=== PATIENT | male | born 1935 | race Caucasian/White ===

== ENCOUNTER 2016-12-04 17:39 | Inpatient (IN) ==
--- NOTE | 2016-12-04 17:56 | EKG Report ---
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
--- NOTE | 2016-12-04 18:32 | XRay Report ---
Portable chest Date: 12/04/2016 Clinical history: Dizziness, left arm pain Comparison: None Technique: Portable AP sitting chest Findings: The heart is minimally enlarged. Calcified granulomata/nodes. Small left pleural effusion with adjacent minimal parenchymal findings. Degenerative changes are noted with unremarkable mediastinum. Impression: Cardiomegaly. Small left pleural effusion with adjacent atelectasis/infiltration. Follow-up chest x-ray is recommended to document clearing. PROCEDURE INTERPRETED AT [facility] DEPARTMENT OF RADIOLOGY Final Report Signed by: Dr. Georgiana Muse
[2016-12-04 18:48] LABS: Basophils # 0.1 10*3/uL (0.0-0.2); Basophils % 1.2 % (0.0-0.8); Eosinophils # 0.3 10*3/uL (0.0-0.87); Eosinophils % 4.4 % (0.00-10.9); Hematocrit 41.3 VOL% (42.0-52.0); Hemoglobin 13.8 GM/DL (14.0-18.0); Immature Granulocytes % 0.7 %; Immature Granulocytes Absolute 0.05 #; Lymphocytes # 1.4 10*3/uL (1.4-4.0); Lymphocytes % 20.4 % (21.2-54.2); Mean Corpuscular HGB Conc 33.4 GM/DL (32-36); Mean Corpuscular Hemoglobin 34 PG (27-34); Mean Corpuscular Volume 102.5 FL (87-102); Mean Platelet Volume 10.2 FL (9.6-12.0); Monocytes # 0.6 10*3/uL (0.11-0.8); Monocytes % 8.7 % (1.7-12.7); Neutrophils # 4.4 10*3/uL (1.4-7.4); Neutrophils % 64.6 % (38.7-73.9); Platelet Count 247 T/CUMM (130-400); Red Blood Count 4.03 MC/CUMM (3.8-5.5); Red Cell Distribution Width 14.8 % (9.3-17.3); White Blood Count 6.8 T/CUMM (4-12)
[2016-12-04 18:59] LABS: INR 1.1; PT Patient Result 12.2 SECS; Partial Thromboplastin Time 40.5 SECS (0-40)
--- NOTE | 2016-12-04 19:03 | Emergency Department Note ---
IStella Hilary, am scribing for, and in the presence of, Manjeet Cohen MD 19:00. INoel Robert M, MD, personally performed the services described in this documentation, ascribed by Malorie Douglas in my presence, and it is both accurate and complete 902 . Arrival - Arrival Chief Complaint: Dizziness Stated Complaint: DIZZY/VISION/SWEATING/ARM PAIN ED Nursing Triage Note: pt to triage via wc with c/o having dizziness with unsteady gait. onset today around 1720. 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 c/o having left arm pain. nausea. Mode of Arrival: Wheelchair Limitations: No Limitations Source: Patient, Family (), RN Notes Reviewed - History of Present Illness HPI Narrative: Pt is a 81 y/o male brought into the ED with c/o dizziness which onset 1700 today. Pt states that he can't stand, the room is spinning and it worsens when he moves his head but he denies chest pain. Pts is in the room and reports giving him a sugar pill when he complained of dizziness. No other complaints or problems stated in the ED. Onset (ago): hour(s) Consistency: constant Severity: mild Severity scale (1-10): 1 Allergies/Adverse Reactions: Allergies Allergy/AdvReac Type Severity Reaction Status Date / Time levofloxacin [From Levaquin] Allergy Severe SHORTNESS Verified 12/04/16 17:48 OF BREATH,Unresponsive,Rash cephalexin [From Keflex] Allergy Intermediate hallucinati Verified 12/04/16 17: 48 ons,rash Sulfa (Sulfonamide Allergy Mild RASH Verified 12/04/16 17:48 Antibiotics) Home Medications: Home Medications Medication Instructions Recorded Confirmed Type Amiodarone HCl 200 mg PO DAILY 01/20/15 06/15/16 History Dabigatran [Pradaxa] 150 mg PO BID 01/20/15 06/15/16 History Furosemide Tab [Lasix Tab] 40 mg PO DAILY 01/20/15 06/15/16 History Levothyroxine Tab [Synthroid Tab] 100 mcg PO DAILY@0700 01/20/15 06/15/16 History Lisinopril/Hydrochlorothiazide 1 each PO DAILY 01/20/15 06/15/16 History [Lisinopril-Hctz 20-12.5 mg Tab] [place]ld[place]-3 Acid Ethyl Esters 1 gm PO DAILY 01/20/15 06/15/16 History Potassium Chloride 20 meq PO DAILY 01/20/15 06/15/16 History Ropinirole HCl [Requip] 5 mg PO BEDTIME 01/20/15 06/15/16 History dilTIAZem HCl [Diltiazem ER] 240 mg PO DAILY 01/20/15 06/15/16 History Aspirin EC Tab 81 mg PO DAILY 02/06/16 06/15/16 History Pravastatin [Pravachol] 40 mg PO DAILY 06/05/16 06/15/16 History Sitagliptin Phosphate [Januvia] 50 mg PO DAILY 06/15/16 06/15/16 History Review of System - Review of System 12 point system: reviewed and no additional remarkable complaints except as stated - Review of System Constitutional: Present: weakness, other (Dizziness). Absent: fever Cardiovascular: Absent: chest pain Neurological: Present: weakness, abnormal gait Medical,Surgical,& Family Hx - Medical History Cardio: History of: Cardiac Dysrhythmia (A-Fib history Dr. Trell MONREAL), CHF, Hypertension, PVD (Extreme Swelling), Cardiovascular Problems (Blood Clot Left Hbr-Slpzyos-Jx. Raju in [facility]) Neurology: No history of: Seizures HEENT: History of: Ear Problem (hearing aides bilateral), Eye Problem (glasses/ cataracts), HEENT Problems Comment Only: Glaucoma (Elevated Pressure) Endocrine: History of: Dyslipidemia, Thyroid Disorder Rheumatology: History of;: Gout Respiratory: History of: Obstructive Sleep Apnea (C-PAP), Respiratory Problems ( Pneum Vac 2016;Flu Vac 2016) Renal: History of: Renal Problems Genitourinary: History of: Kidney Stones, Prostate Problems (Prostate Ca- Surgery & Radiation -11/2006 Dr. Lemus), Recurring Urinary Tract Infections ( Controlled On medication) Gastrointestinal: History of: Gastrointestinal Bleed, Hemorrhoids No history of: Polyps (1999) Musculoskeletal: History of: Musculoskeletal Problems (Arthritis mild) Hematology: No history of: Anemia Other: History of: Anesthesia Reactions (Difficult with Intubating-Short Neck), Cancer (Prostate and Skin Ca) Comment Only: Anaphylaxis (Came Close with Levaquin) - Surgical History HEENT Surgeries: Surgical HX of: Eye Surgery (For Left Cataract 01/24/15 Dr. Glover) Abdominal Surgeries: Surgical HX of: Colonoscopy Reproductive Surgeries: Surgical HX of;: Genitourinary Surgery, Prostate Surgery (Prostatectomy 07/02/2002) Orthopedic Surgeries: Surgical HX of;: Orthopedic Surgery (RKS --2008 Clean Out Infection RT Knee Prosthesis), Total Knee Replacement (05/23/98 Right; 04/09/2011 Left) - Family History Family History: Reports;: Family Heart Disease (?) Denies;: Family Diabetes - Social History Smoking Status: Never smoker Frequency of Alcohol Use: None Type of Drug Use: None Exam Vital Signs: Vital Signs Temperature 97.9 F 12/04/16 19:01 Pulse Rate 50 L 12/04/16 19:13 Respiratory Rate 24 12/04/16 19:13 Blood Pressure 199/80 12/04/16 19:13 O2 Sat by Pulse Oximetry 96 12/04/16 18:58 - General General appearance: alert, in no apparent distress - Head Head exam: Present: atraumatic, normocephalic - Eye Eye exam: Present: normal appearance, PERRL, EOMI - ENT ENT exam: Present: mucous membranes moist, TM's normal bilaterally. Absent: mucous membranes dry - Neck Neck exam: Present: full ROM, trachea midline. Absent: tenderness - Chest Chest inspection: Present: symmetric chest wall rise. Absent: tenderness - Respiratory Respiratory exam: Present: normal lung sounds bilaterally. Absent: respiratory distress - Cardiovascular Cardiovascular exam: Present: regular rate, normal rhythm, normal heart sounds. Absent: murmur, rubs, gallop - Abdominal Exam Abdominal exam: Present: soft, normal bowel sounds. Absent: distention, tenderness - Extremities Exam Extremities exam: Present: full ROM, other (scaly rash on left arms). Absent: tenderness - Back Exam Back exam: Present: full ROM. Absent: tenderness - Neurological Exam Neurological exam: Present: alert, oriented X3, CN II-XII intact. Absent: motor sensory deficit - Psychiatric Psychiatric exam: Present: normal affect, normal mood - Skin Skin exam: Present: warm, dry, intact, normal color. Absent: rash Course - Reevaluation(s) Reevaluation #1: The CT was ordered at triage and performed and demonstrates no acute process other than normal chronic aging changes. Minimal left maxillary sinus disease may be present. For unknown reason it was canceled and it does not appear to have a formal interpretation. Time: 19:56 - Consultations Consultation #1: Dr. Gaby Rhodes will evaluate and admit the patient for Dr. Mcdonald. Time: 20:12 Results - Labs CBC & BMP: 12/04/16 18:39 12/04/16 18:39 Lab Results: I have reviewed the patients labs Labs: Lab Results WBC 6.8 T/CUMM (4-12) 12/04/16 18:39 RBC 4.03 MC/CUMM (3.8-5.5) 12/04/16 18:39 Hgb 13.8 GM/DL (14.0-18.0) L 12/04/16 18:39 Hct 41.3 VOL% (42.0-52.0) L 12/04/16 18:39 MCV 102.5 FL (87-102) H 12/04/16 18:39 MCH 34 PG (27-34) 12/04/16 18:39 MCHC 33.4 GM/DL (32-36) 12/04/16 18:39 RDW 14.8 % (9.3-17.3) 12/04/16 18:39 Plt Count 247 T/CUMM (130-400) 12/04/16 18:39 MPV 10.2 FL (9.6-12.0) 12/04/16 18:39 Neut % (Auto) 64.6 % (38.7-73.9) 12/04/16 18:39 Lymph % (Auto) 20.4 % (21.2-54.2) L 12/04/16 18:39 [place] % (Auto) 8.7 % (1.7-12.7) 12/04/16 18:39 Eos % (Auto) 4.4 % (0.00-10.9) 12/04/16 18:39 Baso % (Auto) 1.2 % (0.0-0.8) H 12/04/16 18:39 Neut # (Auto) 4.4 10*3/uL (1.4-7.4) 12/04/16 18:39 Lymph # (Auto) 1.4 10*3/uL (1.4-4.0) 12/04/16 18:39 [place] # (Auto) 0.6 10*3/uL (0.11-0.8) 12/04/16 18:39 Eos # (Auto) 0.3 10*3/uL (0.0-0.87) 12/04/16 18:39 Baso # (Auto) 0.1 10*3/uL (0.0-0.2) 12/04/16 18:39 Immature Gran % 0.7 % 12/04/16 18:39 Nucleated RBC % 0.0 /100WBC 12/04/16 18:39 Immature Gran # 0.05 # 12/04/16 18:39 Nucleated RBCs # 0.00 10*3/uL 12/04/16 18:39 INR 1.1 12/04/16 18:39 PT Patient/Control Mix 12.2 SECS 12/04/16 18:39 Circ Anticoag PTT 40.5 SECS (0-40) H 12/04/16 18:39 Sodium 141 MMOL/L (136-145) 12/04/16 18:39 Potassium 4.5 MMOL/L (3.5-5.1) 12/04/16 18:39 Chloride 104 MMOL/L (98-107) 12/04/16 18:39 Carbon Dioxide 33 MMOL/L (21-32) H 12/04/16 18:39 Anion Gap 8.5 MMOL/L (5.0-15.0) 12/04/16 18:39 BUN 21 MG/DL (7-18) H 12/04/16 18:39 Creatinine 1.30 MG/DL (0.70-1.30) 12/04/16 18:39 GFR Calculation 74 ML/MIN 12/04/16 18:39 BUN/Creatinine Ratio 16.00 RATIO (6.00-20.00) 12/04/16 18:39 Glucose 177 MG/DL (74-106) H 12/04/16 18:39 Calculated Osmolality 287.3 MOS/KG (273-304) 12/04/16 18:39 Calcium 9.5 MG/DL (8.5-10.1) 12/04/16 18:39 Total Bilirubin 0.40 MG/DL (0.2-1.0) 12/04/16 18:39 AST 18 U/L (0-37) 12/04/16 18:39 ALT 20 U/L (16-61) 12/04/16 18:39 Alkaline Phosphatase 103 U/L (45-117) 12/04/16 18:39 Total Creatine Kinase 59 U/L (39-308) 12/04/16 18:39 CK-MB (CK-2) < 1.0 NG/ML (0.5-3.6) 12/04/16 18:39 Troponin I < 0.015 NG/ML (0.00-0.045) 12/04/16 18:39 B-Natriuretic Peptide 143 PG/ML (2-100) H 12/04/16 18:39 Total Protein 7.2 G/DL (6.4-8.3) 12/04/16 18:39 Albumin 3.4 G/DL (3.4-5.0) 12/04/16 18:39 Globulin 3.8 G/DL (2.3-3.5) H 12/04/16 18:39 Albumin/Globulin Ratio 0.8 RATIO (1.1-2.2) L 12/04/16 18:39 - EKG EKG results: interpreted by ERMD (No acute ischemic changes.) - Diagnostic Findings Procedure: CT: image reviewed by me (No acute process.) Disposition Clinical Impression: Transient cerebral ischemia, Weakness Case discussed with: patient, patient's family Disposition: Disch To Home/Self Care Condition: Stable Time of Disposition: 20:12
[2016-12-04 19:23] LABS: Alanine Aminotransferase 20 U/L (16-61); Albumin 3.4 G/DL (3.4-5.0); Alkaline Phosphatase 103 U/L (45-117); Aspartate Amino Transferase 18 U/L (0-37); Blood Urea Nitrogen 21 MG/DL (7-18); Calcium 9.5 MG/DL (8.5-10.1); Glucose 177 MG/DL (74-106); Osmolality,Calculated 287.3 MOS/KG (273-304); Potassium 4.5 MMOL/L (3.5-5.1); Sodium 141 MMOL/L (136-145); Total Protein 7.2 G/DL (6.4-8.3); Troponin I Only < 0.015 NG/ML (0.00-0.045)
[2016-12-04] MEDS ORDERED: MECLIZINE 25 MG TABLET PO STA (19:57)
--- NOTE | 2016-12-04 20:04 | CT Report ---
Referring physician: Manjeet Cohen Exam: CT brain without contrast Date: 12/04/2016 Comparison: None Reason: Dizziness Technique: Axial images of the head were obtained without the use of contrast. Total DLP was 1053.40 mGy*cm. Findings: No hydrocephalus or midline shift is present. There is no evidence of an acute infarction, recent intracranial hemorrhage or abnormal mass effect. Diffuse atrophy and cerebral hypodensities. Arterial calcifications are noted. The osseous structures appear intact. The mastoid air cells are clear. Minimal mucosal thickening in the visualized paranasal sinuses. Impression: No acute intracranial abnormality is identified. Diffuse cerebral atrophy and minimal microvascular disease. Minimal sinusitis. The CT exam was performed using one or more of the following dose reduction techniques: Automated exposure control and adjustment of the mA and/or kV according to patient size. PROCEDURE INTERPRETED AT [facility] DEPARTMENT OF RADIOLOGY Final Report Signed by: Dr. Georgiana Muse
[2016-12-04] MEDS ORDERED: ONDANSETRON 4 MG/2 ML VIAL IV PRN (20:14)
[2016-12-04] MEDS ORDERED: ACETAMINOPHEN 325 MG TABLET PO PRN (20:14)
[2016-12-04] MEDS ORDERED: MECLIZINE 25 MG TABLET ONE (20:17)
[2016-12-04] MEDS ORDERED: cloNIDine 0.1 MG TABLET PO STA (20:53)
[2016-12-04] MEDS ORDERED: cloNIDine 0.1 MG TABLET ONE (20:56)
[2016-12-04] MEDS: DOCUSATE SODIUM 100 MG CAPSULE PO SCH (22:27)
[2016-12-05] MEDS ORDERED: rOPINIRole 1 MG TABLET PO SCH ×3 (01:30→21:00)
[2016-12-05] MEDS ORDERED: MIDAZOLAM 2 MG/2 ML VIAL ONE (07:10)
[2016-12-05] MEDS ORDERED: KETOCONAZOLE 2% CREAM 30 GM TUBE TOP PRN (08:38)
--- NOTE | 2016-12-05 08:46 | Internal Med History&Physical ---
Assessment and Plan (1) Transient cerebral ischemia Status: Acute Assessment and plan: 81-year-old male admitted to acute care * TIA. Etiology is not clear. Patient has no focal signs at this time. He could have had labyrinthitis versus TIA. Patient has history of chronic A. fib. Will get neurology input. Will check echocardiogram carotid ultrasound and MRI of brain. He is already on anticoagulation. * Diabetes. Blood sugars are stable * Hypertension. Continue current treatment. His blood pressure was high when he came to the ER * Peripheral vascular disease. Stable * Obstructive sleep apnea. 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 Patient is on anticoagulation * Discussed with patient and his Current Visit: Yes (2) Diabetes Status: Acute Current Visit: Yes (3) Hypertension Status: Acute Current Visit: Yes (4) Atrial fibrillation Status: Acute Current Visit: Yes (5) Restless leg syndrome Status: Acute Current Visit: Yes (6) Chronic a-fib Status: Acute Current Visit: Yes (7) Chronic anticoagulation Status: Acute Current Visit: Yes (8) Peripheral vascular disease Status: Acute Current Visit: Yes History of Present Illness Chief complaint: Dizziness and weakness associated with changes in vision History of present illness: Mr. Chavez is a 81 year old male with history of multiple medical problems including newly diagnosed diabetes, hypertension, hypothyroidism, peripheral vascular disease, chronic atrial fibrillation,, restless leg syndrome, obstructive sleep apnea and history of pulmonary embolism who presented to the emergency room complains of dizziness with unsteady gait. This started around 520 in the evening. He got really pale and started sweating. He also had left arm pain and associated nausea. He was unable to stand up. When he got up the room was spinning around. He complained of dizziness. He denied any headaches. Patient was evaluated with a CT head and was admitted. He had some pain in left arm but denied any chest pain. Patient had some blurred vision but denies any focal weakness. He did not have slurred speech. He did not have any fever. He denied any nausea vomiting or diarrhea. He had gone to Dr. Schwartz for some skin problems yesterday. He lives at home with his . He is a former smoker. Home Medications Medication Instructions Recorded Confirmed Type Amiodarone HCl 200 mg PO DAILY 01/20/15 12/05/16 History Dabigatran [Pradaxa] 150 mg PO BID 01/20/15 12/05/16 History Furosemide Tab [Lasix Tab] 40 mg PO DAILY 01/20/15 12/05/16 History Levothyroxine Tab [Synthroid Tab] 100 mcg PO DAILY@0700 01/20/15 12/05/16 History Lisinopril/Hydrochlorothiazide 1 each PO DAILY 01/20/15 12/05/16 History [Lisinopril-Hctz 20-12.5 mg Tab] [place]-3 Acid Ethyl Esters 1 gm PO DAILY 01/20/15 12/05/16 History Potassium Chloride 20 meq PO DAILY 01/20/15 12/05/16 History Ropinirole HCl [Requip] 5 mg PO BEDTIME 01/20/15 12/05/16 History dilTIAZem HCl [Diltiazem ER] 240 mg PO DAILY 01/20/15 12/05/16 History Aspirin EC Tab 81 mg PO DAILY 02/06/16 12/05/16 History Pravastatin [Pravachol] 40 mg PO DAILY 06/05/16 12/05/16 History Allopurinol [Zyloprim] 300 mg PO DIRECTED 12/05/16 12/05/16 History Calcium Carbonate/Vitamin D3 600 mg PO 12/05/16 History [Calcium 600 + Vit D Tablet] Ketoconazole [Ketoconazole 2% 1 applic TOP DIRECTED PRN 12/05/16 12/05/16 History Cream] Saxagliptin HCl [Onglyza] 2.5 mg PO DAILY 12/05/16 12/05/16 History Allergies Allergy/AdvReac Type Severity Reaction Status Date / Time levofloxacin [From Levaquin] Allergy Severe SHORTNESS Verified 12/04/16 17:48 OF BREATH,Unresponsive,Rash cephalexin [From Keflex] Allergy Intermediate hallucinati Verified 12/04/16 17: 48 ons,rash Sulfa (Sulfonamide Allergy Mild RASH Verified 12/04/16 17:48 Antibiotics) Medical,Surgical,& Family Hx - Medical History Cardio: History of: Cardiac Dysrhythmia (A-Fib history Dr. Trell MONREAL), CHF, Hypertension, PVD (Extreme Swelling), Cardiovascular Problems (Blood Clot Left Vhb-Uttssqc-Ds. Raju in [facility]) Neurology: No history of: Seizures HEENT: History of: Ear Problem (hearing aides bilateral), Eye Problem (glasses/ cataracts), HEENT Problems Comment Only: Glaucoma (Elevated Pressure) Endocrine: History of: Dyslipidemia, Thyroid Disorder Rheumatology: History of;: Gout Respiratory: History of: Obstructive Sleep Apnea (C-PAP), Respiratory Problems ( Pneum Vac 2015;Flu Vac 2015) Renal: History of: Renal Problems Genitourinary: History of: Kidney Stones, Prostate Problems (Prostate Ca- Surgery & Radiation Dr. Lemus), Recurring Urinary Tract Infections ( Controlled On medication) Gastrointestinal: History of: Gastrointestinal Bleed, Hemorrhoids No history of: Polyps (1999) Musculoskeletal: History of: Musculoskeletal Problems (Arthritis mild) Hematology: No history of: Anemia Other: History of: Anesthesia Reactions (Difficult with Intubating-Short Neck), Cancer (Prostate and Skin Ca) Comment Only: Anaphylaxis (Came Close with Levaquin) - Surgical History HEENT Surgeries: Surgical HX of: Eye Surgery (For Left Cataract 01/24/15 Dr. Glover) Abdominal Surgeries: Surgical HX of: Colonoscopy Reproductive Surgeries: Surgical HX of;: Genitourinary Surgery, Prostate Surgery (Prostatectomy 07/02/2002) Orthopedic Surgeries: Surgical HX of;: Orthopedic Surgery (RKS --2008 Clean Out Infection RT Knee Prosthesis), Total Knee Replacement (05/23/98 Right; 04/09/2011 Left) - Family History Family History: Reports;: Family Diabetes (BRO), Family Heart Disease (MOM,DAD) , Family Hypertension (BRO,SIS) Denies;: Family Anesthesia Reaction, Family Cancer, Family Hematology, Family Psychiatric Problems, Family Stroke, Additional Family History - Social History Smoking Status: Former smoker Frequency of Alcohol Use: None Type of Drug Use: None Marital Status: Lives With:: Spouse Functional capacity: independent ambulation 12 point system: reviewed and no additional remarkable complaints except as stated (As mentioned in HPI) Exam - Constitutional Vitals: Period Temp Pulse Resp BP Sys/Mitchell Pulse Ox Last 24 Hr 97.2 F-97.9 F 50-57 17-24 110-199/57-96 91-98 Exam: Examination: GENERAL: NAD. HEENT: PERRLA. EOMI. Mucous membranes are moist. NECK: Neck is supple. No JVD. No carotid bruit. No thyromegaly. CVS: Regular rate and rhythm. S1 and S2 are normal. RESPIRATORY: Lungs are clear. No rales or rhonchi. ABDOMEN: Soft and nontender. Bowel sounds are present. No hepatosplenomegaly. EXT: 3+ chronic edema. Peripheral pulses are present. 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 Cranial nerves II through XII are grossly intact. Motor strength is 5 over 5 both upper and lower extremities. Sensory is intact. Deep tendon reflexes are present but diminished. SKIN: Warm and dry. MSK: No obvious deformity. Results - Labs CBC & BMP: 12/04/16 18:39 12/04/16 18:39 Lab Results: I have reviewed the past 24 hour labs
[2016-12-05] MEDS ORDERED: sitaGLIPtin 100 MG TABLET PO SCH (09:00)
[2016-12-05] MEDS ORDERED: ALLOPURINOL 300 MG TABLET PO SCH (09:30)
--- NOTE | 2016-12-05 10:18 | XRay Report ---
XR chest 1V portable Indication: Pleural effusion Comparison: 04 December 2016 Findings: The heart and mediastinum are normal in size and configuration. The pulmonary vascularity is normal in caliber. No lung infiltrates, effusions, pneumothorax or other abnormality is demonstrated. Impression: No acute cardiopulmonary disease. PROCEDURE INTERPRETED AT [facility] DEPARTMENT OF RADIOLOGY Final Report Signed by: Dr. Roberto German
[2016-12-05] MEDS: OMEGA 3 ACID ETHYL ESTERS 1 GM CAPSULE PO SCH (10:57)
[2016-12-05] MEDS: PANTOPRAZOLE 40 MG TABLET PO SCH (10:59)
[2016-12-05] MEDS: ASPIRIN EC 81 MG TABLET PO SCH (10:59)
[2016-12-05] MEDS: LISINOPRIL/HCTZ 20-12.5 MG TABLET PO SCH (11:06)
[2016-12-05] MEDS: FUROSEMIDE 40 MG TABLET PO SCH (11:06)
[2016-12-05] MEDS: AMIODARONE 200 MG TABLET PO SCH (11:06)
[2016-12-05] MEDS: DOCUSATE SODIUM 100 MG CAPSULE PO SCH ×2 (11:06→21:31)
[2016-12-05] MEDS: DILTIAZEM CD 240 MG CAPSULE PO SCH (11:07)
[2016-12-05] MEDS: POTASSIUM CHLORIDE 20 MEQ TABLET PO SCH (11:07)
[2016-12-05] MEDS: DABIGATRAN 150 MG CAPSULE PO SCH ×2 (11:13→21:31)
[2016-12-05] MEDS: PRAVASTATIN 40 MG TABLET PO SCH (11:14)
[2016-12-05] MEDS: sitaGLIPtin 100 MG TABLET PO SCH (11:19)
--- NOTE | 2016-12-05 12:30 | Ultrasound Report ---
Carotid artery ultrasound Indication: Transient ischemic attack Comparison: None available Color Doppler flow and spectral analysis was performed. Findings: Small amount of atherosclerotic plaque with calcification is present in both proximal internal carotid arteries. Right peak systolic velocity: Right proximal Internal Carotid Artery is 116.8 cm/s. Ratio of flow is 1.0 Right distal Internal Carotid is 110.3 cm/s . Left peak systolic velocity: Left proximal Internal carotid Artery is 132.7 cm/s . Ratio of flow is 1.3 Left distal Internal carotid Artery is 158.7cm/s Bilateral antegrade vertebral flow is seen. Impression: No evidence of hemodynamically significant stenosis is seen, 0-49% estimated stenosis. Consensus conference on the carotid ultrasound criteria used. Ultrasound images were captured and stored. PROCEDURE INTERPRETED AT [facility] DEPARTMENT OF RADIOLOGY Final Report Signed by: Dr. Roberto German
--- NOTE | 2016-12-05 14:51 | Magnetic Resonance Report ---
MR head/brain wo con Indication: TIA. Comparison: CT head 12/04/2016. Technique: Using 1.5 Negra magnet, multisequence multiplanar MR imaging of the brain was performed without the administration of intravenous contrast. Findings: There is no evidence of restricted diffusion. There is no evidence of acute intracranial hemorrhage, mass, or infarction. Ventricular system demonstrates no evidence of acute pathology. Partially empty sella is present on the sagittal sequence. Scattered T2/FLAIR signal hyperintensities are noted bilaterally within the periventricular white matter as well as the bilateral centrum semiovale. These are most compatible with microvascular ischemic changes. The basal cisterns appear patent. The arterial flow voids appear intact. The posterior fossa as well as cerebellum demonstrate no evidence of acute pathology. Previous surgical repair of left lenticular cataract is demonstrated. The orbits and globes demonstrate no evidence of acute pathology. The paranasal sinuses and mastoid air cells demonstrate no evidence of significant mucoperiosteal thickening. The calvarium as well as the soft tissues overlying the calvarium demonstrate no evidence of acute pathology. Within the left parotid gland, there is a lobulated focus of intermediate to low T1 signal with corresponding increase signal on fluid sensitive sequences. This measures 11 x 16 mm. Impression: 1. There is no evidence of acute intracranial pathology. 2. 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 12/05/2016 2:45 PM PROCEDURE INTERPRETED AT [facility] DEPARTMENT OF RADIOLOGY Final Report Signed by: Dr. Burak Cohen
--- NOTE | 2016-12-05 15:53 | Neurology Consult Note ---
History of Present Illness History of present illness: Mr. Chavez is a 81 year old male with history of multiple medical problems including newly diagnosed diabetes, hypertension, hypothyroidism, peripheral vascular disease, chronic atrial fibrillation,, restless leg syndrome, obstructive sleep apnea and history of pulmonary embolism who presented to the emergency room complains of sudden onset of vertigo d and unsteady gait. This started around 520 in the evening. He got really pale and started sweating. Patient also had a history of left ulnar nerve reposition surgery at the elbow long time ago and ever since he had residual left arm numbness. Patient reported that this numbness has not gone away and it is associated with some element of pain as well. He had some nausea with no vomiting. He was unable to stand up. When he got up the room was spinning around him. Patient underwent CT of the head which was unremarkable. An MRI of the brain reveals no acute abnormalities. No speech difficulties no swallowing problems, weakness , vision difficulties. His symptoms had resolved completely. Home Medications Medication Instructions Recorded Confirmed Type Amiodarone HCl 200 mg PO DAILY 01/20/15 12/05/16 History Dabigatran [Pradaxa] 150 mg PO BID 01/20/15 12/05/16 History Furosemide Tab [Lasix Tab] 40 mg PO DAILY 01/20/15 12/05/16 History Levothyroxine Tab [Synthroid Tab] 100 mcg PO DAILY@0700 01/20/15 12/05/16 History Lisinopril/Hydrochlorothiazide 1 each PO DAILY 01/20/15 12/05/16 History [Lisinopril-Hctz 20-12.5 mg Tab] Dexter-3 Acid Ethyl Esters 1 gm PO DAILY 01/20/15 12/05/16 History Potassium Chloride 20 meq PO DAILY 01/20/15 12/05/16 History Ropinirole HCl [Requip] 5 mg PO BEDTIME 01/20/15 12/05/16 History dilTIAZem HCl [Diltiazem ER] 240 mg PO DAILY 01/20/15 12/05/16 History Aspirin EC Tab 81 mg PO DAILY 02/06/16 12/05/16 History Pravastatin [Pravachol] 40 mg PO DAILY 06/05/16 12/05/16 History Allopurinol [Zyloprim] 300 mg PO MOWEFR 12/05/16 12/05/16 History Calcium Carbonate 600 mg PO DAILY 12/05/16 12/05/16 History Cholecalciferol [Vitamin D3] 1,000 unit PO DAILY 12/05/16 12/05/16 History Ketoconazole [Ketoconazole 2% 1 applic TOP DIRECTED PRN 12/05/16 12/05/16 History Cream] Saxagliptin HCl [Onglyza] 2.5 mg PO DAILY 12/05/16 12/05/16 History Allergies Allergy/AdvReac Type Severity Reaction Status Date / Time levofloxacin [From Levaquin] Allergy Severe SHORTNESS Verified 12/04/16 17:48 OF BREATH,Unresponsive,Rash cephalexin [From Keflex] Allergy Intermediate hallucinati Verified 12/04/16 17: 48 ons,rash Sulfa (Sulfonamide Allergy Mild RASH Verified 12/04/16 17:48 Antibiotics) 12 point system: reviewed and no additional remarkable complaints except as stated Medical,Surgical,& Family Hx - Medical History Cardio: History of: Cardiac Dysrhythmia (A-Fib history Dr. Trell MONREAL), CHF, Hypertension, PVD (Extreme Swelling), Cardiovascular Problems (Blood Clot Left Tgd-[id number]-Ng. Raju in [facility]) Neurology: No history of: Seizures HEENT: History of: Ear Problem (hearing aides bilateral), Eye Problem (glasses/ cataracts), HEENT Problems Comment Only: Glaucoma (Elevated Pressure) Endocrine: History of: Dyslipidemia, Thyroid Disorder Rheumatology: History of;: Gout Respiratory: History of: Obstructive Sleep Apnea (C-PAP), Respiratory Problems ( Pneum Vac 2016;Flu Vac 2015) Renal: History of: Renal Problems Genitourinary: History of: Kidney Stones, Prostate Problems (Prostate Ca- Surgery & Radiation Dr. Lemus), Recurring Urinary Tract Infections ( Controlled On medication) Gastrointestinal: History of: Gastrointestinal Bleed, Hemorrhoids No history of: Polyps (1999) Musculoskeletal: History of: Musculoskeletal Problems (Arthritis mild) Hematology: No history of: Anemia Other: History of: Anesthesia Reactions (Difficult with Intubating-Short Neck), Cancer (Prostate and Skin Ca) Comment Only: Anaphylaxis (Came Close with Levaquin) - Surgical History HEENT Surgeries: Surgical HX of: Eye Surgery (For Left Cataract 01/24/15 Dr. Glover) Abdominal Surgeries: Surgical HX of: Colonoscopy Reproductive Surgeries: Surgical HX of;: Genitourinary Surgery, Prostate Surgery (Prostatectomy 07/02/2002) Orthopedic Surgeries: Surgical HX of;: Orthopedic Surgery (RKS - Clean Out Infection RT Knee Prosthesis), Total Knee Replacement (05/23/98 Right; 04/09/2011 Left) - Family History Family History: Reports;: Family Diabetes (BRO), Family Heart Disease (MOM,DAD) , Family Hypertension (BRO,SIS) Denies;: Family Anesthesia Reaction, Family Cancer, Family Hematology, Family Psychiatric Problems, Family Stroke, Additional Family History - Social History Smoking Status: Former smoker Frequency of Alcohol Use: None Type of Drug Use: None Exam - Constitutional Vitals: Period Temp Pulse Resp BP Sys/Mitchell Pulse Ox Last 24 Hr 97.2 F-97.9 F 50-72 17-24 110-199/57-96 91-98 Exam: GENERAL: Patient is in no acute distress. NECK: Neck is supple. There is no JVD. No carotid bruits present. No thyroid masses. CVS: First and second heart sounds are normal. There is no S3 present. Regular rate and rhythm. RESPIRATORY: Lungs are clear to auscultation without any rales or rhonchi. ABDOMEN: Soft and non-tender. Bowel sounds are present. There is no hepatosplenomegaly. EXT: There is 4+ palpable edema. Peripheral pulses are present. Skin: No rashes Central Nervous system: General: Alert, awake and Oriented x 3 Speech: Fluent Comprehension: Intact and normal Facial expressions: Normal Cranial Nerves: CN1/Olfactory: Normal CN II/ Optic: Normal, Visual Jones unreliable CN III, and : SERENITY & EOMI CN V: Normal & intact CN VII: face is symmetric CNVIII: Normal CN XI/X/XI/XII: Intact and Normal Motor: Bilateral FDI and intrinsic hand muscles atrial Strength in the right 4/5 Strength in the left 4/5 Sensory: Decreased for all the modalities of PP, LT and temp sense Reflexes: 1+ and symmetrical Cerebellar function: Normal finger to nose and heel to begum testing. Toes: Equivocal Gait: Broad-based gait Results - Labs CBC & BMP: 12/04/16 18:39 12/04/16 18:39 Assessment and Plan (1) Vestibular neuronitis Status: Acute Assessment and plan: No evidence of a stroke, TIAs, epilepsy or seizures. This is most likely vestibular neuritis. Discussed at length with the patient and his regarding the disease process , treatment options and prognosis. Recommend Antivert 25 mg 3 times daily as needed. Would not recommend steroids because of brittle diabetes and diabetes complications Navid's maneuver/treatment as an outpatient might be helpful Current Visit: Yes (2) Neuropathic pain of finger of left hand Status: Acute Assessment and plan: Add Neurontin 300 mg p.o. at bedtime Thank you for the consult Should be able to go home in the morning Current Visit: Yes
[2016-12-05] MEDS ORDERED: MECLIZINE 25 MG TABLET PO PRN (15:58)
--- NOTE | 2016-12-05 17:02 | ECHO Report ---
Katrin Chavez 12/05/2016 Exam Date: 15:46 Referring Physician: gricelda Norman Technologist: STEFFANY LEE Age: 81 Ht (in): 70 Wt (lb): 303 MExam Location: [facility] Gender: Echo [id number]: Essential (primary) hypertension, AtIndications:rial fibrillation, Diabetes, PVD, Transient cerebral ischemia, Restless leg syndrome, Chronic anticoagulation BP: 150 / 72 HR: 60 SinusRhythm: Technical Quality: IMPRESSIONS Left ventricular ejection fraction is estimated at 60 %. Diastolic parameters are most consistent with grade 2 diastolic dysfunction. There is no regional wall motion abnormality. Tricuspid regurgitation velocities suggest a RVSP of 24 mmHg. Biatrial enlargement Mild aortic stenosis, senescent with mean gradient of 14 mmHg and a aortic valve area estimated 1.6 cm MEASUREMENTS (Male / Female) Normal Values 2D ECHO LV Diastolic Diameter PLAX 5.0 cm 4.2 - 5.9 / 3.9 - 5.3 cm LV Systolic Diameter PLAX 3.3 cm LV Fractional Shortening PLAX 33.9 % IVS Diastolic Thickness 1.1 cm 0.6 - 1.0 / 0.6 - 0.9 cm LVPW Diastolic Thickness 1.2 cm 0.6 - 1.0 / 0.6 - 0.9 cm RV Internal Dim ED PLAX 3.9 cm Aortic Root Diameter 4.2 cm LA Systolic Diameter LX 5.3 cm 3.0 - 4.0 / 2.7 - 3.8 cm DOPPLER TR Peak Velocity 243.0 cm/s TR Peak Gradient 23.6 mmHg FINDINGS Left Ventricle Normal left ventricular cavity size. Mild left ventricular hypertrophy. Left ventricular ejection fraction is estimated at 60 %. Diastolic parameters are most consistent with grade 2 diastolic dysfunction. There is no regional wall motion abnormality. Right Ventricle The right ventricle is normal in size and function. Right Atrium Mild atrial enlargement in apical view (elongated RA). Left Atrium Mild atrial enlargement in apical view (elongated LA). Mitral Valve Mildly thickened mitral valve. Mild mitral valve regurgitation. Aortic Valve Mild aortic valve calcification. Mean gradient 14 mmHg, PASTORA 1.6 cm. No aortic valve regurgitation. Maximum velocity across the valve is 2.63 m/s with a VTI of 61.6 and mean gradient of 14. The LVOT VTI is 31.7 with a maximum velocity 1.18 cm. This appears to be senescent mitral stenosis with calcified valve leaflets Tricuspid Valve Morphologically normal tricuspid valve. Mild tricuspid valve regurgitation. Tricuspid regurgitation velocities suggest a RVSP of 24 mmHg. Pulmonic Valve Morphologically normal pulmonic valve without significant stenosis. There is no pulmonic regurgitation. Pericardium Normal pericardium without effusion. Aorta Normal ascending aorta dimension. Maribel Weller (Electronically Signed) 05 December 2016 Final Date: 17:01
[2016-12-05] MEDS ORDERED: GABAPENTIN 300 MG CAPSULE PO SCH (21:00)
[2016-12-06 03:33] LABS: Apearance,Urine CLEAR (Clear); Bilirubin,Urine Negative (Negative); Blood, Urine Small mg/dL (Negative); Glucose,Urine (UA) Negative (Negative); Hyaline Casts,Urine 1 /LPF (0-3); Ketones,Urine Negative (Negative); Nitrite,Urine Negative (Negative); Protein,Urine 30 MG/DL; RBC,Urine 2 /HPF (0-4); Squamous Epithelial Cell,Urine Occasional /HPF (0-10); Urine Color Straw (Yellow); Urine Specific Gravity 1.009 (1.001-1.035); Urine Urobilinogen < 2.0 EU/DL (0.2-1.0); WBC,Urine <1 /HPF (0-6)
[2016-12-06 07:00] LABS: Basophils # 0.1 10*3/uL (0.0-0.2); Basophils % 0.9 % (0.0-0.8); Eosinophils # 0.4 10*3/uL (0.0-0.87); Eosinophils % 6.5 % (0.00-10.9); Hemoglobin 12.8 GM/DL (14.0-18.0); Immature Granulocytes % 0.9 %; Immature Granulocytes Absolute 0.06 #; Lymphocytes # 1.5 10*3/uL (1.4-4.0); Lymphocytes % 23.5 % (21.2-54.2); Mean Corpuscular HGB Conc 32.8 GM/DL (32-36); Mean Corpuscular Hemoglobin 34 PG (27-34); Mean Corpuscular Volume 103.4 FL (87-102); Mean Platelet Volume 10.7 FL (9.6-12.0); Monocytes # 0.7 10*3/uL (0.11-0.8); Neutrophils # 3.6 10*3/uL (1.4-7.4); Neutrophils % 57.2 % (38.7-73.9); Platelet Count 244 T/CUMM (130-400); Red Blood Count 3.77 MC/CUMM (3.8-5.5); Red Cell Distribution Width 14.9 % (9.3-17.3); White Blood Count 6.4 T/CUMM (4-12)
[2016-12-06] MEDS ORDERED: LEVOTHYROXINE 100 MCG TABLET PO SCH (07:00)
[2016-12-06 07:27] LABS: Calcium 8.6 MG/DL (8.5-10.1); Potassium 4.3 MMOL/L (3.5-5.1)
[2016-12-06 07:39] VITALS: BP 132/65
--- NOTE | 2016-12-06 07:45 | Discharge Summary ---
Hospital Course - Hospital Course Hospital Course: 81-year-old male with history of diabetes, hypertension, hypothyroidism, peripheral vascular disease, chronic A. fib, restless leg syndrome, obstructive sleep apnea and history of pulmonary embolism who was admitted through the emergency room with sudden onset of vertigo and unsteady gait. Patient was evaluated with echocardiogram, carotid ultrasound and MRI of brain. He was no evidence of any stroke or TIA. It was felt that patient might have had vestibular neuritis. He was started on Antivert 3 times a day as needed. He was also given instructions on vestibular exercises. He was having some neuropathic pain in the left hand and was started on Neurontin 300 mg daily. Patient is ready for discharge home. He feels much better. His medications on discharge are listed. He will see me in office on his next scheduled appointment in mid December. Diagnosis - Discharge Diagnosis (1) Transient cerebral ischemia Status: Acute (2) Diabetes Status: Acute (3) Hypertension Status: Acute (4) Atrial fibrillation Status: Acute (5) Restless leg syndrome Status: Acute (6) Chronic a-fib Status: Acute (7) Chronic anticoagulation Status: Acute (8) Peripheral vascular disease Status: Acute Discharge Plan - Discharge Data Disposition: Disch To Home/Self Care Condition at Discharge: Stable Discharge Diet: advance to your usual diet Activity: resume usual activities as tolerated - Discharge Medications New Gabapentin Cap/Tab [Neurontin Cap/Tab] 300 mg PO BEDTIME #30 capsule Meclizine [Antivert] 25 mg PO TID PRN #30 tablet PRN Reason: Dizziness Continue Ropinirole HCl [Requip] 5 mg PO DAILY@1700 Levothyroxine Tab [Synthroid Tab] 100 mcg PO DAILY@0700 Zirconia-3 Acid Ethyl Esters 1 gm PO DAILY Dabigatran [Pradaxa] 150 mg PO BID Potassium Chloride 20 meq PO DAILY Furosemide Tab [Lasix Tab] 40 mg PO DAILY dilTIAZem HCl [Diltiazem 24Hr ER] 240 mg PO DAILY Amiodarone HCl 200 mg PO DAILY Lisinopril/Hydrochlorothiazide [Lisinopril-Hctz 20-12.5 mg Tab] 1 each PO DAILY Aspirin EC Tab 81 mg PO DAILY Allopurinol [Zyloprim] 300 mg PO MOWEFR Ketoconazole [Ketoconazole 2% Cream] 1 applic TOP DIRECTED PRN PRN Reason: Rash Pravastatin [Pravachol] 40 mg PO DAILY Saxagliptin HCl [Onglyza] 2.5 mg PO DAILY Cholecalciferol [Vitamin D3] 1,000 unit PO DAILY Calcium Carbonate 600 mg PO DAILY - Follow Up or Referral - Forms/Instructions Additional Discharge Instructions: Keep the appointment as scheduled for december. Call in new medications on discharge Exam - Constitutional Vitals: Period Temp Pulse Resp BP Sys/Mitchell Pulse Ox Last 24 Hr 97.5 F-98.2 F 51-72 17-22 132-162/65-77 93-98 Exam: Examination: GENERAL: NAD. NECK: Neck is supple. CVS: Regular rate and rhythm. S1 and S2 are normal. RESPIRATORY: Lungs are clear. No rales or rhonchi. ABDOMEN: Soft and nontender. EXT: 3+ chronic edema. Peripheral pulses are present. [employer]PER[employer]OR [employer] SHOP: Nonfocal MSK: No obvious deformity. Discharge Results Labs on day of discharge: Labs from last 24 hours 12/06/16 12/06/16 12/06/16 06:41 05:44 05:44 WBC 6.4 RBC 3.77 L Hgb 12.8 L Hct 39.0 L MCV 103.4 H MCH 34 MCHC 32.8 RDW 14.9 Plt Count 244 MPV 10.7 Neut % (Auto) 57.2 Lymph % (Auto) 23.5 [place] % (Auto) 11.0 Eos % (Auto) 6.5 Baso % (Auto) 0.9 H Neut # (Auto) 3.6 Lymph # (Auto) 1.5 [place] # (Auto) 0.7 Eos # (Auto) 0.4 Baso # (Auto) 0.1 Immature Gran % 0.9 Nucleated RBC % 0.0 Immature Gran # 0.06 Nucleated RBCs # 0.00 Sodium 143 Potassium 4.3 Chloride 103 Carbon Dioxide 34 H Anion Gap 10.3 BUN 25 H Creatinine 1.60 H GFR Calculation 58 BUN/Creatinine Ratio 15.00 Glucose 145 H POC Glucose 137 H Calculated Osmolality 291.0 Calcium 8.6 Urine Color Urine Appearance Urine pH Ur Specific [place] Urine Protein Urine Glucose (UA) Urine Ketones Urine Blood Urine Nitrate Urine Bilirubin Urine Urobilinogen Urine Leukocytes Urine RBC Urine WBC Ur Squamous Epith Cells Hyaline Casts Ur Culture Indicated? 12/05/16 12/05/16 12/05/16 20:35 17:06 06:58 WBC RBC Hgb Hct MCV MCH MCHC RDW Plt Count MPV Neut % (Auto) Lymph % (Auto) [place] % (Auto) Eos % (Auto) Baso % (Auto) Neut # (Auto) Lymph # (Auto) [place] # (Auto) Eos # (Auto) Baso # (Auto) Immature Gran % Nucleated RBC % Immature Gran # Nucleated RBCs # Sodium Potassium Chloride Carbon Dioxide Anion Gap BUN Creatinine GFR Calculation BUN/Creatinine Ratio Glucose POC Glucose 178 H 167 H Calculated Osmolality Calcium Urine Color Straw Urine Appearance Clear Urine pH 5.0 Ur Specific [place] 1.009 Urine Protein 30 Urine Glucose (UA) Negative Urine Ketones Negative Urine Blood Small Urine Nitrate Negative Urine Bilirubin Negative Urine Urobilinogen < 2.0 H Urine Leukocytes Negative Urine RBC 2 Urine WBC <1 Ur Squamous Epith Cells Occasional Hyaline Casts 1 Ur Culture Indicated? Not indicated 12/04/16 18:04 WBC RBC Hgb Hct MCV MCH MCHC RDW Plt Count MPV Neut % (Auto) Lymph % (Auto) [place] % (Auto) Eos % (Auto) Baso % (Auto) Neut # (Auto) Lymph # (Auto) [place] # (Auto) Eos # (Auto) Baso # (Auto) Immature Gran % Nucleated RBC % Immature Gran # Nucleated RBCs # Sodium Potassium Chloride Carbon Dioxide Anion Gap BUN Creatinine GFR Calculation BUN/Creatinine Ratio Glucose POC Glucose 185 H Calculated Osmolality Calcium Urine Color Urine Appearance Urine pH Ur Specific [place] Urine Protein Urine Glucose (UA) Urine Ketones Urine Blood Urine Nitrate Urine Bilirubin Urine Urobilinogen Urine Leukocytes Urine RBC Urine WBC Ur Squamous Epith Cells Hyaline Casts Ur Culture Indicated? DS: Provider Date of admission: 12/04/16 20:17 Primary care physician: Avery Mcdonald MD Attending physician on admission: Avery Mcdonald MD Consults: 12/04/16 20:14 Consult to Case Mgmt/Social Srvs [CONS] Routine Reason for Case Mgmt/Social Srvs: Discharge Planning 12/04/16 20:16 Consult to Physician [CONS] Routine Comment: dizziness Consulting Provider: Kirit Lafleur Person Notified: pancho Date Notified: 12/05/16 Time Notified: 08:41 12/05/16 08:52 Consult to Physician [CONS] Routine Comment: tia Consulting Provider: Kirit Lafleur 12/05/16 08:55 Consult to Physical Therapy [CONS] Routine Reason for Physical Therapy: Evaluate and Treat 12/05/16 08:56 Consult to Occupational Therapy [CONS] Routine Reason for Occupational Therapy: Evaluate and Treat Discharging clinician: Avery Mcdonald MD
[2016-12-06] MEDS: LISINOPRIL/HCTZ 20-12.5 MG TABLET PO SCH (08:51)
[2016-12-06] MEDS: DOCUSATE SODIUM 100 MG CAPSULE PO SCH (08:51)
[2016-12-06] MEDS: DABIGATRAN 150 MG CAPSULE PO SCH (08:51)
[2016-12-06] MEDS: OMEGA 3 ACID ETHYL ESTERS 1 GM CAPSULE PO SCH (08:51)
[2016-12-06] MEDS: DILTIAZEM CD 240 MG CAPSULE PO SCH (08:52)
[2016-12-06] MEDS: FUROSEMIDE 40 MG TABLET PO SCH (08:52)
[2016-12-06] MEDS: PRAVASTATIN 40 MG TABLET PO SCH (08:52)
[2016-12-06] MEDS: sitaGLIPtin 100 MG TABLET PO SCH (08:52)
[2016-12-06] MEDS: PANTOPRAZOLE 40 MG TABLET PO SCH (08:59)
[2016-12-06] MEDS: POTASSIUM CHLORIDE 20 MEQ TABLET PO SCH (08:59)
[2016-12-06] MEDS: ASPIRIN EC 81 MG TABLET PO SCH (09:01)
[2016-12-06] MEDS: AMIODARONE 200 MG TABLET PO SCH (09:01)
--- NOTE | 2016-12-10 12:44 | Physician Query Form ---
CLICK EDIT DOCUMENT TO SELECT QUERY ANSWER --> OK --> SIGN Oneyda Cohen RN, CCDS Certified Clinical Street Engineer W) [phone] (f) [phone] [email or web address] PROVIDERS: Make your selection(s) from the choices in EACH section by typing an "x" and enter comments in the comment section. Please use your independent medical judgment in providing your response. This request does not imply that any particular answer is desired or expected. CLINICAL INDICATORS: (Providers should not edit this section) Height: Height 70 " Weight: Weight 303# Director Of Academic Support BMI: 43.4 # Fruit Dumper Notes: Director Of Academic Support Recommendations: The medical record indicates that the patient was admitted with "Vestibular Neuritis", GUILLERMINA (C-pap), BMI of 43.4, Height of 70" and Wt. of 303 pounds. If applicable, please provide an associated diagnosis related to the abnormal BMI: BMI of 40 or greater: ( ) Overweight ( ) Obesity (x ) Morbid//Severe Obesity ( ) Obesity with Alveolar Hypoventilation ( ) Weight Gain ( ) BMI is not significant ( ) Other, please specify: ( ) Clinically unable to determine COMMENTS: PLEASE ALSO DOCUMENT RESPONSE IN PROGRESS NOTES AND/OR DISCHARGE SUMMARY Use of terms such as suspected, likely, or probable (associated with a specific diagnosis that is being evaluated, monitored, or treated as if it exists) are acceptable and can be restated in the discharge summary if not ruled out. MTDD
== END 2016-12-06 11:00 | disposition home or self-care (01) | DRG 149 ==
LOC: N.ED 17:39 → N.EDINP 20:17 → N.2E 20:58
PROVIDERS: ADMIT Internal Medicine; ATTEND Internal Medicine

== ENCOUNTER 2017-02-12 09:28 | Inpatient (IN) ==
--- NOTE | 2017-02-12 09:50 | Order Completion Report ---
See report scanned to EMR
--- NOTE | 2017-02-12 09:57 | Emergency Department Note ---
Jennifer Howard Gwan, am scribing for, and in the presence of, Omari Ortiz MD 09:52 . Diana Howard James D, MD, personally performed the services described in this documentation, ascribed by Liam Rodriguez in my presence, and it is both accurate and complete 953 . Arrival - Arrival Chief Complaint: Shortness of Breath Stated Complaint: shortness of breath,temp,jerking,spasms ED Nursing Triage Note: GENERALIZED BODY ACHES AND CHILLS ONSET LAST NIGHT, FEVER 101.4, [place] [employer], NONPRODUCTIVE COUGH, HX OF CHF, STATES HE CHRONICALLY SOB PT HAS GOTTEN WORSE SINCE FEVER STARTED. DENIES CP Mode of Arrival: Wheelchair Limitations: No Limitations Source: Patient, Old Records Reviewed, RN Notes Reviewed Time Seen by Provider: 02/12/17 09:41 - History of Present Illness HPI Narrative: Patient is a 81 y/o male, with a hx of CHF, who presents to the ED with a c/o generalized body aches, SOB, chills, fever and nonproductive cough with an onset last night. At time of traige, pt's temperature was 99.9. Patient stated that his fever had an onset late yesterday evening and since onset of fever, his sxs have worsened prompting his visit to the ED for further evaluation. Patient is followed by Dr. Mcdonald and stated that he was present in office yesterday for blood work. Patient confirmed that he is on blood thinner and that his SOB is chronic. He denies being compliant with any prescribed medications this morning or having any chest pain. No other problems/complaints reported in ED. Onset (ago): day(s) Consistency: constant Severity: moderate Allergies/Adverse Reactions: Allergies Allergy/AdvReac Type Severity Reaction Status Date / Time levofloxacin [From Levaquin] Allergy Severe SHORTNESS Verified 02/12/17 09:36 OF BREATH,Unresponsive,Rash cephalexin [From Keflex] Allergy Intermediate hallucinati Verified 02/12/17 09: 36 ons,rash adhesive tape Allergy Mild RASH Verified 02/12/17 09:36 Sulfa (Sulfonamide Allergy Mild RASH Verified 02/12/17 09:36 Antibiotics) Home Medications: Home Medications Medication Instructions Recorded Confirmed Type Dabigatran [Pradaxa] 150 mg PO BID 01/20/15 02/12/17 History Levothyroxine Tab [Synthroid Tab] 100 mcg PO DAILY@0700 01/20/15 02/12/17 History [place]-3 Acid Ethyl Esters 1 gm PO QPM 01/20/15 02/12/17 History Potassium Chloride 20 meq PO QAM 01/20/15 02/12/17 History Ropinirole HCl [Requip] 5 mg PO DAILY@1700 01/20/15 02/12/17 History dilTIAZem HCl [Diltiazem 24Hr ER] 240 mg PO QAM 01/20/15 02/12/17 History Aspirin EC Tab 81 mg PO QAM 02/06/16 02/12/17 History Pravastatin [Pravachol] 40 mg PO QPM 06/05/16 02/12/17 History Allopurinol [Zyloprim] 300 mg PO MOWEFR 12/05/16 02/12/17 History Calcium Carbonate 600 mg PO QAM 12/05/16 02/12/17 History Cholecalciferol [Vitamin D3] 1,000 unit PO QPM 12/05/16 02/12/17 History Saxagliptin HCl [Onglyza] 2.5 mg PO QAM 12/05/16 02/12/17 History Cyanocobalamin Tab [Vitamin B12 1,000 mcg PO QAM 12/19/16 02/12/17 History Tab] Amiodarone HCl 100 mg PO QAM 02/12/17 02/12/17 History Carbidopa/Levodopa 1 each PO BEDTIME 02/12/17 02/12/17 History [Carbidopa-Levodopa 25-100 Tab] Eplerenone [Eplerenone] 25 mg PO QAM 02/12/17 02/12/17 History Lisinopril [Lisinopril] 10 mg PO QPM 02/12/17 02/12/17 History Lisinopril [Zestril] 25 mg PO QAM 02/12/17 02/12/17 History Torsemide Tab [Demadex Tab] 20 mg PO BID@0600,1200 02/12/17 02/12/17 History Review of System - Review of System 12 point system: reviewed and no additional remarkable complaints except as stated - Review of System Constitutional: Present: as per HPI, chills, fever Respiratory: Present: as per HPI, cough, other (congestion) Gastrointestinal: Absent: abdominal pain, nausea, vomiting, diarrhea Medical,Surgical,& Family Hx - Medical History Cardio: History of: Cardiac Dysrhythmia (A-Fib history Dr. Trell MONREAL), CHF, Hypertension, PVD (Extreme Swelling), Cardiovascular Problems (Blood Clot Left [id number]-Pr. Raju in [facility]) Neurology: No history of: Seizures HEENT: History of: Ear Problem (hearing aides bilateral), Eye Problem (glasses/ cataracts), HEENT Problems Comment Only: Glaucoma (Elevated Pressure) Endocrine: History of: Dyslipidemia, Thyroid Disorder Rheumatology: History of;: Gout Respiratory: History of: Obstructive Sleep Apnea (C-PAP), Respiratory Problems ( Pneum Vac 2015;Flu Vac 2015) Renal: History of: Renal Problems Genitourinary: History of: Kidney Stones, Prostate Problems (Prostate Ca- Surgery & Radiation Dr. Lemus), Recurring Urinary Tract Infections ( Controlled On medication) Gastrointestinal: History of: Gastrointestinal Bleed, Hemorrhoids No history of: Polyps (1999) Musculoskeletal: History of: Musculoskeletal Problems (Arthritis mild) Hematology: No history of: Anemia Other: History of: Anesthesia Reactions (Difficult with Intubating-Short Neck), Cancer (Prostate and Skin Ca) Comment Only: Anaphylaxis (Came Close with Levaquin) - Surgical History HEENT Surgeries: Surgical HX of: Eye Surgery (For Left Cataract 01/24/15 Dr. Glover) Abdominal Surgeries: Surgical HX of: Colonoscopy Reproductive Surgeries: Surgical HX of;: Genitourinary Surgery, Prostate Surgery (Prostatectomy 07/02/2002) Orthopedic Surgeries: Surgical HX of;: Orthopedic Surgery (RKS --2008 Clean Out Infection RT Knee Prosthesis), Total Knee Replacement (05/23/98 Right; 04/09/2011 Left) - Family History Family History: Reports;: Family Diabetes (BRO), Family Heart Disease (MOM,DAD) , Family Hypertension (BRO,SIS) Denies;: Family Anesthesia Reaction, Family Cancer, Family Psychiatric Problems, Family Stroke - Social History Smoking Status: Smoker, status unknown Exam Physical Examination: GENERAL: This is an obese white male in no apparent distress. VITAL SIGNS: HEENT: Head is normocephalic and atraumatic. Pupils are equally round and reactive to light. Extraocular movement are intact. Oropharynx is benign with moist mucous membranes. NECK: Neck is soft and supple without tenderness. There are no masses. There is no lymphadenopathy. LUNGS: Rhonchi are present in the left base. Chest rises symmetrically. There is no chest wall tenderness. CV: Heart is regular rate and rhythm with 2/6 systolic ejection murmur loudest at the left sternal border. ABDOMEN: Abdomen is soft, non-tender to palpation. There are no abnormal masses palpated. There is no organomegaly. Bowel sounds are present and active. SKIN: Skin is warm and dry. No rash. EXTREMITIES: Patient has full range of motion without tenderness. There is 3+ pitting pedal edema. NEUROLOGIC: Awake, alert, and oriented x4. Cranial nerves II through XII are grossly intact. There are no motorsensory deficits. PSYCHIATRIC: Normal affect. Normal mood. Vital Signs: Vital Signs Temperature 99.9 F H 02/12/17 10:01 Pulse Rate 69 02/12/17 10:30 Respiratory Rate 20 02/12/17 10:01 Blood Pressure 167/56 02/12/17 10:01 O2 Sat by Pulse Oximetry 99 02/12/17 10:30 Results - Labs CBC & BMP: 02/12/17 09:42 02/12/17 09:42 Lab Results: I have reviewed the patients labs Labs: Laboratory Tests 02/12/17 09:42 Troponin I 0.058 H - EKG EKG results: interpreted by ERMD - Impressions EKG: Normal sinus rhythm with first-degree AV block, right bundle branch block, left posterior fascicular block. Rate 69 - Diagnostic Findings Procedure: Chest x-ray: image reviewed by me (Cardiomegaly, increased pulmonary markings bilaterally.) Disposition Clinical Impression: Fever, Congestive heart failure, Diabetes mellitus, Renal failure Case discussed with: patient Disposition: Still a Patient Condition: Stable
[2017-02-12 10:04] LABS: Basophils # 0.1 10*3/uL (0.0-0.2); Basophils % 0.4 % (0.0-0.8); Eosinophils # 0.2 10*3/uL (0.0-0.87); Eosinophils % 1.3 % (0.00-10.9); Hematocrit 33.6 VOL% (42.0-52.0); Hemoglobin 10.6 GM/DL (14.0-18.0); Immature Granulocytes % 0.5 %; Immature Granulocytes Absolute 0.06 #; Lymphocytes # 0.8 10*3/uL (1.4-4.0); Lymphocytes % 6.6 % (21.2-54.2); Mean Corpuscular HGB Conc 31.5 GM/DL (32-36); Mean Corpuscular Hemoglobin 33 PG (27-34); Mean Platelet Volume 10.5 FL (9.6-12.0); Monocytes % 8.4 % (1.7-12.7); Neutrophils # 9.6 10*3/uL (1.4-7.4); Neutrophils % 82.8 % (38.7-73.9); Platelet Count 277 T/CUMM (130-400); Red Blood Count 3.23 MC/CUMM (3.8-5.5); Red Cell Distribution Width 14.7 % (9.3-17.3); White Blood Count 11.6 T/CUMM (4-12)
[2017-02-12 10:16] LABS: INR 1.3; PT Patient Result 13.6 SECS
[2017-02-12 10:22] LABS: Partial Thromboplastin Time 44.1 SECS (0-40)
--- NOTE | 2017-02-12 10:27 | XRay Report ---
XR chest 1V portable Indication: SOB Comparison: Chest x-ray dated December 05, 2016 Technique: Single frontal view of the chest. Findings: Continued cardiomegaly. No juan pulmonary edema. Chronic change of the lungs. There is chronic scarring of the left lung base and small left pleural fluid is not excluded. Visualized osseous and surrounding soft tissue structures appear grossly unchanged. IMPRESSION: Stable chest x-ray. PROCEDURE INTERPRETED AT [facility] DEPARTMENT OF RADIOLOGY Final Report Signed by: Dr David Langley
[2017-02-12 10:53] LABS: Albumin 3.4 G/DL (3.4-5.0); Bilirubin,Total 0.7 MG/DL (0.2-1.0); Calcium 8.6 MG/DL (8.5-10.1); Osmolality,Calculated 299.8 MOS/KG (273-304); Potassium 4.5 MMOL/L (3.5-5.1); Total Protein 6.9 G/DL (6.4-8.3)
[2017-02-12] MEDS ORDERED: ACETAMINOPHEN 500 MG TABLET PO STA ×2 (10:58→16:37)
[2017-02-12] MEDS ORDERED: ACETAMINOPHEN 500 MG TABLET ONE ×2 (11:00→16:38)
[2017-02-12] MEDS ORDERED: CARBIDOPA/LEVODOPA 25-100 MG TABLET PO STA (11:04)
[2017-02-12 11:11] LABS: Apearance,Urine CLEAR (Clear); Bacteria,Urine Occasional /HPF (Few); Bilirubin,Urine Negative (Negative); Blood, Urine Negative (Negative); Glucose,Urine (UA) Negative (Negative); Ketones,Urine Negative (Negative); Nitrite,Urine Negative (Negative); Protein,Urine 30 MG/DL; RBC,Urine 5 /HPF (0-4); Urine Color Yellow (Yellow); Urine Urobilinogen < 2.0 EU/DL (0.2-1.0); WBC,Urine 1 /HPF (0-6)
[2017-02-12 11:18] LABS: Troponin I Only 0.058 NG/ML (0.00-0.045)
[2017-02-12] MEDS ORDERED: AZITHROMYCIN INJ 500 MG in SODIUM CHLORIDE 0.9% 250 ML IV STA (12:41)
[2017-02-12] MEDS ORDERED: FUROSEMIDE 40 MG/4 ML VIAL IV STA (12:42)
[2017-02-12] MEDS ORDERED: AZITHROMYCIN 500 MG VIAL IV ONE (13:03)
[2017-02-12] MEDS ORDERED: FUROSEMIDE 40 MG/4 ML VIAL ONE (14:26)
[2017-02-12] MEDS ORDERED: PIPERACILLIN/TAZOBACTAM 3,375 MG VIAL IV ONE (15:01)
[2017-02-12] MEDS ORDERED: SODIUM CHLORIDE 0.9% 100 ML IV ONE (15:01)
[2017-02-12] MEDS: PIPERACILLIN/TAZOBACTAM 3,375 MG in SODIUM CHLORIDE 0.9% 100 ML IV SCH ×2 (15:32→23:58)
[2017-02-12] MEDS ORDERED: DEXTROSE 50% 25 GM/50 ML SYRINGE IV PRN (15:36)
[2017-02-12] MEDS ORDERED: GLUCAGON 1 MG VIAL IM PRN (15:36)
[2017-02-12] MEDS ORDERED: ONDANSETRON 4 MG/2 ML VIAL IV PRN (15:36)
[2017-02-12] MEDS ORDERED: ACETAMINOPHEN 325 MG TABLET PO PRN (15:36)
--- NOTE | 2017-02-12 17:01 | Internal Med History&Physical ---
Assessment and Plan (1) Shortness of breath Status: Acute Assessment and plan: 81-year-old male admitted to acute care * Shortness of breath. Patient has been running a temp for last 24 hours. His white count is marginally high. His chest x-ray is clear analysis is negative. Blood cultures have been done. He will be empirically started on antibiotics. He may have a touch of bronchitis. * CHF with preserved ejection fraction. His last echocardiogram was a few months ago with normal ejection fraction. His diuretics were recently decreased by his contractor general engineering. We will give him IV Lasix for now. * Chronic A. fib. Ventricular rate is controlled. He is on amiodarone and Pradaxa. * Mildly elevated troponin. It is trivial. Will do serial enzymes. Will consult Dr. Hernández to see the patient. * Hypertension. Continue current treatment * Diabetes. Continue current treatment * Restless leg syndrome. He will be continued on current management * Renal insufficiency. He has had chronic renal insufficiency but his creatinine has been going up. Will consult Dr. Wang. He had an appointment to see him in the office * Discussed with patient and his Current Visit: Yes (2) Hypothyroidism Status: Acute Current Visit: Yes (3) Congestive heart failure Status: Acute Current Visit: Yes (4) Fever Status: Acute Current Visit: Yes (5) Chronic a-fib Status: Acute Current Visit: No (6) Diabetes Status: Acute Current Visit: No (7) Hypertension Status: Acute Current Visit: No (8) Peripheral vascular disease Status: Acute Current Visit: No (9) Restless leg syndrome Status: Acute Current Visit: No History of Present Illness Chief complaint: Shortness of breath History of present illness: Mr. Chavez is a 81 year old male with history of multiple medical problems including chronic A. fib, hypertension, mild renal insufficiency, hyperlipidemia , morbid obesity, hypothyroidism, diabetes, history of DVT and restless leg syndrome who presented to emergency room with shortness of breath and fever. Patient started having fever with hard [place] last night. His temp went up to 101.3 according to his . He became increasingly short of breath. He has had a nonproductive cough. He took Tylenol before coming to the hospital. He denied any chest pain. His diuretics were recently changed by his contractor general engineering at [facility]. Patient does not feel well. He is having increasing problems with aching and restless legs. He denies any nausea or vomiting. He denies any falls. He lives at home with his . He denies any current smoking. He used to be a smoker in the past. Home Medications Medication Instructions Recorded Confirmed Type Dabigatran [Pradaxa] 150 mg PO BID 01/20/15 02/12/17 History Levothyroxine Tab [Synthroid Tab] 100 mcg PO DAILY@0700 01/20/15 02/12/17 History [place]-3 Acid Ethyl Esters 1 gm PO QPM 01/20/15 02/12/17 History Potassium Chloride 20 meq PO QAM 01/20/15 02/12/17 History Ropinirole HCl [Requip] 5 mg PO DAILY@1700 01/20/15 02/12/17 History dilTIAZem HCl [Diltiazem 24Hr ER] 240 mg PO QAM 01/20/15 02/12/17 History Aspirin EC Tab 81 mg PO QAM 02/06/16 02/12/17 History Pravastatin [Pravachol] 40 mg PO QPM 06/05/16 02/12/17 History Allopurinol [Zyloprim] 300 mg PO MOWEFR 12/05/16 02/12/17 History Calcium Carbonate 600 mg PO QAM 12/05/16 02/12/17 History Cholecalciferol [Vitamin D3] 1,000 unit PO QPM 12/05/16 02/12/17 History Saxagliptin HCl [Onglyza] 2.5 mg PO QAM 12/05/16 02/12/17 History Cyanocobalamin Tab [Vitamin B12 1,000 mcg PO QAM 12/19/16 02/12/17 History Tab] Amiodarone HCl 100 mg PO QAM 02/12/17 02/12/17 History Carbidopa/Levodopa 1 each PO BEDTIME 02/12/17 02/12/17 History [Carbidopa-Levodopa 25-100 Tab] Eplerenone [Eplerenone] 25 mg PO QAM 02/12/17 02/12/17 History Lisinopril [Lisinopril] 10 mg PO QPM 02/12/17 02/12/17 History Lisinopril [Zestril] 25 mg PO QAM 02/12/17 02/12/17 History Torsemide Tab [Demadex Tab] 20 mg PO BID@0600,1200 02/12/17 02/12/17 History Allergies Allergy/AdvReac Type Severity Reaction Status Date / Time levofloxacin [From Levaquin] Allergy Severe SHORTNESS Verified 02/12/17 09:36 OF BREATH,Unresponsive,Rash cephalexin [From Keflex] Allergy Intermediate hallucinati Verified 02/12/17 09: 36 ons,rash adhesive tape Allergy Mild RASH Verified 02/12/17 09:36 Sulfa (Sulfonamide Allergy Mild RASH Verified 02/12/17 09:36 Antibiotics) Medical,Surgical,& Family Hx - Medical History Cardio: History of: Cardiac Dysrhythmia (A-Fib history Dr. Trell MONREAL), CHF, Hypertension, PVD (Extreme Swelling), Cardiovascular Problems (Blood Clot Left [id number]-Qx. Raju in [facility]) Neurology: No history of: Seizures HEENT: History of: Ear Problem (hearing aides bilateral), Eye Problem (glasses/ cataracts), HEENT Problems Comment Only: Glaucoma (Elevated Pressure) Endocrine: History of: Dyslipidemia, Thyroid Disorder Rheumatology: History of;: Gout Respiratory: History of: Obstructive Sleep Apnea (C-PAP), Respiratory Problems ( Pneum Vac 2016;Flu Vac 2015) Renal: History of: Renal Problems Genitourinary: History of: Kidney Stones, Prostate Problems (Prostate Ca- Surgery & Radiation Dr. Lemus), Recurring Urinary Tract Infections ( Controlled On medication) Gastrointestinal: History of: Gastrointestinal Bleed, Hemorrhoids No history of: Polyps (1999) Musculoskeletal: History of: Musculoskeletal Problems (Arthritis mild) Hematology: No history of: Anemia Other: History of: Anesthesia Reactions (Difficult with Intubating-Short Neck), Cancer (Prostate and Skin Ca) Comment Only: Anaphylaxis (Came Close with Levaquin) - Surgical History HEENT Surgeries: Surgical HX of: Eye Surgery (For Left Cataract 01/24/15 Dr. Glover) Abdominal Surgeries: Surgical HX of: Colonoscopy Reproductive Surgeries: Surgical HX of;: Genitourinary Surgery, Prostate Surgery (Prostatectomy 07/02/2002) Orthopedic Surgeries: Surgical HX of;: Orthopedic Surgery (RKS --2008 Clean Out Infection RT Knee Prosthesis), Total Knee Replacement (05/23/98 Right; 04/09/2011 Left) - Family History Family History: Reports;: Family Diabetes (BRO), Family Heart Disease (MOM,DAD) , Family Hypertension (BRO,SIS) Denies;: Family Anesthesia Reaction, Family Cancer, Family Psychiatric Problems, Family Stroke - Social History Smoking Status: Former smoker Marital Status: Lives With:: Spouse Functional capacity: independent ambulation 12 point system: reviewed and no additional remarkable complaints except as stated (As mentioned in HPI) Exam - Constitutional Vitals: Period Temp Pulse Resp BP Sys/Mitchell Pulse Ox Last 24 Hr 99.6 F-99.9 F 62-72 16-22 111-167/50-77 95-99 Exam: Examination: GENERAL: 81-year-old male who appears ill. HEENT: PERRLA. EOMI. Mucous membranes are moist. NECK: Neck is supple. No JVD. No carotid bruit. No thyromegaly. CVS: Regular rate and rhythm. S1 and S2 are normal. RESPIRATORY: Lungs are clear. Breath sounds are decreased diminished at bases with few rales ABDOMEN: Soft and nontender. Bowel sounds are present. No hepatosplenomegaly. EXT: 4+ pitting edema bilaterally. Peripheral pulses are present SENIOR SALES ENGINEER: Patient is awake, alert and oriented to time place and person. Cranial nerves II through XII are grossly intact. Motor strength is 4/5. SKIN: Warm and dry. MSK: No obvious deformity. Results - Labs CBC & BMP: 02/12/17 09:42 02/12/17 09:42 Lab Results: I have reviewed the past 24 hour labs
[2017-02-12] MEDS: SODIUM CHLORIDE 0.9% 1,000 ML IV SCH (18:03)
[2017-02-12] MEDS: rOPINIRole 1 MG TABLET PO SCH (18:03)
[2017-02-12] MEDS: INSULIN LISPRO 100 UNIT/ML SUBCUT SCH ×2 (18:03→22:17)
[2017-02-12] MEDS ORDERED: PRAVASTATIN 40 MG TABLET PO SCH (19:00)
[2017-02-12] MEDS ORDERED: OMEGA 3 ACID ETHYL ESTERS 1 GM CAPSULE PO SCH (19:00)
[2017-02-12] MEDS ORDERED: LISINOPRIL 10 MG TABLET PO SCH (19:00)
[2017-02-12] MEDS ORDERED: CHOLECALCIFEROL 1,000 UNIT TABLET PO SCH (19:00)
[2017-02-12] MEDS ORDERED: CARBIDOPA/LEVODOPA 25-100 MG TABLET PO SCH (21:00)
[2017-02-12 21:30] LABS: Troponin I Only 0.925 NG/ML (0.00-0.045)
[2017-02-12] MEDS: DABIGATRAN 150 MG CAPSULE PO SCH (22:12)
[2017-02-12] MEDS: DOCUSATE SODIUM 100 MG CAPSULE PO SCH (22:12)
[2017-02-13] MEDS: PIPERACILLIN/TAZOBACTAM 3,375 MG in SODIUM CHLORIDE 0.9% 100 ML IV SCH ×3 (06:32→18:09)
[2017-02-13] MEDS: LEVOTHYROXINE 100 MCG TABLET PO SCH (06:38)
[2017-02-13 07:41] LABS: Basophils % 0.6 % (0.0-0.8); Eosinophils % 0.6 % (0.00-10.9); Hematocrit 31.9 VOL% (42.0-52.0); Hemoglobin 9.9 GM/DL (14.0-18.0); Immature Granulocytes % 0.9 %; Immature Granulocytes Absolute 0.06 #; Lymphocytes # 0.7 10*3/uL (1.4-4.0); Lymphocytes % 9.8 % (21.2-54.2); Mean Corpuscular Hemoglobin 32 PG (27-34); Mean Corpuscular Volume 102.9 FL (87-102); Mean Platelet Volume 10.7 FL (9.6-12.0); Monocytes # 0.6 10*3/uL (0.11-0.8); Monocytes % 9.1 % (1.7-12.7); Neutrophils # 5.4 10*3/uL (1.4-7.4); Platelet Count 261 T/CUMM (130-400); Red Cell Distribution Width 14.7 % (9.3-17.3); White Blood Count 6.8 T/CUMM (4-12)
[2017-02-13 08:21] LABS: Calcium 8.4 MG/DL (8.5-10.1)
[2017-02-13 08:26] LABS: Troponin I Only 0.817 NG/ML (0.00-0.045)
--- NOTE | 2017-02-13 08:50 | Cardiology Consult Note ---
<MontrellMaryanne williamsone E - Last Filed: 02/13/17 12:01> Assessment and Plan - Time spent with patient Time spent with patient: Greater than 30 minutes (1) Dyslipidemia Status: Chronic Assessment and plan: SEE PLAN OF CARE LISTED BELOW Current Visit: Yes (2) Obstructive sleep apnea Status: Chronic Assessment and plan: SEE PLAN OF CARE LISTED BELOW Current Visit: Yes (3) Obesity Status: Chronic Assessment and plan: SEE PLAN OF CARE LISTED BELOW Current Visit: Yes Qualifiers: Obesity type: unspecified obesity type Obesity classification: adult class 3 (BMI >= 40) Serious obesity comorbidity presence: with serious comorbidity Body mass index: BMI 40.0-44.9 Qualified Code(s): E66.9 - Obesity, unspecified; Z68.41 - Body mass index (BMI) 40.0-44.9, adult; Z68.41 - Body mass index (BMI) 40.0-44.9, adult; Z68.41 - Body mass index (BMI) 40.0-44.9, adult; Z68.41 - Body mass index (BMI) 40.0-44.9, adult (4) Anemia Status: Acute Assessment and plan: SEE PLAN OF CARE LISTED BELOW Current Visit: Yes (5) Edema Status: Chronic Assessment and plan: SEE PLAN OF CARE LISTED BELOW Current Visit: Yes Qualifiers: Edema type: unspecified Qualified Code(s): R60.9 - Edema, unspecified (6) High risk medication use Status: Chronic Assessment and plan: SEE PLAN OF CARE LISTED BELOW Current Visit: Yes (7) Congestive heart failure Status: Acute Assessment and plan: SEE PLAN OF CARE LISTED BELOW Current Visit: Yes Qualifiers: Congestive heart failure type: unspecified congestive heart failure type Congestive heart failure chronicity: acute Qualified Code(s): I50.9 - Heart failure, unspecified (8) Diabetes mellitus Status: Chronic Assessment and plan: SEE PLAN OF CARE LISTED BELOW Current Visit: Yes (9) Shortness of breath Status: Acute Assessment and plan: SEE PLAN OF CARE LISTED BELOW Current Visit: Yes (10) Atrial fibrillation Status: Acute Assessment and plan: SEE PLAN OF CARE LISTED BELOW Current Visit: No Qualifiers: Atrial fibrillation type: paroxysmal Qualified Code(s): I48.0 - Paroxysmal atrial fibrillation (11) Chronic anticoagulation Status: Chronic Assessment and plan: SEE PLAN OF CARE LISTED BELOW Current Visit: No (12) Diabetes Status: Chronic Assessment and plan: SEE PLAN OF CARE LISTED BELOW Current Visit: No (13) Hypertension Status: Chronic Assessment and plan: SEE PLAN OF CARE LISTED BELOW Current Visit: No (14) Peripheral vascular disease Status: Chronic Assessment and plan: SEE PLAN OF CARE LISTED BELOW Current Visit: No History of Present Illness - Data of Consult Patient: new to practice Consult date: 02/13/17 Requesting Physician: Avery Mcdonald - Consult Narrative Reason for consult: Elevated troponin History of present illness: 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 Mr. Chavez, 81WM, with risk factors significant for: hypertension, dyslipidemia , diabetes, PVD, sedentary lifestyle and obesity. History of atrial fibrillation for which he takes Pradaxa for stroke prevention, Amiodarone ( since 2014) for rhythm control (failed DCCV). History of CHF with preserved ejection fraction previously followed by Dr. Medhat Cai at [place]. He is transitioning care to Dr. Hernández. History of DVT with venous stenting by Dr. Riley approximately 2 years ago. Admitted February 12, 2017 with complaints worsening shortness of breath and elevated troponin (peaked at 0.9) in the setting of creatinine of 2.5. Chronic right bundle branch block noted. Patient denies chest pain, heaviness, tightness. He has been battling a worsened progressive shortness of breath for the past 3 weeks. This seems to have worsened around the same time his Lasix was discontinued and torsemide initiated. At that same time Eplerenone was initiated. He has chronic bilateral lower extremity edema which is stable, not really any worse at this point. His breathing however has worsened even when he is at rest. Denies cough but believes he has had rigors. He actually presents of video of muscular jerking during last evening that really does not appear to be rigors, more myoclonic type muscular movements. Not seizure activity. He also reports he has had worsening restless leg syndrome for the past several weeks despite escalating his doses of Requip. Temperature 99.9 but no higher during hospital stay but reported to be 101.3 prior to arrival to hospital. No leukocytosis. At this point, echocardiogram has been reordered given the fact that he has a mildly elevated troponin and worsening shortness of breath. Will continue cycle his cardiac biomarkers, EKG. At this point, holding amiodarone as he may be experiencing some pulmonary toxicity and neurological toxicity causing muscular jerking movements. I have requested records from Dr. Cai's office. Patient reports he has never had a cardiac catheterization. Patient's creatinine is 2.5 on arrival. He reports he has never been told he had renal insufficiency. I am not sure if this is a new diagnosis or simply when he was unaware of. This morning, creatinine has increased improved to 2.0. At some point, patient may benefit from cardiac catheterization but will continue to follow his kidney function as patient is having no complaints of angina at this point. We will add nitrates, continue aspirin, add a beta-shayy and stop amiodarone. Hold lisinopril given his newly diagnosed renal insufficiency. Fasting lipid profile in the morning as we continue his Pravastatin. I will further discuss with Dr. Hernández and await additional recommendations. IMPRESSION/PLAN: 1. SHORTNESS OF BREATH - multifactorial and cannot exclude Amiodarone toxicity. Holding Amiodarone at this time. Also, stopping Eplerenone his believes his shortness of breath may have worsened since starting. May be related to pulmonary infectious process, acute CHF, GUILLERMINA, obesity, PAF, deconditioned state. Echocardiogram. Venous ultrasound bilateral lower extremities may be considered however patient has been taking his Pradaxa without fail. 2. HYPERTENSION - discontinue Lisinopril for fear of worsening his renal insufficiency. Stopping Amiodarone. Will start low-dose beta-shayy. 3. DYSLIPIDEMIA - FLP in a.m. Continue statin 4. DIABETES - sliding scale. Adjust accordingly during hospital stay 5. RENAL INSUFFICIENCY - uncertain if this is an acute or chronic condition. Currently stage III. Avoid nephrotoxic agents as able. Renal ultrasound has been ordered 6. HIGH RISK MEDICATIONS - Amiodarone, Pradaxa. Holding both. 7. PAF - holding Amiodarone. Will stop his Pradaxa (in case patient may/may not require cardiac catheterization during hospital stay) and start Lovenox tomorrow. He did take a dose of Pradaxa this morning. Given his renal insufficiency I think it will be safe to wait to initiate low-dose Lovenox tomorrow. 8. RBBB - patient was hospitalized in November 2016. At that time, patient also had a right bundle branch block. Suspect this is a chronic condition and not new 9. GUILLERMINA - compliant with device. CC: Avery Mcdonald MD - Home Medications and Allergies Home Medications: Home Medications Medication Instructions Recorded Confirmed Type Dabigatran [Pradaxa] 150 mg PO BID 01/20/15 02/12/17 History Levothyroxine Tab [Synthroid Tab] 100 mcg PO DAILY@0700 01/20/15 02/12/17 History [place]-3 Acid Ethyl Esters 1 gm PO QPM 01/20/15 02/12/17 History Potassium Chloride 20 meq PO QAM 01/20/15 02/12/17 History Ropinirole HCl [Requip] 5 mg PO DAILY@1700 01/20/15 02/12/17 History dilTIAZem HCl [Diltiazem 24Hr ER] 240 mg PO QAM 01/20/15 02/12/17 History Aspirin EC Tab 81 mg PO QAM 02/06/16 02/12/17 History Pravastatin [Pravachol] 40 mg PO QPM 06/05/16 02/12/17 History Allopurinol [Zyloprim] 300 mg PO MOWEFR 12/05/16 02/12/17 History Calcium Carbonate 600 mg PO QAM 12/05/16 02/12/17 History Cholecalciferol [Vitamin D3] 1,000 unit PO QPM 12/05/16 02/12/17 History Saxagliptin HCl [Onglyza] 2.5 mg PO QAM 12/05/16 02/12/17 History Cyanocobalamin Tab [Vitamin B12 1,000 mcg PO QAM 12/19/16 02/12/17 History Tab] Amiodarone HCl 100 mg PO QAM 02/12/17 02/12/17 History Carbidopa/Levodopa 1 each PO BEDTIME 02/12/17 02/12/17 History [Carbidopa-Levodopa 25-100 Tab] Eplerenone [Eplerenone] 25 mg PO QAM 02/12/17 02/12/17 History Lisinopril [Lisinopril] 10 mg PO QPM 02/12/17 02/12/17 History Lisinopril [Zestril] 25 mg PO QAM 02/12/17 02/12/17 History Torsemide Tab [Demadex Tab] 20 mg PO BID@0600,1200 02/12/17 02/12/17 History Allergies/Adverse Reactions: Allergies Allergy/AdvReac Type Severity Reaction Status Date / Time levofloxacin [From Levaquin] Allergy Severe SHORTNESS Verified 02/12/17 09:36 OF BREATH,Unresponsive,Rash cephalexin [From Keflex] Allergy Intermediate hallucinati Verified 02/12/17 09: 36 ons,rash adhesive tape Allergy Mild RASH Verified 02/12/17 09:36 Sulfa (Sulfonamide Allergy Mild RASH Verified 02/12/17 09:36 Antibiotics) Review of systems: REVIEW OF SYSTEMS: - Constitutional Constitutional: Present: Fatigue. Night sweats. Absent: syncope, anorexia - EENT Eyes: Absent: blurry vision, loss of vision, diplopia Ears: Present: Slightly decreased hearing. Denies ear pain, ear discharge - Cardiovascular Cardiovascular: Denies: chest pain with exertion. Chronic bilateral lower extremity edema. Occasional palpitations. Shortness of breath with exertion and at rest. Absent: chest pain with deep breath, claudication - Respiratory Respiratory: Present: MULLINS, denies cough. Orthopnea. Absent: wheezing, hemoptysis, change in phlegm color - Gastrointestinal Gastrointestinal: Denies: constipation. Absent: abdominal pain, hematemesis, hematochezia, melena, change in bowel habits, nausea - Genitourinary Genitourinary: Absent: difficulty urinating, dysuria, urinary hesitancy, flank pain - Musculoskeletal Musculoskeletal: Present: back pain Absent: joint swelling, muscle cramps, muscle weakness - Neurological Neurological: Present: Poor gait without frequent falls. Absent: dizziness, hemiparesis - Psychiatric Psychiatric: Absent: anxiety, depression, difficulty concentrating - Endocrine Endocrine: Present: fatigue. Absent: cold intolerance, heat intolerance, polyuria, polyphagia, polydipsia - Hematologic/Lymphatic Hematologic/Lymphatic: Present: easy bruising. Absent: easy bleeding -Integumentary Integumentary: Absent: lesions, rashes, skin breakdown Medical,Surgical,& Family Hx - Medical History Cardio: History of: Cardiac Dysrhythmia (A-Fib history Dr. Trell MONREAL), CHF, Hypertension, PVD (Extreme Swelling), Cardiovascular Problems (Blood Clot Left Fnp-Cwppams[facility]. Raju in [facility]) No history of: CAD, [place] Neurology: No history of: Seizures HEENT: History of: Ear Problem (hearing aides bilateral), Eye Problem (glasses/ cataracts), HEENT Problems Comment Only: Glaucoma (Elevated Pressure) Endocrine: History of: Dyslipidemia, Thyroid Disorder Rheumatology: History of;: Gout Respiratory: History of: Obstructive Sleep Apnea (C-PAP), Respiratory Problems Renal: History of: Renal Problems Genitourinary: History of: Kidney Stones, Prostate Problems (Prostate Ca- Surgery & Radiation Dr. Lemus), Recurring Urinary Tract Infections ( Controlled On medication) Gastrointestinal: History of: Gastrointestinal Bleed, Hemorrhoids No history of: Polyps (1999) Musculoskeletal: History of: Musculoskeletal Problems (Arthritis mild) Hematology: No history of: Anemia Other: History of: Anesthesia Reactions (Difficult with Intubating-Short Neck), Cancer (Prostate and Skin Ca) Comment Only: Anaphylaxis (Came Close with Levaquin) - Surgical History HEENT Surgeries: Surgical HX of: Eye Surgery (For Left Cataract 01/24/15 Dr. Glover) Abdominal Surgeries: Surgical HX of: Colonoscopy Reproductive Surgeries: Surgical HX of;: Genitourinary Surgery, Prostate Surgery (Prostatectomy 07/02/2002) Orthopedic Surgeries: Surgical HX of;: Orthopedic Surgery (RKS --2008 Clean Out Infection RT Knee Prosthesis), Total Knee Replacement (05/23/98 Right; 04/09/2011 Left) - Family History Family History: Reports;: Family Diabetes (BRO), Family Heart Disease (MOM,DAD) , Family Hypertension (BRO,SIS) Denies;: Family Anesthesia Reaction, Family Cancer, Family Psychiatric Problems, Family Stroke - Social History Smoking Status: Smoker, status unknown Have you smoked in the last 12 months: No Frequency of Alcohol Use: None Type of Drug Use: None Marital Status: Lives With:: Spouse Functional capacity: independent ambulation Physical Examination Vital Signs Temp Pulse Resp BP Pulse Ox 99.9 F H 68 22 138/65 95 02/12/17 09:29 02/12/17 09:29 02/12/17 09:29 02/12/17 09:29 02/12/17 09:29 Exam: General: [Appears well with no apparent distress.] [Pleasant and cooperative. ] [Appears comfortable.] HEENT: [PERRL, normocephalic, atraumatic. Mucous membranes moist. No jaundice noted. Conjunctiva moist and clear, sclerae anicteric] Neck: Unable to assess for JVD due to habitus. No thyromegaly. No carotid bruit appreciated Cardiac: [Regular rate and rhythm.] [No obvious murmur, rub or gallop.] Lungs: [Clear to auscultation without accessory muscle use to assist the respiratory pattern.] Oxygen in use via nasal cannula Abdomen: Soft, bowel sounds normoactive. Nontender and nondistended. No abdominal bruit or thrill noted. No masses noted. Musculoskeletal: No fluid collection. Decreased range of motion is noted. Extremities: No clubbing, cyanosis noted. [3+ bilateral lower extremity edema, chronic skin changes. Upper extremity pulses 2+. Lower extremity pulses trace and difficult to palpate through the edema capillary refill less than 3 seconds. Skin: No unusual lesions or rashes other than chronic skin changes bilateral lower extremities. No skin breakdown appreciated. Neuro: Awake, alert and oriented 3. Moves all extremities well without hemiparesis or paralysis. No essential tremor is appreciated. However, did watch a video recording of muscle jerking which occurred last evening Result/EKG - Labs CBC & BMP: 02/13/17 06:07 02/13/17 06:07 Lab Results: I have reviewed the past 24 hour labs Labs: Laboratory Results - last 24 hr 02/12/17 02/12/17 02/12/17 09:42 09:42 09:42 WBC 11.6 RBC 3.23 L Hgb 10.6 L Hct 33.6 L MCV 104.0 H MCH 33 MCHC 31.5 L RDW 14.7 Plt Count 277 MPV 10.5 Neut % (Auto) 82.8 H Lymph % (Auto) 6.6 L [place] % (Auto) 8.4 Eos % (Auto) 1.3 Baso % (Auto) 0.4 Neut # (Auto) 9.6 H Lymph # (Auto) 0.8 L [place] # (Auto) 1.0 H Eos # (Auto) 0.2 Baso # (Auto) 0.1 Immature Gran % 0.5 Nucleated RBC % 0.0 Immature Gran # 0.06 Nucleated RBCs # 0.00 Immature Plt Fraction 0.0 INR 1.3 PT Patient/Control Mix 13.6 Circ Anticoag PTT 44.1 H Sodium 144 Potassium 4.5 Chloride 106 Carbon Dioxide 34 H Anion Gap 8.5 BUN 42 H Creatinine 2.50 H GFR Calculation 35 BUN/Creatinine Ratio 16.00 Glucose 154 H POC Glucose Calculated Osmolality 299.8 Lactic Acid Calcium 8.6 Total Bilirubin 0.70 AST 14 ALT 12 L Alkaline Phosphatase 100 Total Creatine Kinase CK-MB (CK-2) Troponin I 0.058 H B-Natriuretic Peptide Total Protein 6.9 Albumin 3.4 Globulin 3.5 Albumin/Globulin Ratio 0.9 L Urine Color Urine Appearance Urine pH Ur Specific [place] Urine Protein Urine Glucose (UA) Urine Ketones Urine Blood Urine Nitrate Urine Bilirubin Urine Urobilinogen Urine Leukocytes Urine RBC Urine WBC Urine Bacteria Ur Culture Indicated? 02/12/17 02/12/17 02/12/17 09:42 09:42 09:42 WBC RBC Hgb Hct MCV MCH MCHC RDW Plt Count MPV Neut % (Auto) Lymph % (Auto) [place] % (Auto) Eos % (Auto) Baso % (Auto) Neut # (Auto) Lymph # (Auto) [place] # (Auto) Eos # (Auto) Baso # (Auto) Immature Gran % Nucleated RBC % Immature Gran # Nucleated RBCs # Immature Plt Fraction INR PT Patient/Control Mix Circ Anticoag PTT Sodium Potassium Chloride Carbon Dioxide Anion Gap BUN Creatinine GFR Calculation BUN/Creatinine Ratio Glucose POC Glucose Calculated Osmolality Lactic Acid 1.4 Calcium Total Bilirubin AST ALT Alkaline Phosphatase Total Creatine Kinase CK-MB (CK-2) Troponin I B-Natriuretic Peptide 365 H Total Protein Albumin Globulin Albumin/Globulin Ratio Urine Color Yellow Urine Appearance Clear Urine pH 7.0 Ur Specific [place] 1.010 Urine Protein 30 Urine Glucose (UA) Negative Urine Ketones Negative Urine Blood Negative Urine Nitrate Negative Urine Bilirubin Negative Urine Urobilinogen < 2.0 H Urine Leukocytes Negative Urine RBC 5 Urine WBC 1 Urine Bacteria Occasional Ur Culture Indicated? Ordered separately 02/12/17 02/12/17 02/12/17 18:02 20:24 20:54 WBC RBC Hgb Hct MCV MCH MCHC RDW Plt Count MPV Neut % (Auto) Lymph % (Auto) [place] % (Auto) Eos % (Auto) Baso % (Auto) Neut # (Auto) Lymph # (Auto) [place] # (Auto) Eos # (Auto) Baso # (Auto) Immature Gran % Nucleated RBC % Immature Gran # Nucleated RBCs # Immature Plt Fraction INR PT Patient/Control Mix Circ Anticoag PTT Sodium Potassium Chloride Carbon Dioxide Anion Gap BUN Creatinine GFR Calculation BUN/Creatinine Ratio Glucose POC Glucose 168 H 180 H Calculated Osmolality Lactic Acid Calcium Total Bilirubin AST ALT Alkaline Phosphatase Total Creatine Kinase 83 CK-MB (CK-2) 3.4 Troponin I 0.925 H D B-Natriuretic Peptide Total Protein Albumin Globulin Albumin/Globulin Ratio Urine Color Urine Appearance Urine pH Ur Specific [place] Urine Protein Urine Glucose (UA) Urine Ketones Urine Blood Urine Nitrate Urine Bilirubin Urine Urobilinogen Urine Leukocytes Urine RBC Urine WBC Urine Bacteria Ur Culture Indicated? 02/13/17 02/13/17 02/13/17 06:07 06:07 06:07 WBC 6.8 D RBC 3.10 L Hgb 9.9 L Hct 31.9 L MCV 102.9 H MCH 32 MCHC 31.0 L RDW 14.7 Plt Count 261 MPV 10.7 Neut % (Auto) 79.0 H Lymph % (Auto) 9.8 L [place] % (Auto) 9.1 Eos % (Auto) 0.6 Baso % (Auto) 0.6 Neut # (Auto) 5.4 Lymph # (Auto) 0.7 L [place] # (Auto) 0.6 Eos # (Auto) 0.0 Baso # (Auto) 0.0 Immature Gran % 0.9 Nucleated RBC % 0.0 Immature Gran # 0.06 Nucleated RBCs # 0.00 Immature Plt Fraction 0.0 INR PT Patient/Control Mix Circ Anticoag PTT Sodium 143 Potassium 4.0 Chloride 104 Carbon Dioxide 32 Anion Gap 11.0 BUN 35 H Creatinine 2.00 H GFR Calculation 45 BUN/Creatinine Ratio 17.00 Glucose 129 H POC Glucose Calculated Osmolality 294.0 Lactic Acid Calcium 8.4 L Total Bilirubin AST ALT Alkaline Phosphatase Total Creatine Kinase 94 CK-MB (CK-2) 1.5 Troponin I 0.817 H B-Natriuretic Peptide Total Protein Albumin Globulin Albumin/Globulin Ratio Urine Color Urine Appearance Urine pH Ur Specific [place] Urine Protein Urine Glucose (UA) Urine Ketones Urine Blood Urine Nitrate Urine Bilirubin Urine Urobilinogen Urine Leukocytes Urine RBC Urine WBC Urine Bacteria Ur Culture Indicated? 02/13/17 07:15 WBC RBC Hgb Hct MCV MCH MCHC RDW Plt Count MPV Neut % (Auto) Lymph % (Auto) [place] % (Auto) Eos % (Auto) Baso % (Auto) Neut # (Auto) Lymph # (Auto) [place] # (Auto) Eos # (Auto) Baso # (Auto) Immature Gran % Nucleated RBC % Immature Gran # Nucleated RBCs # Immature Plt Fraction INR PT Patient/Control Mix Circ Anticoag PTT Sodium Potassium Chloride Carbon Dioxide Anion Gap BUN Creatinine GFR Calculation BUN/Creatinine Ratio Glucose POC Glucose 160 H Calculated Osmolality Lactic Acid Calcium Total Bilirubin AST ALT Alkaline Phosphatase Total Creatine Kinase CK-MB (CK-2) Troponin I B-Natriuretic Peptide Total Protein Albumin Globulin Albumin/Globulin Ratio Urine Color Urine Appearance Urine pH Ur Specific [place] Urine Protein Urine Glucose (UA) Urine Ketones Urine Blood Urine Nitrate Urine Bilirubin Urine Urobilinogen Urine Leukocytes Urine RBC Urine WBC Urine Bacteria Ur Culture Indicated? - Diagnostic Findings Procedure: Chest x-ray: report reviewed by me - EKG EKG results: interpreted by me EKG shows: sinus rhythm (Right bundle branch block) <Amarilis Hernández - Last Filed: 02/13/17 17:34> History of Present Illness - Consult Narrative History of present illness: I have personally interviewed and evaluated the patient, reviewed the chart and discussed medical decision-making with Practitioner Montrell. I have read this note and agree with her documentation here in. CC: Avery Mcdonald MD Physical Examination Vital Signs Temp Pulse Resp BP Pulse Ox 99.9 F H 68 22 138/65 95 02/12/17 09:29 02/12/17 09:29 02/12/17 09:29 02/12/17 09:29 02/12/17 09:29 Result/EKG - Labs CBC & BMP: 02/13/17 12:52 02/13/17 06:07 Labs: Laboratory Results - last 24 hr 02/12/17 02/12/17 02/12/17 18:02 20:24 20:54 WBC RBC Hgb Hct MCV MCH MCHC RDW Plt Count MPV Neut % (Auto) Lymph % (Auto) [place] % (Auto) Eos % (Auto) Baso % (Auto) Neut # (Auto) Lymph # (Auto) [place] # (Auto) Eos # (Auto) Baso # (Auto) Immature Gran % Nucleated RBC % Immature Gran # Nucleated RBCs # Immature Plt Fraction ESR Westergren Absolute Retic Percent Retic Retic Hgb Equivalent Sodium Potassium Chloride Carbon Dioxide Anion Gap BUN Creatinine GFR Calculation BUN/Creatinine Ratio Glucose POC Glucose 168 H 180 H Calculated Osmolality Calcium Ferritin Total Creatine Kinase 83 CK-MB (CK-2) 3.4 Troponin I 0.925 H D Vitamin B12 Folate PAUL (IgG-AHG) PAUL, Polyspecific 02/13/17 02/13/17 02/13/17 06:07 06:07 06:07 WBC 6.8 D RBC 3.10 L Hgb 9.9 L Hct 31.9 L MCV 102.9 H MCH 32 MCHC 31.0 L RDW 14.7 Plt Count 261 MPV 10.7 Neut % (Auto) 79.0 H Lymph % (Auto) 9.8 L [place] % (Auto) 9.1 Eos % (Auto) 0.6 Baso % (Auto) 0.6 Neut # (Auto) 5.4 Lymph # (Auto) 0.7 L [place] # (Auto) 0.6 Eos # (Auto) 0.0 Baso # (Auto) 0.0 Immature Gran % 0.9 Nucleated RBC % 0.0 Immature Gran # 0.06 Nucleated RBCs # 0.00 Immature Plt Fraction 0.0 ESR W[place]gren Absolute Retic Percent Retic Retic Hgb Equivalent Sodium 143 Potassium 4.0 Chloride 104 Carbon Dioxide 32 Anion Gap 11.0 BUN 35 H Creatinine 2.00 H GFR Calculation 45 BUN/Creatinine Ratio 17.00 Glucose 129 H POC Glucose Calculated Osmolality 294.0 Calcium 8.4 L Ferritin Total Creatine Kinase 94 CK-MB (CK-2) 1.5 Troponin I 0.817 H Vitamin B12 Folate PAUL (IgG-AHG) PAUL, Polyspecific 02/13/17 02/13/17 02/13/17 07:15 11:24 12:51 WBC RBC Hgb Hct MCV MCH MCHC RDW Plt Count MPV Neut % (Auto) Lymph % (Auto) [place] % (Auto) Eos % (Auto) Baso % (Auto) Neut # (Auto) Lymph # (Auto) [place] # (Auto) Eos # (Auto) Baso # (Auto) Immature Gran % Nucleated RBC % Immature Gran # Nucleated RBCs # Immature Plt Fraction ESR Westergren Absolute Retic Percent Retic Retic Hgb Equivalent Sodium Potassium Chloride Carbon Dioxide Anion Gap BUN Creatinine GFR Calculation BUN/Creatinine Ratio Glucose POC Glucose 160 H 126 H Calculated Osmolality Calcium Ferritin 102.2 Total Creatine Kinase CK-MB (CK-2) Troponin I Vitamin B12 Folate PAUL (IgG-AHG) PAUL, Polyspecific 02/13/17 02/13/17 02/13/17 12:51 12:52 12:52 WBC 7.6 RBC 3.32 L Hgb 11.0 L Hct 35.3 L MCV 106.3 H MCH 33 MCHC 31.2 L RDW 14.6 Plt Count 264 MPV 10.0 Neut % (Auto) 69.0 Lymph % (Auto) 15.2 L [place] % (Auto) 13.1 H Eos % (Auto) 1.3 Baso % (Auto) 0.7 Neut # (Auto) 5.2 Lymph # (Auto) 1.2 L [place] # (Auto) 1.0 H Eos # (Auto) 0.1 Baso # (Auto) 0.1 Immature Gran % 0.7 Nucleated RBC % 0.0 Immature Gran # 0.05 Nucleated RBCs # 0.00 Immature Plt Fraction 0.0 ESR Westergren 81 H Absolute Retic 0.1 Percent Retic 3.2 H Retic Hgb Equivalent 25.2 L Sodium Potassium Chloride Carbon Dioxide Anion Gap BUN Creatinine GFR Calculation BUN/Creatinine Ratio Glucose POC Glucose Calculated Osmolality Calcium Ferritin Total Creatine Kinase CK-MB (CK-2) Troponin I Vitamin B12 774 Folate > 24.0 H PAUL (IgG-AHG) Negative PUAL, Polyspecific Negative 02/13/17 15:31 WBC RBC Hgb Hct MCV MCH MCHC RDW Plt Count MPV Neut % (Auto) Lymph % (Auto) [place] % (Auto) Eos % (Auto) Baso % (Auto) Neut # (Auto) Lymph # (Auto) [place] # (Auto) Eos # (Auto) Baso # (Auto) Immature Gran % Nucleated RBC % Immature Gran # Nucleated RBCs # Immature Plt Fraction ESR Westergren Absolute Retic Percent Retic Retic Hgb Equivalent Sodium Potassium Chloride Carbon Dioxide Anion Gap BUN Creatinine GFR Calculation BUN/Creatinine Ratio Glucose POC Glucose 153 H Calculated Osmolality Calcium Ferritin Total Creatine Kinase CK-MB (CK-2) Troponin I Vitamin B12 Folate PAUL (IgG-AHG) PAUL, Polyspecific
[2017-02-13] MEDS: INSULIN LISPRO 100 UNIT/ML SUBCUT SCH ×4 (08:52→20:24)
[2017-02-13] MEDS: sitaGLIPtin 25 MG TABLET PO SCH (08:55)
[2017-02-13] MEDS: CYANOCOBALAMIN 500 MCG TABLET PO SCH (08:55)
[2017-02-13] MEDS: DABIGATRAN 150 MG CAPSULE PO SCH ×2 (08:55→20:33)
[2017-02-13] MEDS: DOCUSATE SODIUM 100 MG CAPSULE PO SCH ×2 (08:56→20:34)
[2017-02-13] MEDS: POTASSIUM CHLORIDE 20 MEQ TABLET PO SCH (08:56)
[2017-02-13] MEDS: PANTOPRAZOLE 40 MG TABLET PO SCH (08:56)
[2017-02-13] MEDS: CALCIUM (CARBONATE) 600 MG TABLET PO SCH (08:56)
[2017-02-13] MEDS: ASPIRIN EC 81 MG TABLET PO SCH (08:56)
[2017-02-13] MEDS: DILTIAZEM CD 240 MG CAPSULE PO SCH (08:56)
[2017-02-13] MEDS ORDERED: ALLOPURINOL 300 MG TABLET PO SCH (09:00)
[2017-02-13] MEDS ORDERED: AMIODARONE 200 MG TABLET PO SCH (09:00)
[2017-02-13] MEDS ORDERED: AZITHROMYCIN INJ 250 MG in SODIUM CHLORIDE 0.9% 250 ML IV SCH (09:00)
[2017-02-13] MEDS ORDERED: EPLERENONE 25 MG TABLET PO SCH (09:00)
[2017-02-13] MEDS ORDERED: LISINOPRIL 10 MG TABLET PO SCH (09:00)
--- NOTE | 2017-02-13 09:07 | Internal Med Progress Note ---
Assessment and Plan (1) Shortness of breath Status: Acute Assessment and plan: 81-year-old male admitted to acute care * Shortness of breath. Continue IV antibiotics. Cultures are pending * CHF with preserved ejection fraction. Continue Lasix * Chronic A. fib. Ventricular rate is controlled. He is on amiodarone and Pradaxa. * Mildly elevated troponin. Cardiology to see the patient * Hypertension. Continue current treatment * Diabetes. Continue current treatment * Restless leg syndrome. Will consult neurology * Renal insufficiency. Consult Dr. Wang Current Visit: Yes (2) Hypothyroidism Status: Acute Current Visit: Yes (3) Congestive heart failure Status: Acute Current Visit: Yes (4) Fever Status: Acute Current Visit: Yes (5) Chronic a-fib Status: Acute Current Visit: No (6) Diabetes Status: Acute Current Visit: No (7) Hypertension Status: Acute Current Visit: No (8) Peripheral vascular disease Status: Acute Current Visit: No (9) Restless leg syndrome Status: Acute Current Visit: No Internal Medicine - PN: Subj Interval history: Patient did not have a good night. He was having problems with his restless legs. This has been causing him a lot of discomfort during the night. He denies any chest pain or shortness of breath. He denies any nausea or vomiting. Exam (Progress Note) - Constitutional Vitals: Period Temp Pulse Resp BP Sys/Mitchell Pulse Ox Last 24 Hr 98.2 F-99.9 F 62-82 16-22 111-167/50-96 91-99 Exam: Examination: GENERAL: No acute distress HEENT: PERRLA. EOMI. NECK: Neck is supple. CVS: Regular rate and rhythm. S1 and S2 are normal. RESPIRATORY: Lungs are clear. ABDOMEN: Soft and nontender. EXT: 4+ pitting edema bilaterally. 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 Motor strength is 4/5. SKIN: Warm and dry. MSK: No obvious deformity. Results - Labs CBC & BMP: 02/13/17 06:07 02/13/17 06:07 Lab Results: I have reviewed the past 24 hour labs
[2017-02-13] MEDS ORDERED: FUROSEMIDE 40 MG/4 ML VIAL IV ONE (09:11)
[2017-02-13] MEDS ORDERED: DEXTROSE 50% 25 GM/50 ML VIAL IV PRN (11:00)
--- NOTE | 2017-02-13 12:30 | Ultrasound Report ---
Renal ultrasound Indication: Acute renal failure Comparison: None available Findings: Multiple large simple appearing cyst are present on the right kidney, the largest is on the inferior pole and measures 8.1 x 8.6 x 7.0 cm. Multiple cyst are present on the left kidney, the largest measures 1.7 x 1.0 x 1.7 cm in size. Otherwise the kidneys are normal in size and echogenicity. No hydronephrosis or nephrolithiasis is seen. The right renal length is 13.9 cm. The left renal length is 14.3 cm. No free fluid or other abnormality is seen. Impression: Multiple simple appearing renal cysts. No other evidence of abnormality demonstrated. Ultrasound images stored and captured. PROCEDURE INTERPRETED AT [facility] DEPARTMENT OF RADIOLOGY Final Report Signed by: Dr. Roberto eGrman
[2017-02-13 13:01] LABS: Basophils # 0.1 10*3/uL (0.0-0.2); Basophils % 0.7 % (0.0-0.8); Eosinophils # 0.1 10*3/uL (0.0-0.87); Eosinophils % 1.3 % (0.00-10.9); Hematocrit 35.3 VOL% (42.0-52.0); Immature Granulocytes % 0.7 %; Immature Granulocytes Absolute 0.05 #; Lymphocytes # 1.2 10*3/uL (1.4-4.0); Lymphocytes % 15.2 % (21.2-54.2); Mean Corpuscular HGB Conc 31.2 GM/DL (32-36); Mean Corpuscular Hemoglobin 33 PG (27-34); Mean Corpuscular Volume 106.3 FL (87-102); Monocytes % 13.1 % (1.7-12.7); Neutrophils # 5.2 10*3/uL (1.4-7.4); Platelet Count 264 T/CUMM (130-400); Red Blood Count 3.32 MC/CUMM (3.8-5.5); Red Cell Distribution Width 14.6 % (9.3-17.3); White Blood Count 7.6 T/CUMM (4-12)
[2017-02-13 14:01] LABS: Sedimentation Rate-Westergren 81 MM/HR (0-20)
--- NOTE | 2017-02-13 14:12 | Neurology Consult Note ---
History of Present Illness History of present illness: Mr. Chavez is a 81 year old right-handed white gentleman with history of multiple medical problems including chronic A. fib, hypertension, mild renal insufficiency, hyperlipidemia, morbid obesity, hypothyroidism, diabetes, history of DVT and restless leg syndrome who presented to emergency room with shortness of breath and fever. Patient started having fever with hard rigors the night before the admission. His temp went up to 101.3 according to his . Last night he started having some jerking movement of arms and legs periodically. He did not lose consciousness. Jerking motions are almost 1 every 5 seconds also. It was involving both lower extremities and upper extremities. He does have a history of restless leg and significant lower extremity swelling. He seems to be doing better now. He takes multiple medications Home Medications Medication Instructions Recorded Confirmed Type Dabigatran [Pradaxa] 150 mg PO BID 01/20/15 02/12/17 History Levothyroxine Tab [Synthroid Tab] 100 mcg PO DAILY@0700 01/20/15 02/12/17 History [place]-3 Acid Ethyl Esters 1 gm PO QPM 01/20/15 02/12/17 History Potassium Chloride 20 meq PO QAM 01/20/15 02/12/17 History Ropinirole HCl [Requip] 5 mg PO DAILY@1700 01/20/15 02/12/17 History dilTIAZem HCl [Diltiazem 24Hr ER] 240 mg PO QAM 01/20/15 02/12/17 History Aspirin EC Tab 81 mg PO QAM 02/06/16 02/12/17 History Pravastatin [Pravachol] 40 mg PO QPM 06/05/16 02/12/17 History Allopurinol [Zyloprim] 300 mg PO MOWEFR 12/05/16 02/12/17 History Calcium Carbonate 600 mg PO QAM 12/05/16 02/12/17 History Cholecalciferol [Vitamin D3] 1,000 unit PO QPM 12/05/16 02/12/17 History Saxagliptin HCl [Onglyza] 2.5 mg PO QAM 12/05/16 02/12/17 History Cyanocobalamin Tab [Vitamin B12 1,000 mcg PO QAM 12/19/16 02/12/17 History Tab] Amiodarone HCl 100 mg PO QAM 02/12/17 02/12/17 History Carbidopa/Levodopa 1 each PO BEDTIME 02/12/17 02/12/17 History [Carbidopa-Levodopa 25-100 Tab] Eplerenone [Eplerenone] 25 mg PO QAM 02/12/17 02/12/17 History Lisinopril [Lisinopril] 10 mg PO QPM 02/12/17 02/12/17 History Lisinopril [Zestril] 25 mg PO QAM 02/12/17 02/12/17 History Torsemide Tab [Demadex Tab] 20 mg PO BID@0600,1200 02/12/17 02/12/17 History Allergies Allergy/AdvReac Type Severity Reaction Status Date / Time levofloxacin [From Levaquin] Allergy Severe SHORTNESS Verified 02/12/17 09:36 OF BREATH,Unresponsive,Rash cephalexin [From Keflex] Allergy Intermediate hallucinati Verified 02/12/17 09: 36 ons,rash adhesive tape Allergy Mild RASH Verified 02/12/17 09:36 Sulfa (Sulfonamide Allergy Mild RASH Verified 02/12/17 09:36 Antibiotics) 12 point system: reviewed and no additional remarkable complaints except as stated Medical,Surgical,& Family Hx - Medical History Cardio: History of: Cardiac Dysrhythmia (A-Fib history Dr. Trell MONREAL), CHF, Hypertension, PVD (Extreme Swelling), Cardiovascular Problems (Blood Clot Left Gyj-Zdwznea-Eb. Raju in [facility]) No history of: CAD, [place] Neurology: No history of: Seizures HEENT: History of: Ear Problem (hearing aides bilateral), Eye Problem (glasses/ cataracts), HEENT Problems Comment Only: Glaucoma (Elevated Pressure) Endocrine: History of: Dyslipidemia, Thyroid Disorder Rheumatology: History of;: Gout Respiratory: History of: Obstructive Sleep Apnea (C-PAP), Respiratory Problems Renal: History of: Renal Problems Genitourinary: History of: Kidney Stones, Prostate Problems (Prostate Ca- Surgery & Radiation Dr. Lemus), Recurring Urinary Tract Infections ( Controlled On medication) Gastrointestinal: History of: Gastrointestinal Bleed, Hemorrhoids No history of: Polyps (1999) Musculoskeletal: History of: Musculoskeletal Problems (Arthritis mild) Hematology: No history of: Anemia Other: History of: Anesthesia Reactions (Difficult with Intubating-Short Neck), Cancer (Prostate and Skin Ca) Comment Only: Anaphylaxis (Came Close with Levaquin) - Surgical History HEENT Surgeries: Surgical HX of: Eye Surgery (For Left Cataract 01/24/15 Dr. Glover) Abdominal Surgeries: Surgical HX of: Colonoscopy Reproductive Surgeries: Surgical HX of;: Genitourinary Surgery, Prostate Surgery (Prostatectomy 07/02/2002) Orthopedic Surgeries: Surgical HX of;: Orthopedic Surgery (RKS - Clean Out Infection RT Knee Prosthesis), Total Knee Replacement (05/23/98 Right; 04/09/2011 Left) - Family History Family History: Reports;: Family Diabetes (BRO), Family Heart Disease (MOM,DAD) , Family Hypertension (BRO,SIS) Denies;: Family Anesthesia Reaction, Family Cancer, Family Psychiatric Problems, Family Stroke - Social History Smoking Status: Former smoker Frequency of Alcohol Use: None Type of Drug Use: None Exam - Constitutional Vitals: Period Temp Pulse Resp BP Sys/Mitchell Pulse Ox Last 24 Hr 97.3 F-99.6 F 63-82 16-22 121-164/54-96 91-98 Exam: GENERAL: Patient is in no acute distress. NECK: Neck is supple. There is no JVD. No carotid bruits present. No thyroid masses. CVS: First and second heart sounds are normal. There is no S3 present. Regular rate and rhythm. RESPIRATORY: Lungs are clear to auscultation without any rales or rhonchi. ABDOMEN: Soft and non-tender. Bowel sounds are present. There is no hepatosplenomegaly. EXT: There is 3+ palpable edema. Peripheral pulses difficult to assess. Skin: No rashes Central Nervous system: General: Alert, awake and Oriented x 3 Speech: Fluent Comprehension: Intact and normal Facial expressions: Normal Cranial Nerves: CN1/Olfactory: Normal CN II/ Optic: Normal, Visual Jones unreliable CN III, and : SERENITY & EOMI CN V: Normal & intact CN VII: face is symmetric CNVIII: Normal CN XI/X/XI/XII: Intact and Normal Motor: Bulk and Tone is normal. Strength in the right 5/5 Strength in the left 5/5 Sensory: Decreased for all the modalities of PP, LT and temp sense the global stocking distribution Reflexes: 1+ and symmetrical Cerebellar function: Normal finger to nose and heel to begum testing. Toes: Equivocal Gait: Cannot be tested Results - Labs CBC & BMP: 02/13/17 12:52 02/13/17 06:07 Assessment and Plan (1) Myoclonic jerking Status: Acute Assessment and plan: I do not see any more injecting today. Amiodarone has been discontinued and that might would help. The most likely etiology is multiple medications and metabolic disorder Current Visit: Yes (2) Restless leg syndrome Status: Acute Assessment and plan: Stop Sinemet. Start Sinemet CR 25/100 mg 1 tablet at bedtime Continue Requip at the same dose Current Visit: No (3) Peripheral polyneuropathy Status: Acute Assessment and plan: Add Lyrica 100 mg p.o. twice daily Thank you for the counts Current Visit: Yes
[2017-02-13] MEDS: SODIUM CHLORIDE 0.9% 1,000 ML IV SCH (14:21)
[2017-02-13] MEDS: ISOSORBIDE MONONITRATE 30 MG TABLET PO SCH (14:22)
[2017-02-13 15:06] LABS: Folate > 24.0 NG/ML (5.4-24.0); Vitamin B12 774 PG/ML (211-911)
[2017-02-13] MEDS: FUROSEMIDE 40 MG/4 ML VIAL IV SCH (15:12)
[2017-02-13] MEDS: BENZONATATE 100 MG CAPSULE PO SCH ×2 (15:12→20:34)
[2017-02-13] MEDS: rOPINIRole 1 MG TABLET PO SCH (16:07)
--- NOTE | 2017-02-13 17:40 | Nephrology Consult Note ---
History of Present Illness Chief complaint: Renal insufficiency History of present illness: Mr. Chavez is a 81 year old male admitted with fever and shortness of breath. He has multiple chronic medical problems including diastolic CHF, atrial fibrillation, chronic venous insufficiency, hypertension and mild chronic renal failure. Baseline creatinine was 1.6 in September 2016. It was noted to be higher recently. Home Medications Medication Instructions Recorded Confirmed Type Dabigatran [Pradaxa] 150 mg PO BID 01/20/15 02/12/17 History Levothyroxine Tab [Synthroid Tab] 100 mcg PO DAILY@0700 01/20/15 02/12/17 History [place]-3 Acid Ethyl Esters 1 gm PO QPM 01/20/15 02/12/17 History Potassium Chloride 20 meq PO QAM 01/20/15 02/12/17 History Ropinirole HCl [Requip] 5 mg PO DAILY@1700 01/20/15 02/12/17 History dilTIAZem HCl [Diltiazem 24Hr ER] 240 mg PO QAM 01/20/15 02/12/17 History Aspirin EC Tab 81 mg PO QAM 02/06/16 02/12/17 History Pravastatin [Pravachol] 40 mg PO QPM 06/05/16 02/12/17 History Allopurinol [Zyloprim] 300 mg PO MOWEFR 12/05/16 02/12/17 History Calcium Carbonate 600 mg PO QAM 12/05/16 02/12/17 History Cholecalciferol [Vitamin D3] 1,000 unit PO QPM 12/05/16 02/12/17 History Saxagliptin HCl [Onglyza] 2.5 mg PO QAM 12/05/16 02/12/17 History Cyanocobalamin Tab [Vitamin B12 1,000 mcg PO QAM 12/19/16 02/12/17 History Tab] Amiodarone HCl 100 mg PO QAM 02/12/17 02/12/17 History Carbidopa/Levodopa 1 each PO BEDTIME 02/12/17 02/12/17 History [Carbidopa-Levodopa 25-100 Tab] Eplerenone [Eplerenone] 25 mg PO QAM 02/12/17 02/12/17 History Lisinopril [Lisinopril] 10 mg PO QPM 02/12/17 02/12/17 History Lisinopril [Zestril] 25 mg PO QAM 02/12/17 02/12/17 History Torsemide Tab [Demadex Tab] 20 mg PO BID@0600,1200 02/12/17 02/12/17 History Allergies Allergy/AdvReac Type Severity Reaction Status Date / Time levofloxacin [From Levaquin] Allergy Severe SHORTNESS Verified 02/12/17 09:36 OF BREATH,Unresponsive,Rash cephalexin [From Keflex] Allergy Intermediate hallucinati Verified 02/12/17 09: 36 ons,rash adhesive tape Allergy Mild RASH Verified 02/12/17 09:36 Sulfa (Sulfonamide Allergy Mild RASH Verified 02/12/17 09:36 Antibiotics) Medical,Surgical,& Family Hx - Medical History Cardio: History of: Cardiac Dysrhythmia (A-Fib history Dr. Trell MONREAL), CHF, Hypertension, PVD (Extreme Swelling), Cardiovascular Problems (Blood Clot Left Grf-Rvvfwxd-Ox. Raju in [facility]) No history of: CAD, [place] Neurology: No history of: Seizures HEENT: History of: Ear Problem (hearing aides bilateral), Eye Problem (glasses/ cataracts), HEENT Problems Comment Only: Glaucoma (Elevated Pressure) Endocrine: History of: Dyslipidemia, Thyroid Disorder Rheumatology: History of;: Gout Respiratory: History of: Obstructive Sleep Apnea (C-PAP), Respiratory Problems Renal: History of: Renal Problems Genitourinary: History of: Kidney Stones, Prostate Problems (Prostate Ca- Surgery & Radiation Dr. Lmeus), Recurring Urinary Tract Infections ( Controlled On medication) Gastrointestinal: History of: Gastrointestinal Bleed, Hemorrhoids No history of: Polyps (1999) Musculoskeletal: History of: Musculoskeletal Problems (Arthritis mild) Hematology: No history of: Anemia Other: History of: Anesthesia Reactions (Difficult with Intubating-Short Neck), Cancer (Prostate and Skin Ca) Comment Only: Anaphylaxis (Came Close with Levaquin) - Surgical History HEENT Surgeries: Surgical HX of: Eye Surgery (For Left Cataract 01/24/15 Dr. Glover) Abdominal Surgeries: Surgical HX of: Colonoscopy Reproductive Surgeries: Surgical HX of;: Genitourinary Surgery, Prostate Surgery (Prostatectomy 07/02/2002) Orthopedic Surgeries: Surgical HX of;: Orthopedic Surgery (RKS - Clean Out Infection RT Knee Prosthesis), Total Knee Replacement (05/23/98 Right; 04/09/2011 Left) - Family History Family History: Reports;: Family Diabetes (BRO), Family Heart Disease (MOM,DAD) , Family Hypertension (BRO,SIS) Denies;: Family Anesthesia Reaction, Family Cancer, Family Psychiatric Problems, Family Stroke - Social History Smoking Status: Former smoker Frequency of Alcohol Use: None Type of Drug Use: None Review of Systems 12 point system: reviewed and no additional remarkable complaints except as stated Exam - Vital Signs Vital signs: Period Temp Pulse Resp BP Sys/Mitchell Pulse Ox Last 24 Hr 97.3 F-99.2 F 53-82 18-22 121-164/54-71 91-98 Exam: Gen.: Alert and oriented x3. ENT: Pupils equal round reactive to light. EOMs intact. Mucous membranes moist. Neck: Supple. No JVD or bruit. Cardiovascular: Regular rate and rhythm. No murmur rub or gallop Lungs: Clear Abdomen: Soft. Nontender. Positive bowel sounds. No organomegaly Extremities: 3-4+ brawny edema Results - Labs CBC & BMP: 02/13/17 12:52 02/13/17 06:07 Assessment and Plan (1) Chronic kidney disease, stage III (moderate) Status: Acute Assessment and plan: 81-year-old man with: * CRF stage III. Baseline creatinine 1.6 * Acute worsening of chronic renal failure. Given his history of normal LV EF, I agree with discontinuation of lisinopril. He has also had hyperkalemia with potassium 6 on 02/05/2017. * Diastolic CHF * Fever and shortness of breath. Blood cultures negative. Chest x-ray did not show pneumonia. * Diabetes mellitus * Sleep apnea * Chronic venous insufficiency. Prior stents placed by Dr. Spence in [place]. He states his lower extremity edema is approximately the same. His weight has decreased 12-15 pounds over the past month. * Chronic A. fib * Hypothyroidism Current Visit: Yes (2) Fever Status: Acute Current Visit: Yes (3) Hypothyroidism Status: Acute Current Visit: Yes (4) Peripheral polyneuropathy Status: Acute Current Visit: Yes (5) Diabetes mellitus Status: Chronic Current Visit: Yes (6) Obstructive sleep apnea Status: Chronic Current Visit: Yes (7) Chronic a-fib Status: Acute Current Visit: No (8) Diabetes Status: Chronic Current Visit: No (9) Peripheral vascular disease Status: Chronic Current Visit: No
--- NOTE | 2017-02-13 18:10 | Order Completion Report ---
See report scanned to EMR
[2017-02-13] MEDS: PREGABALIN 100 MG CAPSULE PO SCH (20:33)
[2017-02-13] MEDS: OMEGA 3 ACID ETHYL ESTERS 1 GM CAPSULE PO SCH (20:33)
[2017-02-13] MEDS: CHOLECALCIFEROL 1,000 UNIT TABLET PO SCH (20:33)
[2017-02-13] MEDS: ASCORBIC ACID 500 MG TABLET PO SCH (20:34)
[2017-02-13] MEDS: CARBIDOPA/LEVODOPA CR 25-100 MG TABLET PO SCH (20:34)
[2017-02-13] MEDS: CARVEDILOL 6.25 MG TABLET PO SCH (20:35)
[2017-02-13] MEDS: PRAVASTATIN 40 MG TABLET PO SCH (20:35)
[2017-02-14] MEDS: PIPERACILLIN/TAZOBACTAM 3,375 MG in SODIUM CHLORIDE 0.9% 100 ML IV SCH ×3 (01:00→18:17)
[2017-02-14 06:21] LABS: Basophils # 0.1 10*3/uL (0.0-0.2); Basophils % 0.8 % (0.0-0.8); Eosinophils # 0.3 10*3/uL (0.0-0.87); Eosinophils % 4.6 % (0.00-10.9); Hematocrit 30.5 VOL% (42.0-52.0); Hemoglobin 9.3 GM/DL (14.0-18.0); Immature Granulocytes % 0.7 %; Immature Granulocytes Absolute 0.04 #; Lymphocytes # 1.1 10*3/uL (1.4-4.0); Lymphocytes % 18.5 % (21.2-54.2); Mean Corpuscular HGB Conc 30.5 GM/DL (32-36); Mean Corpuscular Hemoglobin 32 PG (27-34); Mean Corpuscular Volume 105.9 FL (87-102); Mean Platelet Volume 10.6 FL (9.6-12.0); Monocytes % 16.8 % (1.7-12.7); Neutrophils # 3.5 10*3/uL (1.4-7.4); Neutrophils % 58.6 % (38.7-73.9); Platelet Count 230 T/CUMM (130-400); Red Blood Count 2.88 MC/CUMM (3.8-5.5); Red Cell Distribution Width 14.7 % (9.3-17.3); White Blood Count 5.9 T/CUMM (4-12)
[2017-02-14] MEDS: LEVOTHYROXINE 100 MCG TABLET PO SCH (06:25)
[2017-02-14 06:49] LABS: Band Neutrophils 1 % (0-10); Eosinophils 5 % (0-10); Hypochromasia 1+; Lymphocytes 14 % (20-55); Nucleated Red Blood Cells 1 (0-5); Segmented Neutrophils 67 % (50-85); Total Cells Counted 100
[2017-02-14 06:50] LABS: Platelet Estimate Normal; Troponin I Only 0.577 NG/ML (0.00-0.045)
[2017-02-14 07:07] LABS: Calcium 8.5 MG/DL (8.5-10.1); Magnesium 2.3 MG/DL (1.8-2.4); Osmolality,Calculated 296.8 MOS/KG (273-304); Potassium 4.2 MMOL/L (3.5-5.1); Risk Ratio 3.58; VLDL CHOLESTEROL 17.4 MG/DL
--- NOTE | 2017-02-14 07:37 | Order Completion Report ---
See report scanned to EMR
[2017-02-14] MEDS: INSULIN LISPRO 100 UNIT/ML SUBCUT SCH ×4 (08:01→21:11)
[2017-02-14] MEDS: SODIUM CHLORIDE 0.9% 1,000 ML IV SCH (08:01)
--- NOTE | 2017-02-14 08:28 | Internal Med Progress Note ---
Assessment and Plan (1) Shortness of breath Status: Acute Assessment and plan: 81-year-old male admitted to acute care * Shortness of breath. Multifactorial. He has been afebrile for past few days. Blood cultures have been negative. Will change Zithromax to p.o. * CHF with preserved ejection fraction. Increased creatinine but weight gain. * Chronic A. fib. Amiodarone has been stopped. * Mildly elevated troponin. Cardiology to see the patient * Hypertension. Continue current treatment * Diabetes. Continue current treatment * Restless leg syndrome. He has been started on Lyrica * Renal insufficiency. His creatinine has increased today * He is gaining weight. Current Visit: Yes (2) Hypothyroidism Status: Acute Current Visit: Yes (3) Congestive heart failure Status: Acute Current Visit: Yes Qualifiers: Congestive heart failure type: unspecified congestive heart failure type Congestive heart failure chronicity: acute Qualified Code(s): I50.9 - Heart failure, unspecified (4) Fever Status: Acute Current Visit: Yes (5) Chronic a-fib Status: Acute Current Visit: No (6) Diabetes Status: Chronic Current Visit: No (7) Hypertension Status: Chronic Current Visit: No (8) Peripheral vascular disease Status: Chronic Current Visit: No (9) Restless leg syndrome Status: Acute Current Visit: No Internal Medicine - PN: Subj Interval history: Patient had a much better night. He is actually quite drowsy this morning. He is still having jerking movement as before. He denies any chest pain or shortness of breath Exam (Progress Note) - Constitutional Vitals: Period Temp Pulse Resp BP Sys/Mitchell Pulse Ox Last 24 Hr 97.3 F-98.8 F 52-80 14-20 106-141/43-72 93-98 Exam: Examination: GENERAL: No acute distress NECK: Neck is supple. CVS: Regular rate and rhythm. S1 and S2 are normal. RESPIRATORY: Lungs are clear. ABDOMEN: Soft and nontender. EXT: 4+ pitting edema bilaterally. 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 Motor strength is 4/5. SKIN: Warm and dry. MSK: No obvious deformity. Results - Labs CBC & BMP: 02/14/17 05:35 02/14/17 05:35 Lab Results: I have reviewed the past 24 hour labs
[2017-02-14] MEDS: DOCUSATE SODIUM 100 MG CAPSULE PO SCH ×2 (08:51→21:10)
[2017-02-14] MEDS: CARVEDILOL 6.25 MG TABLET PO SCH ×3 (08:52→21:16)
[2017-02-14] MEDS: ASCORBIC ACID 500 MG TABLET PO SCH ×2 (08:52→21:10)
[2017-02-14] MEDS: PANTOPRAZOLE 40 MG TABLET PO SCH (08:52)
[2017-02-14] MEDS: CYANOCOBALAMIN 500 MCG TABLET PO SCH (08:52)
[2017-02-14] MEDS: sitaGLIPtin 25 MG TABLET PO SCH (08:52)
[2017-02-14] MEDS: BENZONATATE 100 MG CAPSULE PO SCH ×3 (08:52→21:10)
[2017-02-14] MEDS: DABIGATRAN 150 MG CAPSULE PO SCH (08:52)
[2017-02-14] MEDS: DILTIAZEM CD 240 MG CAPSULE PO SCH (08:52)
[2017-02-14] MEDS: POTASSIUM CHLORIDE 20 MEQ TABLET PO SCH (08:53)
[2017-02-14] MEDS: PREGABALIN 100 MG CAPSULE PO SCH (08:53)
[2017-02-14] MEDS: ASPIRIN EC 81 MG TABLET PO SCH (08:53)
[2017-02-14] MEDS: CALCIUM (CARBONATE) 600 MG TABLET PO SCH (08:53)
[2017-02-14] MEDS: FUROSEMIDE 40 MG/4 ML VIAL IV SCH ×2 (08:53→16:47)
[2017-02-14] MEDS: ISOSORBIDE MONONITRATE 30 MG TABLET PO SCH (08:53)
[2017-02-14] MEDS ORDERED: AZITHROMYCIN 250 MG TABLET PO SCH (09:00)
[2017-02-14 09:26] LABS: Hemoglobin A1 (Alkaline) 97.7 % (96.5-98.5); Hemoglobin A2 (Alkaline) 2.3 % (1.5-3.5)
--- NOTE | 2017-02-14 11:13 | Nephrology Progress Note ---
Nephrology - PN: Subj Interval history: Shortness of breath has improved. He is having myoclonic jerks of his legs. He has been afebrile Exam (PN)-Nephrology - Vital Signs Vital signs: Period Temp Pulse Resp BP Sys/Mitchell Pulse Ox Last 24 Hr 97.3 F-98.8 F 52-80 14-20 106-141/43-72 93-98 Exam: Gen.: Alert and oriented x3. ENT: Pupils equal round reactive to light. EOMs intact. Mucous membranes moist. Neck: Supple. No JVD or bruit. Cardiovascular: Regular rate and rhythm. No murmur rub or gallop Lungs: Clear Abdomen: Soft. Nontender. Positive bowel sounds. No organomegaly Extremities: 3+ brawny edema - Lab 02/14/17 05:35 02/14/17 05:35 Most recent lab results Calcium 8.5 MG/DL (8.5-10.1) 02/14/17 05:35 Magnesium 2.3 MG/DL (1.8-2.4) 02/14/17 05:35 Assessment and Plan (1) Chronic kidney disease, stage III (moderate) Status: Acute Assessment and plan: 81-year-old man with: * CRF stage III. Baseline creatinine 1.6 * Acute worsening of chronic renal failure. Creatinine is higher today. His output is recorded as being higher than intake; however his weight is recorded higher. His states his fluid intake has been high. Fluid will be restricted. Diuretic dose will not be changed today * Diastolic CHF * Fever and shortness of breath. Blood cultures negative. Chest x-ray did not show pneumonia. * Diabetes mellitus * Sleep apnea * Chronic venous insufficiency. Prior stents placed by Dr. Spence in [place]. He states his lower extremity edema is approximately the same. His weight has decreased 12-15 pounds over the past month. * Chronic A. fib * Hypothyroidism Current Visit: Yes (2) Fever Status: Acute Current Visit: Yes (3) Hypothyroidism Status: Acute Current Visit: Yes (4) Peripheral polyneuropathy Status: Acute Current Visit: Yes (5) Diabetes mellitus Status: Chronic Current Visit: Yes (6) Obstructive sleep apnea Status: Chronic Current Visit: Yes (7) Chronic a-fib Status: Acute Current Visit: No (8) Diabetes Status: Chronic Current Visit: No (9) Peripheral vascular disease Status: Chronic Current Visit: No
--- NOTE | 2017-02-14 13:04 | Cardiology Progress Note ---
<MontrellLuiza E - Last Filed: 02/14/17 13:05> Assessment and Plan - Time spent with patient Time spent with patient: Greater than 30 minutes (1) Dyslipidemia Status: Chronic Assessment and plan: SEE PLAN OF CARE LISTED BELOW Current Visit: Yes (2) Obstructive sleep apnea Status: Chronic Assessment and plan: SEE PLAN OF CARE LISTED BELOW Current Visit: Yes (3) Obesity Status: Chronic Assessment and plan: SEE PLAN OF CARE LISTED BELOW Current Visit: Yes Qualifiers: Obesity type: unspecified obesity type Obesity classification: adult class 3 (BMI >= 40) Serious obesity comorbidity presence: with serious comorbidity Body mass index: BMI 40.0-44.9 Qualified Code(s): E66.9 - Obesity, unspecified; Z68.41 - Body mass index (BMI) 40.0-44.9, adult; Z68.41 - Body mass index (BMI) 40.0-44.9, adult; Z68.41 - Body mass index (BMI) 40.0-44.9, adult; Z68.41 - Body mass index (BMI) 40.0-44.9, adult (4) Anemia Status: Acute Assessment and plan: SEE PLAN OF CARE LISTED BELOW Current Visit: Yes (5) Edema Status: Chronic Assessment and plan: SEE PLAN OF CARE LISTED BELOW Current Visit: Yes Qualifiers: Edema type: unspecified Qualified Code(s): R60.9 - Edema, unspecified (6) High risk medication use Status: Chronic Assessment and plan: SEE PLAN OF CARE LISTED BELOW Current Visit: Yes (7) Congestive heart failure Status: Acute Assessment and plan: SEE PLAN OF CARE LISTED BELOW Current Visit: Yes Qualifiers: Congestive heart failure type: unspecified congestive heart failure type Congestive heart failure chronicity: acute Qualified Code(s): I50.9 - Heart failure, unspecified (8) Diabetes mellitus Status: Chronic Assessment and plan: SEE PLAN OF CARE LISTED BELOW Current Visit: Yes (9) Shortness of breath Status: Acute Assessment and plan: SEE PLAN OF CARE LISTED BELOW Current Visit: Yes (10) Atrial fibrillation Status: Acute Assessment and plan: SEE PLAN OF CARE LISTED BELOW Current Visit: No Qualifiers: Atrial fibrillation type: paroxysmal Qualified Code(s): I48.0 - Paroxysmal atrial fibrillation (11) Chronic anticoagulation Status: Chronic Assessment and plan: SEE PLAN OF CARE LISTED BELOW Current Visit: No (12) Diabetes Status: Chronic Assessment and plan: SEE PLAN OF CARE LISTED BELOW Current Visit: No (13) Hypertension Status: Chronic Assessment and plan: SEE PLAN OF CARE LISTED BELOW Current Visit: No Qualifiers: Hypertension type: essential hypertension Qualified Code(s): I10 - Essential (primary) hypertension (14) Peripheral vascular disease Status: Chronic Assessment and plan: SEE PLAN OF CARE LISTED BELOW Current Visit: No Cardiology - PN: Subj Interval history: MATERIALS HANDLING COORDINATOR: DR. HERNÁNDEZ ([place]) SUMMARY: Mr. Chavez, 81WM, with risk factors significant for: hypertension, dyslipidemia, diabetes, PVD, sedentary lifestyle and obesity. History of chronic venous stasis, RBBB, atrial fibrillation (takes Pradaxa for stroke prevention), Amiodarone (since 2014) for rhythm control (failed DCCV). History of CHF with preserved ejection fraction previously followed by Dr. Medhat Cai at [facility]. He is transitioning care to Dr. Hernández. History of DVT with venous stenting by Dr. Spence approximately 2 years ago. Admitted February. Cardiology was consulted for worsening shortness of breath and elevated troponin (peaked at 0.9) in the setting of creatinine of 2.5. Troponin is flat with a normal CPK and CK-MB. This is not acute IN. There has been some concern regarding possible Amiodarone toxicity worsening his pulmonary condition and also neurotoxicity causing spastic muscle jerking. Amiodarone has been held this admission. Echocardiogram: EF 55-60%, mild concentric LVH. FEBRUARY 14, 2017: Patient is followed for stable, chronic conditions to include atrial fibrillation, hypertension, dyslipidemia and PVD. He is also followed for more acute conditions such as shortness of breath concerning for Amiodarone toxicity, mildly elevated troponin. Denies chest pain, heaviness, tightness. Reports breathing has improved and he is no longer orthopneic. He slept numerous hours last night, first time in several nights he has had consistent rest. Did have some abnormal motor movements again this morning briefly. Echocardiogram results noted (see above for results). Troponins remained flat, CPK and CK-MB negative. This is not acute IN. Patient has never had a cardiac catheterization at some point may benefit from procedure when his other comorbidities improve. He has had no complaints concerning for angina at this point. No fever recorded, no leukocytosis. Vital signs are stable. Continue with recently added nitrate. Continue ASA, betablocker, Pravastatin. Holding Lisinopril for worsened creatinine. I will further discuss with Dr. Hernández and await additional recommendations. IMPRESSION/PLAN: 1. SHORTNESS OF BREATH - multifactorial and cannot exclude Amiodarone toxicity. Amiodarone has been stopped. Eplerenone has also been discontinued. Antibiotics adjusted. Improved. 2. HYPERTENSION - discontinued Lisinopril for fear of worsening his renal insufficiency. Tolerating low-dose Coreg. 3. DYSLIPIDEMIA - LDL 103. Continue lipid-lowering agent. 4. DIABETES - sliding scale. Adjust accordingly during hospital stay 5. RENAL INSUFFICIENCY - uncertain if this is an acute or chronic condition. Currently stage III. Avoid nephrotoxic agents as able. Renal ultrasound revealed no significant abnormality. 6. HIGH RISK MEDICATIONS - Amiodarone, Pradaxa. Amiodarone has been discontinued. If/when creatinine clearance less than 30 will decrease Pradaxa 75 mg orally twice daily 7. PAF - holding Amiodarone. Initially, consider discontinuing Pradaxa and covering with Lovenox in case patient required cardiac catheterization during this admission. Echocardiogram revealed no significant abnormality. For this reason, patient may consider having cardiac catheterization at a future date and for this reason Pradaxa has not been held Pradaxa has not been held. 8. RBBB - chronic right bundle branch block. 9. GUILLERMINA - compliant with device. Exam (Progress Note) - Constitutional Vitals: Period Temp Pulse Resp BP Sys/Mitchell Pulse Ox Last 24 Hr 97.4 F-98.8 F 50-64 14-20 90-141/43-72 93-96 Exam: General: [Appears well with no apparent distress.] [Pleasant and cooperative. ] [Appears comfortable.] HEENT: [PERRL, normocephalic, atraumatic. Mucous membranes moist. No jaundice noted. Conjunctiva moist and clear, sclerae anicteric] Neck: Unable to assess for JVD due to habitus. No thyromegaly. No carotid bruit appreciated Cardiac: [Regular rate and rhythm.] [No obvious murmur, rub or gallop.] Lungs: [Clear to auscultation without accessory muscle use to assist the respiratory pattern.] Oxygen in use via nasal cannula Abdomen: Soft, bowel sounds normoactive. Nontender and nondistended. No abdominal bruit or thrill noted. No masses noted. Musculoskeletal: No fluid collection. Decreased range of motion is noted. Extremities: No clubbing, cyanosis noted. [3+ bilateral lower extremity edema, chronic skin changes. Upper extremity pulses 2+. Lower extremity pulses trace and difficult to palpate through the edema capillary refill less than 3 seconds. Skin: No unusual lesions or rashes other than chronic skin changes bilateral lower extremities. No skin breakdown appreciated. Neuro: Awake, alert and oriented 3. Moves all extremities well without hemiparesis or paralysis. No essential tremor is appreciated. H Result/EKG - Labs CBC & BMP: 02/14/17 05:35 02/14/17 05:35 Lab Results: I have reviewed the past 24 hour labs Labs: Laboratory Results - last 24 hr 02/13/17 02/13/17 02/13/17 12:51 12:51 12:52 WBC 7.6 RBC 3.32 L Hgb 11.0 L Hct 35.3 L MCV 106.3 H MCH 33 MCHC 31.2 L RDW 14.6 Plt Count 264 MPV 10.0 Neut % (Auto) 69.0 Lymph % (Auto) 15.2 L [place] % (Auto) 13.1 H Eos % (Auto) 1.3 Baso % (Auto) 0.7 Neut # (Auto) 5.2 Lymph # (Auto) 1.2 L [place] # (Auto) 1.0 H Eos # (Auto) 0.1 Baso # (Auto) 0.1 Total Counted Immature Gran % 0.7 Nucleated RBC % 0.0 Immature Gran # 0.05 Segmented Neutrophils Band Neutrophils Lymphocytes Monocytes Eosinophils Nucleated RBCs Nucleated RBCs # 0.00 Anemia Panel Interp See comment Platelet Estimate Immature Plt Fraction 0.0 Hypochromasia ESR Westergren 81 H Absolute Retic 0.1 Percent Retic 3.2 H Retic Hgb Equivalent 25.2 L Hemoglobin A1 Hemoglobin A2 Hgb ELP Interp Sodium Potassium Chloride Carbon Dioxide Anion Gap BUN Creatinine GFR Calculation BUN/Creatinine Ratio Glucose POC Glucose Calculated Osmolality Calcium Magnesium Ferritin 102.2 Total Creatine Kinase CK-MB (CK-2) Troponin I Triglycerides Cholesterol LDL Cholesterol VLDL Cholesterol HDL Cholesterol Heart Disease Risk Ratio Vitamin B12 Folate PAUL (IgG-AHG) Negative PAUL, Polyspecific Negative 02/13/17 02/13/17 02/13/17 12:52 15:31 19:57 WBC RBC Hgb Hct MCV MCH MCHC RDW Plt Count MPV Neut % (Auto) Lymph % (Auto) [place] % (Auto) Eos % (Auto) Baso % (Auto) Neut # (Auto) Lymph # (Auto) [place] # (Auto) Eos # (Auto) Baso # (Auto) Total Counted Immature Gran % Nucleated RBC % Immature Gran # Segmented Neutrophils Band Neutrophils Lymphocytes Monocytes Eosinophils Nucleated RBCs Nucleated RBCs # Anemia Panel Interp Platelet Estimate Immature Plt Fraction Hypochromasia ESR Westergren Absolute Retic Percent Retic Retic Hgb Equivalent Hemoglobin A1 97.7 Hemoglobin A2 2.3 Hgb ELP Interp See comment Sodium Potassium Chloride Carbon Dioxide Anion Gap BUN Creatinine GFR Calculation BUN/Creatinine Ratio Glucose POC Glucose 153 H 195 H Calculated Osmolality Calcium Magnesium Ferritin Total Creatine Kinase CK-MB (CK-2) Troponin I Triglycerides Cholesterol LDL Cholesterol VLDL Cholesterol HDL Cholesterol Heart Disease Risk Ratio Vitamin B12 774 Folate > 24.0 H PAUL (IgG-AHG) PAUL, Polyspecific 02/14/17 02/14/17 02/14/17 05:35 05:35 05:35 WBC 5.9 RBC 2.88 L Hgb 9.3 L Hct 30.5 L MCV 105.9 H MCH 32 MCHC 30.5 L RDW 14.7 Plt Count 230 MPV 10.6 Neut % (Auto) 58.6 Lymph % (Auto) 18.5 L [place] % (Auto) 16.8 H Eos % (Auto) 4.6 Baso % (Auto) 0.8 Neut # (Auto) 3.5 Lymph # (Auto) 1.1 L [place] # (Auto) 1.0 H Eos # (Auto) 0.3 Baso # (Auto) 0.1 Total Counted 100 Immature Gran % 0.7 Nucleated RBC % 0.0 Immature Gran # 0.04 Segmented Neutrophils 67 Band Neutrophils 1 Lymphocytes 14 L Monocytes 13 Eosinophils 5 Nucleated RBCs 1 Nucleated RBCs # 0.00 Anemia Panel Interp Platelet Estimate Normal Immature Plt Fraction 0.0 Hypochromasia 1+ ESR Westergren Absolute Retic Percent Retic Retic Hgb Equivalent Hemoglobin A1 Hemoglobin A2 Hgb ELP Interp Sodium 144 Potassium 4.2 Chloride 104 Carbon Dioxide 33 H Anion Gap 11.2 BUN 38 H Creatinine 2.50 H GFR Calculation 34 BUN/Creatinine Ratio 15.00 Glucose 126 H POC Glucose Calculated Osmolality 296.8 Calcium 8.5 Magnesium 2.3 Ferritin Total Creatine Kinase 79 CK-MB (CK-2) 1.5 Troponin I 0.577 H D Triglycerides 87 Cholesterol 172 LDL Cholesterol 103.0 VLDL Cholesterol 17.4 HDL Cholesterol 48 Heart Disease Risk Ratio 3.58 Vitamin B12 Folate PAUL (IgG-AHG) PAUL, Polyspecific 02/14/17 02/14/17 06:29 11:25 WBC RBC Hgb Hct MCV MCH MCHC RDW Plt Count MPV Neut % (Auto) Lymph % (Auto) [place] % (Auto) Eos % (Auto) Baso % (Auto) Neut # (Auto) Lymph # (Auto) [place] # (Auto) Eos # (Auto) Baso # (Auto) Total Counted Immature Gran % Nucleated RBC % Immature Gran # Segmented Neutrophils Band Neutrophils Lymphocytes Monocytes Eosinophils Nucleated RBCs Nucleated RBCs # Anemia Panel Interp Platelet Estimate Immature Plt Fraction Hypochromasia ESR Westergren Absolute Retic Percent Retic Retic Hgb Equivalent Hemoglobin A1 Hemoglobin A2 Hgb ELP Interp Sodium Potassium Chloride Carbon Dioxide Anion Gap BUN Creatinine GFR Calculation BUN/Creatinine Ratio Glucose POC Glucose 155 H 171 H Calculated Osmolality Calcium Magnesium Ferritin Total Creatine Kinase CK-MB (CK-2) Troponin I Triglycerides Cholesterol LDL Cholesterol VLDL Cholesterol HDL Cholesterol Heart Disease Risk Ratio Vitamin B12 Folate PAUL (IgG-AHG) PAUL, Polyspecific - EKG EKG results: interpreted by me EKG shows: sinus rhythm <Amarilis Hernández - Last Filed: 02/14/17 18:05> Cardiology - PN: Subj Interval history: I have personally interviewed and evaluated the patient, reviewed the chart and discussed medical decision-making with Practitioner Montrell. I have read this note and agree with her documentation here in. The patient is still with his myoclonic jerking. We are withholding the amiodarone in case this is related to the symptoms. I have decreased the Pradaxa dose to 75 twice daily. With an ideal body weight of 160 pounds his creatinine clearance is less than 30. Exam (Progress Note) - Constitutional Vitals: Period Temp Pulse Resp BP Sys/Mitchell Pulse Ox Last 24 Hr 97.4 F-98.8 F 50-94 14-20 90-141/43-72 93-95 Result/EKG - Labs CBC & BMP: 02/14/17 05:35 02/14/17 05:35 Labs: Laboratory Results - last 24 hr 02/13/17 02/13/17 02/13/17 12:52 12:52 19:57 WBC RBC Hgb Hct MCV MCH MCHC RDW Plt Count MPV Neut % (Auto) Lymph % (Auto) [place] % (Auto) Eos % (Auto) Baso % (Auto) Neut # (Auto) Lymph # (Auto) [place] # (Auto) Eos # (Auto) Baso # (Auto) Total Counted Immature Gran % Nucleated RBC % Immature Gran # Segmented Neutrophils Band Neutrophils Lymphocytes Monocytes Eosinophils Nucleated RBCs Nucleated RBCs # Anemia Panel Interp See comment Platelet Estimate Immature Plt Fraction Hypochromasia Hemoglobin A1 97.7 Hemoglobin A2 2.3 Hgb ELP Interp See comment Sodium Potassium Chloride Carbon Dioxide Anion Gap BUN Creatinine GFR Calculation BUN/Creatinine Ratio Glucose POC Glucose 195 H Calculated Osmolality Calcium Magnesium Total Creatine Kinase CK-MB (CK-2) Troponin I Triglycerides Cholesterol LDL Cholesterol VLDL Cholesterol HDL Cholesterol Heart Disease Risk Ratio 02/14/17 02/14/17 02/14/17 05:35 05:35 05:35 WBC 5.9 RBC 2.88 L Hgb 9.3 L Hct 30.5 L MCV 105.9 H MCH 32 MCHC 30.5 L RDW 14.7 Plt Count 230 MPV 10.6 Neut % (Auto) 58.6 Lymph % (Auto) 18.5 L [place] % (Auto) 16.8 H Eos % (Auto) 4.6 Baso % (Auto) 0.8 Neut # (Auto) 3.5 Lymph # (Auto) 1.1 L [place] # (Auto) 1.0 H Eos # (Auto) 0.3 Baso # (Auto) 0.1 Total Counted 100 Immature Gran % 0.7 Nucleated RBC % 0.0 Immature Gran # 0.04 Segmented Neutrophils 67 Band Neutrophils 1 Lymphocytes 14 L Monocytes 13 Eosinophils 5 Nucleated RBCs 1 Nucleated RBCs # 0.00 Anemia Panel Interp Platelet Estimate Normal Immature Plt Fraction 0.0 Hypochromasia 1+ Hemoglobin A1 Hemoglobin A2 Hgb ELP Interp Sodium 144 Potassium 4.2 Chloride 104 Carbon Dioxide 33 H Anion Gap 11.2 BUN 38 H Creatinine 2.50 H GFR Calculation 34 BUN/Creatinine Ratio 15.00 Glucose 126 H POC Glucose Calculated Osmolality 296.8 Calcium 8.5 Magnesium 2.3 Total Creatine Kinase 79 CK-MB (CK-2) 1.5 Troponin I 0.577 H D Triglycerides 87 Cholesterol 172 LDL Cholesterol 103.0 VLDL Cholesterol 17.4 HDL Cholesterol 48 Heart Disease Risk Ratio 3.58 02/14/17 02/14/17 02/14/17 06:29 11:25 15:59 WBC RBC Hgb Hct MCV MCH MCHC RDW Plt Count MPV Neut % (Auto) Lymph % (Auto) [place] % (Auto) Eos % (Auto) Baso % (Auto) Neut # (Auto) Lymph # (Auto) [place] # (Auto) Eos # (Auto) Baso # (Auto) Total Counted Immature Gran % Nucleated RBC % Immature Gran # Segmented Neutrophils Band Neutrophils Lymphocytes Monocytes Eosinophils Nucleated RBCs Nucleated RBCs # Anemia Panel Interp Platelet Estimate Immature Plt Fraction Hypochromasia Hemoglobin A1 Hemoglobin A2 Hgb ELP Interp Sodium Potassium Chloride Carbon Dioxide Anion Gap BUN Creatinine GFR Calculation BUN/Creatinine Ratio Glucose POC Glucose 155 H 171 H 155 H Calculated Osmolality Calcium Magnesium Total Creatine Kinase CK-MB (CK-2) Troponin I Triglycerides Cholesterol LDL Cholesterol VLDL Cholesterol HDL Cholesterol Heart Disease Risk Ratio
[2017-02-14] MEDS: rOPINIRole 1 MG TABLET PO SCH (16:46)
[2017-02-14] MEDS: OMEGA 3 ACID ETHYL ESTERS 1 GM CAPSULE PO SCH (21:09)
[2017-02-14] MEDS: PRAVASTATIN 40 MG TABLET PO SCH (21:10)
[2017-02-14] MEDS: DABIGATRAN 75 MG CAPSULE PO SCH (21:10)
[2017-02-14] MEDS: CHOLECALCIFEROL 1,000 UNIT TABLET PO SCH (21:10)
[2017-02-14] MEDS: PREGABALIN 50 MG CAPSULE PO SCH (21:11)
[2017-02-14] MEDS: CARBIDOPA/LEVODOPA CR 25-100 MG TABLET PO SCH ×2 (21:12→23:57)
[2017-02-15] MEDS: PIPERACILLIN/TAZOBACTAM 3,375 MG in SODIUM CHLORIDE 0.9% 100 ML IV SCH ×3 (02:39→17:40)
[2017-02-15 03:35] LABS: Basophils % 0.5 % (0.0-0.8); Eosinophils # 0.4 10*3/uL (0.0-0.87); Eosinophils % 5.4 % (0.00-10.9); Hemoglobin 9.9 GM/DL (14.0-18.0); Immature Granulocytes % 0.8 %; Immature Granulocytes Absolute 0.05 #; Lymphocytes # 1.1 10*3/uL (1.4-4.0); Lymphocytes % 17.2 % (21.2-54.2); Mean Corpuscular HGB Conc 30.9 GM/DL (32-36); Mean Corpuscular Hemoglobin 33 PG (27-34); Mean Platelet Volume 10.8 FL (9.6-12.0); Monocytes # 0.8 10*3/uL (0.11-0.8); Monocytes % 11.5 % (1.7-12.7); Neutrophils # 4.2 10*3/uL (1.4-7.4); Neutrophils % 64.6 % (38.7-73.9); Platelet Count 267 T/CUMM (130-400); Red Blood Count 3.02 MC/CUMM (3.8-5.5); Red Cell Distribution Width 14.8 % (9.3-17.3); White Blood Count 6.5 T/CUMM (4-12)
[2017-02-15 04:13] LABS: Calcium 8.5 MG/DL (8.5-10.1); Magnesium 2.5 MG/DL (1.8-2.4); Osmolality,Calculated 291.7 MOS/KG (273-304); Potassium 4.7 MMOL/L (3.5-5.1)
[2017-02-15] MEDS: BENZONATATE 100 MG CAPSULE PO SCH ×4 (06:06→20:02)
[2017-02-15] MEDS: LEVOTHYROXINE 100 MCG TABLET PO SCH (06:06)
--- NOTE | 2017-02-15 08:46 | Internal Med Progress Note ---
Assessment and Plan (1) Shortness of breath Status: Acute Assessment and plan: 81-year-old male admitted to acute care * Shortness of breath. Slightly better. His weight has gone up. * CHF with preserved ejection fraction. Increased creatinine but weight gain. * Chronic A. fib. Amiodarone has been stopped. * Mildly elevated troponin. Cardiology to see the patient * Hypertension. Continue current treatment * Diabetes. Continue current treatment * UTI. His count is 10-20,000 but it is ESBL Proteus mirabilis. He had fever when he came in * Restless leg syndrome. He has been started on Lyrica * Renal insufficiency. His creatinine is steadily going up. His blood pressure is on the lower side. He may be volume depleted. May have to decrease his Lasix Current Visit: Yes (2) Hypothyroidism Status: Acute Current Visit: Yes (3) Congestive heart failure Status: Acute Current Visit: Yes Qualifiers: Congestive heart failure type: unspecified congestive heart failure type Congestive heart failure chronicity: acute Qualified Code(s): I50.9 - Heart failure, unspecified (4) Fever Status: Acute Current Visit: Yes (5) Chronic a-fib Status: Acute Current Visit: No (6) Diabetes Status: Chronic Current Visit: No (7) Hypertension Status: Chronic Current Visit: No Qualifiers: Hypertension type: essential hypertension Qualified Code(s): I10 - Essential (primary) hypertension (8) Peripheral vascular disease Status: Chronic Current Visit: No (9) Restless leg syndrome Status: Acute Current Visit: No Internal Medicine - PN: Subj Interval history: Patient is feeling okay. He is still having jerks. He denies any chest pain or shortness of breath. He denies any nausea or vomiting. His weight has gone up steadily. Exam (Progress Note) - Constitutional Vitals: Period Temp Pulse Resp BP Sys/Mitchell Pulse Ox Last 24 Hr 97.3 F-98.8 F 48-94 18-20 90-128/45-52 92-96 Exam: Examination: GENERAL: No acute distress NECK: Neck is supple. CVS: Regular rate and rhythm. S1 and S2 are normal. RESPIRATORY: Lungs are clear. ABDOMEN: Soft and nontender. EXT: 4+ pitting edema bilaterally. Peripheral pulses are present PACKAGING DESIGN ENGINEER: Patient is awake, alert and oriented to time place and person. Motor strength is 4/5. SKIN: Warm and dry. MSK: No obvious deformity. Results - Labs CBC & BMP: 02/15/17 02:38 02/15/17 02:38 Lab Results: I have reviewed the past 24 hour labs
[2017-02-15] MEDS: INSULIN LISPRO 100 UNIT/ML SUBCUT SCH ×4 (09:30→20:09)
--- NOTE | 2017-02-15 10:07 | XRay Report ---
History: Shortness of breath Date: 02/15/2017 Study: Chest x-ray PA and lateral Comparison exam: February 12, 2017 There is cardiomegaly. The pulmonary vasculature is borderline to minimally prominent. There is mild bilateral pleural effusion. There is no juan pneumonia. There is improved aeration in the left lower lobe compared to the previous study. Osseous structures are unchanged. Impression: Cardiomegaly and borderline pulmonary venous hypertension appearance without overt pulmonary edema. Mild bilateral pleural effusion PROCEDURE INTERPRETED AT [facility] [place] DEPARTMENT OF RADIOLOGY Final Report Signed by: Dr. Shasta Dickerson
[2017-02-15] MEDS: ASPIRIN EC 81 MG TABLET PO SCH (10:11)
[2017-02-15] MEDS: DOCUSATE SODIUM 100 MG CAPSULE PO SCH ×2 (10:12→20:02)
[2017-02-15] MEDS: CALCIUM (CARBONATE) 600 MG TABLET PO SCH (10:12)
[2017-02-15] MEDS: DILTIAZEM CD 240 MG CAPSULE PO SCH (10:12)
[2017-02-15] MEDS: sitaGLIPtin 25 MG TABLET PO SCH (10:13)
[2017-02-15] MEDS: ISOSORBIDE MONONITRATE 30 MG TABLET PO SCH (10:13)
[2017-02-15] MEDS: CARVEDILOL 6.25 MG TABLET PO SCH ×2 (10:13→20:08)
[2017-02-15] MEDS: POTASSIUM CHLORIDE 20 MEQ TABLET PO SCH (10:14)
[2017-02-15] MEDS: DABIGATRAN 75 MG CAPSULE PO SCH ×2 (10:14→20:02)
[2017-02-15] MEDS: ASCORBIC ACID 500 MG TABLET PO SCH ×2 (10:15→20:02)
[2017-02-15] MEDS: PANTOPRAZOLE 40 MG TABLET PO SCH (10:15)
[2017-02-15] MEDS: CYANOCOBALAMIN 500 MCG TABLET PO SCH (10:15)
[2017-02-15 11:00] LABS: Apearance,Urine CLEAR (Clear); Bilirubin,Urine Negative (Negative); Blood, Urine Negative (Negative); Glucose,Urine (UA) Negative (Negative); Ketones,Urine Negative (Negative); Mucus,Urine Occasional /LPF (Occasional); Nitrite,Urine Negative (Negative); Protein,Urine Negative; RBC,Urine 5 /HPF (0-4); Urine Color Yellow (Yellow); Urine Specific Gravity 1.014 (1.001-1.035); Urine Urobilinogen < 2.0 EU/DL (0.2-1.0); WBC,Urine 4 /HPF (0-6)
--- NOTE | 2017-02-15 13:25 | Nephrology Progress Note ---
Nephrology - PN: Subj Interval history: He states his breathing is better. No cough. Myoclonic jerks slightly better Exam (PN)-Nephrology - Vital Signs Vital signs: Period Temp Pulse Resp BP Sys/Mitchell Pulse Ox Last 24 Hr 97.3 F-98.8 F 48-102 18-20 100-132/45-61 86-96 Exam: Gen.: Alert and oriented x3. ENT: Pupils equal round reactive to light. EOMs intact. Mucous membranes moist. Neck: Supple. No JVD or bruit. Cardiovascular: Regular rate and rhythm. No murmur rub or gallop Lungs: Clear Abdomen: Soft. Nontender. Positive bowel sounds. No organomegaly Extremities: 3+ brawny edema - Lab 02/15/17 02:38 02/15/17 02:38 Most recent lab results Calcium 8.5 MG/DL (8.5-10.1) 02/15/17 02:38 Magnesium 2.5 MG/DL (1.8-2.4) H 02/15/17 02:38 Assessment and Plan (1) Chronic kidney disease, stage III (moderate) Status: Acute Assessment and plan: 81-year-old man with: * CRF stage III. Baseline creatinine 1.6 * Acute worsening of chronic renal failure. Creatinine has risen further. I agree that he has prerenal azotemia. Lasix will be held. * Diastolic CHF * Fever and shortness of breath. Blood cultures negative. Chest x-ray did not show pneumonia. * Diabetes mellitus * Sleep apnea * Chronic venous insufficiency. Prior stents placed by Dr. Spence in [place]. He states his lower extremity edema is approximately the same. His weight has decreased 12-15 pounds over the past month. * Chronic A. fib * Hypothyroidism Current Visit: Yes (2) Fever Status: Acute Current Visit: Yes (3) Hypothyroidism Status: Acute Current Visit: Yes (4) Peripheral polyneuropathy Status: Acute Current Visit: Yes (5) Diabetes mellitus Status: Chronic Current Visit: Yes (6) Obstructive sleep apnea Status: Chronic Current Visit: Yes (7) Chronic a-fib Status: Acute Current Visit: No (8) Diabetes Status: Chronic Current Visit: No (9) Peripheral vascular disease Status: Chronic Current Visit: No
--- NOTE | 2017-02-15 13:38 | Cardiology Progress Note ---
<Luiza Stock E - Last Filed: 02/15/17 13:35> Assessment and Plan - Time spent with patient Time spent with patient: Greater than 30 minutes (1) Dyslipidemia Status: Chronic Assessment and plan: SEE PLAN OF CARE LISTED BELOW Current Visit: Yes (2) Obstructive sleep apnea Status: Chronic Assessment and plan: SEE PLAN OF CARE LISTED BELOW Current Visit: Yes (3) Obesity Status: Chronic Assessment and plan: SEE PLAN OF CARE LISTED BELOW Current Visit: Yes Qualifiers: Obesity type: unspecified obesity type Obesity classification: adult class 3 (BMI >= 40) Serious obesity comorbidity presence: with serious comorbidity Body mass index: BMI 40.0-44.9 Qualified Code(s): E66.9 - Obesity, unspecified; Z68.41 - Body mass index (BMI) 40.0-44.9, adult; Z68.41 - Body mass index (BMI) 40.0-44.9, adult; Z68.41 - Body mass index (BMI) 40.0-44.9, adult; Z68.41 - Body mass index (BMI) 40.0-44.9, adult (4) Anemia Status: Acute Assessment and plan: SEE PLAN OF CARE LISTED BELOW Current Visit: Yes (5) Edema Status: Chronic Assessment and plan: SEE PLAN OF CARE LISTED BELOW Current Visit: Yes Qualifiers: Edema type: unspecified Qualified Code(s): R60.9 - Edema, unspecified (6) High risk medication use Status: Chronic Assessment and plan: SEE PLAN OF CARE LISTED BELOW Current Visit: Yes (7) Congestive heart failure Status: Acute Assessment and plan: SEE PLAN OF CARE LISTED BELOW Current Visit: Yes Qualifiers: Congestive heart failure type: unspecified congestive heart failure type Congestive heart failure chronicity: acute Qualified Code(s): I50.9 - Heart failure, unspecified (8) Diabetes mellitus Status: Chronic Assessment and plan: SEE PLAN OF CARE LISTED BELOW Current Visit: Yes (9) Shortness of breath Status: Acute Assessment and plan: SEE PLAN OF CARE LISTED BELOW Current Visit: Yes (10) Atrial fibrillation Status: Acute Assessment and plan: SEE PLAN OF CARE LISTED BELOW Current Visit: No Qualifiers: Atrial fibrillation type: paroxysmal Qualified Code(s): I48.0 - Paroxysmal atrial fibrillation (11) Chronic anticoagulation Status: Chronic Assessment and plan: SEE PLAN OF CARE LISTED BELOW Current Visit: No (12) Diabetes Status: Chronic Assessment and plan: SEE PLAN OF CARE LISTED BELOW Current Visit: No (13) Hypertension Status: Chronic Assessment and plan: SEE PLAN OF CARE LISTED BELOW Current Visit: No Qualifiers: Hypertension type: essential hypertension Qualified Code(s): I10 - Essential (primary) hypertension (14) Peripheral vascular disease Status: Chronic Assessment and plan: SEE PLAN OF CARE LISTED BELOW Current Visit: No Cardiology - PN: Subj Interval history: ONLINE MARKETING DIRECTOR: DR. HERNNÁDEZ (NEW) SUMMARY: Mr. Chavez, 81WM, with risk factors significant for: hypertension, dyslipidemia, diabetes, PVD, sedentary lifestyle and obesity. History of chronic venous stasis, RBBB, atrial fibrillation (takes Pradaxa for stroke prevention), Amiodarone (since 2014) for rhythm control (failed DCCV). History of CHF with preserved ejection fraction previously followed by Dr. Medhat Cai at [place]. He is transitioning care to Dr. Hernández. History of DVT with venous stenting by Dr. Spence approximately 2 years ago. Admitted February. Cardiology was consulted for worsening shortness of breath and elevated troponin (peaked at 0.9) in the setting of creatinine of 2.5. Troponin is flat with a normal CPK and CK-MB. This is not acute FL. There has been some concern regarding possible Amiodarone toxicity worsening his pulmonary condition and also neurotoxicity causing spastic muscle jerking. Amiodarone has been held this admission. Echocardiogram: EF 55-60%, mild concentric LVH. FEBRUARY 15, 2017: Patient is followed for stable, chronic conditions to include atrial fibrillation, hypertension, dyslipidemia and PVD. He is also followed for more acute conditions such as shortness of breath concerning for Amiodarone toxicity, mildly elevated troponin. Denies chest pain, heaviness, tightness. Reports breathing has improved and he is no longer orthopneic. He looks much better today. He sitting up in the bedside chair and is pleasant cooperative. His color looks good. States he slept relatively well last night. Did have some abnormal motor movements again this morning briefly. Echocardiogram results noted (see above for results). Troponins remained flat, CPK and CK-MB negative. This is not acute FL. Patient has never had a cardiac catheterization at some point may benefit from procedure when his other comorbidities improve. He has had no complaints concerning for angina at this point. No fever recorded, no leukocytosis. Vital signs are stable. Continue with recently added nitrate. Continue ASA, betablocker, Pravastatin. Holding Lisinopril for worsened creatinine. I will further discuss with Dr. Hernández and await additional recommendations. IMPRESSION/PLAN: 1. SHORTNESS OF BREATH - multifactorial and cannot exclude Amiodarone toxicity. Amiodarone has been stopped. Eplerenone has also been discontinued. Antibiotics adjusted. Improved. Shortness of breath has improved. 2. HYPERTENSION - discontinued Lisinopril for fear of worsening his renal insufficiency. Tolerating low-dose Coreg. 3. DYSLIPIDEMIA - LDL 103. Continue lipid-lowering agent. 4. DIABETES - sliding scale. Adjust accordingly during hospital stay 5. RENAL INSUFFICIENCY - uncertain if this is an acute or chronic condition. Currently stage III. Avoid nephrotoxic agents as able. Renal ultrasound revealed no significant abnormality. 6. HIGH RISK MEDICATIONS - Amiodarone, Pradaxa. Amiodarone has been discontinued. If/when creatinine clearance less than 30 will decrease Pradaxa 75 mg orally twice daily 7. PAF - holding Amiodarone. Initially, consider discontinuing Pradaxa and covering with Lovenox in case patient required cardiac catheterization during this admission. Echocardiogram revealed no significant abnormality. For this reason, patient may consider having cardiac catheterization at a future date and for this reason Pradaxa has not been held. 8. RBBB - chronic right bundle branch block. 9. GUILLERMINA - compliant with device. Exam (Progress Note) - Constitutional Vitals: Period Temp Pulse Resp BP Sys/Mitchell Pulse Ox Last 24 Hr 97.3 F-98.8 F 48-102 18-20 100-132/45-61 86-96 Exam: General: [Appears well with no apparent distress.] [Pleasant and cooperative. ] [Appears comfortable.] HEENT: [PERRL, normocephalic, atraumatic. Mucous membranes moist. No jaundice noted. Conjunctiva moist and clear, sclerae anicteric] Neck: Unable to assess for JVD due to habitus. No thyromegaly. No carotid bruit appreciated Cardiac: [Regular rate and rhythm.] [No obvious murmur, rub or gallop.] Lungs: [Clear to auscultation without accessory muscle use to assist the respiratory pattern.] Oxygen in use via nasal cannula Abdomen: Soft, bowel sounds normoactive. Nontender and nondistended. No abdominal bruit or thrill noted. No masses noted. Musculoskeletal: No fluid collection. Decreased range of motion is noted. Extremities: No clubbing, cyanosis noted. [3+ bilateral lower extremity edema, chronic skin changes. Upper extremity pulses 2+. Lower extremity pulses trace and difficult to palpate through the edema capillary refill less than 3 seconds. Skin: No unusual lesions or rashes other than chronic skin changes bilateral lower extremities. No skin breakdown appreciated. Neuro: Awake, alert and oriented 3. Moves all extremities well without hemiparesis or paralysis. No essential tremor is appreciated. H Result/EKG - Labs CBC & BMP: 02/15/17 02:38 02/15/17 02:38 Lab Results: I have reviewed the past 24 hour labs Labs: Laboratory Results - last 24 hr 02/14/17 02/14/17 02/15/17 15:59 20:48 02:38 WBC 6.5 RBC 3.02 L Hgb 9.9 L Hct 32.0 L MCV 106.0 H MCH 33 MCHC 30.9 L RDW 14.8 Plt Count 267 MPV 10.8 Neut % (Auto) 64.6 Lymph % (Auto) 17.2 L [place] % (Auto) 11.5 Eos % (Auto) 5.4 Baso % (Auto) 0.5 Neut # (Auto) 4.2 Lymph # (Auto) 1.1 L [place] # (Auto) 0.8 Eos # (Auto) 0.4 Baso # (Auto) 0.0 Immature Gran % 0.8 Nucleated RBC % 0.0 Immature Gran # 0.05 Nucleated RBCs # 0.00 Immature Plt Fraction 0.0 Sodium Potassium Chloride Carbon Dioxide Anion Gap BUN Creatinine GFR Calculation BUN/Creatinine Ratio Glucose POC Glucose 155 H 193 H Calculated Osmolality Calcium Magnesium Urine Color Urine Appearance Urine pH Ur Specific [place] Urine Protein Urine Glucose (UA) Urine Ketones Urine Blood Urine Nitrate Urine Bilirubin Urine Urobilinogen Urine Leukocytes Urine RBC Urine WBC Urine Mucus Ur Culture Indicated? 02/15/17 02/15/17 02/15/17 02:38 07:13 09:40 WBC RBC Hgb Hct MCV MCH MCHC RDW Plt Count MPV Neut % (Auto) Lymph % (Auto) [place] % (Auto) Eos % (Auto) Baso % (Auto) Neut # (Auto) Lymph # (Auto) [place] # (Auto) Eos # (Auto) Baso # (Auto) Immature Gran % Nucleated RBC % Immature Gran # Nucleated RBCs # Immature Plt Fraction Sodium 138 Potassium 4.7 Chloride 102 Carbon Dioxide 32 Anion Gap 8.7 BUN 49 H D Creatinine 3.40 H GFR Calculation 23 BUN/Creatinine Ratio 14.00 Glucose 170 H POC Glucose 165 H Calculated Osmolality 291.7 Calcium 8.5 Magnesium 2.5 H Urine Color Yellow Urine Appearance Clear Urine pH 5.0 Ur Specific [place] 1.014 Urine Protein Negative Urine Glucose (UA) Negative Urine Ketones Negative Urine Blood Negative Urine Nitrate Negative Urine Bilirubin Negative Urine Urobilinogen < 2.0 H Urine Leukocytes Negative Urine RBC 5 Urine WBC 4 Urine Mucus Occasional Ur Culture Indicated? Not indicated 02/15/17 11:45 WBC RBC Hgb Hct MCV MCH MCHC RDW Plt Count MPV Neut % (Auto) Lymph % (Auto) [place] % (Auto) Eos % (Auto) Baso % (Auto) Neut # (Auto) Lymph # (Auto) [place] # (Auto) Eos # (Auto) Baso # (Auto) Immature Gran % Nucleated RBC % Immature Gran # Nucleated RBCs # Immature Plt Fraction Sodium Potassium Chloride Carbon Dioxide Anion Gap BUN Creatinine GFR Calculation BUN/Creatinine Ratio Glucose POC Glucose 113 H Calculated Osmolality Calcium Magnesium Urine Color Urine Appearance Urine pH Ur Specific [place] Urine Protein Urine Glucose (UA) Urine Ketones Urine Blood Urine Nitrate Urine Bilirubin Urine Urobilinogen Urine Leukocytes Urine RBC Urine WBC Urine Mucus Ur Culture Indicated? - EKG EKG results: interpreted by me EKG shows: sinus rhythm, atrial fibrillation <Amarilis Hernández - Last Filed: 02/15/17 19:37> Cardiology - PN: Subj Interval history: I have personally interviewed and evaluated the patient, reviewed the chart and discussed medical decision-making with Practitioner Montrell. I have read this note and agree with her documentation here in with the following clarification: We have already decreased his Pradaxa. It is really unclear whether or not his myoclonic jerking is related to amiodarone, it certainly would be more of an atypical symptom. He says the Requip is helping. We will continue to follow for now. Exam (Progress Note) - Constitutional Vitals: Period Temp Pulse Resp BP Sys/Mitchell Pulse Ox Last 24 Hr 97.3 F-97.9 F 48-102 18-20 100-132/45-61 86-96 Result/EKG - Labs CBC & BMP: 02/15/17 02:38 02/15/17 02:38 Labs: Laboratory Results - last 24 hr 02/14/17 02/15/17 02/15/17 20:48 02:38 02:38 WBC 6.5 RBC 3.02 L Hgb 9.9 L Hct 32.0 L MCV 106.0 H MCH 33 MCHC 30.9 L RDW 14.8 Plt Count 267 MPV 10.8 Neut % (Auto) 64.6 Lymph % (Auto) 17.2 L [place] % (Auto) 11.5 Eos % (Auto) 5.4 Baso % (Auto) 0.5 Neut # (Auto) 4.2 Lymph # (Auto) 1.1 L [place] # (Auto) 0.8 Eos # (Auto) 0.4 Baso # (Auto) 0.0 Immature Gran % 0.8 Nucleated RBC % 0.0 Immature Gran # 0.05 Nucleated RBCs # 0.00 Immature Plt Fraction 0.0 Sodium 138 Potassium 4.7 Chloride 102 Carbon Dioxide 32 Anion Gap 8.7 BUN 49 H D Creatinine 3.40 H GFR Calculation 23 BUN/Creatinine Ratio 14.00 Glucose 170 H POC Glucose 193 H Calculated Osmolality 291.7 Calcium 8.5 Magnesium 2.5 H Urine Color Urine Appearance Urine pH Ur Specific [place] Urine Protein Urine Glucose (UA) Urine Ketones Urine Blood Urine Nitrate Urine Bilirubin Urine Urobilinogen Urine Leukocytes Urine RBC Urine WBC Urine Mucus Ur Culture Indicated? 02/15/17 02/15/17 02/15/17 07:13 09:40 11:45 WBC RBC Hgb Hct MCV MCH MCHC RDW Plt Count MPV Neut % (Auto) Lymph % (Auto) [place] % (Auto) Eos % (Auto) Baso % (Auto) Neut # (Auto) Lymph # (Auto) [place] # (Auto) Eos # (Auto) Baso # (Auto) Immature Gran % Nucleated RBC % Immature Gran # Nucleated RBCs # Immature Plt Fraction Sodium Potassium Chloride Carbon Dioxide Anion Gap BUN Creatinine GFR Calculation BUN/Creatinine Ratio Glucose POC Glucose 165 H 113 H Calculated Osmolality Calcium Magnesium Urine Color Yellow Urine Appearance Clear Urine pH 5.0 Ur Specific [place] 1.014 Urine Protein Negative Urine Glucose (UA) Negative Urine Ketones Negative Urine Blood Negative Urine Nitrate Negative Urine Bilirubin Negative Urine Urobilinogen < 2.0 H Urine Leukocytes Negative Urine RBC 5 Urine WBC 4 Urine Mucus Occasional Ur Culture Indicated? Not indicated 02/15/17 15:47 WBC RBC Hgb Hct MCV MCH MCHC RDW Plt Count MPV Neut % (Auto) Lymph % (Auto) [place] % (Auto) Eos % (Auto) Baso % (Auto) Neut # (Auto) Lymph # (Auto) [place] # (Auto) Eos # (Auto) Baso # (Auto) Immature Gran % Nucleated RBC % Immature Gran # Nucleated RBCs # Immature Plt Fraction Sodium Potassium Chloride Carbon Dioxide Anion Gap BUN Creatinine GFR Calculation BUN/Creatinine Ratio Glucose POC Glucose 142 H Calculated Osmolality Calcium Magnesium Urine Color Urine Appearance Urine pH Ur Specific [place] Urine Protein Urine Glucose (UA) Urine Ketones Urine Blood Urine Nitrate Urine Bilirubin Urine Urobilinogen Urine Leukocytes Urine RBC Urine WBC Urine Mucus Ur Culture Indicated?
[2017-02-15] MEDS: FUROSEMIDE 40 MG/4 ML VIAL IV SCH (15:12)
[2017-02-15] MEDS: PREGABALIN 50 MG CAPSULE PO SCH ×2 (15:12→20:02)
[2017-02-15] MEDS: rOPINIRole 1 MG TABLET PO SCH (16:43)
[2017-02-15] MEDS: OMEGA 3 ACID ETHYL ESTERS 1 GM CAPSULE PO SCH (20:01)
[2017-02-15] MEDS: PRAVASTATIN 40 MG TABLET PO SCH (20:02)
[2017-02-15] MEDS: CHOLECALCIFEROL 1,000 UNIT TABLET PO SCH (20:02)
[2017-02-15] MEDS: CARBIDOPA/LEVODOPA CR 25-100 MG TABLET PO SCH (20:06)
[2017-02-16] MEDS: PIPERACILLIN/TAZOBACTAM 3,375 MG in SODIUM CHLORIDE 0.9% 100 ML IV SCH ×3 (01:39→17:09)
[2017-02-16 04:29] LABS: Basophils % 0.6 % (0.0-0.8); Eosinophils # 0.5 10*3/uL (0.0-0.87); Eosinophils % 6.4 % (0.00-10.9); Hematocrit 30.2 VOL% (42.0-52.0); Hemoglobin 9.2 GM/DL (14.0-18.0); Immature Granulocytes % 0.7 %; Immature Granulocytes Absolute 0.05 #; Lymphocytes # 1.6 10*3/uL (1.4-4.0); Lymphocytes % 21.7 % (21.2-54.2); Mean Corpuscular HGB Conc 30.5 GM/DL (32-36); Mean Corpuscular Hemoglobin 32 PG (27-34); Mean Corpuscular Volume 105.2 FL (87-102); Mean Platelet Volume 10.8 FL (9.6-12.0); Monocytes # 0.7 10*3/uL (0.11-0.8); Monocytes % 10.2 % (1.7-12.7); Neutrophils # 4.3 10*3/uL (1.4-7.4); Neutrophils % 60.4 % (38.7-73.9); Platelet Count 275 T/CUMM (130-400); Red Blood Count 2.87 MC/CUMM (3.8-5.5); Red Cell Distribution Width 14.6 % (9.3-17.3); White Blood Count 7.2 T/CUMM (4-12)
[2017-02-16 05:08] LABS: Calcium 8.4 MG/DL (8.5-10.1); Magnesium 2.5 MG/DL (1.8-2.4); Osmolality,Calculated 293.5 MOS/KG (273-304); Potassium 5.1 MMOL/L (3.5-5.1)
[2017-02-16] MEDS: LEVOTHYROXINE 100 MCG TABLET PO SCH (06:20)
[2017-02-16] MEDS: INSULIN LISPRO 100 UNIT/ML SUBCUT SCH ×4 (08:20→21:31)
[2017-02-16] MEDS: CARVEDILOL 6.25 MG TABLET PO SCH ×2 (08:34→21:31)
[2017-02-16] MEDS: DOCUSATE SODIUM 100 MG CAPSULE PO SCH ×2 (08:40→21:31)
[2017-02-16] MEDS: POTASSIUM CHLORIDE 20 MEQ TABLET PO SCH (08:40)
[2017-02-16] MEDS: BENZONATATE 100 MG CAPSULE PO SCH ×3 (08:40→21:31)
[2017-02-16] MEDS: CYANOCOBALAMIN 500 MCG TABLET PO SCH (08:40)
[2017-02-16] MEDS: PANTOPRAZOLE 40 MG TABLET PO SCH (08:40)
[2017-02-16] MEDS: ASCORBIC ACID 500 MG TABLET PO SCH ×2 (08:41→21:30)
[2017-02-16] MEDS: DILTIAZEM CD 240 MG CAPSULE PO SCH (08:41)
[2017-02-16] MEDS: ISOSORBIDE MONONITRATE 30 MG TABLET PO SCH (08:41)
[2017-02-16] MEDS: ASPIRIN EC 81 MG TABLET PO SCH (08:41)
[2017-02-16] MEDS: sitaGLIPtin 25 MG TABLET PO SCH (08:41)
[2017-02-16] MEDS: PREGABALIN 50 MG CAPSULE PO SCH ×2 (08:41→21:30)
[2017-02-16] MEDS: DABIGATRAN 75 MG CAPSULE PO SCH ×2 (08:41→21:33)
[2017-02-16] MEDS: CALCIUM (CARBONATE) 600 MG TABLET PO SCH (08:41)
--- NOTE | 2017-02-16 10:32 | Cardiology Progress Note ---
Assessment and Plan (1) Myoclonic jerking Status: Acute Current Visit: Yes (2) Hypertension Status: Chronic Current Visit: No Qualifiers: Hypertension type: essential hypertension Qualified Code(s): I10 - Essential (primary) hypertension (3) Atrial fibrillation Status: Acute Current Visit: No Qualifiers: Atrial fibrillation type: paroxysmal Qualified Code(s): I48.0 - Paroxysmal atrial fibrillation (4) Restless leg syndrome Status: Acute Current Visit: No (5) Chronic anticoagulation Status: Chronic Current Visit: No (6) Peripheral vascular disease Status: Chronic Current Visit: No (7) Renal failure Status: Acute Current Visit: Yes (8) Dyslipidemia Status: Chronic Current Visit: Yes (9) Obstructive sleep apnea Status: Chronic Current Visit: Yes (10) Obesity Status: Chronic Current Visit: Yes Qualifiers: Obesity type: unspecified obesity type Obesity classification: adult class 3 (BMI >= 40) Serious obesity comorbidity presence: with serious comorbidity Body mass index: BMI 40.0-44.9 Qualified Code(s): E66.9 - Obesity, unspecified; Z68.41 - Body mass index (BMI) 40.0-44.9, adult; Z68.41 - Body mass index (BMI) 40.0-44.9, adult; Z68.41 - Body mass index (BMI) 40.0-44.9, adult; Z68.41 - Body mass index (BMI) 40.0-44.9, adult (11) Edema Status: Chronic Current Visit: Yes Qualifiers: Edema type: unspecified Qualified Code(s): R60.9 - Edema, unspecified (12) High risk medication use Status: Chronic Current Visit: Yes (13) Diabetes Status: Chronic Current Visit: No Cardiology - PN: Subj Interval history: ADOBE MAKER: DR. HERNÁNDEZ (NEW) SUMMARY: Mr. Chavez, 81WM, with risk factors significant for: hypertension, dyslipidemia, diabetes, PVD, sedentary lifestyle and obesity. History of chronic venous stasis, RBBB, atrial fibrillation (takes Pradaxa for stroke prevention), Amiodarone (since 2014) for rhythm control (failed DCCV). History of CHF with preserved ejection fraction previously followed by Dr. Medhat Cai at [place]. He is transitioning care to Dr. Hernández. History of DVT with venous stenting by Dr. Spence approximately 2 years ago. Admitted February. Cardiology was consulted for worsening shortness of breath and elevated troponin (peaked at 0.9) in the setting of creatinine of 2.5. Troponin is flat with a normal CPK and CK-MB. This is not acute ID. There has been some concern regarding possible Amiodarone toxicity worsening his pulmonary condition and also neurotoxicity causing spastic muscle jerking. Amiodarone has been held this admission. Echocardiogram: EF 55-60%, mild concentric LVH. FEBRUARY 16, 2017: Patient is followed for stable, chronic conditions to include atrial fibrillation, hypertension, dyslipidemia and PVD. He is also followed for more acute conditions such as shortness of breath concerning for Amiodarone toxicity, mildly elevated troponin. Denies chest pain, heaviness, tightness. He is pleased that his myoclonic jerking is finally improving, although it does persist. His renal function had worsened, Lasix is now going to be held. He is not having constipation or diarrhea. Denies nausea or vomiting. IMPRESSION/PLAN: 1. SHORTNESS OF BREATH - multifactorial and cannot exclude Amiodarone toxicity. Amiodarone has been stopped. Shortness of breath has improved. 2. HYPERTENSION - discontinued Lisinopril due to renal insufficiency. Tolerating low-dose Coreg. 3. DYSLIPIDEMIA - LDL 103. Continue lipid-lowering agent. 4. DIABETES - sliding scale. Adjust accordingly during hospital stay 5. RENAL INSUFFICIENCY - uncertain if this is an acute or chronic condition. Currently stage III. Avoid nephrotoxic agents as able. Renal ultrasound revealed no significant abnormality. I will discontinue his potassium. 6. HIGH RISK MEDICATIONS - Amiodarone, Pradaxa. Amiodarone has been discontinued. 7. PAF - holding Amiodarone. Echocardiogram revealed no significant abnormality. 8. RBBB - chronic right bundle branch block. 9. GUILLERMINA - compliant with device. Exam (Progress Note) - Constitutional Vitals: Period Temp Pulse Resp BP Sys/Mitchell Pulse Ox Last 24 Hr 97.4 F-98.5 F 50-60 18-20 109-132/47-65 86-96 Exam: General appearance: Obese, no acute distress - Head Head exam: Present: normal inspection, normocephalic, atraumatic. Absent: hematoma, laceration - Eye Eye exam: Present: EOMI. Absent: conjunctival injection, nystagmus, periorbital swelling, scleral icterus, laceration to eyelids Pupils: Present: SERENITY. Absent: constricted, dilated, fixed, irregular, unequal - ENT ENT exam: Present: normal exam, normal external ear exam - Neck Neck exam: Present: Exam limited by habitus, overall normal inspection. Absent : lymphadenopathy, meningismus, tenderness, thyromegaly - Respiratory Respiratory exam: Present: Exam limited by habitus, overall clear to auscultation bilaterally. Absent: accessory muscle use, chest wall tenderness - Cardiovascular Cardiovascular exam: Present: Exam limited by habitus, tones in general distant but overall regular rate and rhythm. Absent: carotid bruit, gallop, JVD, rubs - GI/Abdominal GI/Abdominal exam: Present: Exam limited by habitus, overall normal bowel sounds. Absent: distended, firm, guarding, hernia, mass, tenderness, rebound, soft - Extremities Exam Extremities exam: Present: 3+ bilateral lower extremity edema with brawny skin changes. - Back Exam Back exam: Present: normal inspection. Absent: muscle spasm, vertebral tenderness - Neurological Exam Neurological exam: Present: alert, oriented X3, grossly intact mild intermittent resting tremor - Psychiatric Psychiatric exam: Present: normal affect, normal mood - Skin Skin exam: Present: Brawny bilateral lower extremity skin changes consistent with chronic edema, warm, dry, intact. Result/EKG - Labs CBC & BMP: 02/16/17 03:15 02/16/17 03:15 Lab Results: I have reviewed the past 24 hour labs Labs: Laboratory Results - last 24 hr 02/15/17 02/15/17 02/15/17 09:40 11:45 15:47 WBC RBC Hgb Hct MCV MCH MCHC RDW Plt Count MPV Neut % (Auto) Lymph % (Auto) [place] % (Auto) Eos % (Auto) Baso % (Auto) Neut # (Auto) Lymph # (Auto) [place] # (Auto) Eos # (Auto) Baso # (Auto) Immature Gran % Nucleated RBC % Immature Gran # Nucleated RBCs # Immature Plt Fraction Sodium Potassium Chloride Carbon Dioxide Anion Gap BUN Creatinine GFR Calculation BUN/Creatinine Ratio Glucose POC Glucose 113 H 142 H Calculated Osmolality Calcium Magnesium Urine Color Yellow Urine Appearance Clear Urine pH 5.0 Ur Specific [place] 1.014 Urine Protein Negative Urine Glucose (UA) Negative Urine Ketones Negative Urine Blood Negative Urine Nitrate Negative Urine Bilirubin Negative Urine Urobilinogen < 2.0 H Urine Leukocytes Negative Urine RBC 5 Urine WBC 4 Urine Mucus Occasional Ur Culture Indicated? Not indicated 02/15/17 02/16/17 02/16/17 20:10 03:15 03:15 WBC 7.2 RBC 2.87 L Hgb 9.2 L Hct 30.2 L MCV 105.2 H MCH 32 MCHC 30.5 L RDW 14.6 Plt Count 275 MPV 10.8 Neut % (Auto) 60.4 Lymph % (Auto) 21.7 [place] % (Auto) 10.2 Eos % (Auto) 6.4 Baso % (Auto) 0.6 Neut # (Auto) 4.3 Lymph # (Auto) 1.6 [place] # (Auto) 0.7 Eos # (Auto) 0.5 Baso # (Auto) 0.0 Immature Gran % 0.7 Nucleated RBC % 0.0 Immature Gran # 0.05 Nucleated RBCs # 0.00 Immature Plt Fraction 0.0 Sodium 139 Potassium 5.1 Chloride 103 Carbon Dioxide 30 Anion Gap 11.1 BUN 52 H Creatinine 3.10 H GFR Calculation 26 BUN/Creatinine Ratio 16.00 Glucose 157 H POC Glucose 194 H Calculated Osmolality 293.5 Calcium 8.4 L Magnesium 2.5 H Urine Color Urine Appearance Urine pH Ur Specific [place] Urine Protein Urine Glucose (UA) Urine Ketones Urine Blood Urine Nitrate Urine Bilirubin Urine Urobilinogen Urine Leukocytes Urine RBC Urine WBC Urine Mucus Ur Culture Indicated? 02/16/17 07:09 WBC RBC Hgb Hct MCV MCH MCHC RDW Plt Count MPV Neut % (Auto) Lymph % (Auto) [place] % (Auto) Eos % (Auto) Baso % (Auto) Neut # (Auto) Lymph # (Auto) [place] # (Auto) Eos # (Auto) Baso # (Auto) Immature Gran % Nucleated RBC % Immature Gran # Nucleated RBCs # Immature Plt Fraction Sodium Potassium Chloride Carbon Dioxide Anion Gap BUN Creatinine GFR Calculation BUN/Creatinine Ratio Glucose POC Glucose 170 H Calculated Osmolality Calcium Magnesium Urine Color Urine Appearance Urine pH Ur Specific [place] Urine Protein Urine Glucose (UA) Urine Ketones Urine Blood Urine Nitrate Urine Bilirubin Urine Urobilinogen Urine Leukocytes Urine RBC Urine WBC Urine Mucus Ur Culture Indicated?
--- NOTE | 2017-02-16 11:31 | Nephrology Progress Note ---
Nephrology - PN: Subj Interval history: Myoclonic jerks improved. No shortness of breath. Exam (PN)-Nephrology - Vital Signs Vital signs: Period Temp Pulse Resp BP Sys/Mitchell Pulse Ox Last 24 Hr 97.4 F-98.5 F 50-60 18-20 109-132/47-65 86-96 Exam: Gen.: Alert and oriented x3. ENT: Pupils equal round reactive to light. EOMs intact. Mucous membranes moist. Neck: Supple. No JVD or bruit. Cardiovascular: Regular rate and rhythm. No murmur rub or gallop Lungs: Clear Abdomen: Soft. Nontender. Positive bowel sounds. No organomegaly Extremities: 3+ brawny edema - Lab 02/16/17 03:15 02/16/17 03:15 Most recent lab results Calcium 8.4 MG/DL (8.5-10.1) L 02/16/17 03:15 Magnesium 2.5 MG/DL (1.8-2.4) H 02/16/17 03:15 Assessment and Plan (1) Chronic kidney disease, stage III (moderate) Status: Acute Assessment and plan: 81-year-old man with: * CRF stage III. Baseline creatinine 1.6 * Acute worsening of chronic renal failure. Renal function has begun to improve after diuretic held. * Diastolic CHF * Fever and shortness of breath. Resolved * Diabetes mellitus * Sleep apnea * Chronic venous insufficiency. Prior stents placed by Dr. Spence in [place]. He states his lower extremity edema is approximately the same. His weight has decreased 12-15 pounds over the past month. * Chronic A. fib * Hypothyroidism Current Visit: Yes (2) Fever Status: Acute Current Visit: Yes (3) Hypothyroidism Status: Acute Current Visit: Yes (4) Peripheral polyneuropathy Status: Acute Current Visit: Yes (5) Diabetes mellitus Status: Chronic Current Visit: Yes (6) Obstructive sleep apnea Status: Chronic Current Visit: Yes (7) Chronic a-fib Status: Acute Current Visit: No (8) Diabetes Status: Chronic Current Visit: No (9) Peripheral vascular disease Status: Chronic Current Visit: No
--- NOTE | 2017-02-16 15:25 | Family Practice Progress Note ---
Family Practice - PN: Subj Interval history: Patient is relaxed and denies any acute complaints. His vitals are stable this a.m. A.m. labs are stable. Creatinine slightly improved at 3.1. I reviewed lab x-rays and cultures. He is on appropriate medications for Proteus mirabilis noted on UTI. No new problems noted today physical exam is stable. We will continue present treatment plan Exam (Progress Note) - Constitutional Vitals: Period Temp Pulse Resp BP Sys/Mitchell Pulse Ox Last 24 Hr 97.4 F-98.5 F 49-60 18-20 109-123/47-65 91-96 Results - Labs CBC & BMP: 02/16/17 03:15 02/16/17 03:15
[2017-02-16] MEDS ORDERED: hydrOXYzine HCL 25 MG TABLET PO PRN (16:13)
[2017-02-16] MEDS: rOPINIRole 1 MG TABLET PO SCH (16:16)
[2017-02-16] MEDS: methylPREDNISolone SOD SUC 40 MG/1 ML VIAL IV SCH ×2 (16:29→23:16)
[2017-02-16] MEDS: CHOLECALCIFEROL 1,000 UNIT TABLET PO SCH (21:30)
[2017-02-16] MEDS: PRAVASTATIN 40 MG TABLET PO SCH (21:30)
[2017-02-16] MEDS: OMEGA 3 ACID ETHYL ESTERS 1 GM CAPSULE PO SCH (21:31)
[2017-02-16] MEDS: CARBIDOPA/LEVODOPA CR 25-100 MG TABLET PO SCH (21:33)
[2017-02-17] MEDS: PIPERACILLIN/TAZOBACTAM 3,375 MG in SODIUM CHLORIDE 0.9% 100 ML IV SCH ×3 (03:22→19:05)
[2017-02-17] MEDS: LEVOTHYROXINE 100 MCG TABLET PO SCH (06:13)
[2017-02-17 06:30] LABS: Basophils % 0.3 % (0.0-0.8); Eosinophils % 0.3 % (0.00-10.9); Hematocrit 30.1 VOL% (42.0-52.0); Hemoglobin 9.5 GM/DL (14.0-18.0); Immature Granulocytes Absolute 0.11 #; Lymphocytes # 0.4 10*3/uL (1.4-4.0); Lymphocytes % 10.8 % (21.2-54.2); Mean Corpuscular HGB Conc 31.6 GM/DL (32-36); Mean Corpuscular Hemoglobin 32 PG (27-34); Mean Corpuscular Volume 102.4 FL (87-102); Mean Platelet Volume 10.8 FL (9.6-12.0); Monocytes % 1.1 % (1.7-12.7); NRBC # 0.02 10*3/uL; Neutrophils # 3.1 10*3/uL (1.4-7.4); Neutrophils % 84.5 % (38.7-73.9); Platelet Count 252 T/CUMM (130-400); Red Blood Count 2.94 MC/CUMM (3.8-5.5); Red Cell Distribution Width 14.4 % (9.3-17.3); White Blood Count 3.7 T/CUMM (4-12)
[2017-02-17 06:57] LABS: Calcium 8.3 MG/DL (8.5-10.1); Osmolality,Calculated 298.3 MOS/KG (273-304); Potassium 5.2 MMOL/L (3.5-5.1)
[2017-02-17] MEDS: INSULIN LISPRO 100 UNIT/ML SUBCUT SCH ×4 (08:22→21:59)
[2017-02-17] MEDS: sitaGLIPtin 25 MG TABLET PO SCH (08:23)
[2017-02-17] MEDS: CYANOCOBALAMIN 500 MCG TABLET PO SCH (08:23)
[2017-02-17] MEDS: CALCIUM (CARBONATE) 600 MG TABLET PO SCH (08:23)
[2017-02-17] MEDS: DOCUSATE SODIUM 100 MG CAPSULE PO SCH ×2 (08:23→22:00)
[2017-02-17] MEDS: ASPIRIN EC 81 MG TABLET PO SCH (08:23)
[2017-02-17] MEDS: methylPREDNISolone SOD SUC 40 MG/1 ML VIAL IV SCH (08:23)
[2017-02-17] MEDS: DILTIAZEM CD 240 MG CAPSULE PO SCH (08:24)
[2017-02-17] MEDS: BENZONATATE 100 MG CAPSULE PO SCH ×3 (08:26→22:00)
[2017-02-17] MEDS: ISOSORBIDE MONONITRATE 30 MG TABLET PO SCH (08:26)
[2017-02-17] MEDS: DABIGATRAN 75 MG CAPSULE PO SCH ×2 (08:26→22:00)
[2017-02-17] MEDS: PREGABALIN 50 MG CAPSULE PO SCH ×2 (08:26→22:00)
[2017-02-17] MEDS: PANTOPRAZOLE 40 MG TABLET PO SCH (08:26)
[2017-02-17] MEDS: ASCORBIC ACID 500 MG TABLET PO SCH ×2 (08:26→22:00)
[2017-02-17] MEDS: CARVEDILOL 6.25 MG TABLET PO SCH ×2 (08:26→22:00)
--- NOTE | 2017-02-17 11:33 | Nephrology Progress Note ---
Nephrology - PN: Subj Interval history: He feels better overall today. No shortness of breath. Myoclonic jerks improved Exam (PN)-Nephrology - Vital Signs Vital signs: Period Temp Pulse Resp BP Sys/Mitchell Pulse Ox Last 24 Hr 97.2 F-99.3 F 49-68 18-22 113-159/44-71 88-99 Exam: Gen.: Alert and oriented x3. ENT: Pupils equal round reactive to light. EOMs intact. Mucous membranes moist. Neck: Supple. No JVD or bruit. Cardiovascular: Regular rate and rhythm. No murmur rub or gallop Lungs: Clear Abdomen: Soft. Nontender. Positive bowel sounds. No organomegaly Extremities: 3+ brawny edema - Lab 02/17/17 05:30 02/17/17 05:30 Most recent lab results Calcium 8.3 MG/DL (8.5-10.1) L 02/17/17 05:30 Magnesium 2.5 MG/DL (1.8-2.4) H 02/16/17 03:15 Assessment and Plan (1) Chronic kidney disease, stage III (moderate) Status: Acute Assessment and plan: 81-year-old man with: * CRF stage III. Baseline creatinine 1.6 * Acute worsening of chronic renal failure. Renal function improving * Diastolic CHF. Weight and output measurements not allowed on weekends * Fever and shortness of breath. Resolved * Diabetes mellitus * Sleep apnea * Chronic venous insufficiency. Prior stents placed by Dr. Spence in [place]. He states his lower extremity edema is approximately the same. His weight has decreased 12-15 pounds over the past month. * Chronic A. fib * Hypothyroidism Current Visit: Yes (2) Fever Status: Acute Current Visit: Yes (3) Hypothyroidism Status: Acute Current Visit: Yes (4) Peripheral polyneuropathy Status: Acute Current Visit: Yes (5) Diabetes mellitus Status: Chronic Current Visit: Yes (6) Obstructive sleep apnea Status: Chronic Current Visit: Yes (7) Chronic a-fib Status: Acute Current Visit: No (8) Diabetes Status: Chronic Current Visit: No (9) Peripheral vascular disease Status: Chronic Current Visit: No
--- NOTE | 2017-02-17 15:58 | Family Practice Progress Note ---
Family Practice - PN: Subj Interval history: Patient is relaxed and denies any acute complaints. His vitals are stable this a.m. A.m. labs are stable. Creatinine slightly improved at 3.1. I reviewed lab x-rays and cultures. He is on appropriate medications for Proteus mirabilis noted on UTI. No new problems noted today physical exam is stable. We will continue present treatment plan 02/17/17 -patient states that he generally feels better today. He developed a slight rash on abdomen and chest last p.m. and I started him on low-dose Solu- Medrol and Atarax. I did not want to stop his Fortaz due to sensitivity report. The rash is much better today and has almost completely resolved. His creatinine is slightly improved at 2.6. No new problems identified. We will continue present treatment plan. Will repeat chest x-ray in a.m. Exam (Progress Note) - Constitutional Vitals: Period Temp Pulse Resp BP Sys/Mitchell Pulse Ox Last 24 Hr 97.3 F-99.3 F 54-68 18-22 117-159/55-71 87-99 Results - Labs CBC & BMP: 02/17/17 05:30 02/17/17 05:30
--- NOTE | 2017-02-17 16:38 | Cardiology Progress Note ---
Assessment and Plan (1) Myoclonic jerking Status: Acute Current Visit: Yes (2) Hypertension Status: Chronic Current Visit: No Qualifiers: Hypertension type: essential hypertension Qualified Code(s): I10 - Essential (primary) hypertension (3) Atrial fibrillation Status: Acute Current Visit: No Qualifiers: Atrial fibrillation type: paroxysmal Qualified Code(s): I48.0 - Paroxysmal atrial fibrillation (4) Restless leg syndrome Status: Acute Current Visit: No (5) Chronic anticoagulation Status: Chronic Current Visit: No (6) Peripheral vascular disease Status: Chronic Current Visit: No (7) Renal failure Status: Acute Current Visit: Yes (8) Dyslipidemia Status: Chronic Current Visit: Yes (9) Obstructive sleep apnea Status: Chronic Current Visit: Yes (10) Obesity Status: Chronic Current Visit: Yes Qualifiers: Obesity type: unspecified obesity type Obesity classification: adult class 3 (BMI >= 40) Serious obesity comorbidity presence: with serious comorbidity Body mass index: BMI 40.0-44.9 Qualified Code(s): E66.9 - Obesity, unspecified; Z68.41 - Body mass index (BMI) 40.0-44.9, adult; Z68.41 - Body mass index (BMI) 40.0-44.9, adult; Z68.41 - Body mass index (BMI) 40.0-44.9, adult; Z68.41 - Body mass index (BMI) 40.0-44.9, adult (11) Edema Status: Chronic Current Visit: Yes Qualifiers: Edema type: unspecified Qualified Code(s): R60.9 - Edema, unspecified (12) High risk medication use Status: Chronic Current Visit: Yes (13) Diabetes Status: Chronic Current Visit: No Cardiology - PN: Subj Interval history: TUBE OPERATOR: DR. HERNÁNDEZ ([place]) SUMMARY: Mr. Chavez, 81WM, with risk factors significant for: hypertension, dyslipidemia, diabetes, PVD, sedentary lifestyle and obesity. History of chronic venous stasis, RBBB, atrial fibrillation (takes Pradaxa for stroke prevention), Amiodarone (since 2014) for rhythm control (failed DCCV). History of CHF with preserved ejection fraction previously followed by Dr. Medhat Cai at [facility]. He is transitioning care to Dr. Hernández. History of DVT with venous stenting by Dr. Spence approximately 2 years ago. Admitted February. Cardiology was consulted for worsening shortness of breath and elevated troponin (peaked at 0.9) in the setting of creatinine of 2.5. Troponin is flat with a normal CPK and CK-MB. This is not acute NC. There has been some concern regarding possible Amiodarone toxicity worsening his pulmonary condition and also neurotoxicity causing spastic muscle jerking. Amiodarone has been held this admission. Echocardiogram: EF 55-60%, mild concentric LVH. FEBRUARY 17, 2017: Patient is followed for stable, chronic conditions to include atrial fibrillation, hypertension, dyslipidemia and PVD. He is also followed for more acute conditions such as shortness of breath concerning for Amiodarone toxicity, mildly elevated troponin. He developed a rash last night, likely due to his antibiotics. Steroids have been started. He denies chest pain, heaviness, tightness. His myoclonic jerking has improved. IMPRESSION/PLAN: 1. SHORTNESS OF BREATH - multifactorial and cannot exclude Amiodarone toxicity. Amiodarone has been stopped. Shortness of breath has improved. 2. HYPERTENSION - discontinued Lisinopril due to renal insufficiency. Tolerating low-dose Coreg. 3. DYSLIPIDEMIA - LDL 103. Continue lipid-lowering agent. 4. DIABETES - sliding scale. Adjust accordingly during hospital stay 5. RENAL INSUFFICIENCY - uncertain if this is an acute or chronic condition. Currently stage III. Avoid nephrotoxic agents as able. Renal ultrasound revealed no significant abnormality. 6. HIGH RISK MEDICATIONS - Amiodarone, Pradaxa. Amiodarone has been discontinued. 7. PAF - holding Amiodarone. Echocardiogram revealed no significant abnormality. 8. RBBB - chronic right bundle branch block. 9. GUILLERMINA - compliant with device. Exam (Progress Note) - Constitutional Vitals: Period Temp Pulse Resp BP Sys/Mitchell Pulse Ox Last 24 Hr 97.3 F-99.3 F 54-68 18-22 117-159/55-71 87-99 Exam: General appearance: Obese, no acute distress - Head Head exam: Present: normal inspection, normocephalic, atraumatic. Absent: hematoma, laceration - Eye Eye exam: Present: EOMI. Absent: conjunctival injection, nystagmus, periorbital swelling, scleral icterus, laceration to eyelids Pupils: Present: SERENITY. Absent: constricted, dilated, fixed, irregular, unequal - ENT ENT exam: Present: normal exam, normal external ear exam - Neck Neck exam: Present: Exam limited by habitus, overall normal inspection. Absent : lymphadenopathy, meningismus, tenderness, thyromegaly - Respiratory Respiratory exam: Present: Exam limited by habitus, overall clear to auscultation bilaterally. Absent: accessory muscle use, chest wall tenderness - Cardiovascular Cardiovascular exam: Present: Exam limited by habitus, tones in general distant but overall regular rate and rhythm. Absent: carotid bruit, gallop, JVD, rubs - GI/Abdominal GI/Abdominal exam: Present: Exam limited by habitus, overall normal bowel sounds. Absent: distended, firm, guarding, hernia, mass, tenderness, rebound, soft - Extremities Exam Extremities exam: Present: 3+ bilateral lower extremity edema with brawny skin changes. - Back Exam Back exam: Present: normal inspection. Absent: muscle spasm, vertebral tenderness - Neurological Exam Neurological exam: Present: alert, oriented X3, grossly intact mild intermittent resting tremor - Psychiatric Psychiatric exam: Present: normal affect, normal mood - Skin Skin exam: Present: Brawny bilateral lower extremity skin changes consistent with chronic edema, warm, dry, intact. Result/EKG - Labs CBC & BMP: 02/17/17 05:30 02/17/17 05:30 Lab Results: I have reviewed the past 24 hour labs Labs: Laboratory Results - last 24 hr 02/16/17 02/16/17 02/17/17 15:01 20:45 05:30 WBC 3.7 L D RBC 2.94 L Hgb 9.5 L Hct 30.1 L MCV 102.4 H MCH 32 MCHC 31.6 L RDW 14.4 Plt Count 252 MPV 10.8 Neut % (Auto) 84.5 H Lymph % (Auto) 10.8 L Hartley % (Auto) 1.1 L Eos % (Auto) 0.3 Baso % (Auto) 0.3 Neut # (Auto) 3.1 Lymph # (Auto) 0.4 L Hartley # (Auto) 0.0 L Eos # (Auto) 0.0 Baso # (Auto) 0.0 Immature Gran % 3.0 Nucleated RBC % 0.5 Immature Gran # 0.11 Nucleated RBCs # 0.02 Immature Plt Fraction 0.0 Sodium Potassium Chloride Carbon Dioxide Anion Gap BUN Creatinine GFR Calculation BUN/Creatinine Ratio Glucose POC Glucose 254 H 265 H Calculated Osmolality Calcium 02/17/17 02/17/17 02/17/17 05:30 07:29 11:43 WBC RBC Hgb Hct MCV MCH MCHC RDW Plt Count MPV Neut % (Auto) Lymph % (Auto) Hartley % (Auto) Eos % (Auto) Baso % (Auto) Neut # (Auto) Lymph # (Auto) Hartley # (Auto) Eos # (Auto) Baso # (Auto) Immature Gran % Nucleated RBC % Immature Gran # Nucleated RBCs # Immature Plt Fraction Sodium 141 Potassium 5.2 H Chloride 104 Carbon Dioxide 30 Anion Gap 12.2 BUN 50 H Creatinine 2.60 H GFR Calculation 33 BUN/Creatinine Ratio 19.00 Glucose 195 H POC Glucose 248 H 266 H Calculated Osmolality 298.3 Calcium 8.3 L 02/17/17 15:49 WBC RBC Hgb Hct MCV MCH MCHC RDW Plt Count MPV Neut % (Auto) Lymph % (Auto) Hartley % (Auto) Eos % (Auto) Baso % (Auto) Neut # (Auto) Lymph # (Auto) Hartley # (Auto) Eos # (Auto) Baso # (Auto) Immature Gran % Nucleated RBC % Immature Gran # Nucleated RBCs # Immature Plt Fraction Sodium Potassium Chloride Carbon Dioxide Anion Gap BUN Creatinine GFR Calculation BUN/Creatinine Ratio Glucose POC Glucose 308 H Calculated Osmolality Calcium
[2017-02-17] MEDS: MAGNESIUM HYDROXIDE SUSP 30 ML UDCUP PO ONE ×2 (17:16→17:52)
[2017-02-17] MEDS: rOPINIRole 1 MG TABLET PO SCH (17:16)
[2017-02-17] MEDS: OMEGA 3 ACID ETHYL ESTERS 1 GM CAPSULE PO SCH (22:00)
[2017-02-17] MEDS: CHOLECALCIFEROL 1,000 UNIT TABLET PO SCH (22:00)
[2017-02-17] MEDS: PRAVASTATIN 40 MG TABLET PO SCH (22:00)
[2017-02-17] MEDS: CARBIDOPA/LEVODOPA CR 25-100 MG TABLET PO SCH (22:14)
[2017-02-18] MEDS: PIPERACILLIN/TAZOBACTAM 3,375 MG in SODIUM CHLORIDE 0.9% 100 ML IV SCH (02:10)
[2017-02-18 05:52] LABS: Basophils % 0.1 % (0.0-0.8); Hemoglobin 9.4 GM/DL (14.0-18.0); Immature Granulocytes % 1.9 %; Immature Granulocytes Absolute 0.13 #; Lymphocytes # 0.9 10*3/uL (1.4-4.0); Lymphocytes % 12.8 % (21.2-54.2); Mean Corpuscular HGB Conc 31.3 GM/DL (32-36); Mean Corpuscular Hemoglobin 32 PG (27-34); Mean Corpuscular Volume 102.7 FL (87-102); Mean Platelet Volume 10.4 FL (9.6-12.0); Monocytes # 0.5 10*3/uL (0.11-0.8); Monocytes % 7.5 % (1.7-12.7); NRBC # 0.03 10*3/uL; Neutrophils # 5.5 10*3/uL (1.4-7.4); Neutrophils % 77.7 % (38.7-73.9); Platelet Count 286 T/CUMM (130-400); Red Blood Count 2.92 MC/CUMM (3.8-5.5); Red Cell Distribution Width 14.6 % (9.3-17.3)
[2017-02-18] MEDS: LEVOTHYROXINE 100 MCG TABLET PO SCH ×2 (05:54→06:09)
[2017-02-18 06:29] LABS: Calcium 9.1 MG/DL (8.5-10.1)
--- NOTE | 2017-02-18 08:52 | XRay Report ---
XR chest 2V Date: 02/18/2017 4:00 AM History: Pneumonia Comparison: 02/25/2017 Technique: PA and lateral chest Findings: Persistent cardiomegaly with uncoiling the aorta. Reduced parenchymal findings in the lungs with persistent small pleural effusions. Persistent asymmetric pleural thickening laterally in the right lower lung zone. Stable mediastinum with degenerative changes. Impression: Improved CHF/pneumonia with residual small pleural effusions. Persistent asymmetric pleural thickening laterally in the right lower lung zone and follow-up chest x-ray is recommended to document clearing. PROCEDURE INTERPRETED AT [facility] DEPARTMENT OF RADIOLOGY Final Report Signed by: Dr. Georgiana Muse
--- NOTE | 2017-02-18 09:26 | Internal Med Progress Note ---
Assessment and Plan (1) Shortness of breath Status: Acute Assessment and plan: 81-year-old male admitted to acute care * Shortness of breath. Clinically much better. * CHF with preserved ejection fraction. Chest x-ray looks okay. * Chronic A. fib. Amiodarone has been stopped. * Hypertension. Continue current treatment * Diabetes. Continue current treatment * UTI. Will change to p.o. antibiotics * Restless leg syndrome. He has been started on Lyrica * Renal insufficiency. Slightly better. Will hold Lasix * Discussed with patient and his Current Visit: Yes (2) Hypothyroidism Status: Acute Current Visit: Yes (3) Congestive heart failure Status: Acute Current Visit: Yes Qualifiers: Congestive heart failure type: unspecified congestive heart failure type Congestive heart failure chronicity: acute Qualified Code(s): I50.9 - Heart failure, unspecified (4) Fever Status: Acute Current Visit: Yes (5) Chronic a-fib Status: Acute Current Visit: No (6) Diabetes Status: Chronic Current Visit: No (7) Hypertension Status: Chronic Current Visit: No Qualifiers: Hypertension type: essential hypertension Qualified Code(s): I10 - Essential (primary) hypertension (8) Peripheral vascular disease Status: Chronic Current Visit: No (9) Restless leg syndrome Status: Acute Current Visit: No Internal Medicine - PN: Subj Interval history: Patient is feeling okay. She slept this morning while getting off the wheelchair. He is generally feeling better. His jerks have improved and almost completely resolved Exam (Progress Note) - Constitutional Vitals: Period Temp Pulse Resp BP Sys/Mitchell Pulse Ox Last 24 Hr 97.3 F-99.1 F 54-68 18-22 117-135/55-82 87-96 Exam: Examination: GENERAL: No acute distress NECK: Neck is supple. CVS: Regular rate and rhythm. S1 and S2 are normal. RESPIRATORY: Lungs are clear. ABDOMEN: Soft and nontender. EXT: Chronic edema in the lower extremities LOAN CLOSER: Patient is awake, alert and oriented to time place and person. Motor strength is 4/5. SKIN: Warm and dry. MSK: No obvious deformity. Results - Labs CBC & BMP: 02/18/17 05:23 02/18/17 05:23 Lab Results: I have reviewed the past 24 hour labs
--- NOTE | 2017-02-18 09:29 | Neurology Progress Note ---
Neurology - PN : Subjective Interval history: Patient seems to be doing better. Jerking/shaking has pretty much all resolved. Restless legs symptoms are better since we added Lyrica Exam (Progress Note) - Constitutional Vitals: Period Temp Pulse Resp BP Sys/Mitchell Pulse Ox Last 24 Hr 97.3 F-99.1 F 54-68 18-22 117-135/55-82 87-96 Exam: GENERAL: Patient is in no acute distress. NECK: Neck is supple. There is no JVD. No carotid bruits present. No thyroid masses. CVS: First and second heart sounds are normal. There is no S3 present. Regular rate and rhythm. RESPIRATORY: Lungs are clear to auscultation without any rales or rhonchi. ABDOMEN: Soft and non-tender. Bowel sounds are present. There is no hepatosplenomegaly. EXT: There is 3+ palpable edema. Peripheral pulses difficult to assess. Skin: No rashes Central Nervous system: General: Alert, awake and Oriented x 3 Speech: Fluent Comprehension: Intact and normal Facial expressions: Normal Cranial Nerves: CN1/Olfactory: Normal CN II/ Optic: Normal, Visual Jones unreliable CN III, and : SERENITY & EOMI CN V: Normal & intact CN VII: face is symmetric CNVIII: Normal CN XI/X/XI/XII: Intact and Normal Motor: Bulk and Tone is normal. Strength in the right 5/5 Strength in the left 5/5 Sensory: Decreased for all the modalities of PP, LT and temp sense the global stocking distribution Reflexes: 1+ and symmetrical Cerebellar function: Normal finger to nose and heel to begum testing. Toes: Equivocal Gait: Cannot be tested Results - Labs CBC & BMP: 02/18/17 05:23 02/18/17 05:23 Assessment and Plan (1) Myoclonic jerking Status: Acute Assessment and plan: This has resolved completely Current Visit: Yes (2) Restless leg syndrome Status: Acute Assessment and plan: Continue Sinemet CR 25/100 mg 1 at bedtime Current Visit: No (3) Peripheral polyneuropathy Status: Acute Assessment and plan: Continue Lyrica 50 mg twice a day Current Visit: Yes
[2017-02-18] MEDS: CYANOCOBALAMIN 500 MCG TABLET PO SCH (10:13)
[2017-02-18] MEDS: sitaGLIPtin 25 MG TABLET PO SCH (10:13)
[2017-02-18] MEDS: DILTIAZEM CD 240 MG CAPSULE PO SCH (10:14)
[2017-02-18] MEDS: DABIGATRAN 75 MG CAPSULE PO SCH ×2 (10:14→20:19)
[2017-02-18] MEDS: ASCORBIC ACID 500 MG TABLET PO SCH ×2 (10:14→20:20)
[2017-02-18] MEDS: PREGABALIN 50 MG CAPSULE PO SCH ×2 (10:15→20:19)
[2017-02-18] MEDS: CALCIUM (CARBONATE) 600 MG TABLET PO SCH (10:15)
[2017-02-18] MEDS: BENZONATATE 100 MG CAPSULE PO SCH ×3 (10:15→20:20)
[2017-02-18] MEDS: DOCUSATE SODIUM 100 MG CAPSULE PO SCH ×2 (10:16→20:19)
[2017-02-18] MEDS: ASPIRIN EC 81 MG TABLET PO SCH (10:16)
[2017-02-18] MEDS: ISOSORBIDE MONONITRATE 30 MG TABLET PO SCH (10:16)
[2017-02-18] MEDS: PANTOPRAZOLE 40 MG TABLET PO SCH (10:16)
[2017-02-18] MEDS: CARVEDILOL 6.25 MG TABLET PO SCH ×2 (10:16→20:19)
[2017-02-18] MEDS: INSULIN LISPRO 100 UNIT/ML SUBCUT SCH ×4 (10:19→20:58)
--- NOTE | 2017-02-18 11:30 | Nephrology Progress Note ---
Nephrology - PN: Subj Interval history: He feels better overall. No shortness of breath. Exam (PN)-Nephrology - Vital Signs Vital signs: Period Temp Pulse Resp BP Sys/Mitchell Pulse Ox Last 24 Hr 97.3 F-99.1 F 54-68 18-22 117-135/55-82 87-96 Exam: ENT: Normal Cardiovascular: Regular rate and rhythm. No murmur rub or gallop Lungs: Clear Extremities: 2-3+ brawny edema - Lab 02/18/17 05:23 02/18/17 05:23 Most recent lab results Calcium 9.1 MG/DL (8.5-10.1) 02/18/17 05:23 Magnesium 2.5 MG/DL (1.8-2.4) H 02/16/17 03:15 Assessment and Plan (1) Chronic kidney disease, stage III (moderate) Status: Acute Assessment and plan: 81-year-old man with: * CRF stage III. Baseline creatinine 1.6 * Acute worsening of chronic renal failure. Renal function improving * Diastolic CHF. Compensated * Fever and shortness of breath. Resolved * Diabetes mellitus * Sleep apnea * Chronic venous insufficiency. Prior stents placed by Dr. Spence in [place]. He states his lower extremity edema is approximately the same. His weight has decreased 12-15 pounds over the past month. * Chronic A. fib * Hypothyroidism Current Visit: Yes (2) Fever Status: Acute Current Visit: Yes (3) Hypothyroidism Status: Acute Current Visit: Yes (4) Peripheral polyneuropathy Status: Acute Current Visit: Yes (5) Diabetes mellitus Status: Chronic Current Visit: Yes (6) Obstructive sleep apnea Status: Chronic Current Visit: Yes (7) Chronic a-fib Status: Acute Current Visit: No (8) Diabetes Status: Chronic Current Visit: No (9) Peripheral vascular disease Status: Chronic Current Visit: Yes
[2017-02-18] MEDS: rOPINIRole 1 MG TABLET PO SCH (18:00)
[2017-02-18] MEDS: CARBIDOPA/LEVODOPA CR 25-100 MG TABLET PO SCH (20:19)
[2017-02-18] MEDS: PRAVASTATIN 40 MG TABLET PO SCH (20:19)
[2017-02-18] MEDS: OMEGA 3 ACID ETHYL ESTERS 1 GM CAPSULE PO SCH (20:19)
[2017-02-18] MEDS: AMOXICILLIN/CLAV 875 MG TABLET PO SCH (20:19)
[2017-02-18] MEDS: CHOLECALCIFEROL 1,000 UNIT TABLET PO SCH (20:20)
--- NOTE | 2017-02-18 22:42 | Cardiology Progress Note ---
Angela Howard April RN, am scribing for, and in the presence of, Rene Newby MD 22:41. Assessment and Plan (1) Atrial fibrillation Status: Acute Assessment and plan: Initial assessment and plan February 18, 2017: Mostly twitching is better off amiodarone Watch out for arrhythmias off amiodarone I encouraged him to use his CPAP anytime he sleeps Current Visit: No Qualifiers: Atrial fibrillation type: paroxysmal Qualified Code(s): I48.0 - Paroxysmal atrial fibrillation (2) Myoclonic jerking Status: Acute Current Visit: Yes (3) Renal failure Status: Acute Current Visit: Yes (4) Dyslipidemia Status: Chronic Current Visit: Yes (5) Obesity Status: Chronic Current Visit: Yes Qualifiers: Obesity type: unspecified obesity type Obesity classification: adult class 3 (BMI >= 40) Serious obesity comorbidity presence: with serious comorbidity Body mass index: BMI 40.0-44.9 Qualified Code(s): E66.9 - Obesity, unspecified; Z68.41 - Body mass index (BMI) 40.0-44.9, adult; Z68.41 - Body mass index (BMI) 40.0-44.9, adult; Z68.41 - Body mass index (BMI) 40.0-44.9, adult; Z68.41 - Body mass index (BMI) 40.0-44.9, adult (6) Obstructive sleep apnea Status: Chronic Current Visit: Yes (7) Restless leg syndrome Status: Acute Current Visit: Yes (8) Chronic anticoagulation Status: Chronic Current Visit: Yes (9) Hypertension Status: Chronic Current Visit: Yes Qualifiers: Hypertension type: essential hypertension Qualified Code(s): I10 - Essential (primary) hypertension (10) Peripheral vascular disease Status: Chronic Current Visit: Yes Cardiology - PN: Subj Interval history: 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 Chavez, 81WM, with risk factors significant for: hypertension, dyslipidemia, diabetes, PVD, sedentary lifestyle and obesity. History of chronic venous stasis, RBBB, atrial fibrillation (takes Pradaxa for stroke prevention), Amiodarone (since 2014) for rhythm control (failed DCCV). History of CHF with preserved ejection fraction previously followed by Dr. Medhat aCi at [place]. He is transitioning care to Dr. Hernández. History of DVT with venous stenting by Dr. Spence approximately 2 years ago. Admitted February. Cardiology was consulted for worsening shortness of breath and elevated troponin (peaked at 0.9) in the setting of creatinine of 2.5. Troponin is flat with a normal CPK and CK-MB. This is not acute [place]. There has been some concern regarding possible Amiodarone toxicity worsening his pulmonary condition and also neurotoxicity causing spastic muscle jerking. Amiodarone has been held this admission. Echocardiogram: EF 55-60%, mild concentric LVH. February 18, 2017: Mr. Chavez is seen sitting up in chair with at bedside. He denies any chest pain. Oxygen is in use at this time via nasal cannula, he denies any shortness of breath at this time. He states he has talked to physical therapy out walking the bruno. He is anxious to do this to see if he is short of breath with ambulation. No jerking is noted at this time, he states he does have it at times but that it has improved. Review of systems: Cardiovascular: Denies chest pain. Respiratory: Denies shortness of breath at this time, oxygen use via nasal cannula. Neurological: Awake, alert, and oriented. Exam (Progress Note) - Constitutional Vitals: Period Temp Pulse Resp BP Sys/Mitchell Pulse Ox Last 24 Hr 97.3 F-99.1 F 54-68 18-22 117-135/55-82 87-96 Exam: General appearance: Obese, no acute distress - Head Head exam: Present: normal inspection, normocephalic, atraumatic. Absent: hematoma, laceration - Eye Eye exam: Present: EOMI. Absent: conjunctival injection, nystagmus, periorbital swelling, scleral icterus, laceration to eyelids Pupils: Present: SERENITY. Absent: constricted, dilated, fixed, irregular, unequal - ENT ENT exam: Present: normal exam, normal external ear exam - Neck Neck exam: Present: Exam limited by habitus, overall normal inspection. Absent : lymphadenopathy, meningismus, tenderness, thyromegaly - Respiratory Respiratory exam: Present: Exam limited by habitus, overall clear to auscultation bilaterally. Absent: accessory muscle use, chest wall tenderness - Cardiovascular Cardiovascular exam: Present: Exam limited by habitus, tones in general distant but overall regular rate and rhythm. Absent: carotid bruit, gallop, JVD, rubs - GI/Abdominal GI/Abdominal exam: Present: Exam limited by habitus, overall normal bowel sounds. Absent: distended, firm, guarding, hernia, mass, tenderness, rebound, soft - Extremities Exam Extremities exam: Present: 3+ bilateral lower extremity edema with brawny skin changes. - Back Exam Back exam: Present: normal inspection. Absent: muscle spasm, vertebral tenderness - Neurological Exam Neurological exam: Present: alert, oriented X3, grossly intact mild intermittent resting tremor - Psychiatric Psychiatric exam: Present: normal affect, normal mood - Skin Skin exam: Present: Brawny bilateral lower extremity skin changes consistent with chronic edema, warm, dry, intact. Result/EKG - Labs CBC & BMP: 02/18/17 05:23 02/18/17 05:23 Lab Results: I have reviewed the past 24 hour labs Labs: Laboratory Results - last 24 hr 02/17/17 02/17/17 02/17/17 11:43 15:49 19:33 WBC RBC Hgb Hct MCV MCH MCHC RDW Plt Count MPV Neut % (Auto) Lymph % (Auto) Ellis % (Auto) Eos % (Auto) Baso % (Auto) Neut # (Auto) Lymph # (Auto) Ellis # (Auto) Eos # (Auto) Baso # (Auto) Immature Gran % Nucleated RBC % Immature Gran # Nucleated RBCs # Immature Plt Fraction Sodium Potassium Chloride Carbon Dioxide Anion Gap BUN Creatinine GFR Calculation BUN/Creatinine Ratio Glucose POC Glucose 266 H 308 H 272 H Calculated Osmolality Calcium 02/18/17 02/18/17 02/18/17 05:23 05:23 07:04 WBC 7.0 D RBC 2.92 L Hgb 9.4 L Hct 30.0 L MCV 102.7 H MCH 32 MCHC 31.3 L RDW 14.6 Plt Count 286 MPV 10.4 Neut % (Auto) 77.7 H Lymph % (Auto) 12.8 L Ellis % (Auto) 7.5 Eos % (Auto) 0.0 Baso % (Auto) 0.1 Neut # (Auto) 5.5 Lymph # (Auto) 0.9 L Ellis # (Auto) 0.5 Eos # (Auto) 0.0 Baso # (Auto) 0.0 Immature Gran % 1.9 Nucleated RBC % 0.4 Immature Gran # 0.13 Nucleated RBCs # 0.03 Immature Plt Fraction 0.0 Sodium 143 Potassium 5.0 Chloride 106 Carbon Dioxide 33 H Anion Gap 9.0 BUN 57 H Creatinine 2.50 H GFR Calculation 34 BUN/Creatinine Ratio 22.00 H Glucose 138 H POC Glucose 165 H Calculated Osmolality 302.0 Calcium 9.1 - Diagnostic Findings Procedure: Chest x-ray: report reviewed by me - EKG EKG results: interpreted by me EKG shows: sinus rhythm IKeyonna Dale, MD, personally performed the services described in this documentation, ascribed by Belinda Miller RN in my presence, and it is both accurate and complete 241 .
[2017-02-19] MEDS: LEVOTHYROXINE 100 MCG TABLET PO SCH (05:59)
[2017-02-19 06:53] LABS: Calcium 8.6 MG/DL (8.5-10.1); Osmolality,Calculated 307.8 MOS/KG (273-304)
[2017-02-19] MEDS: CYANOCOBALAMIN 500 MCG TABLET PO SCH (08:28)
[2017-02-19] MEDS: ASPIRIN EC 81 MG TABLET PO SCH (08:28)
[2017-02-19] MEDS: DILTIAZEM CD 240 MG CAPSULE PO SCH (08:28)
[2017-02-19] MEDS: PREGABALIN 50 MG CAPSULE PO SCH ×2 (08:29→21:03)
[2017-02-19] MEDS: sitaGLIPtin 25 MG TABLET PO SCH (08:29)
[2017-02-19] MEDS: ASCORBIC ACID 500 MG TABLET PO SCH ×2 (08:29→21:03)
[2017-02-19] MEDS: CALCIUM (CARBONATE) 600 MG TABLET PO SCH (08:29)
[2017-02-19] MEDS: AMOXICILLIN/CLAV 875 MG TABLET PO SCH ×2 (08:29→21:03)
[2017-02-19] MEDS: PANTOPRAZOLE 40 MG TABLET PO SCH (08:29)
[2017-02-19] MEDS: BENZONATATE 100 MG CAPSULE PO SCH ×3 (08:29→21:03)
[2017-02-19] MEDS: CARVEDILOL 6.25 MG TABLET PO SCH ×2 (08:29→21:03)
[2017-02-19] MEDS: ISOSORBIDE MONONITRATE 30 MG TABLET PO SCH (08:29)
[2017-02-19] MEDS: DOCUSATE SODIUM 100 MG CAPSULE PO SCH ×3 (08:29→21:21)
[2017-02-19] MEDS: DABIGATRAN 75 MG CAPSULE PO SCH ×2 (08:29→21:03)
[2017-02-19] MEDS: INSULIN LISPRO 100 UNIT/ML SUBCUT SCH ×4 (08:30→21:04)
--- NOTE | 2017-02-19 09:11 | Internal Med Progress Note ---
Assessment and Plan (1) Shortness of breath Status: Acute Assessment and plan: 81-year-old male admitted to acute care * Shortness of breath. Improving * CHF with preserved ejection fraction. Chest x-ray looks okay. * Chronic A. fib. In sinus rhythm. Continue present treatment * Hypertension. Continue current treatment * Diabetes. Continue current treatment * UTI. Will change to p.o. antibiotics * Restless leg syndrome. Doing better on current management * Renal insufficiency. About baseline * Discussed with patient and his . Plan for home in the next few days Current Visit: Yes (2) Hypothyroidism Status: Acute Current Visit: Yes (3) Congestive heart failure Status: Acute Current Visit: Yes Qualifiers: Congestive heart failure type: unspecified congestive heart failure type Congestive heart failure chronicity: acute Qualified Code(s): I50.9 - Heart failure, unspecified (4) Fever Status: Acute Current Visit: Yes (5) Chronic a-fib Status: Acute Current Visit: No (6) Diabetes Status: Chronic Current Visit: No (7) Hypertension Status: Chronic Current Visit: Yes Qualifiers: Hypertension type: essential hypertension Qualified Code(s): I10 - Essential (primary) hypertension (8) Peripheral vascular disease Status: Chronic Current Visit: Yes (9) Restless leg syndrome Status: Acute Current Visit: Yes Internal Medicine - PN: Subj Interval history: Patient is feeling okay. He denies any chest pain or shortness of breath. Exam (Progress Note) - Constitutional Vitals: Period Temp Pulse Resp BP Sys/Mitchell Pulse Ox Last 24 Hr 97.1 F-98.0 F 49-68 18-21 113-143/50-71 88-96 Exam: Examination: GENERAL: No acute distress NECK: Neck is supple. CVS: Regular rate and rhythm. S1 and S2 are normal. RESPIRATORY: Lungs are clear. ABDOMEN: Soft and nontender. 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 Motor strength is 4/5. SKIN: Warm and dry. MSK: No obvious deformity. Results - Labs CBC & BMP: 02/18/17 05:23 02/19/17 05:59 Lab Results: I have reviewed the past 24 hour labs
--- NOTE | 2017-02-19 11:49 | Nephrology Progress Note ---
Nephrology - PN: Subj Interval history: He feels better overall. He has been walking with PT Exam (PN)-Nephrology - Vital Signs Vital signs: Period Temp Pulse Resp BP Sys/Mitchell Pulse Ox Last 24 Hr 97.1 F-98.0 F 49-58 18-21 113-143/50-71 88-96 Exam: ENT: Normal Cardiovascular: Regular rate and rhythm. No murmur rub or gallop Lungs: Clear Extremities: 2-3+ brawny edema - Lab 02/18/17 05:23 02/19/17 05:59 Most recent lab results Calcium 8.6 MG/DL (8.5-10.1) 02/19/17 05:59 Magnesium 2.5 MG/DL (1.8-2.4) H 02/16/17 03:15 Assessment and Plan (1) Chronic kidney disease, stage III (moderate) Status: Acute Assessment and plan: 81-year-old man with: * CRF stage III. Baseline creatinine 1.6 * Acute worsening of chronic renal failure. Renal function stable * Diastolic CHF. Compensated * Fever and shortness of breath. Resolved * Diabetes mellitus * Sleep apnea * Chronic venous insufficiency. Prior stents placed by Dr. Spence in [place]. He states his lower extremity edema is approximately the same. His weight has decreased 12-15 pounds over the past month. * Chronic A. fib * Hypothyroidism Current Visit: Yes (2) Fever Status: Acute Current Visit: Yes (3) Hypothyroidism Status: Acute Current Visit: Yes (4) Peripheral polyneuropathy Status: Acute Current Visit: Yes (5) Diabetes mellitus Status: Chronic Current Visit: Yes (6) Obstructive sleep apnea Status: Chronic Current Visit: Yes (7) Chronic a-fib Status: Acute Current Visit: No (8) Diabetes Status: Chronic Current Visit: No (9) Peripheral vascular disease Status: Chronic Current Visit: Yes
[2017-02-19] MEDS: rOPINIRole 1 MG TABLET PO SCH (16:03)
[2017-02-19] MEDS: CHOLECALCIFEROL 1,000 UNIT TABLET PO SCH (21:03)
[2017-02-19] MEDS: PRAVASTATIN 40 MG TABLET PO SCH (21:03)
[2017-02-19] MEDS: CARBIDOPA/LEVODOPA CR 25-100 MG TABLET PO SCH (21:03)
[2017-02-19] MEDS: OMEGA 3 ACID ETHYL ESTERS 1 GM CAPSULE PO SCH (21:04)
--- NOTE | 2017-02-19 21:10 | Cardiology Progress Note ---
Angela Howard April RN, am scribing for, and in the presence of, Rene Newby MD 21:07. Assessment and Plan (1) Atrial fibrillation Status: Acute Assessment and plan: Initial assessment and plan February 18, 2017: Mostly twitching is better off amiodarone Watch out for arrhythmias off amiodarone I encouraged him to use his CPAP anytime he sleeps Assessment and plan February 19, 2017: Twitching no longer is occurring No arrhythmia off amiodarone I discussed with the patient and his that we could use other antiarrhythmic drugs if needed Also, control VR response, if he had minimal symptoms, would be a reasonable option I encouraged him to get up and ambulate with his walker. Current Visit: No Qualifiers: Atrial fibrillation type: paroxysmal Qualified Code(s): I48.0 - Paroxysmal atrial fibrillation (2) Myoclonic jerking Status: Acute Current Visit: Yes (3) Renal failure Status: Acute Current Visit: Yes (4) Dyslipidemia Status: Chronic Current Visit: Yes (5) Obesity Status: Chronic Current Visit: Yes Qualifiers: Obesity type: unspecified obesity type Obesity classification: adult class 3 (BMI >= 40) Serious obesity comorbidity presence: with serious comorbidity Body mass index: BMI 40.0-44.9 Qualified Code(s): E66.9 - Obesity, unspecified; Z68.41 - Body mass index (BMI) 40.0-44.9, adult; Z68.41 - Body mass index (BMI) 40.0-44.9, adult; Z68.41 - Body mass index (BMI) 40.0-44.9, adult; Z68.41 - Body mass index (BMI) 40.0-44.9, adult (6) Obstructive sleep apnea Status: Chronic Current Visit: Yes (7) Restless leg syndrome Status: Acute Current Visit: Yes (8) Chronic anticoagulation Status: Chronic Current Visit: Yes (9) Hypertension Status: Chronic Current Visit: Yes Qualifiers: Hypertension type: essential hypertension Qualified Code(s): I10 - Essential (primary) hypertension (10) Peripheral vascular disease Status: Chronic Current Visit: Yes Cardiology - PN: Subj 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 Chavez, 81WM, with risk factors significant for: hypertension, dyslipidemia, diabetes, PVD, sedentary lifestyle and obesity. History of chronic venous stasis, RBBB, atrial fibrillation (takes Pradaxa for stroke prevention), Amiodarone (since 2015) for rhythm control (failed DCCV). History of CHF with preserved ejection fraction previously followed by Dr. Medhat Cai at [place]. He is transitioning care to Dr. Hernández. History of DVT with venous stenting by Dr. Spence approximately 2 years ago. Admitted February. Cardiology was consulted for worsening shortness of breath and elevated troponin (peaked at 0.9) in the setting of creatinine of 2.5. Troponin is flat with a normal CPK and CK-MB. This is not acute [place]. There has been some concern regarding possible Amiodarone toxicity worsening his pulmonary condition and also neurotoxicity causing spastic muscle jerking. Amiodarone has been held this admission. Echocardiogram: EF 55-60%, mild concentric LVH. February 18, 2017: Mr. Chavez is seen sitting up in chair with at bedside. He denies any chest pain. Oxygen is in use at this time via nasal cannula, he denies any shortness of breath at this time. He states he has talked to physical therapy out walking the bruno. He is anxious to do this to see if he is short of breath with ambulation. No jerking is noted at this time, he states he does have it at times but that it has improved. February 19, 2017: Mr. Chavez denies any chest pain. Oxygen is not in use and he denies any shortness of breath at this time. He did not walk and home physical therapy yesterday, he states he gets this today. He notes his muscle twitching has improved. Review of systems: Cardiovascular: Denies chest pain. Respiratory: Denies shortness of breath at this time, oxygen use via nasal cannula. Neurological: Awake, alert, and oriented. Exam (Progress Note) - Constitutional Vitals: Period Temp Pulse Resp BP Sys/Mitchell Pulse Ox Last 24 Hr 97.1 F-98.0 F 49-68 18-21 113-143/50-71 88-96 Exam: General appearance: Obese, no acute distress - Head Head exam: Present: normal inspection, normocephalic, atraumatic. Absent: hematoma, laceration - Eye Eye exam: Present: EOMI. Absent: conjunctival injection, nystagmus, periorbital swelling, scleral icterus, laceration to eyelids Pupils: Present: SERENITY. Absent: constricted, dilated, fixed, irregular, unequal - ENT ENT exam: Present: normal exam, normal external ear exam - Neck Neck exam: Present: Exam limited by habitus, overall normal inspection. Absent : lymphadenopathy, meningismus, tenderness, thyromegaly - Respiratory Respiratory exam: Present: Exam limited by habitus, overall clear to auscultation bilaterally. Absent: accessory muscle use, chest wall tenderness - Cardiovascular Cardiovascular exam: Present: Exam limited by habitus, tones in general distant but overall regular rate and rhythm. Absent: carotid bruit, gallop, JVD, rubs - GI/Abdominal GI/Abdominal exam: Present: Exam limited by habitus, overall normal bowel sounds. Absent: distended, firm, guarding, hernia, mass, tenderness, rebound, soft - Extremities Exam Extremities exam: Present: 3+ bilateral lower extremity edema with brawny skin changes. - Back Exam Back exam: Present: normal inspection. Absent: muscle spasm, vertebral tenderness - Neurological Exam Neurological exam: Present: alert, oriented X3, grossly intact mild intermittent resting tremor - Psychiatric Psychiatric exam: Present: normal affect, normal mood - Skin Skin exam: Present: Brawny bilateral lower extremity skin changes consistent with chronic edema, warm, dry, intact. Result/EKG - Labs CBC & BMP: 02/18/17 05:23 02/19/17 05:59 Lab Results: I have reviewed the past 24 hour labs Labs: Laboratory Results - last 24 hr 02/18/17 02/18/17 02/18/17 11:13 15:19 15:55 Sodium Potassium Chloride Carbon Dioxide Anion Gap BUN Creatinine GFR Calculation BUN/Creatinine Ratio Glucose POC Glucose 220 H 221 H 228 H Calculated Osmolality Calcium 02/18/17 02/19/17 20:29 05:59 Sodium 144 Potassium 5.0 Chloride 107 Carbon Dioxide 32 Anion Gap 10.0 BUN 68 H Creatinine 2.60 H GFR Calculation 33 BUN/Creatinine Ratio 26.00 H Glucose 142 H POC Glucose 173 H Calculated Osmolality 307.8 H Calcium 8.6 - Diagnostic Findings Procedure: Chest x-ray: report reviewed by me - EKG EKG results: interpreted by me EKG shows: sinus rhythm Specialty Discharge - Follow Up or Referrals Follow up with: Amarilis Hernández MD [Physician] - (In 3-4 weeks after discharge) I, Rene Newby MD, personally performed the services described in this documentation, ascribed by Belinda Miller RN in my presence, and it is both accurate and complete .
[2017-02-20] MEDS: LEVOTHYROXINE 100 MCG TABLET PO SCH (06:06)
[2017-02-20 07:13] LABS: Calcium 8.8 MG/DL (8.5-10.1); Potassium 5.1 MMOL/L (3.5-5.1)
[2017-02-20 08:12] VITALS: BP 128/75
--- NOTE | 2017-02-20 09:15 | Internal Med Progress Note ---
Assessment and Plan (1) Shortness of breath Status: Acute Assessment and plan: 81-year-old male admitted to acute care * Shortness of breath. Much better * Chronic A. fib. In sinus rhythm. Continue present treatment * Hypertension. Continue current treatment * Diabetes. Continue current treatment * UTI. Will change to p.o. antibiotics * Restless leg syndrome. Doing better on current management * Heartburn. Will DC Augmentin. Mylanta as needed * Renal insufficiency. About baseline * Discussed with patient and his . Patient is agreeable to go to the swing bed unit. Will consult Current Visit: Yes (2) Hypothyroidism Status: Acute Current Visit: Yes (3) Congestive heart failure Status: Acute Current Visit: Yes Qualifiers: Congestive heart failure type: unspecified congestive heart failure type Congestive heart failure chronicity: acute Qualified Code(s): I50.9 - Heart failure, unspecified (4) Fever Status: Acute Current Visit: Yes (5) Chronic a-fib Status: Acute Current Visit: No (6) Diabetes Status: Chronic Current Visit: No (7) Hypertension Status: Chronic Current Visit: Yes Qualifiers: Hypertension type: essential hypertension Qualified Code(s): I10 - Essential (primary) hypertension (8) Peripheral vascular disease Status: Chronic Current Visit: Yes (9) Restless leg syndrome Status: Acute Current Visit: Yes Internal Medicine - PN: Subj Interval history: Patient is feeling okay. He had some heartburn last night. He thinks it was after taking 1 of his medications. He denies any chest pain. He still feels he is quite weak Exam (Progress Note) - Constitutional Vitals: Period Temp Pulse Resp BP Sys/Mitchell Pulse Ox Last 24 Hr 97.2 F-98.1 F 20-63 16-20 121-147/54-75 91-98 Exam: Examination: GENERAL: No acute distress NECK: Neck is supple. CVS: Regular rate and rhythm. S1 and S2 are normal. RESPIRATORY: Lungs are clear. ABDOMEN: Soft and nontender. 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 MSK: No obvious deformity. Results - Labs CBC & BMP: 02/18/17 05:23 02/20/17 05:42 Lab Results: I have reviewed the past 24 hour labs Specialty Discharge - Follow Up or Referrals Follow up with: Amarilis Hernández MD [Physician] - (In 3-4 weeks after discharge)
[2017-02-20] MEDS: DOCUSATE SODIUM 100 MG CAPSULE PO SCH (09:17)
[2017-02-20] MEDS: CYANOCOBALAMIN 500 MCG TABLET PO SCH (09:17)
[2017-02-20] MEDS: ASCORBIC ACID 500 MG TABLET PO SCH (09:17)
[2017-02-20] MEDS: INSULIN LISPRO 100 UNIT/ML SUBCUT SCH ×2 (09:17→12:23)
[2017-02-20] MEDS: AMOXICILLIN/CLAV 875 MG TABLET PO SCH (09:17)
[2017-02-20] MEDS: DABIGATRAN 75 MG CAPSULE PO SCH (09:18)
[2017-02-20] MEDS: ISOSORBIDE MONONITRATE 30 MG TABLET PO SCH (09:18)
[2017-02-20] MEDS: PANTOPRAZOLE 40 MG TABLET PO SCH (09:18)
[2017-02-20] MEDS: sitaGLIPtin 25 MG TABLET PO SCH (09:18)
[2017-02-20] MEDS: DILTIAZEM CD 240 MG CAPSULE PO SCH (09:18)
[2017-02-20] MEDS: CARVEDILOL 6.25 MG TABLET PO SCH (09:18)
[2017-02-20] MEDS: CALCIUM (CARBONATE) 600 MG TABLET PO SCH (09:18)
[2017-02-20] MEDS: ASPIRIN EC 81 MG TABLET PO SCH (09:18)
[2017-02-20] MEDS: BENZONATATE 100 MG CAPSULE PO SCH ×2 (09:18→14:38)
[2017-02-20] MEDS: PREGABALIN 50 MG CAPSULE PO SCH (09:18)
[2017-02-20] MEDS ORDERED: ALUMINUM/MAGNES/SIMETH MAX STR 30 ML UDCUP PO PRN (09:57)
--- NOTE | 2017-02-20 11:24 | Discharge Summary ---
Hospital Course - Hospital Course Hospital Course: Patient is a 81-year-old male with history of multiple medical problemsIncluding diabetes, CHF, chronic A. fib, hypertension, peripheral vascular disease, renal insufficiency who was admitted not feeling well . He was found to have a temperature and UTI. He was started onIV antibiotics.His medications have been adjusted.He was having myoclonic jerks and was seen in consultation by neurology, nephrology and cardiology.His amiodarone was stopped. His Pradaxa dose was decreased.His diuretics have been stopped for several days. His creatinine has stayed around 2.5.His antibiotics were changed to p.o. and have been stopped because of some heartburn associated with Augmentin.He has history of chronic CHF with preserved ejection fraction. His weight has increased over last several days.He has been quite weak and was seen by PT and OT. It was felt that he would benefit from swing bed to get his strength back.This was discussed with patient and his and patient is being transferred to swing bed unit today Diagnosis - Discharge Diagnosis (1) Shortness of breath Status: Acute (2) Hypothyroidism Status: Acute (3) Congestive heart failure Status: Acute (4) Fever Status: Acute (5) Chronic a-fib Status: Acute (6) Diabetes Status: Chronic (7) Hypertension Status: Chronic (8) Peripheral vascular disease Status: Chronic (9) Restless leg syndrome Status: Acute Specialty Discharge - Follow Up or Referrals Follow up with: Amarilis Hernández MD [Physician] - 03/20/17 8:00 am (In 3-4 weeks after discharge) Discharge Plan - Discharge Data Disposition: Disch/Xfer to Snf Condition at Discharge: Stable Discharge Diet: advance to your usual diet, diabetic diet Activity: as per physical therapy - Discharge Medications New Carbidopa/Levodopa Cr 25-100 [Sinemet Cr 25-100] 1 tablet PO BEDTIME tablet Carvedilol [Coreg] 6.25 mg PO BID tablet Dabigatran [Pradaxa] 75 mg PO BID capsule Isosorbide Mononitrate [Imdur] 30 mg PO DAILY tablet Pregabalin [Lyrica] 50 mg PO BID capsule Ascorbic Acid Tab [Vitamin C Tab] 1,000 mg PO BID tablet Continue Ropinirole HCl [Requip] 5 mg PO DAILY@1700 Levothyroxine Tab [Synthroid Tab] 100 mcg PO DAILY@0700 [place]-3 Acid Ethyl Esters 1 gm PO QPM dilTIAZem HCl [Diltiazem 24Hr ER] 240 mg PO QAM Aspirin EC Tab 81 mg PO QAM Pravastatin [Pravachol] 40 mg PO QPM Saxagliptin HCl [Onglyza] 2.5 mg PO QAM Cholecalciferol [Vitamin D3] 1,000 unit PO QPM Calcium Carbonate 600 mg PO QAM Cyanocobalamin Tab [Vitamin B12 Tab] 1,000 mcg PO QAM Discontinued Dabigatran [Pradaxa] 150 mg PO BID Potassium Chloride 20 meq PO QAM Allopurinol [Zyloprim] 300 mg PO MOWEFR Amiodarone HCl 100 mg PO QAM Carbidopa/Levodopa [Carbidopa-Levodopa 25-100 Tab] 1 each PO BEDTIME Lisinopril [Lisinopril] 10 mg PO QPM Torsemide Tab [Demadex Tab] 20 mg PO BID@0600,1200 Eplerenone [Eplerenone] 25 mg PO QAM Lisinopril [Zestril] 25 mg PO QAM - Follow Up or Referral Follow Up: Amarilis Hernández MD [Physician] - 03/20/17 8:00 am (In 3-4 weeks after discharge) - Forms/Instructions Exam - Constitutional Vitals: Period Temp Pulse Resp BP Sys/Mitchell Pulse Ox Last 24 Hr 97.2 F-98.1 F 20-63 16-20 121-147/54-75 91-98 Exam: Examination: GENERAL: No acute distress NECK: Neck is supple. CVS: Regular rate and rhythm. S1 and S2 are normal. RESPIRATORY: Lungs are clear. ABDOMEN: Soft and nontender. 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 MSK: No obvious deformity. Discharge Results Labs on day of discharge: Labs from last 24 hours 02/20/17 02/20/17 02/19/17 07:25 05:42 19:38 Sodium 143 Potassium 5.1 Chloride 107 Carbon Dioxide 31 Anion Gap 10.1 BUN 67 H Creatinine 2.40 H GFR Calculation 37 BUN/Creatinine Ratio 27.00 H Glucose 146 H POC Glucose 181 H 216 H Calculated Osmolality 306.0 H Calcium 8.8 02/19/17 02/19/17 15:37 11:25 Sodium Potassium Chloride Carbon Dioxide Anion Gap BUN Creatinine GFR Calculation BUN/Creatinine Ratio Glucose POC Glucose 193 H 229 H Calculated Osmolality Calcium DS: Provider Date of admission: 02/12/17 12:43 Primary care physician: Avery Mcdonald MD Attending physician on admission: Avery Mcdonald MD Consults: 02/12/17 15:36 Consult to Case Mgmt/Social Srvs [CONS] Routine Reason for Case Mgmt/Social Srvs: Discharge Planning 02/12/17 16:53 Consult to Physician [CONS] Routine Comment: Chronic A. 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 Visit Pastoral Screen Source of Request: Patient 02/13/17 08:49 Consult to Physician [CONS] Routine Comment: tremors Consulting Provider: Kirit Lafleur Person Notified: Sindhu Date Notified: 02/13/17 Time Notified: 11:16 Consult Notification Comment: left message at [id number] 02/18/17 10:00 Consult to Occupational Therapy [CONS] Routine Reason for Occupational Therapy: Evaluate and Treat Consult to Physical Therapy [CONS] Routine Reason for Physical Therapy: Evaluate and Treat 02/20/17 09:07 Consult to Case Mgmt/Social Srvs [CONS] Routine Reason for Case Mgmt/Social Srvs: Rehab Discharging clinician: Avery Mcdonald MD
--- NOTE | 2017-02-20 19:16 | Nephrology Progress Note ---
Nephrology - PN: Subj Interval history: Up in chair. He denies shortness of breath at rest. Exam (PN)-Nephrology - Vital Signs Vital signs: Period Temp Pulse Resp BP Sys/Mitchell Pulse Ox Last 24 Hr 97.4 F-97.6 F 51-63 18-20 128-147/54-75 91-93 Exam: ENT: Normal Cardiovascular: Regular rate and rhythm. No murmur rub or gallop Lungs: Clear Extremities: 2-3+ brawny edema - Lab 02/18/17 05:23 02/20/17 05:42 Most recent lab results Calcium 8.8 MG/DL (8.5-10.1) 02/20/17 05:42 Magnesium 2.5 MG/DL (1.8-2.4) H 02/16/17 03:15 Assessment and Plan (1) Chronic kidney disease, stage III (moderate) Status: Acute Assessment and plan: 81-year-old man with: * CRF stage III. Baseline creatinine 1.6 * Acute worsening of chronic renal failure. Renal function improved * Diastolic CHF. Compensated * Fever and shortness of breath. Resolved * Diabetes mellitus * Sleep apnea * Chronic venous insufficiency. Prior stents placed by Dr. Spence in [place]. He states his lower extremity edema is approximately the same. His weight has decreased 12-15 pounds over the past month. * Chronic A. fib * Hypothyroidism (2) Fever Status: Acute (3) Hypothyroidism Status: Acute (4) Peripheral polyneuropathy Status: Acute (5) Diabetes mellitus Status: Chronic (6) Obstructive sleep apnea Status: Chronic (7) Chronic a-fib Status: Acute (8) Diabetes Status: Chronic (9) Peripheral vascular disease Status: Chronic Specialty Discharge - Follow Up or Referrals Follow up with: Amarilis Hernández MD [Physician] - 03/20/17 8:00 am (In 3-4 weeks after discharge) Junior Wang MD [Physician] - 06/03/17 1:00 pm (follow up in 3 months please bring medicines when come to appointment)
--- NOTE | 2017-02-21 14:15 | Cardiology Progress Note ---
IAngela April RN, am scribing for, and in the presence of, Rene Newby MD 14:15. Assessment and Plan (1) Atrial fibrillation Status: Acute Assessment and plan: Initial assessment and plan February 18, 2017: Mostly twitching is better off amiodarone Watch out for arrhythmias off amiodarone I encouraged him to use his CPAP anytime he sleeps Assessment and plan February 19, 2017: Twitching no longer is occurring No arrhythmia off amiodarone I discussed with the patient and his that we could use other antiarrhythmic drugs if needed Also, control VR response, if he had minimal symptoms, would be a reasonable option I encouraged him to get up and ambulate with his walker. Assessment and plan February 20, 2017: No further twitching Is walking to the door with minimal shortness breath, using his walker He is to be discharged to the swing bed He will see Dr. Murphy in the next 2-6 weeks I did discuss with the patient's it is possible that he would have recurrence of atrial arrhythmias. If so and bother him we would choose a different medication. Thank you for allowing me to participate in this patient's care Qualifiers: Atrial fibrillation type: paroxysmal Qualified Code(s): I48.0 - Paroxysmal atrial fibrillation (2) Myoclonic jerking Status: Acute (3) Renal failure Status: Acute (4) Dyslipidemia Status: Chronic (5) Obesity Status: Chronic Qualifiers: Obesity type: unspecified obesity type Obesity classification: adult class 3 (BMI >= 40) Serious obesity comorbidity presence: with serious comorbidity Body mass index: BMI 40.0-44.9 Qualified Code(s): E66.9 - Obesity, unspecified; Z68.41 - Body mass index (BMI) 40.0-44.9, adult; Z68.41 - Body mass index (BMI) 40.0-44.9, adult; Z68.41 - Body mass index (BMI) 40.0-44.9, adult; Z68.41 - Body mass index (BMI) 40.0-44.9, adult (6) Obstructive sleep apnea Status: Chronic (7) Restless leg syndrome Status: Acute (8) Chronic anticoagulation Status: Chronic (9) Hypertension Status: Chronic (10) Peripheral vascular disease Status: Chronic Cardiology - PN: Subj 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 Chavez, 81WM, with risk factors significant for: hypertension, dyslipidemia, diabetes, PVD, sedentary lifestyle and obesity. History of chronic venous stasis, RBBB, atrial fibrillation (takes Pradaxa for stroke prevention), Amiodarone (since 2014) for rhythm control (failed DCCV). History of CHF with preserved ejection fraction previously followed by Dr. Medhat Cai at [facility]. He is transitioning care to Dr. Hernández. History of DVT with venous stenting by Dr. Spence approximately 2 years ago. Admitted February. Cardiology was consulted for worsening shortness of breath and elevated troponin (peaked at 0.9) in the setting of creatinine of 2.5. Troponin is flat with a normal CPK and CK-MB. This is not acute SD. There has been some concern regarding possible Amiodarone toxicity worsening his pulmonary condition and also neurotoxicity causing spastic muscle jerking. Amiodarone has been held this admission. Echocardiogram: EF 55-60%, mild concentric LVH. February 18, 2017: Mr. Chavez is seen sitting up in chair with at bedside. He denies any chest pain. Oxygen is in use at this time via nasal cannula, he denies any shortness of breath at this time. He states he has talked to physical therapy out walking the bruno. He is anxious to do this to see if he is short of breath with ambulation. No jerking is noted at this time, he states he does have it at times but that it has improved. February 19, 2017: Mr. Chavez denies any chest pain. Oxygen is not in use and he denies any shortness of breath at this time. He did not walk in [place] with physical therapy yesterday, he states he hopes he gets this today. He notes his muscle twitching has improved. February 20, 2017: Mr. Chavez is seen sitting up in chair in no acute distress. He denies any chest pain or shortness of breath. He states he did walk in the house and yesterday and did experience some slight dyspnea on exertion. He denies any further muscle twitching. Discharge planning has been started for him to go to swing bed upon discharge. Review of systems: Cardiovascular: Denies chest pain. Respiratory: Denies shortness of breath at this time, intermittent oxygen use. Neurological: Awake, alert, and oriented. Exam (Progress Note) - Constitutional Vitals: Period Temp Pulse Resp BP Sys/Mitchell Pulse Ox Last 24 Hr 97.2 F-98.1 F 20-63 16-20 121-147/54-75 91-98 Exam: General appearance: Obese, no acute distress - Head Head exam: Present: normal inspection, normocephalic, atraumatic. Absent: hematoma, laceration - Eye Eye exam: Present: EOMI. Absent: conjunctival injection, nystagmus, periorbital swelling, scleral icterus, laceration to eyelids Pupils: Present: SERENITY. Absent: constricted, dilated, fixed, irregular, unequal - ENT ENT exam: Present: normal exam, normal external ear exam - Neck Neck exam: Present: Exam limited by habitus, overall normal inspection. Absent : lymphadenopathy, meningismus, tenderness, thyromegaly - Respiratory Respiratory exam: Present: Exam limited by habitus, overall clear to auscultation bilaterally. Absent: accessory muscle use, chest wall tenderness - Cardiovascular Cardiovascular exam: Present: Exam limited by habitus, tones in general distant but overall regular rate and rhythm. Absent: carotid bruit, gallop, JVD, rubs - GI/Abdominal GI/Abdominal exam: Present: Exam limited by habitus, overall normal bowel sounds. Absent: distended, firm, guarding, hernia, mass, tenderness, rebound, soft - Extremities Exam Extremities exam: Present: 3+ bilateral lower extremity edema with brawny skin changes. - Back Exam Back exam: Present: normal inspection. Absent: muscle spasm, vertebral tenderness - Neurological Exam Neurological exam: Present: alert, oriented X3, grossly intact mild intermittent resting tremor - Psychiatric Psychiatric exam: Present: normal affect, normal mood - Skin Skin exam: Present: Brawny bilateral lower extremity skin changes consistent with chronic edema, warm, dry, intact. Result/EKG - Labs CBC & BMP: 02/18/17 05:23 02/20/17 05:42 Lab Results: I have reviewed the past 24 hour labs Labs: Laboratory Results - last 24 hr 02/19/17 02/19/17 02/19/17 11:25 15:37 19:38 Sodium Potassium Chloride Carbon Dioxide Anion Gap BUN Creatinine GFR Calculation BUN/Creatinine Ratio Glucose POC Glucose 229 H 193 H 216 H Calculated Osmolality Calcium 02/20/17 02/20/17 05:42 07:25 Sodium 143 Potassium 5.1 Chloride 107 Carbon Dioxide 31 Anion Gap 10.1 BUN 67 H Creatinine 2.40 H GFR Calculation 37 BUN/Creatinine Ratio 27.00 H Glucose 146 H POC Glucose 181 H Calculated Osmolality 306.0 H Calcium 8.8 Specialty Discharge - Follow Up or Referrals Follow up with: Amarilis Hernández MD [Physician] - 03/20/17 8:00 am (In 3-4 weeks after discharge) Junior Wang MD [Physician] - 06/03/17 1:00 pm (follow up in 3 months please bring medicines when come to appointment) I, Rene Newby MD, personally performed the services described in this documentation, ascribed by Belinda Miller RN in my presence, and it is both accurate and complete 415 .
== END 2017-02-20 14:57 | disposition swing bed (61) | DRG 291 ==
LOC: N.ED 09:28 → N.EDINP 12:43 → N.5E 17:35
PROVIDERS: ADMIT Internal Medicine; ATTEND Internal Medicine

== ENCOUNTER 2017-02-22 11:59 | Inpatient (IN) ==
[2017-02-22] MEDS ORDERED: FUROSEMIDE 100 MG/10 ML VIAL IV STA (12:15)
[2017-02-22] MEDS ORDERED: methylPREDNISolone SOD SUC 125 MG/2 ML VIAL IV STA (12:15)
[2017-02-22] MEDS ORDERED: ALBUTEROL/IPRATROPIUM 3 ML NEB RESP TX STA (12:15)
--- NOTE | 2017-02-22 12:21 | Emergency Department Note ---
Arrival - Arrival Chief Complaint: Shortness of Breath ED Nursing Triage Note: Brought in by EMS c/o SOB-onset two days ago. Patient was discharged from here on Saturday. EMS reports inital sats were 87% on 2L oxygen. Was recently taken off his daily Lasix. Mode of Arrival: Stretcher Limitations: No Limitations Source: Patient Time Seen by Provider: 02/22/17 12:15 - History of Present Illness HPI Narrative: This 82-year-old white male presents 2 days after discharge from this institution where he was treated for a number of problems including primarily congestive failure and cystitis. He states that 24 hours ago he began becoming short of breath again with some chest heaviness. He was able to go to sleep tonight only to wake up more short of breath and extremely weak. He denies any chest pain, diaphoresis, nausea, or vomiting this morning. He does report also a diffuse rash of the trunk and extremities that is pruritic and began after discharge from the hospital on new drugs. He has extensive antibiotic allergies but feels it is related to the Lyrica he was begun on. Currently he is in no acute medical distress, just uncomfortable. Onset (ago): hour(s) (Patient presents 24 hours post onset of symptoms) Allergies/Adverse Reactions: Allergies Allergy/AdvReac Type Severity Reaction Status Date / Time levofloxacin [From Levaquin] Allergy Severe SHORTNESS Verified 02/12/17 09:36 OF BREATH,Unresponsive,Rash cephalexin [From Keflex] Allergy Intermediate hallucinati Verified 02/12/17 09: 36 ons,rash adhesive tape Allergy Mild RASH Verified 02/12/17 09:36 Sulfa (Sulfonamide Allergy Mild RASH Verified 02/12/17 09:36 Antibiotics) Home Medications: Home Medications Medication Instructions Recorded Confirmed Type Levothyroxine Tab [Synthroid Tab] 100 mcg PO DAILY@0700 01/20/15 02/22/17 History [place]-3 Acid Ethyl Esters 1 gm PO BEDTIME 01/20/15 02/22/17 History Ropinirole HCl [Requip] 5 mg PO DAILY@1700 01/20/15 02/22/17 History dilTIAZem HCl [Diltiazem 24Hr ER] 240 mg PO QAM 01/20/15 02/22/17 History Aspirin EC Tab 81 mg PO QAM 02/06/16 02/22/17 History Pravastatin [Pravachol] 40 mg PO MOWEFR 06/05/16 02/22/17 History Calcium Carbonate 600 mg PO QAM 12/05/16 02/22/17 History Cholecalciferol [Vitamin D3] 1,000 unit PO BEDTIME 12/05/16 02/22/17 History Saxagliptin HCl [Onglyza] 2.5 mg PO QAM 12/05/16 02/22/17 History Cyanocobalamin Tab [Vitamin B12 1,000 mcg PO QAM 12/19/16 02/22/17 History Tab] Ascorbic Acid Tab [Vitamin C Tab] 1,000 mg PO BID tablet 02/20/17 02/22/17 Rx Carbidopa/Levodopa Cr 25-100 1 tablet PO BEDTIME tablet 02/20/17 02/22/17 Rx [Sinemet Cr 25-100] Carvedilol [Coreg] 6.25 mg PO BID tablet 02/20/17 02/22/17 Rx Dabigatran [Pradaxa] 75 mg PO BID capsule 02/20/17 02/22/17 Rx Pregabalin [Lyrica] 50 mg PO BID capsule 02/20/17 02/22/17 Rx Allopurinol [Allopurinol] 300 mg PO MOWEFR 02/22/17 02/22/17 History Potassium Chloride 20 meq PO QAM 02/22/17 02/22/17 History Review of System - Review of System 12 point system: reviewed and no additional remarkable complaints except as stated - Review of System Constitutional: Present: as per HPI Respiratory: Present: as per HPI Cardiovascular: Present: as per HPI Gastrointestinal: Present: as per HPI Musculoskeletal: Present: as per HPI Skin: Present: as per HPI Medical,Surgical,& Family Hx - Medical History Cardio: History of: Cardiac Dysrhythmia (A-Fib history Dr. Trell MONREAL), CHF, Hypertension, PVD (Extreme Swelling), Cardiovascular Problems (Blood Clot Left [id number]. [facility] in [facility]) No history of: CAD, [place] Neurology: No history of: Seizures HEENT: History of: Ear Problem (hearing aides bilateral), Eye Problem (glasses/ cataracts), HEENT Problems Comment Only: Glaucoma (Elevated Pressure) Endocrine: History of: Diabetes Mellitus (NIDDM), Dyslipidemia, Thyroid Disorder Rheumatology: History of;: Gout Respiratory: History of: Obstructive Sleep Apnea (C-PAP), Respiratory Problems Renal: History of: Renal Problems Genitourinary: History of: Bladder Problem (INCONTIENCE), Kidney Stones, Prostate Problems (Prostate Ca-Surgery & Radiation -11/2006 Dr. Lemus), Recurring Urinary Tract Infections (Controlled On medication) Gastrointestinal: History of: Gastrointestinal Bleed, Hemorrhoids No history of: Polyps (1999) Musculoskeletal: History of: Musculoskeletal Problems (Arthritis mild) Hematology: History of: Clotting Problems (DVT LEFT LEG. 2015.) No history of: Anemia Other: History of: Anesthesia Reactions (Difficult with Intubating-Short Neck), Cancer (Prostate and Skin Ca) Comment Only: Anaphylaxis (Came Close with Levaquin) - Surgical History HEENT Surgeries: Surgical HX of: Eye Surgery (For Left Cataract 01/24/15 Dr. Glover) Abdominal Surgeries: Surgical HX of: Colonoscopy Reproductive Surgeries: Surgical HX of;: Genitourinary Surgery, Prostate Surgery (Prostatectomy 07/02/2002) Orthopedic Surgeries: Surgical HX of;: Orthopedic Surgery (RKS --2008 Clean Out Infection RT Knee Prosthesis), Total Knee Replacement (05/23/98 Right; 04/09/2011 Left) - Family History Family History: Reports;: Family Diabetes (BRO), Family Heart Disease (MOM,DAD) , Family Hypertension (BRO,SIS) Denies;: Family Anesthesia Reaction, Family Cancer, Family Psychiatric Problems, Family Stroke - Social History Smoking Status: Never smoker Frequency of Alcohol Use: None Type of Drug Use: None Exam Physical Examination: GENERAL: Morbidly obese white male in no acute distress. HEENT: Normocephalic. No trauma. Moist mucous membranes. EOMI. PERRLA. ENT NML NECK: Supple. No adenopathy. CARDIAC: Regular. No murmurs. Heart rate 55 CHEST: Bibasilar inspiratory wheezes. No respiratory distress. O2 sat 97% ABDOMEN: Soft. Nontender. Active bowel sounds. EXTREMITIES: No trauma. Normal ROM. Bilateral advanced lymphedema. SKIN: No diaphoresis. Maculopapular red rash of the trunk and upper extremities and proximal lower extremities. NEURO: Alert. No focal deficits. Vital Signs: Vital Signs Temperature 97.9 F 02/22/17 11:59 Pulse Rate 55 L 02/22/17 11:59 Respiratory Rate 22 02/22/17 11:59 Blood Pressure 118/74 02/22/17 11:59 O2 Sat by Pulse Oximetry 97 02/22/17 11:59 Course - Reevaluation(s) Reevaluation #1: I have advised patient of the need for readmission. - Consultations Consultation #1: Discussed with Dr. Gaby Rhodes who will admit for Dr. Mcdonald. Results - Labs CBC & BMP: 02/22/17 12:16 02/22/17 12:16 Labs: I have noted the laboratory results including the depressed hematocrit, elevated potassium, and azotemic renal numbers. I also noted the normal cardiac 's. - Impressions EKG: Sinus bradycardia at 54. First-degree heart block with right bundle branch block noted diffuse ST flattening with no acute injury pattern noted. - Diagnostic Findings Procedure: Chest x-ray: image reviewed by me, report reviewed by me ( Cardiomegaly with congestive heart failure) Disposition Clinical Impression: Congestive heart failure, Renal azotemia, Drug reaction Case discussed with: patient, patient's family Disposition: Still a Patient Condition: Guarded Time of Disposition: 13:13
[2017-02-22] MEDS ORDERED: methylPREDNISolone SOD SUC 125 MG/2 ML VIAL ONE (12:31)
[2017-02-22] MEDS ORDERED: FUROSEMIDE 40 MG/4 ML VIAL ONE (12:31)
--- NOTE | 2017-02-22 12:33 | XRay Report ---
Portable chest Date: 02/22/2017 Clinical history: Shortness of breath Comparison: 01/20/2017 Technique: Portable AP sitting chest Findings: Persistent cardiomegaly with more prominent pulmonary vasculature. Progressive diffuse parenchymal findings especially at the lung bases with small pleural effusions. Stable mediastinum with degenerative changes. Impression: The heart is larger in size with a mild to moderate CHF with small pleural effusions. PROCEDURE INTERPRETED AT [facility] DEPARTMENT OF RADIOLOGY Final Report Signed by: Dr. Georgiana Mues
[2017-02-22 12:35] LABS: Basophils % 0.2 % (0.0-0.8); Eosinophils # 0.1 10*3/uL (0.0-0.87); Eosinophils % 1.3 % (0.00-10.9); Hematocrit 33.1 VOL% (42.0-52.0); Hemoglobin 10.2 GM/DL (14.0-18.0); Immature Granulocytes % 1.2 %; Immature Granulocytes Absolute 0.12 #; Lymphocytes # 0.8 10*3/uL (1.4-4.0); Lymphocytes % 7.9 % (21.2-54.2); Mean Corpuscular HGB Conc 30.8 GM/DL (32-36); Mean Corpuscular Hemoglobin 32 PG (27-34); Mean Corpuscular Volume 105.1 FL (87-102); Mean Platelet Volume 10.4 FL (9.6-12.0); Monocytes # 1.1 10*3/uL (0.11-0.8); NRBC # 0.05 10*3/uL; Neutrophils # 8.1 10*3/uL (1.4-7.4); Neutrophils % 78.4 % (38.7-73.9); Platelet Count 293 T/CUMM (130-400); Red Blood Count 3.15 MC/CUMM (3.8-5.5); Red Cell Distribution Width 14.9 % (9.3-17.3); White Blood Count 10.3 T/CUMM (4-12)
[2017-02-22 12:48] LABS: INR 1.1; PT Patient Result 11.7 SECS; Partial Thromboplastin Time 34.1 SECS (0-40)
[2017-02-22 12:59] LABS: Alanine Aminotransferase 17 U/L (16-61); Alkaline Phosphatase 92 U/L (45-117); Aspartate Amino Transferase 9 U/L (0-37); Bilirubin,Total < 0.39 MG/DL (0.2-1.0); Blood Urea Nitrogen 49 MG/DL (7-18); Glucose 158 MG/DL (74-106); Potassium 5.3 MMOL/L (3.5-5.1); Sodium 143 MMOL/L (136-145); Total Protein 6.8 G/DL (6.4-8.3); Troponin I Only 0.035 NG/ML (0.00-0.045)
[2017-02-22 13:12] LABS: Apearance,Urine CLEAR (Clear); Bacteria,Urine Occasional /HPF (Few); Bilirubin,Urine Negative (Negative); Blood, Urine Negative (Negative); Glucose,Urine (UA) Negative (Negative); Hyaline Casts,Urine 1 /LPF (0-3); Ketones,Urine Negative (Negative); Nitrite,Urine Negative (Negative); Protein,Urine Negative; Squamous Epithelial Cell,Urine Occasional /HPF (0-10); Urine Color Yellow (Yellow); Urine Specific Gravity 1.013 (1.001-1.035); Urine Urobilinogen < 2.0 EU/DL (0.2-1.0); WBC,Urine 2 /HPF (0-6)
[2017-02-22] MEDS ORDERED: DEXTROSE 50% 25 GM/50 ML VIAL IV PRN (13:14)
[2017-02-22] MEDS ORDERED: GLUCAGON 1 MG VIAL IM PRN (13:14)
[2017-02-22] MEDS ORDERED: ONDANSETRON 4 MG/2 ML VIAL IV PRN (13:14)
[2017-02-22] MEDS ORDERED: FUROSEMIDE 40 MG/4 ML VIAL IV SCH (16:00)
[2017-02-22] MEDS: INSULIN REGULAR 100 UNIT/ML SUBCUT SCH ×2 (16:32→21:47)
[2017-02-22] MEDS: methylPREDNISolone SOD SUC 40 MG/1 ML VIAL IV SCH (18:29)
--- NOTE | 2017-02-22 18:30 | Internal Med History&Physical ---
Assessment and Plan (1) Congestive heart failure Status: Acute Current Visit: Yes Qualifiers: Congestive heart failure type: unspecified congestive heart failure type Congestive heart failure chronicity: acute Qualified Code(s): I50.9 - Heart failure, unspecified (2) Debility Status: Chronic Current Visit: Yes (3) Restless leg syndrome Status: Chronic Current Visit: No (4) Shortness of breath Status: Acute Current Visit: Yes (5) Weakness Status: Acute Current Visit: Yes (6) Diabetes mellitus Status: Chronic Current Visit: Yes Qualifiers: Diabetes mellitus type: type 2 Diabetes mellitus complication status: without complication Diabetes mellitus terminologist insulin use: without custodial use Qualified Code(s): E11.9 - Type 2 diabetes mellitus without complications (7) Hypertension Status: Chronic Current Visit: Yes Qualifiers: Hypertension type: essential hypertension Qualified Code(s): I10 - Essential (primary) hypertension (8) Obstructive sleep apnea Status: Chronic Current Visit: Yes History of Present Illness Chief complaint: worsening shortness of breath History of present illness: Mr. Chavez is a 82 year old male patient of Dr. Mcdonald with history of hypothyroid, HTN, GUILLERMINA on CPAP, CHF with recurrent exacerbation, COPD, DM, dyslipidemia, restless legs, who presented to ER with worsening shortness of breath. He had been hospitalized for a week and discharged to swing bed only two days ago. He wanted to go home and left swing bed. Home Medications Medication Instructions Recorded Confirmed Type Levothyroxine Tab [Synthroid Tab] 100 mcg PO DAILY@0700 01/20/15 02/22/17 History [place]-3 Acid Ethyl Esters 1 gm PO BEDTIME 01/20/15 02/22/17 History Ropinirole HCl [Requip] 5 mg PO BEDTIME 01/20/15 02/22/17 History dilTIAZem HCl [Diltiazem 24Hr ER] 240 mg PO QAM 01/20/15 02/22/17 History Aspirin EC Tab 81 mg PO QAM 02/06/16 02/22/17 History Pravastatin [Pravachol] 40 mg PO MOWEFR 06/05/16 02/22/17 History Calcium Carbonate 600 mg PO QAM 12/05/16 02/22/17 History Cholecalciferol [Vitamin D3] 1,000 unit PO BEDTIME 12/05/16 02/22/17 History Saxagliptin HCl [Onglyza] 2.5 mg PO QAM 12/05/16 02/22/17 History Cyanocobalamin Tab [Vitamin B12 1,000 mcg PO QAM 12/19/16 02/22/17 History Tab] Ascorbic Acid Tab [Vitamin C Tab] 1,000 mg PO BID tablet 02/20/17 02/22/17 Rx Carbidopa/Levodopa Cr 25-100 1 tablet PO BEDTIME tablet 02/20/17 02/22/17 Rx [Sinemet Cr 25-100] Carvedilol [Coreg] 6.25 mg PO BID tablet 02/20/17 02/22/17 Rx Dabigatran [Pradaxa] 75 mg PO BID capsule 02/20/17 02/22/17 Rx Pregabalin [Lyrica] 50 mg PO BID capsule 02/20/17 02/22/17 Rx Allopurinol [Allopurinol] 300 mg PO MOWEFR 02/22/17 02/22/17 History Potassium Chloride 20 meq PO QAM 02/22/17 02/22/17 History Allergies Allergy/AdvReac Type Severity Reaction Status Date / Time levofloxacin [From Levaquin] Allergy Severe SHORTNESS Verified 02/12/17 09:36 OF BREATH,Unresponsive,Rash cephalexin [From Keflex] Allergy Intermediate hallucinati Verified 02/12/17 09: 36 ons,rash adhesive tape Allergy Mild RASH Verified 02/12/17 09:36 Sulfa (Sulfonamide Allergy Mild RASH Verified 02/12/17 09:36 Antibiotics) Medical,Surgical,& Family Hx - Medical History Cardio: History of: Cardiac Dysrhythmia (A-Fib history Dr. Trell MONREAL), CHF, Hypertension, PVD (Extreme Swelling), Cardiovascular Problems (Blood Clot Left Tha-Dxxwmut-Yq. Raju in [facility]) No history of: CAD, [place] Neurology: No history of: Seizures HEENT: History of: Ear Problem (hearing aides bilateral), Eye Problem (glasses/ cataracts), HEENT Problems Comment Only: Glaucoma (Elevated Pressure) Endocrine: History of: Diabetes Mellitus (NIDDM), Dyslipidemia, Thyroid Disorder Rheumatology: History of;: Gout Respiratory: History of: Obstructive Sleep Apnea (C-PAP), Respiratory Problems Renal: History of: Renal Problems Genitourinary: History of: Bladder Problem (INCONTIENCE), Kidney Stones, Prostate Problems (Prostate Ca-Surgery & Radiation Dr. Lemus), Recurring Urinary Tract Infections (Controlled On medication) Gastrointestinal: History of: Gastrointestinal Bleed, Hemorrhoids No history of: Polyps (1999) Musculoskeletal: History of: Musculoskeletal Problems (Arthritis mild) Hematology: History of: Clotting Problems (DVT LEFT LEG. 2015.) No history of: Anemia Other: History of: Anesthesia Reactions (Difficult with Intubating-Short Neck), Cancer (Prostate and Skin Ca) Comment Only: Anaphylaxis (Came Close with Levaquin) - Surgical History HEENT Surgeries: Surgical HX of: Eye Surgery (For Left Cataract 01/24/15 Dr. Glover) Abdominal Surgeries: Surgical HX of: Colonoscopy Reproductive Surgeries: Surgical HX of;: Genitourinary Surgery, Prostate Surgery (Prostatectomy 07/02/2002) Orthopedic Surgeries: Surgical HX of;: Orthopedic Surgery (RKS --2008 Clean Out Infection RT Knee Prosthesis), Total Knee Replacement (05/23/98 Right; 04/09/2011 Left) - Family History Family History: Reports;: Family Diabetes (BRO), Family Heart Disease (MOM,DAD) , Family Hypertension (BRO,SIS) Denies;: Family Anesthesia Reaction, Family Cancer, Family Psychiatric Problems, Family Stroke - Social History Smoking Status: Never smoker Frequency of Alcohol Use: None Type of Drug Use: None Marital Status: Lives With:: Spouse Functional capacity: independent ambulation - Constitutional Constitutional: Present: fatigue, weakness - Cardiovascular Cardiovascular: Present: dyspnea on exertion. Absent: chest pain at rest, chest pain with activity - Respiratory Respiratory: Present: dyspnea, dyspnea on exertion - Gastrointestinal Gastrointestinal: Absent: diarrhea, nausea, vomiting Exam - Constitutional Vitals: Period Temp Pulse Resp BP Sys/Mitchell Pulse Ox Last 24 Hr 97.9 F-98.0 F 50-59 20-28 91-143/42-74 88-97 General appearance: no acute distress - Head Head exam: Present: normocephalic - Eye Eye exam: Present: EOMI - Respiratory Respiratory exam: Present: rhonchi - Cardiovascular Cardiovascular exam: Present: regular rate and rhythm - GI/Abdominal GI/Abdominal exam: Present: soft. Absent: tenderness - Extremities Exam Extremities exam: Absent: edema - Neurological Exam Neurological exam: Present: alert - Psychiatric Psychiatric exam: Present: normal mood - Skin Skin exam: Present: warm, dry Results - Labs CBC & BMP: 02/22/17 12:16 02/22/17 12:16 - EKG EKG shows: sinus rhythm - Diagnostic Findings Procedure: Chest x-ray: report reviewed by me
[2017-02-22] MEDS ORDERED: PRAVASTATIN 40 MG TABLET PO SCH ×2 (19:00→21:00)
[2017-02-22] MEDS ORDERED: SODIUM CHLORIDE 0.45% 1,000 ML IV SCH (19:00)
[2017-02-22] MEDS: BUDESONIDE 0.25 MG/2 ML NEB RESP TX SCH (19:18)
[2017-02-22] MEDS: ALBUTEROL/IPRATROPIUM 3 ML NEB RESP TX SCH (19:18)
[2017-02-22] MEDS ORDERED: rOPINIRole 0.25 MG TABLET PO SCH (21:00)
[2017-02-22] MEDS ORDERED: FUROSEMIDE 20 MG/2 ML VIAL IV ONE (21:27)
[2017-02-22] MEDS: INSULIN GLARGINE 100 UNIT/ML SUBCUT SCH (21:46)
[2017-02-22] MEDS: DABIGATRAN 75 MG CAPSULE PO SCH (21:47)
[2017-02-22] MEDS: CARBIDOPA/LEVODOPA CR 25-100 MG TABLET PO SCH (21:47)
[2017-02-22] MEDS: PRAVASTATIN 40 MG TABLET PO SCH (21:48)
--- NOTE | 2017-02-22 23:31 | Cardiology Consult Note ---
IAngela April RN, am scribing for, and in the presence of, Rene Newby MD 23:30. Assessment and Plan - Time spent with patient Time spent with patient: Greater than 30 minutes (Due to assessment, planning, documentation, medication review) (1) Congestive heart failure Status: Acute Assessment and plan: he likely had congestive heart failure last night due to being off diuretics and also his untreated sleep apnea We'll consult Dr. Dickerson to help with adjustment of his CPAP Diurese with Lasix for now Serial EKGs Monitor Agree with getting pulmonary medicine involved [facility] Current Visit: Yes Qualifiers: Congestive heart failure type: unspecified congestive heart failure type Congestive heart failure chronicity: acute Qualified Code(s): I50.9 - Heart failure, unspecified (2) Obstructive sleep apnea Status: Chronic Current Visit: No (3) Anemia Status: Acute Current Visit: No (4) Chronic kidney disease, stage III (moderate) Status: Acute Current Visit: No (5) Debility Status: Acute Current Visit: No (6) Myoclonic jerking Status: Acute Current Visit: No (7) Peripheral polyneuropathy Status: Acute Current Visit: No (8) Restless leg syndrome Status: Acute Current Visit: No (9) Shortness of breath Status: Acute Current Visit: No (10) Chronic anticoagulation Status: Chronic Current Visit: No (11) Diabetes Status: Chronic Current Visit: No (12) High risk medication use Status: Chronic Current Visit: No (13) Hypertension Status: Chronic Current Visit: No (14) Obesity Status: Chronic Current Visit: No Qualifiers: Obesity type: unspecified obesity type Obesity classification: adult class 3 (BMI >= 40) Serious obesity comorbidity presence: with serious comorbidity Body mass index: BMI 40.0-44.9 Qualified Code(s): E66.9 - Obesity, unspecified; Z68.41 - Body mass index (BMI) 40.0-44.9, adult; Z68.41 - Body mass index (BMI) 40.0-44.9, adult; Z68.41 - Body mass index (BMI) 40.0-44.9, adult; Z68.41 - Body mass index (BMI) 40.0-44.9, adult History of Present Illness - Data of Consult Patient: known to practice within the last 3 years Consult date: 02/22/17 Requesting Physician: Gaby Rhodes - Consult Narrative Reason for consult: CHF 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 Hernández Mr. Chavez is a 82 year old male with risk factors significant for: hypertension, dyslipidemia, diabetes, PVD, sedentary lifestyle and obesity. History of atrial fibrillation for which he takes Pradaxa for stroke prevention , Amiodarone (since 2014) for rhythm control (failed DCCV). History of CHF with preserved ejection fraction previously followed by Dr. Medhat Cai at [place]. He recently transitioned care to Dr. Hernández. History of DVT with venous stenting by Dr. Riley approximately 2 years ago. He was recently admitted February 12, 2017 with complaints of worsening shortness of breath and elevated troponin in the setting of a elevated creatinine. He has a chronic right bundle branch block noted. He was having muscular twitching , it was felt to be related to amiodarone. Amiodarone was discontinued. He is now on Cardizem 240 mg daily. He was discharged to swing bed on February 20. His reports he stayed 1 night and requested to be discharged because he would be more comfortable at home. Last night he had to sleep in the recliner because of his breathing. He slept under CPAP and reports he did cough a lot. O2 sat on 4 L is 90%. D-dimer was negative. Potassium is elevated at 5.3 , creatinine is elevated at 1.8, BNP is elevated at 1006. He was given Lasix 80 mg IV 1 dose in the emergency department, has been started on 40 mg IV twice daily. Chest x-ray indicated large heart with mild to moderate CHF and small pleural effusions. CC: Avery Mcdonald MD - Home Medications and Allergies Home Medications: Home Medications Medication Instructions Recorded Confirmed Type Levothyroxine Tab [Synthroid Tab] 100 mcg PO DAILY@0700 01/20/15 02/22/17 History [place]-3 Acid Ethyl Esters 1 gm PO BEDTIME 01/20/15 02/22/17 History Ropinirole HCl [Requip] 5 mg PO BEDTIME 01/20/15 02/22/17 History dilTIAZem HCl [Diltiazem 24Hr ER] 240 mg PO QAM 01/20/15 02/22/17 History Aspirin EC Tab 81 mg PO QAM 02/06/16 02/22/17 History Pravastatin [Pravachol] 40 mg PO MOWEFR 06/05/16 02/22/17 History Calcium Carbonate 600 mg PO QAM 12/05/16 02/22/17 History Cholecalciferol [Vitamin D3] 1,000 unit PO BEDTIME 12/05/16 02/22/17 History Saxagliptin HCl [Onglyza] 2.5 mg PO QAM 12/05/16 02/22/17 History Cyanocobalamin Tab [Vitamin B12 1,000 mcg PO QAM 12/19/16 02/22/17 History Tab] Ascorbic Acid Tab [Vitamin C Tab] 1,000 mg PO BID tablet 02/20/17 02/22/17 Rx Carbidopa/Levodopa Cr 25-100 1 tablet PO BEDTIME tablet 02/20/17 02/22/17 Rx [Sinemet Cr 25-100] Carvedilol [Coreg] 6.25 mg PO BID tablet 02/20/17 02/22/17 Rx Dabigatran [Pradaxa] 75 mg PO BID capsule 02/20/17 02/22/17 Rx Pregabalin [Lyrica] 50 mg PO BID capsule 02/20/17 02/22/17 Rx Allopurinol [Allopurinol] 300 mg PO MOWEFR 02/22/17 02/22/17 History Potassium Chloride 20 meq PO QAM 02/22/17 02/22/17 History Allergies/Adverse Reactions: Allergies Allergy/AdvReac Type Severity Reaction Status Date / Time levofloxacin [From Levaquin] Allergy Severe SHORTNESS Verified 02/12/17 09:36 OF BREATH,Unresponsive,Rash cephalexin [From Keflex] Allergy Intermediate hallucinati Verified 02/12/17 09: 36 ons,rash adhesive tape Allergy Mild RASH Verified 02/12/17 09:36 Sulfa (Sulfonamide Allergy Mild RASH Verified 02/12/17 09:36 Antibiotics) - Constitutional Constitutional: Present: as per HPI - EENT Eyes: Absent: blurry vision, loss of vision Ears: Present: decreased hearing. Absent: ear pain - Cardiovascular Cardiovascular: Present: palpitations. Absent: chest pain at rest, chest pain with activity - Respiratory Respiratory: Present: cough, dyspnea, dyspnea on exertion. Absent: hemoptysis - Gastrointestinal Gastrointestinal: Absent: abdominal pain, constipation, diarrhea, hematemesis, hematochezia, melena, nausea, vomiting - Genitourinary Genitourinary: Absent: dysuria, hematuria Medical,Surgical,& Family Hx - Medical History Cardio: History of: Cardiac Dysrhythmia (A-Fib history Dr. Trell MONREAL), CHF, Hypertension, PVD (Extreme Swelling), Cardiovascular Problems (Blood Clot Left Qva-Wbecsxr-Bg. Raju in [facility]) HEENT: History of: Ear Problem (hearing aides bilateral), Eye Problem (glasses/ cataracts), HEENT Problems Comment Only: Glaucoma (Elevated Pressure) Endocrine: History of: Diabetes Mellitus (NIDDM), Dyslipidemia, Thyroid Disorder Rheumatology: History of;: Gout Respiratory: History of: Obstructive Sleep Apnea (C-PAP), Respiratory Problems Renal: History of: Renal Problems Genitourinary: History of: Bladder Problem (INCONTIENCE), Kidney Stones, Prostate Problems (Prostate Ca-Surgery & Radiation Dr. Lemus), Recurring Urinary Tract Infections (Controlled On medication) Gastrointestinal: History of: Gastrointestinal Bleed, Hemorrhoids Musculoskeletal: History of: Musculoskeletal Problems (Arthritis mild) Hematology: History of: Clotting Problems (DVT LEFT LEG. 2015.) Other: History of: Anesthesia Reactions (Difficult with Intubating-Short Neck), Cancer (Prostate and Skin Ca) Comment Only: Anaphylaxis (Came Close with Levaquin) - Surgical History HEENT Surgeries: Surgical HX of: Eye Surgery (For Left Cataract 01/24/15 Dr. Glover) Abdominal Surgeries: Surgical HX of: Colonoscopy Reproductive Surgeries: Surgical HX of;: Genitourinary Surgery, Prostate Surgery (Prostatectomy 07/02/2002) Orthopedic Surgeries: Surgical HX of;: Orthopedic Surgery (RKS --2008 Clean Out Infection RT Knee Prosthesis), Total Knee Replacement (05/23/98 Right; 04/09/2011 Left) - Family History Family History: Reports;: Family Diabetes (BRO), Family Heart Disease (MOM,DAD) , Family Hypertension (BRO,SIS) - Social History Smoking Status: Never smoker Frequency of Alcohol Use: None Type of Drug Use: None Marital Status: Lives With:: Spouse Physical Examination Vital Signs Temp Pulse Resp BP Pulse Ox 97.9 F 55 L 22 118/74 97 02/22/17 11:59 02/22/17 11:59 02/22/17 11:59 02/22/17 11:59 02/22/17 11:59 General: Present: Appears Well, No Apparent Distress HEENT: Present: PERRL, Mucus Membranes Moist Neck: Present: Supple Neck, Midline Trachea, No Bruit. Absent: JVD/HJR (Unable to assess because of habitus) Cardiac: Present: Regular Rhythm, Other (Distant heart toneS) Lungs: Present: Rales - Left, Rales - Right, Oxygen, No Wheezes, No Rhonchi Neuro: Absent: Resting Tremor, Essential Tremor Abdomen: Present: Soft, Active Bowel Sounds, Non-Tender. Absent: Distended Skin: Absent: Rash, Suspicious Lesions Musculoskeletal: Present: Decreased Range of Motion, No Pain Extremities: Present: Normal Upper Extr. Pulses, Normal Lower Extr. Pulses, Edema (Chronic bilateral lower extremity lymphedema) Result/EKG - Labs CBC & BMP: 02/22/17 12:16 02/22/17 12:16 Lab Results: I have reviewed the past 24 hour labs Labs: Laboratory Results - last 24 hr 02/22/17 02/22/17 02/22/17 12:16 12:16 12:16 WBC 10.3 RBC 3.15 L Hgb 10.2 L Hct 33.1 L MCV 105.1 H MCH 32 MCHC 30.8 L RDW 14.9 Plt Count 293 MPV 10.4 Neut % (Auto) 78.4 H Lymph % (Auto) 7.9 L [place] % (Auto) 11.0 Eos % (Auto) 1.3 Baso % (Auto) 0.2 Neut # (Auto) 8.1 H Lymph # (Auto) 0.8 L [place] # (Auto) 1.1 H Eos # (Auto) 0.1 Baso # (Auto) 0.0 Immature Gran % 1.2 Nucleated RBC % 0.5 Immature Gran # 0.12 Nucleated RBCs # 0.05 Immature Plt Fraction 0.0 INR 1.1 PT Patient/Control Mix 11.7 D-Dimer, Quantitative 1.0 Circ Anticoag PTT 34.1 D Sodium 143 Potassium 5.3 H Chloride 108 H Carbon Dioxide 31 Anion Gap 9.3 BUN 49 H Creatinine 1.80 H GFR Calculation 51 BUN/Creatinine Ratio 27.00 H Glucose 158 H POC Glucose Calculated Osmolality 300.0 Calcium 9.0 Total Bilirubin < 0.39 AST 9 ALT 17 Alkaline Phosphatase 92 Total Creatine Kinase 29 L CK-MB (CK-2) 1.0 Troponin I 0.035 B-Natriuretic Peptide Total Protein 6.8 Albumin 3.0 L Globulin 3.8 H Albumin/Globulin Ratio 0.7 L Urine Color Urine Appearance Urine pH Ur Specific [place] Urine Protein Urine Glucose (UA) Urine Ketones Urine Blood Urine Nitrate Urine Bilirubin Urine Urobilinogen Urine Leukocytes Urine WBC Ur Squamous Epith Cells Urine Bacteria Hyaline Casts Ur Culture Indicated? 02/22/17 02/22/17 02/22/17 12:16 13:00 15:27 WBC RBC Hgb Hct MCV MCH MCHC RDW Plt Count MPV Neut % (Auto) Lymph % (Auto) [place] % (Auto) Eos % (Auto) Baso % (Auto) Neut # (Auto) Lymph # (Auto) [place] # (Auto) Eos # (Auto) Baso # (Auto) Immature Gran % Nucleated RBC % Immature Gran # Nucleated RBCs # Immature Plt Fraction INR PT Patient/Control Mix D-Dimer, Quantitative Circ Anticoag PTT Sodium Potassium Chloride Carbon Dioxide Anion Gap BUN Creatinine GFR Calculation BUN/Creatinine Ratio Glucose POC Glucose 220 H Calculated Osmolality Calcium Total Bilirubin AST ALT Alkaline Phosphatase Total Creatine Kinase CK-MB (CK-2) Troponin I B-Natriuretic Peptide 1006 H Total Protein Albumin Globulin Albumin/Globulin Ratio Urine Color Yellow Urine Appearance Clear Urine pH 5.0 Ur Specific [place] 1.013 Urine Protein Negative Urine Glucose (UA) Negative Urine Ketones Negative Urine Blood Negative Urine Nitrate Negative Urine Bilirubin Negative Urine Urobilinogen < 2.0 H Urine Leukocytes Trace Urine WBC 2 Ur Squamous Epith Cells Occasional Urine Bacteria Occasional Hyaline Casts 1 Ur Culture Indicated? Not indicated - Diagnostic Findings Procedure: Chest x-ray: report reviewed by me - EKG EKG results: interpreted by me EKG shows: sinus rhythm Keyonna Howadr Dale, MD, personally performed the services described in this documentation, ascribed by Belinda Miller RN in my presence, and it is both accurate and complete 330 .
[2017-02-23] MEDS: ALBUTEROL/IPRATROPIUM 3 ML NEB RESP TX SCH ×4 (00:07→19:45)
[2017-02-23] MEDS ORDERED: BENZONATATE 100 MG CAPSULE PO PRN (02:13)
[2017-02-23] MEDS ORDERED: BENZONATATE 100 MG CAPSULE PO ONE (02:13)
[2017-02-23] MEDS: methylPREDNISolone SOD SUC 40 MG/1 ML VIAL IV SCH ×3 (02:19→17:14)
[2017-02-23 03:28] LABS: ABG Base Excess 3.2 MMOL/L (-2.5-2.5); ABG HCO3 27.2 MMOL/L (20-26); ABG Oxygen Saturation 91.1 % (95-100); ABG PH 7.258 (7.35-7.45); ABG PO2 74.3 MM HG (80-95)
[2017-02-23 03:29] LABS: ABG PCO2 72.3 MM HG (35-48)
[2017-02-23 05:12] LABS: Basophils % 0.1 % (0.0-0.8); Hemoglobin 10.1 GM/DL (14.0-18.0); Immature Granulocytes % 0.9 %; Immature Granulocytes Absolute 0.08 #; Lymphocytes # 0.4 10*3/uL (1.4-4.0); Lymphocytes % 4.8 % (21.2-54.2); Mean Corpuscular HGB Conc 29.7 GM/DL (32-36); Mean Corpuscular Hemoglobin 32 PG (27-34); Mean Corpuscular Volume 106.6 FL (87-102); Mean Platelet Volume 10.6 FL (9.6-12.0); Monocytes # 0.1 10*3/uL (0.11-0.8); Monocytes % 1.5 % (1.7-12.7); NRBC # 0.03 10*3/uL; Neutrophils # 7.9 10*3/uL (1.4-7.4); Neutrophils % 92.7 % (38.7-73.9); Platelet Count 276 T/CUMM (130-400); Red Blood Count 3.19 MC/CUMM (3.8-5.5); Red Cell Distribution Width 14.8 % (9.3-17.3); White Blood Count 8.6 T/CUMM (4-12)
[2017-02-23 05:48] LABS: Alanine Aminotransferase < 9 U/L (16-61); Alkaline Phosphatase 80 U/L (45-117); Aspartate Amino Transferase 12 U/L (0-37); Blood Urea Nitrogen 47 MG/DL (7-18); Calcium 8.7 MG/DL (8.5-10.1); Glucose 166 MG/DL (74-106); Potassium 5.2 MMOL/L (3.5-5.1); Sodium 143 MMOL/L (136-145); Total Protein 6.3 G/DL (6.4-8.3)
[2017-02-23 05:59] LABS: Calcium 8.8 MG/DL (8.5-10.1); Magnesium 2.5 MG/DL (1.8-2.4); Osmolality,Calculated 300.1 MOS/KG (273-304); Potassium 5.1 MMOL/L (3.5-5.1)
[2017-02-23 06:12] LABS: Giant Platelets Few; Hypochromasia 1+; Lymphocytes 3 % (20-55); Ovalocytes Slight; Platelet Estimate Adequate; Segmented Neutrophils 97 % (50-85); Total Cells Counted 100
[2017-02-23 06:26] LABS: ABG Base Excess 2.9 MMOL/L (-2.5-2.5); ABG HCO3 26.9 MMOL/L (20-26); ABG Oxygen Saturation 88.9 % (95-100); ABG PCO2 68.3 MM HG (35-48); ABG PH 7.272 (7.35-7.45); ABG TCO2 29.3 MMOL/L (23-27); Allen Test Positive
[2017-02-23] MEDS ORDERED: LEVOTHYROXINE 100 MCG TABLET PO SCH (06:30)
--- NOTE | 2017-02-23 06:54 | Order Completion Report ---
See report scanned to EMR
[2017-02-23] MEDS ORDERED: LEVOTHYROXINE 50 MCG TABLET PO SCH (07:00)
[2017-02-23] MEDS: BUDESONIDE 0.25 MG/2 ML NEB RESP TX SCH ×3 (07:01→19:45)
[2017-02-23] MEDS ORDERED: POTASSIUM CHLORIDE 20 MEQ TABLET PO PRN (07:31)
--- NOTE | 2017-02-23 07:45 | Pulmonology Consult Note ---
History of Present Illness Chief complaint: CHF. Hypercarbia. Hypoxemia. History of present illness: Mr. Chavez is a 82 year old white male. I am seeing him for Dr. Bob Rhodes in pulmonary consultation. Patient told me I have seen his brother Keith Chavez in the recent past. This patient was recently hospitalized here. During that admission had a creatinine of 2.4 which is lower now. Chest x-ray shows congestive heart failure. I asked the patient how long he had breathing problems and he said all started yesterday. Interestingly his ABGs showed hypoxemia and hypercarbia. He says he never smoked. He denies reflux and microaspiration. There is a history of chronic lower extremity venous disease and needs had surgery by Dr. Persaud Gibraltarian also surgery by another doctor in [place]. We will have to consider the possibility is that this patient has had pulmonary emboli in the past. He is presently on Pradaxa. The remainder the review of systems is negative. Allergies. Levaquin. Keflex. Adhesive tape. Sulfa. Home medicines. See below Hospital medicines see below Past history. Hypothyroidism. Obstructive sleep apnea. High blood pressure. History of congestive heart failure. Diabetes mellitus. Hyperlipidemia. Restless leg syndrome. And his old records indicate a diagnosis of COPD although the patient says he has no lung disease. He uses CPAP at night. Atrial fib. Chronic venous stasis of the lower extremities. Bilateral hearing aids. Previous bilateral cataract surgery. Glaucoma. Kidney stones. Prostate cancer requiring surgery and radiation therapy in September 2006. Was followed by Dr. montgomery. Previous orthopedic surgery for an infected right knee. Total knee replacement May 1998 on the right and March 2011 for the left knee. Family history. Mother and father had heart disease. Brother has diabetes high blood pressure sister has high blood pressure. Social history. Never smoked. . Previously worked for the [employer]. Likes to work in his shop Chest x-ray. 02/23/2017. This was compared to a study done 02/22/2017 and another done 02/18/2017. Congestive heart failure on 02/22/2017 improved but not resolved today. Still has fluid in the major fissures in both costophrenic angles. There is central venous fullness in both hilar areas. 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 There is bilateral pleural capping. ABGs. 4 L/min nasal oxygen. PH 7.258, PCO2 72.3, PO2 74.3 and bicarb 27.2 ABGs. 2 L/min nasal oxygen. PH 7.272. PCO2 68.3. PO2 61. Bicarb 20 six- point Echocardiogram. 02/13/2017. Ejection fraction 55-60%. Normal diastolic function. Mild concentric left ventricular hypertrophy. Mildly dilated left atrium. Trace of mitral regurgitation. Mild aortic stenosis. Mild tricuspid regurgitation. Trace of pulmonary regurgitation. Normal right atrial size. Normal right ventricular size and function. There is no mention of pulmonary artery pressures Lab. On 02/22/2017 nitrated peptide was 1006. On 02/23/2017 BNP was 1368. Electrolytes are normal. Creatinine is 1.8. On 02/19/2017 creatinine was 2.6 and on 02/20/2017 creatinine was 2.4. H&H is 10.1/34.0. MCV is elevated. MCHC is low. Red blood cell distribution width is top normal. Platelets are 276,000. White count is 8600 with 93 segs 5 lymphs. Protein and albumin are low at 6.3 and 3.0 respectively. Urinalysis is normal. Microbiology. On 02/12/2017 the patient had a urine culture positive for Proteus Physical exam. General. Somewhat short of breath lying in bed of the 45 angle. Psychiatric. Oriented 3. Intelligent. Cranial nerves. Intact. Fairly good hearing. Bilateral hearing aids. Moves all 4 extremities. Gait was not tested. Sensory exam was not done. Face. Symmetrical. No edema of the lips or tongue. Neck. No meningismus. No masses. Mild kyphosis. Lymphatics. No submandibular cervical supraclavicular or epitrochlear adenopathy Chest. Symmetrical slightly kyphotic with decreased inspiratory excursion and coarse large airway congestion. Patient has a mild tracheal wheeze. Heart. I cannot hear a murmur or rub. Abdomen. Mildly obese. Nontender. No organs palpated. Positive bowel sounds . Deferred Lower extremities show +2-1/2 over 4 bilateral pedal and pretibial edema and extends at least to the tibial plateau. This appears to be chronic as there are chronic discoloration changes of both lower extremities usually seen with chronic venous stasis. Skin. Chronic venous stasis lower extremities. No cancerous infectious lesions seen on the face or hands. Purpura on the dorsum of both upper extremities. The remainder the physical exam is negative. Impression. 1. Chest x-ray and chemistry evidence of congestive heart failure in the face of a normal cardiac output. 2. Mild aortic stenosis. Trace of mitral regurgitation. 3. Chronic renal failure. Creatinine is 1.8. Note that on 02/19/2017 creatinine was 2.6. 4. Acute respiratory failure for carbon dioxide and oxygen. I think there is definitely an acute component since the bicarb is in the normal range. Think this is probably secondary to patient's congestive heart failure but we should consider other factors. Note that he has chronic lower extremity venous stasis. 5. Chronic bilateral lower extremity venous stasis with a history of venous surgery. Note the patient is on chronic anticoagulation 6. Hyperlipidemia. 7. Diabetes mellitus 8. Chronic atrial fib. 9. See past history. 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 Obstructive sleep apnea. Uses CPAP. Plan. 1. I have increased Lasix from 40 mg IV push twice a day 40 mg IV push every 8 hours. 2. Potassium replacement protocol 3. Doppler venograms of the lower extremities 4. Sputum for Gram stain culture and sensitivity 5. Daily chest x-ray, BMP, BNP, 6. Inhalation therapy. 7. Agree with low-dose steroids. 8. Have not started antibiotics yet patient was recently on Levaquin. 9. See Home Medications Medication Instructions Recorded Confirmed Type Levothyroxine Tab [Synthroid Tab] 100 mcg PO DAILY@0700 01/20/15 02/22/17 History [place]-3 Acid Ethyl Esters 1 gm PO BEDTIME 01/20/15 02/22/17 History Ropinirole HCl [Requip] 5 mg PO BEDTIME 01/20/15 02/22/17 History dilTIAZem HCl [Diltiazem 24Hr ER] 240 mg PO QAM 01/20/15 02/22/17 History Aspirin EC Tab 81 mg PO QAM 02/06/16 02/22/17 History Pravastatin [Pravachol] 40 mg PO MOWEFR 06/05/16 02/22/17 History Calcium Carbonate 600 mg PO QAM 12/05/16 02/22/17 History Cholecalciferol [Vitamin D3] 1,000 unit PO BEDTIME 12/05/16 02/22/17 History Saxagliptin HCl [Onglyza] 2.5 mg PO QAM 12/05/16 02/22/17 History Cyanocobalamin Tab [Vitamin B12 1,000 mcg PO QAM 12/19/16 02/22/17 History Tab] Ascorbic Acid Tab [Vitamin C Tab] 1,000 mg PO BID tablet 02/20/17 02/22/17 Rx Carbidopa/Levodopa Cr 25-100 1 tablet PO BEDTIME tablet 02/20/17 02/22/17 Rx [Sinemet Cr 25-100] Carvedilol [Coreg] 6.25 mg PO BID tablet 02/20/17 02/22/17 Rx Dabigatran [Pradaxa] 75 mg PO BID capsule 02/20/17 02/22/17 Rx Pregabalin [Lyrica] 50 mg PO BID capsule 02/20/17 02/22/17 Rx Allopurinol [Allopurinol] 300 mg PO MOWEFR 02/22/17 02/22/17 History Potassium Chloride 20 meq PO QAM 02/22/17 02/22/17 History Allergies Allergy/AdvReac Type Severity Reaction Status Date / Time levofloxacin [From Levaquin] Allergy Severe SHORTNESS Verified 02/12/17 09:36 OF BREATH,Unresponsive,Rash cephalexin [From Keflex] Allergy Intermediate hallucinati Verified 02/12/17 09: 36 ons,rash adhesive tape Allergy Mild RASH Verified 02/12/17 09:36 Sulfa (Sulfonamide Allergy Mild RASH Verified 02/12/17 09:36 Antibiotics) Exam (Pulmonay) H&P - Constitutional Vitals: Period Temp Pulse Resp BP Sys/Mitchell Pulse Ox Last 24 Hr 97.3 F-98.0 F 50-66 15-28 91-159/42-97 80-97 Medical,Surgical,& Family Hx - Medical History Cardio: History of: Cardiac Dysrhythmia (A-Fib history Dr. Trell MONREAL), CHF, Hypertension, PVD (Extreme Swelling), Cardiovascular Problems (Blood Clot Left Dml-Ssmgjlg-[facility]. Raj[facility] in [facility]) No history of: CAD, [place] Neurology: No history of: Seizures HEENT: History of: Ear Problem (hearing aides bilateral), Eye Problem (glasses/ cataracts), HEENT Problems Comment Only: Glaucoma (Elevated Pressure) Endocrine: History of: Diabetes Mellitus (NIDDM), Dyslipidemia, Thyroid Disorder Rheumatology: History of;: Gout Respiratory: History of: Obstructive Sleep Apnea (C-PAP), Respiratory Problems Renal: History of: Renal Problems Genitourinary: History of: Bladder Problem (INCONTIENCE), Kidney Stones, Prostate Problems (Prostate Ca-Surgery & Radiation Dr. Lemus), Recurring Urinary Tract Infections (Controlled On medication) Gastrointestinal: History of: Gastrointestinal Bleed, Hemorrhoids No history of: Polyps (1999) Musculoskeletal: History of: Musculoskeletal Problems (Arthritis mild) Hematology: History of: Clotting Problems (DVT LEFT LEG. 2015.) No history of: Anemia Other: History of: Anesthesia Reactions (Difficult with Intubating-Short Neck), Cancer (Prostate and Skin Ca) Comment Only: Anaphylaxis (Came Close with Levaquin) - Surgical History HEENT Surgeries: Surgical HX of: Eye Surgery (For Left Cataract 01/24/15 Dr. Glover) Abdominal Surgeries: Surgical HX of: Colonoscopy Reproductive Surgeries: Surgical HX of;: Genitourinary Surgery, Prostate Surgery (Prostatectomy 07/02/2002) Orthopedic Surgeries: Surgical HX of;: Orthopedic Surgery (RKS --2008 Clean Out Infection RT Knee Prosthesis), Total Knee Replacement (05/23/98 Right; 04/09/2011 Left) - Family History Family History: Reports;: Family Diabetes (BRO), Family Heart Disease (MOM,DAD) , Family Hypertension (BRO,SIS) Denies;: Family Anesthesia Reaction, Family Cancer, Family Psychiatric Problems, Family Stroke - Social History Smoking Status: Never smoker Frequency of Alcohol Use: None Type of Drug Use: None Results - Labs CBC & BMP: 02/23/17 05:01 02/23/17 05:01
[2017-02-23 07:56] LABS: Free T4 (Free Thyroxine) 1.48 NG/DL (0.76-1.46); Thyroid Stimulating Hormone 0.759 uIU/ml (0.358-3.74)
[2017-02-23] MEDS: BENZONATATE 100 MG CAPSULE PO SCH ×3 (08:44→20:39)
[2017-02-23] MEDS: DILTIAZEM CD 180 MG CAPSULE PO SCH (08:45)
[2017-02-23] MEDS: DABIGATRAN 75 MG CAPSULE PO SCH ×2 (08:45→20:39)
[2017-02-23] MEDS: GLIMEPIRIDE 2 MG TABLET PO SCH (08:46)
[2017-02-23] MEDS: MONTELUKAST 10 MG TABLET PO SCH (08:46)
[2017-02-23] MEDS: PANTOPRAZOLE 40 MG TABLET PO SCH (08:47)
[2017-02-23] MEDS: FUROSEMIDE 40 MG/4 ML VIAL IV SCH ×3 (08:48→21:19)
[2017-02-23] MEDS: INSULIN REGULAR 100 UNIT/ML SUBCUT SCH ×4 (08:51→20:39)
--- NOTE | 2017-02-23 08:56 | XRay Report ---
History: Shortness of breath. Hypoxia Date: 02/23/2017 Study: Chest x-ray AP portable Comparison exam: 02/22/2017 There is continued cardiomegaly. The mediastinal contours are unchanged. The pulmonary vasculature is slightly prominent, though stable if not improved. There is some hazy and patchy edema in the lower lungs, the same or slightly improved. There is mild bilateral pleural effusion. Osseous structures are unchanged. Impression: Continued bibasilar pulmonary edema, the same or slightly improved. Otherwise unchanged PROCEDURE INTERPRETED AT [facility] DEPARTMENT OF RADIOLOGY Final Report Signed by: Dr. Shasta Dickerson
[2017-02-23] MEDS ORDERED: DILTIAZEM CD 240 MG CAPSULE PO SCH (09:00)
[2017-02-23] MEDS ORDERED: ASPIRIN EC 81 MG TABLET PO SCH (09:00)
[2017-02-23 09:02] LABS: Apearance,Urine CLOUDY (Clear); Bilirubin,Urine Negative (Negative); Blood, Urine Large mg/dL (Negative); Glucose,Urine (UA) Negative (Negative); Ketones,Urine Negative (Negative); Mucus,Urine Occasional /LPF (Occasional); Nitrite,Urine Negative (Negative); Protein,Urine 100 MG/DL; RBC,Urine 1747 /HPF (0-4); Urine Color Amber (Yellow); Urine Specific Gravity 1.012 (1.001-1.035); Urine Urobilinogen < 2.0 EU/DL (0.2-1.0); WBC,Urine 48 /HPF (0-6)
[2017-02-23] MEDS ORDERED: rOPINIRole 4 MG TABLET PO SCH (10:04)
--- NOTE | 2017-02-23 11:11 | Internal Med Progress Note ---
Assessment and Plan (1) Congestive heart failure Status: Chronic Current Visit: Yes Qualifiers: Congestive heart failure type: unspecified congestive heart failure type Congestive heart failure chronicity: acute Qualified Code(s): I50.9 - Heart failure, unspecified (2) Debility Status: Chronic Current Visit: Yes (3) Restless leg syndrome Status: Chronic Current Visit: Yes (4) Shortness of breath Status: Resolved Current Visit: Yes (5) Weakness Status: Acute Current Visit: Yes (6) Diabetes mellitus Status: Chronic Current Visit: Yes Qualifiers: Diabetes mellitus type: type 2 Diabetes mellitus complication status: without complication Diabetes mellitus detention insulin use: without detention use Qualified Code(s): E11.9 - Type 2 diabetes mellitus without complications (7) Hypertension Status: Chronic Current Visit: Yes Qualifiers: Hypertension type: essential hypertension Qualified Code(s): I10 - Essential (primary) hypertension (8) Obstructive sleep apnea Status: Chronic Current Visit: Yes Internal Medicine - PN: Subj Interval history: Mr. Chavez is a 82 year old male patient of Dr. Mcdonald with history of hypothyroid, HTN, GUILLERMINA on CPAP, CHF with recurrent exacerbation, COPD, DM, dyslipidemia, restless legs, who presented to ER with worsening shortness of breath. He had been hospitalized for a week and discharged to swing bed only two days ago. He wanted to go home and left swing bed. February 23: He is feeling better overall with diuresis. Consulting Dr. Olmedo for compression wraps to both lower legs. Doppler shows partiall occluded left superficial femoral vein (patient on Pradaxa). Consulting Dr. Dickerson to address obstructive sleep apnea. Exam (Progress Note) - Constitutional Vitals: Period Temp Pulse Resp BP Sys/Mitchell Pulse Ox Last 24 Hr 97.3 F-98.0 F 50-66 15-28 91-159/42-97 80-97 General appearance: no acute distress - Respiratory Respiratory exam: Present: clear to auscultation bilaterally - Cardiovascular Cardiovascular exam: Present: regular rate and rhythm - GI/Abdominal GI/Abdominal exam: Present: soft. Absent: tenderness - Extremities Exam Extremities exam: Present: edema (chronic lymphedema improved on lasix) - Neurological Exam Neurological exam: Present: alert, oriented X3 - Psychiatric Psychiatric exam: Present: normal mood - Skin Skin exam: Present: warm, dry Results - Labs CBC & BMP: 02/23/17 05:01 02/23/17 05:01 - Diagnostic Findings Procedure: Ultrasound: report reviewed by me
--- NOTE | 2017-02-23 11:13 | General Surgery Consult Note ---
Assessment and Plan - Time spent with patient Time spent with patient: Greater than 30 minutes (1) Chronic venous insufficiency Status: Acute Assessment and plan: Impression: Chronic venous insufficiency versus some chronic lymphedematous changes of the lower extremities of left greater than right Plan: We will start some compressive therapy at this time and keep the legs cleaned and moist. 2. We will try to transition him back to his Ciraids Current Visit: Yes (2) Prostate cancer Status: Acute Assessment and plan: Impression: Prostate cancer status post radiation therapy and surgery Current Visit: Yes (3) Atrial fibrillation Status: Acute Assessment and plan: Impression: Atrial fibrillation Plan: Medical management Current Visit: No Qualifiers: Atrial fibrillation type: paroxysmal Qualified Code(s): I48.0 - Paroxysmal atrial fibrillation (4) Diabetes Status: Chronic Assessment and plan: Impression: Diabetes adult onset Plan: Medical management Current Visit: No (5) Chronic kidney disease, stage III (moderate) Status: Chronic Assessment and plan: Impression: Chronic renal insufficiency Medical management Current Visit: No History of Present Illness Chief complaint: Chronic venous stasis disease History of present illness: Mr. Chavez is a 82 year old male white male who is in for some fluid overload plus atrial fibrillation at this time. He is in the unit doing fairly well he has a history of some chronic venous stasis disease. Patient's had prostate cancer and received radiation to the pelvic areas. According to the family he is undergone some venous ablation back in 2014 had to eventually go to Dr. Spence where from what I can tell from the family had some stents placed possibly in the veins but he still developed a blood clot in the left leg. He has a chronic blood clot still seen on DVT today. At this point his legs seem to be under reasonable control at this time there are some small blisters on the right leg. Patient's family apparently has CircAid's and be marquez to go ahead and try to get some compression while he is here and see if we can control this will bit better and then moved to the possibility of getting back and CircAid's. Home Medications Medication Instructions Recorded Confirmed Type Levothyroxine Tab [Synthroid Tab] 100 mcg PO DAILY@0700 01/20/15 02/22/17 History [place]-3 Acid Ethyl Esters 1 gm PO BEDTIME 01/20/15 02/22/17 History Ropinirole HCl [Requip] 5 mg PO BEDTIME 01/20/15 02/22/17 History dilTIAZem HCl [Diltiazem 24Hr ER] 240 mg PO QAM 01/20/15 02/22/17 History Aspirin EC Tab 81 mg PO QAM 02/06/16 02/22/17 History Pravastatin [Pravachol] 40 mg PO MOWEFR 06/05/16 02/22/17 History Calcium Carbonate 600 mg PO QAM 12/05/16 02/22/17 History Cholecalciferol [Vitamin D3] 1,000 unit PO BEDTIME 12/05/16 02/22/17 History Saxagliptin HCl [Onglyza] 2.5 mg PO QAM 12/05/16 02/22/17 History Cyanocobalamin Tab [Vitamin B12 1,000 mcg PO QAM 12/19/16 02/22/17 History Tab] Ascorbic Acid Tab [Vitamin C Tab] 1,000 mg PO BID tablet 02/20/17 02/22/17 Rx Carbidopa/Levodopa Cr 25-100 1 tablet PO BEDTIME tablet 02/20/17 02/22/17 Rx [Sinemet Cr 25-100] Carvedilol [Coreg] 6.25 mg PO BID tablet 02/20/17 02/22/17 Rx Dabigatran [Pradaxa] 75 mg PO BID capsule 02/20/17 02/22/17 Rx Pregabalin [Lyrica] 50 mg PO BID capsule 02/20/17 02/22/17 Rx Allopurinol [Allopurinol] 300 mg PO MOWEFR 02/22/17 02/22/17 History Potassium Chloride 20 meq PO QAM 02/22/17 02/22/17 History Allergies Allergy/AdvReac Type Severity Reaction Status Date / Time levofloxacin [From Levaquin] Allergy Severe SHORTNESS Verified 02/12/17 09:36 OF BREATH,Unresponsive,Rash cephalexin [From Keflex] Allergy Intermediate hallucinati Verified 02/12/17 09: 36 ons,rash adhesive tape Allergy Mild RASH Verified 02/12/17 09:36 Sulfa (Sulfonamide Allergy Mild RASH Verified 02/12/17 09:36 Antibiotics) Medical,Surgical,& Family Hx - Medical History Cardio: History of: Cardiac Dysrhythmia (A-Fib history Dr. Trell MONREAL), CHF, Hypertension, PVD (Extreme Swelling), Cardiovascular Problems (Blood Clot Left Fou-Qrkgsvv-Mk. Raju in [facility]) No history of: CAD, [place] Neurology: No history of: Seizures HEENT: History of: Ear Problem (hearing aides bilateral), Eye Problem (glasses/ cataracts), HEENT Problems Comment Only: Glaucoma (Elevated Pressure) Endocrine: History of: Diabetes Mellitus (NIDDM), Dyslipidemia, Thyroid Disorder Rheumatology: History of;: Gout Respiratory: History of: Obstructive Sleep Apnea (C-PAP), Respiratory Problems Renal: History of: Renal Problems Genitourinary: History of: Bladder Problem (INCONTIENCE), Kidney Stones, Prostate Problems (Prostate Ca-Surgery & Radiation -11/2006 Dr. Lemus), Recurring Urinary Tract Infections (Controlled On medication) Gastrointestinal: History of: Gastrointestinal Bleed, Hemorrhoids No history of: Polyps (1999) Musculoskeletal: History of: Musculoskeletal Problems (Arthritis mild) Hematology: History of: Clotting Problems (DVT LEFT LEG. 2015.) No history of: Anemia Other: History of: Anesthesia Reactions (Difficult with Intubating-Short Neck), Cancer (Prostate and Skin Ca) Comment Only: Anaphylaxis (Came Close with Levaquin) - Surgical History HEENT Surgeries: Surgical HX of: Eye Surgery (For Left Cataract 01/24/15 Dr. Glover) Abdominal Surgeries: Surgical HX of: Colonoscopy Reproductive Surgeries: Surgical HX of;: Genitourinary Surgery, Prostate Surgery (Prostatectomy 07/02/2002) Orthopedic Surgeries: Surgical HX of;: Orthopedic Surgery (RKS --2008 Clean Out Infection RT Knee Prosthesis), Total Knee Replacement (05/23/98 Right; 04/09/2011 Left) - Family History Family History: Reports;: Family Diabetes (BRO), Family Heart Disease (MOM,DAD) , Family Hypertension (BRO,SIS) Denies;: Family Anesthesia Reaction, Family Cancer, Family Psychiatric Problems, Family Stroke - Social History Smoking Status: Never smoker Frequency of Alcohol Use: None Type of Drug Use: None 12 point system: reviewed and no additional remarkable complaints except as stated Exam - Constitutional Vitals: Period Temp Pulse Resp BP Sys/Mitchell Pulse Ox Last 24 Hr 97.3 F-98.0 F 50-66 15-28 91-159/42-97 80-97 General appearance: mild distress - Head Head exam: Present: normal inspection - ENT ENT exam: Present: normal exam - Neck Neck exam: Present: normal inspection - Respiratory Respiratory exam: Present: rales, rhonchi - Cardiovascular Cardiovascular exam: Present: RRR - GI/Abdominal GI/Abdominal exam: Present: hypoactive bowel sounds, soft - Extremities Exam Extremities exam: Present: edema (Bilateral chronic), other (Small blisters on the right leg) - Back Exam Back exam: Present: normal inspection - Neurological Exam Neurological exam: Present: alert, oriented X3, CN II-XII intact - Skin Skin exam: Present: normal color, warm, dry Results - Labs CBC & BMP: 02/23/17 05:01 02/23/17 05:01 Lab Results: I have reviewed the past 24 hour labs
--- NOTE | 2017-02-23 11:32 | Ultrasound Report ---
History: Acute respiratory failure Date: 02/23/2017 Study: Bilateral lower extremity color-flow venous Doppler study Comparison exam: No previous similar Color Doppler, wave form analysis, and compression analysis of the deep veins of both lower extremities from the common femoral vein level through the popliteal vein level shows that the right lower extremity veins are readily compressible. There is no abnormal intraluminal material to suggest thrombus. There is partially occluding deep venous thrombosis throughout the left superficial femoral vein which may be partially or largely chronic. There is no DVT in the left common femoral vein. Waveform analysis is unremarkable. Ultrasound images were captured and archived Critical test result. 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 No evidence of DVT otherwise PROCEDURE INTERPRETED AT [facility] DEPARTMENT OF RADIOLOGY Final Report Signed by: Dr. Shasta Dickerson
[2017-02-23] MEDS ORDERED: rOPINIRole 1 MG TABLET PO SCH ×2 (12:30→21:00)
[2017-02-23] MEDS ORDERED: FUROSEMIDE 40 MG/4 ML VIAL IV SCH (14:00)
--- NOTE | 2017-02-23 16:30 | Cardiology Progress Note ---
Assessment and Plan (1) Congestive heart failure Status: Acute Assessment and plan: he likely had congestive heart failure last night due to being off diuretics and also his untreated sleep apnea We'll consult Dr. Dickerson to help with adjustment of his CPAP Diurese with Lasix for now Serial EKGs Monitor Agree with getting pulmonary medicine involved Thank you for allowing me to participate [facility]. 02/23/17 His worsening last night is probably due to suboptimal treatment of his sleep apnea Agree with being on duo nebs Agree with consult to Dr. Loli Dickerson Continue diuresis We will use his oxygen and his CPAP at night Continue Pulmicort Watch out for any signs or symptoms of ischemia or atrial fibrillation. Current Visit: Yes Qualifiers: Congestive heart failure type: unspecified congestive heart failure type Congestive heart failure chronicity: acute Qualified Code(s): I50.9 - Heart failure, unspecified (2) Obstructive sleep apnea Status: Chronic Current Visit: Yes (3) Anemia Status: Acute Current Visit: No (4) Chronic kidney disease, stage III (moderate) Status: Chronic Current Visit: No (5) Debility Status: Chronic Current Visit: Yes (6) Myoclonic jerking Status: Acute Current Visit: No (7) Peripheral polyneuropathy Status: Acute Current Visit: No (8) Restless leg syndrome Status: Chronic Current Visit: No (9) Shortness of breath Status: Acute Current Visit: Yes (10) Chronic anticoagulation Status: Chronic Current Visit: No (11) Diabetes Status: Chronic Current Visit: No (12) High risk medication use Status: Chronic Current Visit: No (13) Hypertension Status: Chronic Current Visit: Yes Qualifiers: Hypertension type: essential hypertension Qualified Code(s): I10 - Essential (primary) hypertension (14) Obesity Status: Chronic Current Visit: No Qualifiers: Obesity type: unspecified obesity type Obesity classification: adult class 3 (BMI >= 40) Serious obesity comorbidity presence: with serious comorbidity Body mass index: BMI 40.0-44.9 Qualified Code(s): E66.9 - Obesity, unspecified; Z68.41 - Body mass index (BMI) 40.0-44.9, adult; Z68.41 - Body mass index (BMI) 40.0-44.9, adult; Z68.41 - Body mass index (BMI) 40.0-44.9, adult; Z68.41 - Body mass index (BMI) 40.0-44.9, adult Cardiology - PN: Subj Interval history: No chest pain. Less short of breath. Does have some congestion. Exam (Progress Note) - Constitutional Vitals: Period Temp Pulse Resp BP Sys/Mitchell Pulse Ox Last 24 Hr 9.1 F-98.6 F 53-66 15-26 118-159/51-97 80-96 Exam: HEENT: Pupils equal, reactive to light and accommodation Neck: NoJVD or bruit Lungs decreased breath sounds at the base, minimal rhonchi Heart: Regular rhythm rate with normal S1 and S2. Apical S4 Abdomen: No hepatosplenomegaly Spine/extremities: No clubbing, cyanosis, or edema Neuro: Nonfocal Psych: No depression or anxiety to light. No real low initiated and Result/EKG - Labs CBC & BMP: 02/23/17 05:01 02/23/17 05:01 Lab Results: I have reviewed the past 24 hour labs Labs: Laboratory Results - last 24 hr 02/22/17 02/22/17 02/23/17 19:40 21:21 03:10 WBC RBC Hgb Hct MCV MCH MCHC RDW Plt Count MPV Neut % (Auto) Lymph % (Auto) [place] % (Auto) Eos % (Auto) Baso % (Auto) Neut # (Auto) Lymph # (Auto) [place] # (Auto) Eos # (Auto) Baso # (Auto) Total Counted Immature Gran % Nucleated RBC % Immature Gran # Segmented Neutrophils Lymphocytes Nucleated RBCs # Platelet Estimate Giant Platelets Immature Plt Fraction Hypochromasia Ovalocytes ABG pH 7.258 L ABG pCO2 72.3 H* ABG pO2 74.3 L ABG HCO3 27.2 H ABG Total CO2 30.0 H ABG O2 Saturation 91.1 L ABG Base Excess 3.2 H FiO2 Sodium Potassium Chloride Carbon Dioxide Anion Gap BUN Creatinine GFR Calculation BUN/Creatinine Ratio Glucose POC Glucose 236 H 212 H Calculated Osmolality Calcium Magnesium Total Bilirubin AST ALT Alkaline Phosphatase B-Natriuretic Peptide Total Protein Albumin Globulin Albumin/Globulin Ratio Free T4 TSH 3rd Generation Urine Color Urine Appearance Urine pH Ur Specific Russell Urine Protein Urine Glucose (UA) Urine Ketones Urine Blood Urine Nitrate Urine Bilirubin Urine Urobilinogen Urine Leukocytes Urine RBC Urine WBC Urine Mucus Ur Culture Indicated? 02/23/17 02/23/17 02/23/17 05:00 05:01 05:01 WBC RBC Hgb Hct MCV MCH MCHC RDW Plt Count MPV Neut % (Auto) Lymph % (Auto) [place] % (Auto) Eos % (Auto) Baso % (Auto) Neut # (Auto) Lymph # (Auto) [place] # (Auto) Eos # (Auto) Baso # (Auto) Total Counted Immature Gran % Nucleated RBC % Immature Gran # Segmented Neutrophils Lymphocytes Nucleated RBCs # Platelet Estimate Giant Platelets Immature Plt Fraction Hypochromasia Ovalocytes ABG pH ABG pCO2 ABG pO2 ABG HCO3 ABG Total CO2 ABG O2 Saturation ABG Base Excess FiO2 Sodium 143 Potassium 5.2 H Chloride 107 Carbon Dioxide 30 Anion Gap 11.2 BUN 47 H Creatinine 1.80 H GFR Calculation 52 BUN/Creatinine Ratio 26.00 H Glucose 166 H POC Glucose Calculated Osmolality 300.0 Calcium 8.7 Magnesium Total Bilirubin 0.50 AST 12 ALT < 9 L Alkaline Phosphatase 80 B-Natriuretic Peptide 1368 H Total Protein 6.3 L Albumin 3.0 L Globulin 3.3 Albumin/Globulin Ratio 0.9 L Free T4 1.48 H TSH 3rd Generation 0.759 Urine Color Urine Appearance Urine pH Ur Specific Russell Urine Protein Urine Glucose (UA) Urine Ketones Urine Blood Urine Nitrate Urine Bilirubin Urine Urobilinogen Urine Leukocytes Urine RBC Urine WBC Urine Mucus Ur Culture Indicated? 02/23/17 02/23/17 02/23/17 05:01 05:01 06:20 WBC 8.6 RBC 3.19 L Hgb 10.1 L Hct 34.0 L MCV 106.6 H MCH 32 MCHC 29.7 L RDW 14.8 Plt Count 276 MPV 10.6 Neut % (Auto) 92.7 H Lymph % (Auto) 4.8 L [place] % (Auto) 1.5 L Eos % (Auto) 0.0 Baso % (Auto) 0.1 Neut # (Auto) 7.9 H Lymph # (Auto) 0.4 L [place] # (Auto) 0.1 L Eos # (Auto) 0.0 Baso # (Auto) 0.0 Total Counted 100 Immature Gran % 0.9 Nucleated RBC % 0.4 Immature Gran # 0.08 Segmented Neutrophils 97 H Lymphocytes 3 L Nucleated RBCs # 0.03 Platelet Estimate Adequate Giant Platelets Few Immature Plt Fraction 0.0 Hypochromasia 1+ Ovalocytes Slight ABG pH 7.272 L ABG pCO2 68.3 H ABG pO2 61.0 L ABG HCO3 26.9 H ABG Total CO2 29.3 H ABG O2 Saturation 88.9 L ABG Base Excess 2.9 H FiO2 28.00 Sodium 142 Potassium 5.1 Chloride 106 Carbon Dioxide 28 Anion Gap 13.1 BUN 53 H Creatinine 1.80 H GFR Calculation 52 BUN/Creatinine Ratio 29.00 H Glucose 163 H POC Glucose Calculated Osmolality 300.1 Calcium 8.8 Magnesium 2.5 H Total Bilirubin AST ALT Alkaline Phosphatase B-Natriuretic Peptide Total Protein Albumin Globulin Albumin/Globulin Ratio Free T4 TSH 3rd Generation Urine Color Urine Appearance Urine pH Ur Specific Russell Urine Protein Urine Glucose (UA) Urine Ketones Urine Blood Urine Nitrate Urine Bilirubin Urine Urobilinogen Urine Leukocytes Urine RBC Urine WBC Urine Mucus Ur Culture Indicated? 02/23/17 02/23/17 02/23/17 07:46 08:10 12:12 WBC RBC Hgb Hct MCV MCH MCHC RDW Plt Count MPV Neut % (Auto) Lymph % (Auto) [place] % (Auto) Eos % (Auto) Baso % (Auto) Neut # (Auto) Lymph # (Auto) [place] # (Auto) Eos # (Auto) Baso # (Auto) Total Counted Immature Gran % Nucleated RBC % Immature Gran # Segmented Neutrophils Lymphocytes Nucleated RBCs # Platelet Estimate Giant Platelets Immature Plt Fraction Hypochromasia Ovalocytes ABG pH ABG pCO2 ABG pO2 ABG HCO3 ABG Total CO2 ABG O2 Saturation ABG Base Excess FiO2 Sodium Potassium Chloride Carbon Dioxide Anion Gap BUN Creatinine GFR Calculation BUN/Creatinine Ratio Glucose POC Glucose 212 H 160 H Calculated Osmolality Calcium Magnesium Total Bilirubin AST ALT Alkaline Phosphatase B-Natriuretic Peptide Total Protein Albumin Globulin Albumin/Globulin Ratio Free T4 TSH 3rd Generation Urine Color Callie Urine Appearance Cloudy Urine pH 5.0 Ur Specific Russell 1.012 Urine Protein 100 Urine Glucose (UA) Negative Urine Ketones Negative Urine Blood Large Urine Nitrate Negative Urine Bilirubin Negative Urine Urobilinogen < 2.0 H Urine Leukocytes Large H Urine RBC 1747 Urine WBC 48 Urine Mucus Occasional Ur Culture Indicated? Results to follow 02/23/17 15:37 WBC RBC Hgb Hct MCV MCH MCHC RDW Plt Count MPV Neut % (Auto) Lymph % (Auto) [place] % (Auto) Eos % (Auto) Baso % (Auto) Neut # (Auto) Lymph # (Auto) [place] # (Auto) Eos # (Auto) Baso # (Auto) Total Counted Immature Gran % Nucleated RBC % Immature Gran # Segmented Neutrophils Lymphocytes Nucleated RBCs # Platelet Estimate Giant Platelets Immature Plt Fraction Hypochromasia Ovalocytes ABG pH ABG pCO2 ABG pO2 ABG HCO3 ABG Total CO2 ABG O2 Saturation ABG Base Excess FiO2 Sodium Potassium Chloride Carbon Dioxide Anion Gap BUN Creatinine GFR Calculation BUN/Creatinine Ratio Glucose POC Glucose 175 H Calculated Osmolality Calcium Magnesium Total Bilirubin AST ALT Alkaline Phosphatase B-Natriuretic Peptide Total Protein Albumin Globulin Albumin/Globulin Ratio Free T4 TSH 3rd Generation Urine Color Urine Appearance Urine pH Ur Specific Russell Urine Protein Urine Glucose (UA) Urine Ketones Urine Blood Urine Nitrate Urine Bilirubin Urine Urobilinogen Urine Leukocytes Urine RBC Urine WBC Urine Mucus Ur Culture Indicated?
[2017-02-23] MEDS: CARBIDOPA/LEVODOPA CR 25-100 MG TABLET PO SCH (20:38)
[2017-02-23] MEDS: rOPINIRole 1 MG TABLET PO SCH (20:38)
[2017-02-23] MEDS: INSULIN GLARGINE 100 UNIT/ML SUBCUT SCH (20:39)
[2017-02-24] MEDS: ALBUTEROL/IPRATROPIUM 3 ML NEB RESP TX SCH ×4 (01:21→19:35)
[2017-02-24] MEDS: methylPREDNISolone SOD SUC 40 MG/1 ML VIAL IV SCH ×3 (01:22→17:05)
[2017-02-24 04:33] LABS: ABG Base Excess 6.2 MMOL/L (-2.5-2.5); ABG HCO3 33.3 MMOL/L (20-26); ABG Oxygen Saturation 86.3 % (95-100); ABG PCO2 61.5 MM HG (35-48); ABG PH 7.351 (7.35-7.45); ABG PO2 49.2 MM HG (80-95); ABG TCO2 35.2 MMOL/L (23-27); Allen Test Positive; Pt O2 Delivery Device CPAP
[2017-02-24] MEDS: FUROSEMIDE 40 MG/4 ML VIAL IV SCH ×3 (05:24→21:13)
[2017-02-24 06:16] LABS: Basophils % 0.1 % (0.0-0.8); Hematocrit 32.4 VOL% (42.0-52.0); Immature Granulocytes % 0.9 %; Immature Granulocytes Absolute 0.07 #; Lymphocytes # 0.4 10*3/uL (1.4-4.0); Lymphocytes % 5.6 % (21.2-54.2); Mean Corpuscular HGB Conc 30.9 GM/DL (32-36); Mean Corpuscular Hemoglobin 32 PG (27-34); Mean Corpuscular Volume 102.9 FL (87-102); Mean Platelet Volume 10.9 FL (9.6-12.0); Monocytes # 0.2 10*3/uL (0.11-0.8); Monocytes % 2.9 % (1.7-12.7); NRBC # 0.03 10*3/uL; Neutrophils % 90.5 % (38.7-73.9); Platelet Count 304 T/CUMM (130-400); Red Blood Count 3.15 MC/CUMM (3.8-5.5); Red Cell Distribution Width 14.9 % (9.3-17.3); White Blood Count 7.7 T/CUMM (4-12)
[2017-02-24 06:45] LABS: Magnesium 2.6 MG/DL (1.8-2.4); Osmolality,Calculated 302.1 MOS/KG (273-304); Potassium 5.3 MMOL/L (3.5-5.1)
[2017-02-24 06:46] LABS: Calcium 9.1 MG/DL (8.5-10.1); Osmolality,Calculated 302.1 MOS/KG (273-304); Potassium 5.2 MMOL/L (3.5-5.1)
[2017-02-24] MEDS: BUDESONIDE 0.25 MG/2 ML NEB RESP TX SCH ×2 (06:51→19:35)
[2017-02-24] MEDS: INSULIN REGULAR 100 UNIT/ML SUBCUT SCH ×5 (07:57→21:13)
[2017-02-24] MEDS: rOPINIRole 1 MG TABLET PO SCH ×2 (08:17→21:12)
[2017-02-24] MEDS: DABIGATRAN 75 MG CAPSULE PO SCH ×2 (08:17→21:12)
[2017-02-24] MEDS: PANTOPRAZOLE 40 MG TABLET PO SCH (08:18)
[2017-02-24] MEDS: BENZONATATE 100 MG CAPSULE PO SCH ×3 (08:18→21:12)
[2017-02-24] MEDS: DILTIAZEM CD 180 MG CAPSULE PO SCH (08:18)
[2017-02-24] MEDS: MONTELUKAST 10 MG TABLET PO SCH (08:18)
[2017-02-24] MEDS: GLIMEPIRIDE 2 MG TABLET PO SCH (08:18)
--- NOTE | 2017-02-24 10:25 | XRay Report ---
History: Congestive heart failure Date: 02/24/2017 Study: Chest x-ray AP portable Comparison exam: 02/23/2017 There is continued cardiomegaly. The pulmonary vasculature is slightly prominent. There is patchy and hazy edema in the lower lungs, slightly increased. There is mild bilateral pleural effusion. Osseous structures are unchanged. Impression: Congestive heart failure with mildly increased bibasilar pulmonary edema compared to the previous study PROCEDURE INTERPRETED AT [facility] DEPARTMENT OF RADIOLOGY Final Report Signed by: Dr. Shasta Dickerson
--- NOTE | 2017-02-24 11:17 | Pulmonology Progress Note ---
Pulmonary - PN: Subj Interval history: This 82-year-old white male patient of Dr. Bob Rhodes. I saw this patient 02/23/2017 in pulmonary consultation. My impressions were 1. Chest x-ray and chemistry evidence of congestive heart failure in the face of a normal cardiac output. 2. Mild aortic stenosis. Trace of mitral regurgitation. 3. Chronic renal failure. Creatinine is 1.8. Note that on 02/19/2017 creatinine was 2.6. 4. Acute respiratory failure for carbon dioxide and oxygen. I think there is definitely an acute component since the bicarb is in the normal range. Think this is probably secondary to patient's congestive heart failure but we should consider other factors. Note that he has chronic lower extremity venous stasis. 5. Chronic bilateral lower extremity venous stasis with a history of venous surgery. Note the patient is on chronic anticoagulation 6. Hyperlipidemia. 7. Diabetes mellitus 8. Chronic atrial fib. 9. See past history. 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 Obstructive sleep apnea. Uses CPAP. 12. 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 It was noted this might be partially largely chronic 02/24/2017. Patient is better today. He still has some shortness of breath dyspnea on exertion. His chest x-rays shows improvement but he continues to have bilateral pleural effusions and I cannot rule out a right lower lung infiltrate. ABGs on FiO2 32% show a pH 7.35, PCO2 is 61.5, PO2 49.2 and a bicarb of 33.3. Electrolytes are normal. Creatinine is increased to 2.10 with a BUN of 62. Natruretic peptide has fallen to 795. H&H is 10.0/32.4. White count 7790.56. Microbiology is negative so far. Patient has noted some yellow sputum. Physical exam. Vital signs see below Psychiatric oriented 3 Neurologic. Cranial nerves are intact with decrease hearing. Long track motor functions intact. Sensory exam and gait were not tested. Chest is fairly clear. Inspiration is inhibited by the patient's body habitus. Heart. No definite gallop Abdomen very large and nontender with positive bowel sounds Lower extremities. Chronic bilateral pedal and pretibial brawny discolored edema Face. Symmetrical. No edema of the tongue or lips. Neck. Symmetrical. No meningismus. Lymphatics. No submandibular cervical supraclavicular adenopathy The remainder the physical exam is Plan. 02/23/2070 1. I have increased Lasix from 40 mg IV push twice a day 40 mg IV push every 8 hours. 2. Potassium replacement protocol 3. Doppler venograms of the lower extremities 4. Sputum for Gram stain culture and sensitivity 5. Daily chest x-ray, BMP, BNP, 6. Inhalation therapy. 7. Agree with low-dose steroids. 8. Have not started antibiotics yet patient was recently on Levaquin. 02/24/2017. 1. Dr. Bob Rhodes will pick this patient up tomorrow 2. Follow-up chest x-ray ABGs and lab watch renal status. 3. Continue anticoagulation. #4. Sputum for Gram stain culture and sensitivity. 5. Patient has not been on any antibiotics today. I have begun meropenem 500 IV piggyback every 8 hours. Have asked pharmacy to begin with test dose. Exam (Progress Note) - Constitutional Vitals: Period Temp Pulse Resp BP Sys/Mitchell Pulse Ox Last 24 Hr 97.1 F-98.6 F 53-65 15-21 118-143/51-96 90-96 Results - Labs CBC & BMP: 02/24/17 04:47 02/24/17 04:47
[2017-02-24] MEDS: MEROPENEM 500 MG in SODIUM CHLORIDE 0.9% 50 ML IV SCH ×3 (13:06→23:38)
--- NOTE | 2017-02-24 13:53 | Cardiology Progress Note ---
Assessment and Plan (1) Congestive heart failure Status: Chronic Assessment and plan: he likely had congestive heart failure last night due to being off diuretics and also his untreated sleep apnea We'll consult Dr. Dickerson to help with adjustment of his CPAP Diurese with Lasix for now Serial EKGs Monitor Agree with getting pulmonary medicine involved Thank you for allowing me to participate inh care. 02/23/17 His worsening last night is probably due to suboptimal treatment of his sleep apnea Agree with being on duo nebs Agree with consult to Dr. Loli Dickerson Continue diuresis We will use his oxygen and his CPAP at night Continue Pulmicort Watch out for any signs or symptoms of ischemia or atrial fibrillation. Continues to have congestion but chest x-ray, with a normal LVEF by echo on 02/13 Potassium is borderline elevated. Will change to low potassium diet Restrict fluids to 1500 cc per day Watch his renal function Agree with Dr. Dickerson seeing him tomorrow and assessing the adequacy of his CPAP and oxygen. Apparently he is compliant with it but it may need to be adjusted to be adequate therapy Current Visit: Yes Qualifiers: Congestive heart failure type: unspecified congestive heart failure type Congestive heart failure chronicity: acute Qualified Code(s): I50.9 - Heart failure, unspecified (2) Obstructive sleep apnea Status: Chronic Current Visit: Yes (3) Anemia Status: Acute Current Visit: No (4) Chronic kidney disease, stage III (moderate) Status: Chronic Current Visit: No (5) Debility Status: Chronic Current Visit: Yes (6) Myoclonic jerking Status: Acute Current Visit: No (7) Peripheral polyneuropathy Status: Acute Current Visit: No (8) Restless leg syndrome Status: Chronic Current Visit: Yes (9) Shortness of breath Status: Resolved Current Visit: Yes (10) Chronic anticoagulation Status: Chronic Current Visit: No (11) Diabetes Status: Chronic Current Visit: No (12) High risk medication use Status: Chronic Current Visit: No (13) Hypertension Status: Chronic Current Visit: Yes Qualifiers: Hypertension type: essential hypertension Qualified Code(s): I10 - Essential (primary) hypertension (14) Obesity Status: Chronic Current Visit: No Qualifiers: Obesity type: unspecified obesity type Obesity classification: adult class 3 (BMI >= 40) Serious obesity comorbidity presence: with serious comorbidity Body mass index: BMI 40.0-44.9 Qualified Code(s): E66.9 - Obesity, unspecified; Z68.41 - Body mass index (BMI) 40.0-44.9, adult; Z68.41 - Body mass index (BMI) 40.0-44.9, adult; Z68.41 - Body mass index (BMI) 40.0-44.9, adult; Z68.41 - Body mass index (BMI) 40.0-44.9, adult Cardiology - PN: Subj Interval history: No chest pain. Less short of breath. Exam (Progress Note) - Constitutional Vitals: Period Temp Pulse Resp BP Sys/Mitchell Pulse Ox Last 24 Hr 97 F-98.5 F 53-68 15-20 118-150/51-96 90-98 Exam: HEENT: Pupils equal, reactive to light and accommodation Neck: NoJVD or bruit Lungs decreased breath sounds at the base, minimal rhonchi Heart: Regular rhythm rate with normal S1 and S2. Apical S4 Abdomen: No hepatosplenomegaly Spine/extremities: No clubbing, cyanosis, or edema Neuro: Nonfocal Psych: No depression or anxiety Result/EKG - Labs CBC & BMP: 02/24/17 04:47 02/24/17 04:47 Lab Results: I have reviewed the past 24 hour labs Labs: Laboratory Results - last 24 hr 02/23/17 02/23/17 02/24/17 15:37 19:22 04:20 WBC RBC Hgb Hct MCV MCH MCHC RDW Plt Count MPV Neut % (Auto) Lymph % (Auto) [place] % (Auto) Eos % (Auto) Baso % (Auto) Neut # (Auto) Lymph # (Auto) [place] # (Auto) Eos # (Auto) Baso # (Auto) Immature Gran % Nucleated RBC % Immature Gran # Nucleated RBCs # Immature Plt Fraction ABG pH 7.351 ABG pCO2 61.5 H ABG pO2 49.2 L ABG HCO3 33.3 H ABG Total CO2 35.2 H ABG O2 Saturation 86.3 L ABG Base Excess 6.2 H FiO2 32.00 Sodium Potassium Chloride Carbon Dioxide Anion Gap BUN Creatinine GFR Calculation BUN/Creatinine Ratio Glucose POC Glucose 175 H 190 H Calculated Osmolality Calcium Magnesium B-Natriuretic Peptide 02/24/17 02/24/17 02/24/17 04:47 04:47 04:47 WBC 7.7 RBC 3.15 L Hgb 10.0 L Hct 32.4 L MCV 102.9 H MCH 32 MCHC 30.9 L RDW 14.9 Plt Count 304 MPV 10.9 Neut % (Auto) 90.5 H Lymph % (Auto) 5.6 L [place] % (Auto) 2.9 Eos % (Auto) 0.0 Baso % (Auto) 0.1 Neut # (Auto) 7.0 Lymph # (Auto) 0.4 L [place] # (Auto) 0.2 Eos # (Auto) 0.0 Baso # (Auto) 0.0 Immature Gran % 0.9 Nucleated RBC % 0.4 Immature Gran # 0.07 Nucleated RBCs # 0.03 Immature Plt Fraction 0.0 ABG pH ABG pCO2 ABG pO2 ABG HCO3 ABG Total CO2 ABG O2 Saturation ABG Base Excess FiO2 Sodium 142 142 Potassium 5.3 H 5.2 H Chloride 104 104 Carbon Dioxide 31 31 Anion Gap 12.3 12.2 BUN 64 H D 62 H Creatinine 2.10 H 2.10 H GFR Calculation 43 43 BUN/Creatinine Ratio 30.00 H 29.00 H Glucose 138 H 135 H POC Glucose Calculated Osmolality 302.1 302.1 Calcium 9.0 9.1 Magnesium 2.6 H B-Natriuretic Peptide 02/24/17 02/24/17 02/24/17 04:47 07:19 11:34 WBC RBC Hgb Hct MCV MCH MCHC RDW Plt Count MPV Neut % (Auto) Lymph % (Auto) [place] % (Auto) Eos % (Auto) Baso % (Auto) Neut # (Auto) Lymph # (Auto) [place] # (Auto) Eos # (Auto) Baso # (Auto) Immature Gran % Nucleated RBC % Immature Gran # Nucleated RBCs # Immature Plt Fraction ABG pH ABG pCO2 ABG pO2 ABG HCO3 ABG Total CO2 ABG O2 Saturation ABG Base Excess FiO2 Sodium Potassium Chloride Carbon Dioxide Anion Gap BUN Creatinine GFR Calculation BUN/Creatinine Ratio Glucose POC Glucose 141 H 209 H Calculated Osmolality Calcium Magnesium B-Natriuretic Peptide 795 H - EKG EKG results: interpreted by me
--- NOTE | 2017-02-24 15:06 | General Surgery Progress Note ---
Assessment and Plan - Time spent with patient Time spent with patient: Less than 30 minutes (1) Chronic venous insufficiency Status: Acute Assessment and plan: Impression: Chronic venous insufficiency versus some chronic lymphedematous changes of the lower extremities of left greater than right Plan: We will start some compressive therapy at this time and keep the legs cleaned and moist. 2. We will try to transition him back to his Ciraids 02/24/2017. Patient was moved from the unit to stepdown and went by today to check on the status of the patient. Apparently something happened to the orders and his orders were not in the computer to continue the dressings and wraps to the lower extremities. Will reestablish this at this time to try to get this process under control. Current Visit: Yes (2) Prostate cancer Status: Acute Assessment and plan: Impression: Prostate cancer status post radiation therapy and surgery Current Visit: Yes (3) Atrial fibrillation Status: Acute Assessment and plan: Impression: Atrial fibrillation Plan: Medical management Current Visit: No Qualifiers: Atrial fibrillation type: paroxysmal Qualified Code(s): I48.0 - Paroxysmal atrial fibrillation (4) Diabetes Status: Chronic Assessment and plan: Impression: Diabetes adult onset Plan: Medical management Current Visit: No (5) Chronic kidney disease, stage III (moderate) Status: Chronic Assessment and plan: Impression: Chronic renal insufficiency Medical management Current Visit: No Subjective Patient reports: Present: no new complaints, tolerating a regular diet, afebrile , other (On checking his status something apparently happened with the wound care orders are not showing up now.) Exam - Constitutional Vitals: Period Temp Pulse Resp BP Sys/Mitchell Pulse Ox Last 24 Hr 97 F-98.5 F 55-68 15-20 118-150/56-96 90-98 General appearance: mild distress - Head Head exam: Present: normal inspection - ENT ENT exam: Present: normal exam - Neck Neck exam: Present: normal inspection - Respiratory Respiratory exam: Present: clear to auscultation bilaterally, rales - Cardiovascular Cardiovascular exam: Present: RRR - GI/Abdominal GI/Abdominal exam: Present: hypoactive bowel sounds, soft. Absent: tenderness - Extremities Exam Extremities exam: Present: other (Bilateral swelling of both lower extremities and feet with some stasis changes and dermatitis noted. Small blisters on the right leg) - Back Exam Back exam: Present: normal inspection - Neurological Exam Neurological exam: Present: alert, oriented X3, CN II-XII intact - Skin Skin exam: Present: normal color, warm, dry Results - Labs CBC & BMP: 02/24/17 04:47 02/24/17 04:47 Lab Results: I have reviewed the past 24 hour labs
--- NOTE | 2017-02-24 15:31 | Internal Med Progress Note ---
Assessment and Plan (1) Congestive heart failure Status: Chronic Current Visit: Yes Qualifiers: Congestive heart failure type: unspecified congestive heart failure type Congestive heart failure chronicity: acute Qualified Code(s): I50.9 - Heart failure, unspecified (2) Debility Status: Chronic Current Visit: Yes (3) Restless leg syndrome Status: Chronic Current Visit: Yes (4) Shortness of breath Status: Resolved Current Visit: Yes (5) Weakness Status: Acute Current Visit: Yes (6) Diabetes mellitus Status: Chronic Current Visit: Yes Qualifiers: Diabetes mellitus type: type 2 Diabetes mellitus complication status: without complication Diabetes mellitus halfway insulin use: without halfway use Qualified Code(s): E11.9 - Type 2 diabetes mellitus without complications (7) Hypertension Status: Chronic Current Visit: Yes Qualifiers: Hypertension type: essential hypertension Qualified Code(s): I10 - Essential (primary) hypertension (8) Obstructive sleep apnea Status: Chronic Current Visit: Yes Internal Medicine - PN: Subj Interval history: Mr. Chavez is a 82 year old male patient of Dr. Mcdonald with history of hypothyroid, HTN, GUILLERMINA on CPAP, CHF with recurrent exacerbation, COPD, DM, dyslipidemia, restless legs, who presented to ER with worsening shortness of breath. He had been hospitalized for a week and discharged to swing bed only two days ago. He wanted to go home and left swing bed. February 23: He is feeling better overall with diuresis. Consulting Dr. Olmedo for compression wraps to both lower legs. Doppler shows partiall occluded left superficial femoral vein (patient on Pradaxa). Consulting Dr. Dickerson to address obstructive sleep apnea. February 24: Doing better. Workup continuing tomorrow. Will have [employer] to provide weight loss plan with calorie requirements to lose one pound weekly. Discussed at bedside. Exam (Progress Note) - Constitutional Vitals: Period Temp Pulse Resp BP Sys/Mitchell Pulse Ox Last 24 Hr 97 F-98.5 F 55-68 15-20 118-150/56-96 90-98 Exam: General appearance: no acute distress - Respiratory Respiratory exam: Present: clear to auscultation bilaterally - Cardiovascular Cardiovascular exam: Present: regular rate and rhythm - GI/Abdominal GI/Abdominal exam: Present: soft. Absent: tenderness - Extremities Exam Extremities exam: Present: edema (chronic lymphedema improved on lasix) - Neurological Exam Neurological exam: Present: alert, oriented X3 - Psychiatric Psychiatric exam: Present: normal mood - Skin Skin exam: Present: warm, dry Results - Labs CBC & BMP: 02/24/17 04:47 02/24/17 04:47
[2017-02-24] MEDS ORDERED: SKIN HEALING OINT (AQUAPHOR) 50 GM TUBE TOP PRN (15:39)
[2017-02-24] MEDS: CARBIDOPA/LEVODOPA CR 25-100 MG TABLET PO SCH (21:12)
[2017-02-24] MEDS: INSULIN GLARGINE 100 UNIT/ML SUBCUT SCH (21:12)
[2017-02-25] MEDS: ALBUTEROL/IPRATROPIUM 3 ML NEB RESP TX SCH ×4 (00:42→19:40)
[2017-02-25] MEDS: methylPREDNISolone SOD SUC 40 MG/1 ML VIAL IV SCH ×3 (01:35→21:50)
[2017-02-25 03:22] LABS: Allen Test Positive; Pt O2 Delivery Device CPAP
[2017-02-25 03:25] LABS: ABG Base Excess 5.2 MMOL/L (-2.5-2.5); ABG Oxygen Saturation 96.4 % (95-100); ABG PH 7.244 (7.35-7.45); ABG TCO2 32.6 MMOL/L (23-27)
[2017-02-25 03:34] LABS: ABG PO2 171.3 MM HG (80-95)
[2017-02-25 04:46] LABS: Hematocrit 31.9 VOL% (42.0-52.0); Hemoglobin 9.6 GM/DL (14.0-18.0); Immature Granulocytes % 0.5 %; Immature Granulocytes Absolute 0.04 #; Lymphocytes # 0.4 10*3/uL (1.4-4.0); Lymphocytes % 5.6 % (21.2-54.2); Mean Corpuscular HGB Conc 30.1 GM/DL (32-36); Mean Corpuscular Hemoglobin 31 PG (27-34); Mean Corpuscular Volume 102.9 FL (87-102); Mean Platelet Volume 10.7 FL (9.6-12.0); Monocytes # 0.3 10*3/uL (0.11-0.8); Monocytes % 4.4 % (1.7-12.7); NRBC # 0.04 10*3/uL; Neutrophils # 6.7 10*3/uL (1.4-7.4); Neutrophils % 89.5 % (38.7-73.9); Platelet Count 269 T/CUMM (130-400); White Blood Count 7.5 T/CUMM (4-12)
[2017-02-25 05:13] LABS: Calcium 8.5 MG/DL (8.5-10.1); Magnesium 2.8 MG/DL (1.8-2.4); Osmolality,Calculated 303.8 MOS/KG (273-304)
[2017-02-25] MEDS: FUROSEMIDE 40 MG/4 ML VIAL IV SCH ×2 (05:50→13:18)
[2017-02-25] MEDS: BUDESONIDE 0.25 MG/2 ML NEB RESP TX SCH ×2 (07:02→19:40)
[2017-02-25] MEDS: MEROPENEM 500 MG in SODIUM CHLORIDE 0.9% 50 ML IV SCH ×3 (07:25→23:30)
--- NOTE | 2017-02-25 08:35 | Internal Med Progress Note ---
Assessment and Plan (1) Congestive heart failure Status: Chronic Assessment and plan: 82-year-old male admitted to acute care * Shortness of breath. Multifactorial. He has component of acute CHF with preserved ejection fraction. He is on IV Lasix. He has diuresed well. * CO2 retainer. Patient is on oxygen. This could be multifactorial related to his obesity, obstructive sleep apnea, COPD and CHF. Continue current treatment * Hypertension. Blood pressure is stable * Diabetes. Continue current treatment. Will decrease steroids * Chronic renal insufficiency. Will consult Dr. Wang * Obstructive sleep apnea. 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: without penitentiary use Qualified Code(s): E11.9 - Type 2 diabetes mellitus without complications (3) Hypertension Status: Chronic Current Visit: Yes Qualifiers: Hypertension type: essential hypertension Qualified Code(s): I10 - Essential (primary) hypertension (4) Obstructive sleep apnea Status: Chronic Current Visit: Yes (5) Restless leg syndrome Status: Chronic Current Visit: Yes (6) Chronic a-fib Status: Acute Current Visit: No (7) Hypothyroidism Status: Acute Current Visit: No (8) Peripheral polyneuropathy Status: Acute Current Visit: No (9) Chronic kidney disease, stage III (moderate) Status: Chronic Current Visit: No (10) Peripheral vascular disease Status: Chronic Current Visit: No Internal Medicine - PN: Subj Interval history: Patient seen and examined. His chart reviewed. He was readmitted with acute shortness of breath and congestive heart failure. Patient went home on of last week. He was advised to stay in the swing bed but he insisted on going home. He is feeling better this morning. His breathing has improved. He denies any chest pain or shortness of breath at rest. He denies any nausea or vomiting. He denies any fever or chills. Exam (Progress Note) - Constitutional Vitals: Period Temp Pulse Resp BP Sys/Mitchell Pulse Ox Last 24 Hr 97 F-98.3 F 54-68 15-20 125-150/60-75 86-98 Exam: Examination: GENERAL: Morbidly obese male who is in no acute distress HEENT: PERRLA. EOMI. Mucous membranes are moist. NECK: Neck is supple. CVS: Regular rate and rhythm. S1 and S2 are normal. RESPIRATORY: Decreased air entry at lung bases with few rales ABDOMEN: Soft and nontender. Bowel sounds are present. No hepatosplenomegaly. 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 Cranial nerves II through XII are grossly intact. Motor strength is 3-4/5 SKIN: Warm and dry. MSK: No obvious deformity. Results - Labs CBC & BMP: 02/25/17 04:13 02/25/17 04:13 Lab Results: I have reviewed the past 24 hour labs
--- NOTE | 2017-02-25 08:58 | Pulmonology Progress Note ---
Pulmonary - PN: Subj Interval history: Patient is an 82-year-old white man is known to me. He has a long history of chronic heart failure and obesity and obstructive sleep apnea. He has diabetes and hypertension and chronic atrial fibrillation. He came in with shortness of breath with a diastolic heart failure and CO2 retention. Apparently his CPAP needs to be adjusted but he did diurese well. He says he is feeling a little better now. He likely has chronic CO2 retention. He does have chronic renal insufficiency. Exam (Progress Note) - Constitutional Vitals: Period Temp Pulse Resp BP Sys/Mitchell Pulse Ox Last 24 Hr 97 F-98.3 F 54-68 15-20 125-150/60-75 86-98 General appearance: no acute distress (He is alert and sitting up and comfortable in bed.), morbidly obese - Head Head exam: Present: normal inspection, normocephalic - Eye Eye exam: Present: EOMI. Absent: scleral icterus Pupils: Present: SERENITY - ENT ENT exam: Present: normal exam - Neck Neck exam: Absent: lymphadenopathy, thyromegaly - Respiratory Respiratory exam: Present: decreased breath sounds, rales (He has some crackles in the bases.). Absent: wheezes - Cardiovascular Cardiovascular exam: Present: regular rate and rhythm, systolic murmur (Has a soft systolic murmur). Absent: gallop - GI/Abdominal GI/Abdominal exam: Present: normal bowel sounds, soft, other (He has a very large abdomen). Absent: organomegaly, tenderness - Extremities Exam Extremities exam: Present: edema (She has some chronic brawny edema of the lower extremities.). Absent: calf tenderness - Neurological Exam Neurological exam: Present: alert, oriented X3, CN II-XII intact - Psychiatric Psychiatric exam: Present: normal affect - Skin Skin exam: Present: warm, dry Results - Labs CBC & BMP: 02/25/17 04:13 02/25/17 04:13 Labs: His PO2 is 171 with a PCO2 of 79 and a pH of 7.24. I think this was while he was on CPAP. - Diagnostic Findings Procedure: Chest x-ray: image reviewed by me, report reviewed by me (Chest x- ray shows cardiomegaly with mild CHF changes.) Assessment and Plan (1) Diabetes Status: Chronic Assessment and plan: The patient's glucoses are being monitored. Current Visit: No (2) Hypertension Status: Chronic Assessment and plan: His blood pressure and heart rate are stable at present. Current Visit: Yes Qualifiers: Hypertension type: essential hypertension Qualified Code(s): I10 - Essential (primary) hypertension (3) Atrial fibrillation Status: Acute Assessment and plan: His heart rate is slow and under good control. Current Visit: No Qualifiers: Atrial fibrillation type: paroxysmal Qualified Code(s): I48.0 - Paroxysmal atrial fibrillation (4) Congestive heart failure Status: Chronic Assessment and plan: Patient is diuresing well and is down a few kilograms. Current Visit: Yes Qualifiers: Congestive heart failure type: unspecified congestive heart failure type Congestive heart failure chronicity: acute Qualified Code(s): I50.9 - Heart failure, unspecified (5) Obstructive sleep apnea Status: Chronic Assessment and plan: He will need a reevaluation of his CPAP. Current Visit: Yes (6) Peripheral polyneuropathy Status: Acute Assessment and plan: He seems to be comfortable at present. Current Visit: No (7) Chronic kidney disease, stage III (moderate) Status: Chronic Assessment and plan: His creatinine is 2.1 at present. Current Visit: No (8) Chronic venous insufficiency Status: Acute Assessment and plan: His leg swelling is a little better. His legs have been wrapped by surgery. Current Visit: Yes
--- NOTE | 2017-02-25 09:01 | XRay Report ---
Portable chest Date: 02/25/2017 Clinical history: CHF Comparison: 02/24/2017 Technique: Portable AP sitting chest Findings: Stable cardiomegaly with prominent pulmonary vasculature. Progressive diffuse edema/atelectasis with larger pleural effusions. Stable mediastinum and osseous structures. Impression: Progressive CHF with enlarging pleural effusions. PROCEDURE INTERPRETED AT [facility] DEPARTMENT OF RADIOLOGY Final Report Signed by: Dr. Georgiana Muse
[2017-02-25] MEDS: FERROUS SULFATE 325 MG TABLET PO SCH (09:44)
[2017-02-25] MEDS: DILTIAZEM CD 180 MG CAPSULE PO SCH (09:44)
[2017-02-25] MEDS: INSULIN REGULAR 100 UNIT/ML SUBCUT SCH ×4 (09:44→22:03)
[2017-02-25] MEDS: PANTOPRAZOLE 40 MG TABLET PO SCH (09:46)
[2017-02-25] MEDS: BENZONATATE 100 MG CAPSULE PO SCH ×3 (09:46→21:51)
[2017-02-25] MEDS: MONTELUKAST 10 MG TABLET PO SCH (09:46)
[2017-02-25] MEDS: GLIMEPIRIDE 2 MG TABLET PO SCH (09:46)
[2017-02-25] MEDS: rOPINIRole 1 MG TABLET PO SCH ×2 (09:47→22:03)
[2017-02-25] MEDS: DABIGATRAN 75 MG CAPSULE PO SCH ×2 (09:48→21:51)
[2017-02-25] MEDS: THEOPHYLLINE ER (24 HR) 400 MG CAPSULE PO SCH (10:02)
--- NOTE | 2017-02-25 11:55 | Sleep Medicine Consult ---
Assessment and Plan (1) Obstructive sleep apnea Status: Chronic Assessment and plan: Ideally, this patient will need to be brought in for reevaluation and re- titration BiPAP therapy. Given that he has significant obesity, chronic respiratory failure, likely component of obesity hypoventilation, he may be better served by BiPAP therapy. We will go ahead and switch him to auto titration BiPAP while hospitalized and see how he does. Current Visit: Yes (2) Hypertension Status: Chronic Assessment and plan: The prevalence rate for obstructive sleep apnea patients with hypertension is 35 %. That rate can be as high as 80% in patients who require 4 or more medications for blood pressure control. Current Visit: Yes Qualifiers: Hypertension type: essential hypertension Qualified Code(s): I10 - Essential (primary) hypertension (3) Atrial fibrillation Status: Chronic Assessment and plan: Uncontrolled sleep apnea certainly can be an exacerbating factor for atrial fibrillation. Controlling sleep apnea can help with management of the A. fib. Current Visit: No Qualifiers: Atrial fibrillation type: paroxysmal Qualified Code(s): I48.0 - Paroxysmal atrial fibrillation (4) Diabetes mellitus Status: Chronic Assessment and plan: The prevalence rate for obstructive sleep apnea in patients with type 2 diabetes can be as high as 86%. Those patients with moderate to severe obstructive sleep apnea are at a greater risk for diabetic nephropathy and neuropathy. Compliance with CPAP therapy for these patients can lead to improvement in glycemic control and improvement in insulin sensitivity. 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 Chavez is a 82 year old male with a history of obstructive sleep apnea diagnosed several years ago by Dr. Rhodes. He had sleep study done in 2008 with a diagnostic AHI of 58.1 and was treated with a combination of CPAP of 11 cm with supplemental oxygen. He has been seen annually in the sleep clinic for follow-up since 2013. Though his initial compliance in 2013 was poor, follow- up compliance was much better in 2014 and 2015. He was noted on his last visit in February of last year, that he was eligible for new machine and it was recommended. He did get a prescription for a new CPAP machine and would have required a repeat sleep study to have this done and did not return. He is now been admitted with increased shortness of breath and lower extremity swelling. He was noted arterial blood gases to have significant CO2 retention in the 70s. Sleep medicine was consulted to reevaluate. He does continue to snore and have abnormal breathing when he does not use his CPAP. He states that he is compliant with it "most of the time". I discussed the severity of his sleep apnea with him to his understanding and his need to get back into the sleep lab for reevaluation. Insurance rules require that he undergo reevaluation to get new equipment. Given the complexity of his illness he understands the importance of follow-up in the sleep lab. Home Medications Medication Instructions Recorded Confirmed Type Levothyroxine Tab [Synthroid Tab] 100 mcg PO DAILY@0700 01/20/15 02/22/17 History [place]-3 Acid Ethyl Esters 1 gm PO BEDTIME 01/20/15 02/22/17 History Ropinirole HCl [Requip] 5 mg PO BEDTIME 01/20/15 02/22/17 History dilTIAZem HCl [Diltiazem 24Hr ER] 240 mg PO QAM 01/20/15 02/22/17 History Aspirin EC Tab 81 mg PO QAM 02/06/16 02/22/17 History Pravastatin [Pravachol] 40 mg PO MOWEFR 06/05/16 02/22/17 History Calcium Carbonate 600 mg PO QAM 12/05/16 02/22/17 History Cholecalciferol [Vitamin D3] 1,000 unit PO BEDTIME 12/05/16 02/22/17 History Saxagliptin HCl [Onglyza] 2.5 mg PO QAM 12/05/16 02/22/17 History Cyanocobalamin Tab [Vitamin B12 1,000 mcg PO QAM 12/19/16 02/22/17 History Tab] Ascorbic Acid Tab [Vitamin C Tab] 1,000 mg PO BID tablet 02/20/17 02/22/17 Rx Carbidopa/Levodopa Cr 25-100 1 tablet PO BEDTIME tablet 02/20/17 02/22/17 Rx [Sinemet Cr 25-100] Carvedilol [Coreg] 6.25 mg PO BID tablet 02/20/17 02/22/17 Rx Dabigatran [Pradaxa] 75 mg PO BID capsule 02/20/17 02/22/17 Rx Pregabalin [Lyrica] 50 mg PO BID capsule 02/20/17 02/22/17 Rx Allopurinol [Allopurinol] 300 mg PO MOWEFR 02/22/17 02/22/17 History Potassium Chloride 20 meq PO QAM 02/22/17 02/22/17 History Allergies Allergy/AdvReac Type Severity Reaction Status Date / Time levofloxacin [From Levaquin] Allergy Severe SHORTNESS Verified 02/12/17 09:36 OF BREATH,Unresponsive,Rash cephalexin [From Keflex] Allergy Intermediate hallucinati Verified 02/12/17 09: 36 ons,rash adhesive tape Allergy Mild RASH Verified 02/12/17 09:36 Sulfa (Sulfonamide Allergy Mild RASH Verified 02/12/17 09:36 Antibiotics) Exam (Pulmonay) H&P - Constitutional Vitals: Period Temp Pulse Resp BP Sys/Mitchell Pulse Ox Last 24 Hr 97 F-98.6 F 54-68 15-20 125-155/60-75 86-98 Medical,Surgical,& Family Hx - Medical History Cardio: History of: Cardiac Dysrhythmia (A-Fib history Dr. Trell MONREAL), CHF, Hypertension, PVD (Extreme Swelling), Cardiovascular Problems (Blood Clot Left Veh-[facility]-Ju. Raju in [facility]) No history of: CAD, [place] Neurology: No history of: Seizures HEENT: History of: Ear Problem (hearing aides bilateral), Eye Problem (glasses/ cataracts), HEENT Problems Comment Only: Glaucoma (Elevated Pressure) Endocrine: History of: Diabetes Mellitus (NIDDM), Dyslipidemia, Thyroid Disorder Rheumatology: History of;: Gout Respiratory: History of: Obstructive Sleep Apnea (C-PAP), Respiratory Problems Renal: History of: Renal Problems Genitourinary: History of: Bladder Problem (INCONTIENCE), Kidney Stones, Prostate Problems (Prostate Ca-Surgery & Radiation -11/2006 Dr. Lemus), Recurring Urinary Tract Infections (Controlled On medication) Gastrointestinal: History of: Gastrointestinal Bleed, Hemorrhoids No history of: Polyps (1999) Musculoskeletal: History of: Musculoskeletal Problems (Arthritis mild) Hematology: History of: Clotting Problems (DVT LEFT LEG. 2015.) No history of: Anemia Other: History of: Anesthesia Reactions (Difficult with Intubating-Short Neck), Cancer (Prostate and Skin Ca) Comment Only: Anaphylaxis (Came Close with Levaquin) - Surgical History HEENT Surgeries: Surgical HX of: Eye Surgery (For Left Cataract 01/24/15 Dr. Glover) Abdominal Surgeries: Surgical HX of: Colonoscopy Reproductive Surgeries: Surgical HX of;: Genitourinary Surgery, Prostate Surgery (Prostatectomy 07/02/2002) Orthopedic Surgeries: Surgical HX of;: Orthopedic Surgery ([facility] --2008 Clean Out Infection RT Knee Prosthesis), Total Knee Replacement (05/23/98 Right; 04/09/2011 Left) - Family History Family History: Reports;: Family Diabetes (BRO), Family Heart Disease (MOM,DAD) , Family Hypertension (BRO,SIS) Denies;: Family Anesthesia Reaction, Family Cancer, Family Psychiatric Problems, Family Stroke - Social History Smoking Status: Never smoker Frequency of Alcohol Use: None Type of Drug Use: None Results - Labs CBC & BMP: 02/25/17 04:13 02/25/17 04:13 Lab Results: I have reviewed the past 24 hour labs Labs: TSH normal. ABGs noted.
--- NOTE | 2017-02-25 13:46 | Nephrology Consult Note ---
History of Present Illness Chief complaint: CRF History of present illness: Mr. Chavez is a 82 year old male known to me from his recent admission for diastolic CHF chronic venous insufficiency and renal failure. He was discharged to swing bed, then went home. He re-presented with shortness of breath. He denies chest pain Home Medications Medication Instructions Recorded Confirmed Type Levothyroxine Tab [Synthroid Tab] 100 mcg PO DAILY@0700 01/20/15 02/22/17 History [place]-3 Acid Ethyl Esters 1 gm PO BEDTIME 01/20/15 02/22/17 History Ropinirole HCl [Requip] 5 mg PO BEDTIME 01/20/15 02/22/17 History dilTIAZem HCl [Diltiazem 24Hr ER] 240 mg PO QAM 01/20/15 02/22/17 History Aspirin EC Tab 81 mg PO QAM 02/06/16 02/22/17 History Pravastatin [Pravachol] 40 mg PO MOWEFR 06/05/16 02/22/17 History Calcium Carbonate 600 mg PO QAM 12/05/16 02/22/17 History Cholecalciferol [Vitamin D3] 1,000 unit PO BEDTIME 12/05/16 02/22/17 History Saxagliptin HCl [Onglyza] 2.5 mg PO QAM 12/05/16 02/22/17 History Cyanocobalamin Tab [Vitamin B12 1,000 mcg PO QAM 12/19/16 02/22/17 History Tab] Ascorbic Acid Tab [Vitamin C Tab] 1,000 mg PO BID tablet 02/20/17 02/22/17 Rx Carbidopa/Levodopa Cr 25-100 1 tablet PO BEDTIME tablet 02/20/17 02/22/17 Rx [Sinemet Cr 25-100] Carvedilol [Coreg] 6.25 mg PO BID tablet 02/20/17 02/22/17 Rx Dabigatran [Pradaxa] 75 mg PO BID capsule 02/20/17 02/22/17 Rx Pregabalin [Lyrica] 50 mg PO BID capsule 02/20/17 02/22/17 Rx Allopurinol [Allopurinol] 300 mg PO MOWEFR 02/22/17 02/22/17 History Potassium Chloride 20 meq PO QAM 02/22/17 02/22/17 History Allergies Allergy/AdvReac Type Severity Reaction Status Date / Time levofloxacin [From Levaquin] Allergy Severe SHORTNESS Verified 02/12/17 09:36 OF BREATH,Unresponsive,Rash cephalexin [From Keflex] Allergy Intermediate hallucinati Verified 02/12/17 09: 36 ons,rash adhesive tape Allergy Mild RASH Verified 02/12/17 09:36 Sulfa (Sulfonamide Allergy Mild RASH Verified 02/12/17 09:36 Antibiotics) Medical,Surgical,& Family Hx - Medical History Cardio: History of: Cardiac Dysrhythmia (A-Fib history Dr. Trell MONREAL), CHF, Hypertension, PVD (Extreme Swelling), Cardiovascular Problems (Blood Clot Left Ccj[facility]. [facility] in [facility]) No history of: CAD, [place] Neurology: No history of: Seizures HEENT: History of: Ear Problem (hearing aides bilateral), Eye Problem (glasses/ cataracts), HEENT Problems Comment Only: Glaucoma (Elevated Pressure) Endocrine: History of: Diabetes Mellitus (NIDDM), Dyslipidemia, Thyroid Disorder Rheumatology: History of;: Gout Respiratory: History of: Obstructive Sleep Apnea (C-PAP), Respiratory Problems Renal: History of: Renal Problems Genitourinary: History of: Bladder Problem (INCONTIENCE), Kidney Stones, Prostate Problems (Prostate Ca-Surgery & Radiation -11/2006 Dr. Lemus), Recurring Urinary Tract Infections (Controlled On medication) Gastrointestinal: History of: Gastrointestinal Bleed, Hemorrhoids No history of: Polyps (1999) Musculoskeletal: History of: Musculoskeletal Problems (Arthritis mild) Hematology: History of: Clotting Problems (DVT LEFT LEG. 2015.) No history of: Anemia Other: History of: Anesthesia Reactions (Difficult with Intubating-Short Neck), Cancer (Prostate and Skin Ca) Comment Only: Anaphylaxis (Came Close with Levaquin) - Surgical History HEENT Surgeries: Surgical HX of: Eye Surgery (For Left Cataract 01/24/15 Dr. Glover) Abdominal Surgeries: Surgical HX of: Colonoscopy Reproductive Surgeries: Surgical HX of;: Genitourinary Surgery, Prostate Surgery (Prostatectomy 07/02/2002) Orthopedic Surgeries: Surgical HX of;: Orthopedic Surgery ([facility] --2008 Clean Out Infection RT Knee Prosthesis), Total Knee Replacement (05/23/98 Right; 04/09/2011 Left) - Family History Family History: Reports;: Family Diabetes (BRO), Family Heart Disease (MOM,DAD) , Family Hypertension (BRO,SIS) Denies;: Family Anesthesia Reaction, Family Cancer, Family Psychiatric Problems, Family Stroke - Social History Smoking Status: Never smoker Frequency of Alcohol Use: None Type of Drug Use: None Review of Systems 12 point system: reviewed and no additional remarkable complaints except as stated Exam - Vital Signs Vital signs: Period Temp Pulse Resp BP Sys/Mitchell Pulse Ox Last 24 Hr 97.7 F-98.6 F 54-68 15-20 125-155/60-70 86-98 Exam: Gen.: Alert and oriented x3. ENT: Pupils equal round reactive to light. EOMs intact. Mucous membranes moist. Neck: Supple. No JVD or bruit. Cardiovascular: Regular rate and rhythm. No murmur rub or gallop Lungs: Clear Abdomen: Soft. Nontender. Positive bowel sounds. No organomegaly Extremities: 2-3+ brawny edema Results - Labs CBC & BMP: 02/25/17 04:13 02/25/17 04:13 Assessment and Plan (1) Chronic kidney disease, stage III (moderate) Status: Chronic Assessment and plan: 82-year-old man with: * CRF stage III. Creatinine was 2.4 at the time of discharge on 02/20/2017. It decreased to 1.8 at the time of readmission. It has risen with diuresis. This is the same pattern he exhibited last admission. His weight was actually 1 kg less at the time of readmission and at the time of discharge. Diuretic will be decreased * Diastolic CHF * Sleep apnea. 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
--- NOTE | 2017-02-25 16:57 | Cardiology Progress Note ---
Santo Howard Lesley, MANJU, am scribing for, and in the presence of, Aamir Scott MD 16:57. Assessment and Plan - Time spent with patient Time spent with patient: Greater than 30 minutes (Record review, assessment, documentation, medication review) (1) Diabetes Status: Chronic Assessment and plan: SEE PLAN LISTED BELOW Current Visit: No (2) Hypertension Status: Chronic Assessment and plan: SEE PLAN LISTED BELOW Current Visit: Yes Qualifiers: Hypertension type: essential hypertension Qualified Code(s): I10 - Essential (primary) hypertension (3) Atrial fibrillation Status: Chronic Assessment and plan: SEE PLAN LISTED BELOW Current Visit: No Qualifiers: Atrial fibrillation type: paroxysmal Qualified Code(s): I48.0 - Paroxysmal atrial fibrillation (4) Congestive heart failure Status: Chronic Assessment and plan: SEE PLAN LISTED BELOW Current Visit: Yes Qualifiers: Congestive heart failure type: unspecified congestive heart failure type Congestive heart failure chronicity: acute Qualified Code(s): I50.9 - Heart failure, unspecified (5) Obstructive sleep apnea Status: Chronic Assessment and plan: SEE PLAN LISTED BELOW Current Visit: Yes (6) Obesity Status: Chronic Assessment and plan: SEE PLAN LISTED BELOW Current Visit: No Qualifiers: Obesity type: unspecified obesity type Obesity classification: adult class 3 (BMI >= 40) Serious obesity comorbidity presence: with serious comorbidity Body mass index: BMI 40.0-44.9 Qualified Code(s): E66.9 - Obesity, unspecified; Z68.41 - Body mass index (BMI) 40.0-44.9, adult; Z68.41 - Body mass index (BMI) 40.0-44.9, adult; Z68.41 - Body mass index (BMI) 40.0-44.9, adult; Z68.41 - Body mass index (BMI) 40.0-44.9, adult (7) Anemia Status: Acute Assessment and plan: SEE PLAN LISTED BELOW Current Visit: No (8) Chronic kidney disease, stage III (moderate) Status: Chronic Assessment and plan: SEE PLAN LISTED BELOW Current Visit: No (9) Debility Status: Chronic Assessment and plan: SEE PLAN LISTED BELOW Current Visit: Yes (10) Chronic venous insufficiency Status: Chronic Assessment and plan: SEE PLAN LISTED BELOW Current Visit: Yes Cardiology - PN: Subj Interval history: PROCESS CONTROL SPECIALIST: Dr. Hernández Summary: Mr. Chavez is an 82 year old WM, re-admitted 02/22/17 for diastolic heart failure, dyspnea, and CO2 retention. He had been discharged from previous admission on 02/20/17 to [facility], stayed one night and was discharged home the next day. He was readmitted through [facility] ER on 02/22/17. Over the weekend, the patient has diuresed well. He is breathing much better today, but experienced some respiratory distress and transferred to ICU overnight, and back to telemetry. His renal function has worsened slightly, nephrology has been consulted. The patient has been on CPAP at home for GUILLERMINA, but experienced some respiratory distress even on CPAP prior to readmission. PMH includes hypertension, dyslipidemia, diabetes, PVD, sedentary lifestyle, chronic renal failure and obesity. History of atrial fibrillation for which he takes Pradaxa for stroke prevention, Diltiazem (since 2014) for rate control (failed DCCV). History of CHF with preserved ejection fraction previously followed by Dr. Medhat Cai at [place]. He recently transitioned care to Dr. Hernández. History of DVT with venous stenting by Dr. Riley approximately 2 years ago. ECHOCARDIOGRAM 02/13/17: EF 55-60%, normal diastolic function, mild concentric left ventricular hypertrophy, mildly dilated left atrium, trace mitral regurgitation is present, valve is calcified with mildly restricted leaflet motion and mild aortic stenosis, mild tricuspid regurgitation, trace pulmonic regurgitation. February 25, 2017: Pt. sitting up in chair today, his breathing is better. He reports some difficulty with his CPAP during the night. Oxygen saturations did drop at one point, 86% recorded. Dr. Dickerson saw the patient this morning, and is going to try him on BiPAP. He will need another sleep study as an outpatient. The patient is on antibiotics, nebs, and steroids. Blood pressure stable, 133/67. EKG SR with first degree AV block, R BBB. Oxygen saturation 91% on 2 L. Weight is down 2# since yesterday. Labs reviewed: Hgb 10, Hct 32, CO2 79 on ABGs, K 5.0 , Creatinine 2.1, BUN 65, Mag 2.8, BNP 925. The patient is ambulating in the halls with a walker. Continues dressing changes for chronic venous insufficiency vs. 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 IMPRESSION AND PLAN: CHF -recent echo showed a normal systolic and diastolic function. I suspect most of the volume overload is due to GUILLERMINA/OHS, he is at risk for cor pulmonale. Continue diuresis with IV Lasix per GUILLERMINA -BiPAP is planned ANEMIA - Pradaxa chronically, C scope 01/26 showed internal hemorrhoids, polyps, diverticulitis. Will check heme stool. He has DVT. CHRONIC RENAL INSUFFICIENCY - creatinine 2.1, continue to monitor closely. PAF - currently in SR, continue Diltiazem and Pradaxa for stroke risk. ( previously Amiodarone was stopped due to s/e). HYPERTENSION - controlled, monitor and adjust meds accordingly. DIABETES - continue to monitor closely, Accucheks Morbid obesity. CHRONIC VENOUS INSUFFICIENCY - continue dressing changes per general surgery. Exam (Progress Note) - Constitutional Vitals: Period Temp Pulse Resp BP Sys/Mitchell Pulse Ox Last 24 Hr 97 F-98.3 F 54-68 15-20 125-150/60-75 86-98 Exam: General: Obese, Appears well with no apparent distress. Pleasant and cooperative. Appears comfortable. HEENT: PERRL, normocephalic, atraumatic. Mucous membranes moist. No jaundice noted. Conjunctiva moist and clear, sclerae anicteric. Neck: No thyromegaly or lymphadenopathy noted. No carotid bruit appreciated. Cardiac: Regular rate and rhythm. No murmur rub or gallop. PMI is nondisplaced. Lungs: Bilateral rhonchi to auscultation without accessory muscle use to assist the respiratory pattern. Oxygen in use via nasal cannula. Abdomen: Soft, bowel sounds normoactive. Nontender and nondistended. No abdominal bruit or thrill noted. No masses noted. Musculoskeletal: Chronic edema from venous insufficiency, dressings intact. Decreased range of motion is noted. Extremities: No clubbing, cyanosis noted. No edema noted. Upper extremity pulses 2+. Lower extremity pulses 2+. Capillary refill less than 3 seconds. Skin: Warm and dry. No unusual lesions or rashes. Dressings intact to BLE for chronic venous insufficiency. Neuro: Awake, alert and oriented 3. Moves all extremities well without hemiparesis or paralysis. No essential tremor is appreciated. Result/EKG - Labs CBC & BMP: 02/25/17 04:13 02/25/17 04:13 Lab Results: I have reviewed the past 24 hour labs Labs: Laboratory Results - last 24 hr 02/24/17 02/24/17 02/24/17 11:34 15:33 19:30 WBC RBC Hgb Hct MCV MCH MCHC RDW Plt Count MPV Neut % (Auto) Lymph % (Auto) [place] % (Auto) Eos % (Auto) Baso % (Auto) Neut # (Auto) Lymph # (Auto) [place] # (Auto) Eos # (Auto) Baso # (Auto) Immature Gran % Nucleated RBC % Immature Gran # Nucleated RBCs # Immature Plt Fraction ABG pH ABG pCO2 ABG pO2 ABG HCO3 ABG Total CO2 ABG O2 Saturation ABG Base Excess FiO2 Sodium Potassium Chloride Carbon Dioxide Anion Gap BUN Creatinine GFR Calculation BUN/Creatinine Ratio Glucose POC Glucose 209 H 198 H 252 H Calculated Osmolality Calcium Magnesium B-Natriuretic Peptide 02/25/17 02/25/17 02/25/17 03:10 04:13 04:13 WBC 7.5 RBC 3.10 L Hgb 9.6 L Hct 31.9 L MCV 102.9 H MCH 31 MCHC 30.1 L RDW 15.0 Plt Count 269 MPV 10.7 Neut % (Auto) 89.5 H Lymph % (Auto) 5.6 L [place]ois % (Auto) 4.4 Eos % (Auto) 0.0 Baso % (Auto) 0.0 Neut # (Auto) 6.7 Lymph # (Auto) 0.4 L [place] # (Auto) 0.3 Eos # (Auto) 0.0 Baso # (Auto) 0.0 Immature Gran % 0.5 Nucleated RBC % 0.5 Immature Gran # 0.04 Nucleated RBCs # 0.04 Immature Plt Fraction 0.0 ABG pH 7.244 L ABG pCO2 79.0 H* ABG pO2 171.3 H ABG HCO3 29.0 H ABG Total CO2 32.6 H ABG O2 Saturation 96.4 ABG Base Excess 5.2 H FiO2 28.00 Sodium 144 Potassium 5.0 Chloride 104 Carbon Dioxide 34 H Anion Gap 11.0 BUN 65 H Creatinine 2.10 H GFR Calculation 43 BUN/Creatinine Ratio 30.00 H Glucose 80 POC Glucose Calculated Osmolality 303.8 Calcium 8.5 Magnesium 2.8 H B-Natriuretic Peptide 10/16/17 10/16/17 04:13 07:36 WBC RBC Hgb Hct MCV MCH MCHC RDW Plt Count MPV Neut % (Auto) Lymph % (Auto) [place] % (Auto) Eos % (Auto) Baso % (Auto) Neut # (Auto) Lymph # (Auto) [place] # (Auto) Eos # (Auto) Baso # (Auto) Immature Gran % Nucleated RBC % Immature Gran # Nucleated RBCs # Immature Plt Fraction ABG pH ABG pCO2 ABG pO2 ABG HCO3 ABG Total CO2 ABG O2 Saturation ABG Base Excess FiO2 Sodium Potassium Chloride Carbon Dioxide Anion Gap BUN Creatinine GFR Calculation BUN/Creatinine Ratio Glucose POC Glucose 91 Calculated Osmolality Calcium Magnesium B-Natriuretic Peptide 925 H - Diagnostic Findings Procedure: Chest x-ray: report reviewed by me - EKG EKG results: interpreted by me, sinus rhythm Tyler Howard Attila, MD, personally performed the services described in this documentation, ascribed by Jolynn Blanchard NP in my presence, and it is both accurate and complete 657 .
[2017-02-25] MEDS: INSULIN GLARGINE 100 UNIT/ML SUBCUT SCH (21:49)
[2017-02-25] MEDS: CARBIDOPA/LEVODOPA CR 25-100 MG TABLET PO SCH (21:51)
[2017-02-25] MEDS: PRAVASTATIN 40 MG TABLET PO SCH (21:51)
[2017-02-26] MEDS: ALBUTEROL/IPRATROPIUM 3 ML NEB RESP TX SCH ×4 (02:41→19:18)
[2017-02-26 05:18] LABS: Hematocrit 30.6 VOL% (42.0-52.0); Hemoglobin 9.6 GM/DL (14.0-18.0); Immature Granulocytes Absolute 0.06 #; Lymphocytes # 0.5 10*3/uL (1.4-4.0); Lymphocytes % 7.6 % (21.2-54.2); Mean Corpuscular HGB Conc 31.4 GM/DL (32-36); Mean Corpuscular Hemoglobin 32 PG (27-34); Mean Corpuscular Volume 101.3 FL (87-102); Mean Platelet Volume 10.8 FL (9.6-12.0); Monocytes # 0.3 10*3/uL (0.11-0.8); Monocytes % 4.7 % (1.7-12.7); NRBC # 0.02 10*3/uL; Neutrophils # 5.4 10*3/uL (1.4-7.4); Neutrophils % 86.7 % (38.7-73.9); Platelet Count 263 T/CUMM (130-400); Red Blood Count 3.02 MC/CUMM (3.8-5.5); Red Cell Distribution Width 14.6 % (9.3-17.3); White Blood Count 6.2 T/CUMM (4-12)
[2017-02-26 05:44] LABS: Calcium 8.4 MG/DL (8.5-10.1); Potassium 4.6 MMOL/L (3.5-5.1)
[2017-02-26] MEDS: BUDESONIDE 0.25 MG/2 ML NEB RESP TX SCH ×2 (07:18→19:18)
--- NOTE | 2017-02-26 08:19 | Pulmonology Progress Note ---
Pulmonary - PN: Subj Interval history: Patient is an 82-year-old white man is known to me. He has a long history of chronic heart failure and obesity and obstructive sleep apnea. He has diabetes and hypertension and chronic atrial fibrillation. He came in with shortness of breath with a diastolic heart failure and CO2 retention. He said he had a good night and felt like he slept well on the auto titration BiPAP. He felt like he rested well. He feels like he is breathing better and diuresing fairly well. He says he wants to go back to the swing bed. Exam (Progress Note) - Constitutional Vitals: Period Temp Pulse Resp BP Sys/Mitchell Pulse Ox Last 24 Hr 97.7 F-98.8 F 56-68 16-20 138-155/64-80 91-99 Exam: General appearance: no acute distress (He is alert and sitting up and comfortable in bed. He is in no distress now.), morbidly obese - Head Head exam: Present: normal inspection, normocephalic - Eye Eye exam: Present: EOMI. Absent: scleral icterus Pupils: Present: SERENITY - ENT ENT exam: Present: normal exam - Neck Neck exam: Absent: lymphadenopathy, thyromegaly - Respiratory Respiratory exam: Present: He has somewhat decreased breath sounds throughout but is moving air well without any significant wheezing. He has some crackles in the bases. - Cardiovascular Cardiovascular exam: Present: regular rate and rhythm, systolic murmur (Has a soft systolic murmur). Absent: gallop - GI/Abdominal GI/Abdominal exam: Present: normal bowel sounds, soft, other (He has a very large abdomen). Absent: organomegaly, tenderness - Extremities Exam Extremities exam: Present: edema (She has some chronic brawny edema of the lower extremities.). Absent: calf tenderness - Neurological Exam Neurological exam: Present: alert, oriented X3, CN II-XII intact - Psychiatric Psychiatric exam: Present: normal affect - Skin Skin exam: Present: warm, dry Results - Labs CBC & BMP: 02/26/17 04:44 02/26/17 04:44 Assessment and Plan (1) Diabetes Status: Chronic Assessment and plan: The patient's glucoses are being monitored. His glucose was 76. Current Visit: No (2) Hypertension Status: Chronic Assessment and plan: His blood pressure and heart rate are stable at present. He appears to be hemodynamically stable. Current Visit: Yes Qualifiers: Hypertension type: essential hypertension Qualified Code(s): I10 - Essential (primary) hypertension (3) Atrial fibrillation Status: Chronic Assessment and plan: His heart rate is slow and under good control. He looks like he has a sinus bradycardia now. Current Visit: No Qualifiers: Atrial fibrillation type: paroxysmal Qualified Code(s): I48.0 - Paroxysmal atrial fibrillation (4) Congestive heart failure Status: Chronic Assessment and plan: Patient is diuresing well and is down a few kilograms. Current Visit: Yes Qualifiers: Congestive heart failure type: unspecified congestive heart failure type Congestive heart failure chronicity: acute Qualified Code(s): I50.9 - Heart failure, unspecified (5) Obstructive sleep apnea Status: Chronic Assessment and plan: He did well last night with auto titration. Current Visit: Yes (6) Peripheral polyneuropathy Status: Acute Assessment and plan: He seems to be comfortable at present. Current Visit: No (7) Chronic kidney disease, stage III (moderate) Status: Chronic Assessment and plan: His creatinine is down to 1.8. Current Visit: No (8) Chronic venous insufficiency Status: Chronic Assessment and plan: His leg swelling is a little better. His legs have been wrapped by surgery. Current Visit: Yes
[2017-02-26] MEDS ORDERED: FUROSEMIDE 40 MG/4 ML VIAL IV SCH (09:00)
[2017-02-26] MEDS: MEROPENEM 500 MG in SODIUM CHLORIDE 0.9% 50 ML IV SCH ×3 (09:15→23:44)
[2017-02-26] MEDS: INSULIN REGULAR 100 UNIT/ML SUBCUT SCH ×3 (09:16→23:51)
[2017-02-26] MEDS ORDERED: SODIUM CHLORIDE 0.65% NASAL SPRAY 45 ML BOTTLE BOTH NARES PRN (09:17)
--- NOTE | 2017-02-26 09:18 | Internal Med Progress Note ---
Assessment and Plan (1) Congestive heart failure Status: Chronic Assessment and plan: 82-year-old male admitted to acute care * Shortness of breath. Better today. * CO2 retainer. Check room air oxygen * Pneumonia with Klebsiella pneumonia. Continue antibiotics. He is allergic to most p.o. meds. * Hypertension. Blood pressure is stable * Diabetes. Continue current treatment. Will decrease steroids * Chronic renal insufficiency. Will consult Dr. Wang * Obstructive sleep apnea. He will need sleep study for re-titration * He wants to go to the swing bed unit. Patient left after 1 day previously. I have discussed with him in detail that he will need to stay for therapy. * Discussed with patient and his Current Visit: Yes Qualifiers: Congestive heart failure type: unspecified congestive heart failure type Congestive heart failure chronicity: acute Qualified Code(s): I50.9 - Heart failure, unspecified (2) Diabetes mellitus Status: Chronic Current Visit: Yes Qualifiers: Diabetes mellitus type: type 2 Diabetes mellitus complication status: without complication Diabetes mellitus prison insulin use: without prison use Qualified Code(s): E11.9 - Type 2 diabetes mellitus without complications (3) Hypertension Status: Chronic Current Visit: Yes Qualifiers: Hypertension type: essential hypertension Qualified Code(s): I10 - Essential (primary) hypertension (4) Obstructive sleep apnea Status: Chronic Current Visit: Yes (5) Restless leg syndrome Status: Chronic Current Visit: Yes (6) Chronic a-fib Status: Acute Current Visit: No (7) Hypothyroidism Status: Acute Current Visit: No (8) Peripheral polyneuropathy Status: Acute Current Visit: No (9) Chronic kidney disease, stage III (moderate) Status: Chronic Current Visit: No (10) Peripheral vascular disease Status: Chronic Current Visit: No Internal Medicine - PN: Subj Interval history: Patient seen and examined. He is feeling much better today. He used BiPAP during the night and felt better. He denies any chest pain. His shortness of breath is better. Exam (Progress Note) - Constitutional Vitals: Period Temp Pulse Resp BP Sys/Mitchell Pulse Ox Last 24 Hr 97.7 F-98.8 F 56-68 16-20 138-155/64-80 91-99 Exam: Examination: GENERAL: No acute distress HEENT: Mucous membranes are moist. NECK: Neck is supple. CVS: Regular rate and rhythm. S1 and S2 are normal. RESPIRATORY: Better air entry ABDOMEN: Soft and nontender. EXT: 3+ edema with compressive dressing on both lower extremities LUMBER STACKER: Patient is awake, alert and oriented to time place and person. Cranial nerves II through XII are grossly intact. Motor strength is 3-4/5 SKIN: Warm and dry. MSK: No obvious deformity. Results - Labs CBC & BMP: 02/26/17 04:44 02/26/17 04:44 Lab Results: I have reviewed the past 24 hour labs
[2017-02-26] MEDS: THEOPHYLLINE ER (24 HR) 400 MG CAPSULE PO SCH (10:59)
[2017-02-26] MEDS: FERROUS SULFATE 325 MG TABLET PO SCH (10:59)
[2017-02-26] MEDS: rOPINIRole 1 MG TABLET PO SCH ×2 (10:59→22:30)
[2017-02-26] MEDS: MONTELUKAST 10 MG TABLET PO SCH (11:00)
[2017-02-26] MEDS: methylPREDNISolone SOD SUC 40 MG/1 ML VIAL IV SCH ×2 (11:00→23:54)
[2017-02-26] MEDS: BENZONATATE 100 MG CAPSULE PO SCH ×3 (11:00→22:30)
[2017-02-26] MEDS: PANTOPRAZOLE 40 MG TABLET PO SCH (11:00)
[2017-02-26] MEDS: DABIGATRAN 75 MG CAPSULE PO SCH ×2 (11:01→22:30)
[2017-02-26] MEDS: GLIMEPIRIDE 2 MG TABLET PO SCH (11:03)
[2017-02-26] MEDS: DILTIAZEM CD 180 MG CAPSULE PO SCH (11:07)
--- NOTE | 2017-02-26 11:32 | Nephrology Progress Note ---
Nephrology - PN: Subj Interval history: He denies shortness of breath. He states he feels much better than yesterday. Exam (PN)-Nephrology - Vital Signs Vital signs: Period Temp Pulse Resp BP Sys/Mitchell Pulse Ox Last 24 Hr 97.7 F-98.8 F 55-68 16-20 138-154/64-80 91-99 Exam: Gen.: Alert and oriented x3. ENT: Pupils equal round reactive to light. EOMs intact. Neck: Supple. No JVD or bruit. Cardiovascular: Regular rate and rhythm. No murmur rub or gallop Lungs: Clear Abdomen: Soft. Nontender. Positive bowel sounds. No organomegaly Extremities: 2-3+ brawny edema - Lab 02/26/17 04:44 02/26/17 04:44 Most recent lab results ABG pH 7.244 (7.35-7.45) L 02/25/17 03:10 ABG pCO2 79.0 MM HG (35-48) H* 02/25/17 03:10 ABG pO2 171.3 MM HG (80-95) H 02/25/17 03:10 ABG HCO3 29.0 MMOL/L (20-26) H 02/25/17 03:10 ABG O2 Saturation 96.4 % (95-100) 02/25/17 03:10 Calcium 8.4 MG/DL (8.5-10.1) L 02/26/17 04:44 Magnesium 2.8 MG/DL (1.8-2.4) H 02/25/17 04:13 Assessment and Plan (1) Chronic kidney disease, stage III (moderate) Status: Chronic Assessment and plan: 82-year-old man with: * CRF stage III. Renal function has improved. Change diuretic to p.o. * Diastolic CHF * Sleep apnea. He has chronic respiratory acidosis * Diabetes mellitus * Chronic venous insufficiency * Hypothyroidism Current Visit: No (2) Chronic venous insufficiency Status: Chronic Current Visit: Yes (3) Congestive heart failure Status: Chronic Current Visit: Yes Qualifiers: Congestive heart failure type: unspecified congestive heart failure type Congestive heart failure chronicity: acute Qualified Code(s): I50.9 - Heart failure, unspecified (4) Diabetes mellitus Status: Chronic Current Visit: Yes Qualifiers: Diabetes mellitus type: type 2 Diabetes mellitus complication status: without complication Diabetes mellitus tank terminal gauger insulin use: without penitentiary use Qualified Code(s): E11.9 - Type 2 diabetes mellitus without complications (5) Hypertension Status: Chronic Current Visit: Yes Qualifiers: Hypertension type: essential hypertension Qualified Code(s): I10 - Essential (primary) hypertension (6) Obstructive sleep apnea Status: Chronic Current Visit: Yes (7) Diabetes Status: Chronic Current Visit: No
--- NOTE | 2017-02-26 16:42 | Cardiology Progress Note ---
Santo Howard Lesley, MANJU, am scribing for, and in the presence of, Aamir Scott MD 16:37. Assessment and Plan - Time spent with patient Time spent with patient: Greater than 30 minutes (Record review, assessment, documented) (1) Diabetes Status: Chronic Assessment and plan: SEE PLAN LISTED BELOW Current Visit: No (2) Hypertension Status: Chronic Assessment and plan: SEE PLAN LISTED BELOW Current Visit: Yes Qualifiers: Hypertension type: essential hypertension Qualified Code(s): I10 - Essential (primary) hypertension (3) Atrial fibrillation Status: Chronic Assessment and plan: SEE PLAN LISTED BELOW Current Visit: No Qualifiers: Atrial fibrillation type: paroxysmal Qualified Code(s): I48.0 - Paroxysmal atrial fibrillation (4) Congestive heart failure Status: Chronic Assessment and plan: SEE PLAN LISTED BELOW Current Visit: Yes Qualifiers: Congestive heart failure type: unspecified congestive heart failure type Congestive heart failure chronicity: acute Qualified Code(s): I50.9 - Heart failure, unspecified (5) Obstructive sleep apnea Status: Chronic Assessment and plan: SEE PLAN LISTED BELOW Current Visit: Yes (6) Obesity Status: Chronic Assessment and plan: SEE PLAN LISTED BELOW Current Visit: No Qualifiers: Obesity type: unspecified obesity type Obesity classification: adult class 3 (BMI >= 40) Serious obesity comorbidity presence: with serious comorbidity Body mass index: BMI 40.0-44.9 Qualified Code(s): E66.9 - Obesity, unspecified; Z68.41 - Body mass index (BMI) 40.0-44.9, adult; Z68.41 - Body mass index (BMI) 40.0-44.9, adult; Z68.41 - Body mass index (BMI) 40.0-44.9, adult; Z68.41 - Body mass index (BMI) 40.0-44.9, adult (7) Anemia Status: Acute Assessment and plan: SEE PLAN LISTED BELOW Current Visit: No (8) Chronic kidney disease, stage III (moderate) Status: Chronic Assessment and plan: SEE PLAN LISTED BELOW Current Visit: No (9) Debility Status: Chronic Assessment and plan: SEE PLAN LISTED BELOW Current Visit: Yes (10) Chronic venous insufficiency Status: Chronic Assessment and plan: SEE PLAN LISTED BELOW Current Visit: Yes Cardiology - PN: Subj Interval history: GAMING CAGE WORKER: Dr. Hernández Summary: Mr. Chavez is an 82 year old WM, re-admitted 02/22/17 for diastolic heart failure, dyspnea, and CO2 retention. He had been discharged from previous [facility]/[address] [facility], stayed one night and was discharged home the next day. He was readmitted through [facility] on 02/22/17. Over the weekend, the patient has diuresed well. He is breathing much better today, but experienced some respiratory distress and transferred to ICU overnight, and back to telemetry. His renal function has worsened slightly, nephrology has been consulted. The patient has been on CPAP at home for GUILLERMINA, but experienced some respiratory distress even on CPAP prior to readmission. PMH includes hypertension, dyslipidemia, diabetes, PVD, sedentary lifestyle, chronic renal failure and obesity. History of atrial fibrillation for which he takes Pradaxa for stroke prevention, Diltiazem (since 2014) for rate control (failed DCCV). History of CHF with preserved ejection fraction previously followed by Dr. Medhat Cai at [place]. He recently transitioned care to Dr. Hernández. History of DVT with venous stenting by Dr. Riley approximately 2 years ago. ECHOCARDIOGRAM 02/13/17: EF 55-60%, normal diastolic function, mild concentric left ventricular hypertrophy, mildly dilated left atrium, trace mitral regurgitation is present, valve is calcified with mildly restricted leaflet motion and mild aortic stenosis, mild tricuspid regurgitation, trace pulmonic regurgitation. February 26, 2017: The following chronic, stable conditions are being monitored DM, hypertension, PAF, CHF. The patient reports he slept better overnight with BiPap machine. He will need another sleep study as an outpatient. Continue antibiotics, nebs, and decreasing steroids. Blood pressure stable, 122/59. EKG SR with first degree AV block, R BBB. Oxygen saturation 97% on 3 L. Weight is down 3# since yesterday. The patient is ambulating in the halls with a walker. Continues dressing changes for chronic venous insufficiency vs. 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 Plan is to continue diuresis , sputum positive Klebsiella pneumoniae, continue treatment. Plan for swingbed upon discharge. Labs data: Hgb 10, Hct 31, K 4.6, Creatinine 1.8, BUN 64. IMPRESSION AND PLAN: Volume overload, edema. Recent echo showed a normal systolic and diastolic function, although BNP elevated. I suspect most of the volume overload is due to GUILLERMINA/OHS, right heart dysfunction. Continue diuretic. I suspect it will be very hard to resolve his edema due to CKD, pulmonary hypoventilation issues, RV disease, chronic DVT. GUILLERMINA -on BiPAP now, pulmonary/sleep following. DVT - Cont low dose Pradaxa, C scope 01/26 showed internal hemorrhoids, polyps, diverticulitis. DVT appears to be chronic. If risk of GI bleeding can be lowered, he may be a candidate for full dose anticoagulation in the future. Otherwise, an IVC filter may be considered. CHRONIC RENAL INSUFFICIENCY - creatinine 1.8, continue to monitor closely. PAF - currently in SR, continue Diltiazem. (previously Amiodarone was stopped due to s/e). HYPERTENSION - controlled, monitor and adjust meds accordingly. MORBID OBESITY - pt. would certainly benefit from weight loss. CHRONIC VENOUS INSUFFICIENCY - continue dressing changes per general surgery. Recommend follow-up with Dr. Hernández in 4 weeks. I will sign off, please call with further questions Exam (Progress Note) - Constitutional Vitals: Period Temp Pulse Resp BP Sys/Mitchell Pulse Ox Last 24 Hr 97.7 F-98.8 F 55-68 16-20 122-154/59-80 84-99 Exam: General: Obese, Appears well with no apparent distress. Pleasant and cooperative. Appears comfortable. HEENT: PERRL, normocephalic, atraumatic. Mucous membranes moist. No jaundice noted. Conjunctiva moist and clear, sclerae anicteric. Neck: No thyromegaly or lymphadenopathy noted. No carotid bruit appreciated. Cardiac: Regular rate and rhythm. No murmur rub or gallop. PMI is nondisplaced. Lungs: Some rhonchi, decreased bases to auscultation without accessory muscle use. Oxygen in use via nasal cannula. Abdomen: Soft, bowel sounds normoactive. Nontender and nondistended. No abdominal bruit or thrill noted. No masses noted. Musculoskeletal: Chronic edema from venous insufficiency, dressings intact. Decreased range of motion is noted. Extremities: No clubbing, cyanosis noted. No edema noted. Upper extremity pulses 2+. Lower extremity pulses 2+. Capillary refill less than 3 seconds. Skin: Warm and dry. No unusual lesions or rashes. Dressings intact to BLE for chronic venous insufficiency. Neuro: Awake, alert and oriented 3. Moves all extremities well without hemiparesis or paralysis. No essential tremor is appreciated. Result/EKG - Labs CBC & BMP: 02/26/17 04:44 02/26/17 04:44 Lab Results: I have reviewed the past 24 hour labs Labs: Laboratory Results - last 24 hr 02/25/17 02/25/17 02/26/17 15:35 19:12 04:44 WBC 6.2 RBC 3.02 L Hgb 9.6 L Hct 30.6 L MCV 101.3 MCH 32 MCHC 31.4 L RDW 14.6 Plt Count 263 MPV 10.8 Neut % (Auto) 86.7 H Lymph % (Auto) 7.6 L [place] % (Auto) 4.7 Eos % (Auto) 0.0 Baso % (Auto) 0.0 Neut # (Auto) 5.4 Lymph # (Auto) 0.5 L [place] # (Auto) 0.3 Eos # (Auto) 0.0 Baso # (Auto) 0.0 Immature Gran % 1.0 Nucleated RBC % 0.3 Immature Gran # 0.06 Nucleated RBCs # 0.02 Immature Plt Fraction 0.0 Sodium Potassium Chloride Carbon Dioxide Anion Gap BUN Creatinine GFR Calculation BUN/Creatinine Ratio Glucose POC Glucose 174 H 176 H Calculated Osmolality Calcium 02/26/17 02/26/17 02/26/17 04:44 07:22 11:32 WBC RBC Hgb Hct MCV MCH MCHC RDW Plt Count MPV Neut % (Auto) Lymph % (Auto) [place] % (Auto) Eos % (Auto) Baso % (Auto) Neut # (Auto) Lymph # (Auto) [place] # (Auto) Eos # (Auto) Baso # (Auto) Immature Gran % Nucleated RBC % Immature Gran # Nucleated RBCs # Immature Plt Fraction Sodium 143 Potassium 4.6 Chloride 103 Carbon Dioxide 33 H Anion Gap 11.6 BUN 64 H Creatinine 1.80 H GFR Calculation 51 BUN/Creatinine Ratio 35.00 H Glucose 69 L POC Glucose 76 133 H Calculated Osmolality 300.0 Calcium 8.4 L - Diagnostic Findings Procedure: Chest x-ray: report reviewed by me - EKG EKG results: interpreted by me, sinus rhythm Tyler Howard Attila, MD, personally performed the services described in this documentation, ascribed by Vincent,Jolynn, MANAGER ANDROID in my presence, and it is both accurate and complete 641 .
--- NOTE | 2017-02-26 16:52 | Sleep Medicine Progress Note ---
Assessment and Plan (1) Obstructive sleep apnea Status: Chronic Assessment and plan: Patient had good results with auto titration BiPAP and had best control at 16/ 12 with an AHI of 4. He is significantly improved. He will need formal outpatient split study polysomnography after discharge. Current Visit: Yes (2) Hypertension Status: Chronic Current Visit: Yes Qualifiers: Hypertension type: essential hypertension Qualified Code(s): I10 - Essential (primary) hypertension (3) Atrial fibrillation Status: Chronic Current Visit: No Qualifiers: Atrial fibrillation type: paroxysmal Qualified Code(s): I48.0 - Paroxysmal atrial fibrillation (4) Diabetes mellitus Status: Chronic Current Visit: Yes Qualifiers: Diabetes mellitus type: type 2 Diabetes mellitus complication status: without complication Diabetes mellitus skilled nursing insulin use: without emt intermediate use Qualified Code(s): E11.9 - Type 2 diabetes mellitus without complications Sleep Medicine Subjective Interval history: Patient states that he did very well last night with the auto titration BiPAP. He had excellent results with BiPAP at 16/12 his best pressure with an average AHI of about 4. He will need formal reevaluation to get his own new BiPAP device. We will set this up as an outpatient. Exam (Progress Note) - Constitutional Vitals: Period Temp Pulse Resp BP Sys/Mitchell Pulse Ox Last 24 Hr 97.7 F-98.8 F 55-68 16-20 122-161/59-70 84-98 Results - Labs CBC & BMP: 02/26/17 04:44 02/26/17 04:44 Lab Results: I have reviewed the past 24 hour labs
[2017-02-26] MEDS: CARBIDOPA/LEVODOPA CR 25-100 MG TABLET PO SCH (22:30)
[2017-02-26] MEDS: INSULIN GLARGINE 100 UNIT/ML SUBCUT SCH (23:44)
[2017-02-27] MEDS: ALBUTEROL/IPRATROPIUM 3 ML NEB RESP TX SCH ×2 (01:24→07:17)
[2017-02-27 05:09] LABS: Hematocrit 32.8 VOL% (42.0-52.0); Hemoglobin 10.1 GM/DL (14.0-18.0); Immature Granulocytes % 1.6 %; Immature Granulocytes Absolute 0.09 #; Lymphocytes # 0.4 10*3/uL (1.4-4.0); Lymphocytes % 7.5 % (21.2-54.2); Mean Corpuscular HGB Conc 30.8 GM/DL (32-36); Mean Corpuscular Hemoglobin 31 PG (27-34); Mean Corpuscular Volume 101.2 FL (87-102); Mean Platelet Volume 10.8 FL (9.6-12.0); Monocytes # 0.3 10*3/uL (0.11-0.8); Monocytes % 4.8 % (1.7-12.7); NRBC # 0.02 10*3/uL; Neutrophils # 4.9 10*3/uL (1.4-7.4); Neutrophils % 86.1 % (38.7-73.9); Platelet Count 257 T/CUMM (130-400); Red Blood Count 3.24 MC/CUMM (3.8-5.5); Red Cell Distribution Width 14.6 % (9.3-17.3); White Blood Count 5.6 T/CUMM (4-12)
[2017-02-27 05:37] LABS: Calcium 8.7 MG/DL (8.5-10.1); Magnesium 2.7 MG/DL (1.8-2.4); Osmolality,Calculated 299.8 MOS/KG (273-304); Potassium 4.8 MMOL/L (3.5-5.1)
[2017-02-27 06:04] LABS: Calcium 8.6 MG/DL (8.5-10.1); Osmolality,Calculated 300.7 MOS/KG (273-304); Potassium 4.8 MMOL/L (3.5-5.1)
[2017-02-27] MEDS: MEROPENEM 500 MG in SODIUM CHLORIDE 0.9% 50 ML IV SCH (06:30)
--- NOTE | 2017-02-27 07:12 | Order Completion Report ---
See report scanned to EMR
[2017-02-27] MEDS: BUDESONIDE 0.25 MG/2 ML NEB RESP TX SCH (07:19)
[2017-02-27] MEDS: INSULIN REGULAR 100 UNIT/ML SUBCUT SCH ×2 (07:27→09:11)
[2017-02-27 07:54] VITALS: BP 166/72
[2017-02-27] MEDS ORDERED: FUROSEMIDE 40 MG TABLET PO SCH (09:00)
[2017-02-27] MEDS: rOPINIRole 1 MG TABLET PO SCH (09:06)
[2017-02-27] MEDS: GLIMEPIRIDE 2 MG TABLET PO SCH (09:07)
[2017-02-27] MEDS: DILTIAZEM CD 180 MG CAPSULE PO SCH (09:07)
[2017-02-27] MEDS: BENZONATATE 100 MG CAPSULE PO SCH (09:07)
[2017-02-27] MEDS: FERROUS SULFATE 325 MG TABLET PO SCH (09:07)
[2017-02-27] MEDS: DABIGATRAN 75 MG CAPSULE PO SCH (09:08)
[2017-02-27] MEDS: THEOPHYLLINE ER (24 HR) 400 MG CAPSULE PO SCH (09:08)
[2017-02-27] MEDS: methylPREDNISolone SOD SUC 40 MG/1 ML VIAL IV SCH (09:08)
[2017-02-27] MEDS: MONTELUKAST 10 MG TABLET PO SCH (09:08)
[2017-02-27] MEDS: PANTOPRAZOLE 40 MG TABLET PO SCH (09:08)
[2017-02-27] MEDS ORDERED: LORATADINE 10 MG TABLET PO SCH (09:30)
--- NOTE | 2017-02-27 09:38 | Discharge Summary ---
Hospital Course - Hospital Course Hospital Course: 82-year-old male admitted to acute care with shortness of breath and congestive heart failure. Patient was just discharged a day earlier from the hospital. He actually went home not following advice. He has history of diabetes, hypertension, obstructive sleep apnea, morbid obesity, A. fib, DVT, peripheral vascular disease. Patient was initially admitted to the intensive care unit and was subsequently transferred to the floor. He also was seen in consultation by pulmonary medicine, cardiology, sleep medicine, nephrology and general surgery. He has gradually improved over last few days. He still quite weak and debilitated and is ready to go to the swing bed unit. Patient previously left swing bed unit after 1 day because he did not want to stay. I have had long discussion with patient and his . They understand they will stay in the swing bed for several days. He is being changed to oral antibiotics and prednisone. I will follow him at swing bed Diagnosis - Discharge Diagnosis (1) Congestive heart failure Status: Chronic (2) Diabetes mellitus Status: Chronic (3) Hypertension Status: Chronic (4) Obstructive sleep apnea Status: Chronic (5) Restless leg syndrome Status: Chronic (6) Chronic a-fib Status: Acute (7) Hypothyroidism Status: Acute (8) Peripheral polyneuropathy Status: Acute (9) Chronic kidney disease, stage III (moderate) Status: Chronic (10) Peripheral vascular disease Status: Chronic Discharge Plan - Discharge Data Disposition: Disch/Xfer to Snf Condition at Discharge: Stable Discharge Diet: diabetic diet Activity: as per physical therapy - Discharge Medications New Albuterol/Ipratropium Neb [Duoneb] 3 ml RESP TX RT Q6H Benzonatate [Tessalon] 100 mg PO TID capsule Diltiazem Cd Cap [Cardizem CD] 180 mg PO DAILY capsule Doxycycline Hyclate 100 mg PO BID W/MEALS #10 capsule Furosemide Tab [Lasix Tab] 40 mg PO DAILY tablet Glimepiride [Amaryl] 2 mg PO DAILY W/BREAKFAST tablet Insulin Glargine [Lantus] 20 unit SUBCUT BEDTIME unit Loratadine Tab [Claritin Tab] 10 mg PO DAILY tablet Montelukast Tab [Singulair Tab] 10 mg PO DAILY tablet Pantoprazole Tab [Protonix Tab] 40 mg PO DAILY tablet Skin Healing Oint (Aquaphor) [Aquaphor] 1 applic TOP PRN PRN applic PRN Reason: Dry Skin Sodium Chloride 0.65% Nasal Sp [[place] Nasal [place]] 2 spray BOTH NARES QID PRN bottle PRN Reason: nasal dryness Theophylline ER Cap (24 Hr) [Dean-24] 400 mg PO DAILY capsule Ferrous Sulfate Tab [Feosol Original Tab] 325 mg PO DAILY tablet rOPINIRole [Requip] 5 mg PO BID tablet predniSONE [Prednisone] 10 mg PO DIRECTED #1 tab.ds.pk Continue Levothyroxine Tab [Synthroid Tab] 100 mcg PO DAILY@0700 [place]-3 Acid Ethyl Esters 1 gm PO BEDTIME Aspirin EC Tab 81 mg PO QAM Carbidopa/Levodopa Cr 25-100 [Sinemet Cr 25-100] 1 tablet PO BEDTIME tablet Dabigatran [Pradaxa] 75 mg PO BID capsule Pravastatin [Pravachol] 40 mg PO MOWEFR Cholecalciferol [Vitamin D3] 1,000 unit PO BEDTIME Calcium Carbonate 600 mg PO QAM Cyanocobalamin Tab [Vitamin B12 Tab] 1,000 mcg PO QAM Ascorbic Acid Tab [Vitamin C Tab] 1,000 mg PO BID tablet Discontinued Ropinirole HCl [Requip] 5 mg PO BEDTIME dilTIAZem HCl [Diltiazem 24Hr ER] 240 mg PO QAM Carvedilol [Coreg] 6.25 mg PO BID tablet Pregabalin [Lyrica] 50 mg PO BID capsule Allopurinol [Allopurinol] 300 mg PO MOWEFR Saxagliptin HCl [Onglyza] 2.5 mg PO QAM Potassium Chloride 20 meq PO QAM - Follow Up or Referral - Forms/Instructions Exam - Constitutional Vitals: Period Temp Pulse Resp BP Sys/Mitchell Pulse Ox Last 24 Hr 97.6 F-98.4 F 55-83 16-20 118-176/59-77 84-99 Exam: Examination: GENERAL: No acute distress HEENT: Mucous membranes are moist. NECK: Neck is supple. CVS: Regular rate and rhythm. S1 and S2 are normal. RESPIRATORY: Better air entry ABDOMEN: Soft and nontender. EXT: 3+ edema with compressive dressing on both lower extremities PUBLIC HEALTH INFORMATICIAN: Motor strength is 3-4/5 SKIN: Warm and dry. MSK: No obvious deformity. Discharge Results Procedures and tests throughout hospitalization: Pending Orders 02/22/17 12:16 Blood Culture Stat 02/25/17 12:51 Occult Blood, Stool Routine 02/25/17 14:30 Sputum Culture and Gram Stain Stat 02/28/17 04:00 BMP w/ Mg [Basic Metabolic Panel w/Mg] IN AM Basic Metabolic Panel IN AM CBC [Comp Blood Count Auto Diff] IN AM 03/01/17 04:00 BMP w/ Mg [Basic Metabolic Panel w/Mg] IN AM CBC [Comp Blood Count Auto Diff] IN AM Labs on day of discharge: Labs from last 24 hours 02/27/17 02/27/17 02/27/17 07:20 04:35 04:35 WBC 5.6 RBC 3.24 L Hgb 10.1 L Hct 32.8 L MCV 101.2 MCH 31 MCHC 30.8 L RDW 14.6 Plt Count 257 MPV 10.8 Neut % (Auto) 86.1 H Lymph % (Auto) 7.5 L [place] % (Auto) 4.8 Eos % (Auto) 0.0 Baso % (Auto) 0.0 Neut # (Auto) 4.9 Lymph # (Auto) 0.4 L [place] # (Auto) 0.3 Eos # (Auto) 0.0 Baso # (Auto) 0.0 Immature Gran % 1.6 Nucleated RBC % 0.4 Immature Gran # 0.09 Nucleated RBCs # 0.02 Immature Plt Fraction 0.0 Sodium 144 Potassium 4.8 Chloride 102 Carbon Dioxide 37 H Anion Gap 9.8 BUN 55 H Creatinine 1.60 H GFR Calculation 59 BUN/Creatinine Ratio 34.00 H Glucose 72 L POC Glucose 70 L Calculated Osmolality 299.8 Calcium 8.7 Magnesium 2.7 H 02/27/17 02/26/17 02/26/17 04:35 21:15 15:43 WBC RBC Hgb Hct MCV MCH MCHC RDW Plt Count MPV Neut % (Auto) Lymph % (Auto) [place] % (Auto) Eos % (Auto) Baso % (Auto) Neut # (Auto) Lymph # (Auto) [place] # (Auto) Eos # (Auto) Baso # (Auto) Immature Gran % Nucleated RBC % Immature Gran # Nucleated RBCs # Immature Plt Fraction Sodium 145 Potassium 4.8 Chloride 102 Carbon Dioxide 37 H Anion Gap 10.8 BUN 55 H Creatinine 1.70 H GFR Calculation 55 BUN/Creatinine Ratio 32.00 H Glucose 69 L POC Glucose 93 84 Calculated Osmolality 300.7 Calcium 8.6 Magnesium 02/26/17 11:32 WBC RBC Hgb Hct MCV MCH MCHC RDW Plt Count MPV Neut % (Auto) Lymph % (Auto) [place] % (Auto) Eos % (Auto) Baso % (Auto) Neut # (Auto) Lymph # (Auto) [place] # (Auto) Eos # (Auto) Baso # (Auto) Immature Gran % Nucleated RBC % Immature Gran # Nucleated RBCs # Immature Plt Fraction Sodium Potassium Chloride Carbon Dioxide Anion Gap BUN Creatinine GFR Calculation BUN/Creatinine Ratio Glucose POC Glucose 133 H Calculated Osmolality Calcium Magnesium Preliminary micro results at discharge 02/25/17 14:30 Sputum Culture - Preliminary Sputum Gram Negative Rods Gram Negative Rods#2 Gram Negative Rods#3 02/22/17 12:16 Blood Culture - Preliminary Blood No growth at 3 days 02/22/17 12:16 Blood Culture - Preliminary Blood No growth at 3 days DS: Provider Date of admission: 02/22/17 13:13 Primary care physician: Avery Mcdonald MD Attending physician on admission: Avery Mcdonald MD Consults: 02/22/17 15:13 Consult to Physician [CONS] Routine Comment: CHF Consulting Provider: Cardiology - [facility] When should Consulting Provider be notified: Now 02/22/17 15:39 Consult to Sleep Center [CONS] Routine Reason for Sleep Center: Sleep Center Physician 02/22/17 23:55 Consult to Physician [CONS] Routine Comment: shortness of breath; hypoxia Consulting Provider: Avila Rhodes Person Notified: Dr Grewal Date Notified: 02/23/17 Time Notified: 07:30 Consult Notification Comment: Dr Grewal in to see patient 02/23/17 07:44 Consult to Physician [CONS] Routine Comment: Consulting Provider: 02/23/17 10:30 Consult to Physician [CONS] Routine Comment: leg compression Consulting Provider: Manjeet Olmedo Consulting Provider Notified: Yes When should Consulting Provider be notified: Now Person Notified: Dr Olmedo Date Notified: 02/23/17 Time Notified: 10:31 Consult Notification Comment: Dr Ventura Cordova spoke with Dr Olmedo personally 02/24/17 11:31 Consult to Pharmacy [CONS] Routine Reason for Pharmacy Consult: Other Comment: please send test dose up of merrem to verify no allergy 02/24/17 14:55 Consult to Wound Care - [place] [CONS] Routine Reason for Wound Care: Wound Care Management Consult Comment: Trying to get some degree of compressive therapy to the lower extremities 02/24/17 15:06 Consult to Physical Therapy [CONS] Routine Reason for Physical Therapy: Evaluate and Treat Gait Training Ambulation Start Therapy: Tomorrow Consult Comment: Ambulating patient into the bruno twice daily may need a walker 02/24/17 15:31 Consult to Dietitian [CONS] Routine Reason for Dietitian: Diet Recommendations Consult Comment: weight loss plan; daily calorie count to lose one pound per week 02/25/17 03:47 Consult to Physician [CONS] Routine Comment: Sleep Apnea Consulting Provider: Vaishali Dickerson When should Consulting Provider be notified: In am 02/25/17 08:40 Consult to Physician [CONS] Routine Comment: Chronic renal insufficiency Consulting Provider: Junior Wang Consult to Specialist Group: Nephrology Person Notified: Earline Date Notified: 02/25/17 Time Notified: 11:00 02/26/17 09:14 Consult to Case Mgmt/Social Srvs [CONS] Routine Reason for Case Mgmt/Social Srvs: Discharge Planning Consult Comment: Consult [facility] Consult to Occupational Therapy [CONS] Routine Reason for Occupational Therapy: Evaluate and Treat Discharging clinician: Avery Mcdonald MD
--- NOTE | 2017-02-27 09:52 | General Surgery Progress Note ---
Assessment and Plan (1) Chronic venous insufficiency Status: Chronic Assessment and plan: Impression: Chronic venous insufficiency versus some chronic lymphedematous changes of the lower extremities of left greater than right Plan: We will start some compressive therapy at this time and keep the legs cleaned and moist. 2. We will try to transition him back to his Ciraids 02/24/2017. Patient was moved from the unit to stepdown and went by today to check on the status of the patient. Apparently something happened to the orders and his orders were not in the computer to continue the dressings and wraps to the lower extremities. Will reestablish this at this time to try to get this process under control. 02/27/2017. Patient has been receiving some degree of compressive therapy but not quite sure how well is been applied. His legs and feet still remain with some degree of swelling. He is scheduled to go to swing bed and will try to follow him up there may be transitioning back into his CircAid wraps and see if we can maintain some good chronic control of his swelling. Current Visit: Yes (2) Prostate cancer Status: Acute Assessment and plan: Impression: Prostate cancer status post radiation therapy and surgery Current Visit: Yes (3) Atrial fibrillation Status: Chronic Assessment and plan: Impression: Atrial fibrillation Plan: Medical management Current Visit: No Qualifiers: Atrial fibrillation type: paroxysmal Qualified Code(s): I48.0 - Paroxysmal atrial fibrillation (4) Diabetes Status: Chronic Assessment and plan: Impression: Diabetes adult onset Plan: Medical management Current Visit: No (5) Chronic kidney disease, stage III (moderate) Status: Chronic Assessment and plan: Impression: Chronic renal insufficiency Medical management Current Visit: No Subjective Patient reports: Present: feels better, bowel movement, afebrile. Absent: shortness of breath Exam - Constitutional Vitals: Period Temp Pulse Resp BP Sys/Mitchell Pulse Ox Last 24 Hr 97.6 F-98.4 F 55-83 16-20 118-176/59-77 84-99 General appearance: no acute distress - Head Head exam: Present: normal inspection - ENT ENT exam: Present: normal exam - Neck Neck exam: Present: normal inspection - Respiratory Respiratory exam: Present: rales - Cardiovascular Cardiovascular exam: Present: RRR - GI/Abdominal GI/Abdominal exam: Present: hypoactive bowel sounds, soft - Extremities Exam Extremities exam: Present: edema, other (Still has some chronic edema in the lower extremities with the venous stasis dermatitis changes.) - Back Exam Back exam: Present: normal inspection - Neurological Exam Neurological exam: Present: alert, oriented X3, CN II-XII intact - Skin Skin exam: Present: normal color, warm, dry Results - Labs CBC & BMP: 02/27/17 04:35 02/27/17 04:35 Lab Results: I have reviewed the past 24 hour labs
--- NOTE | 2017-02-27 15:01 | Nephrology Progress Note ---
Nephrology - PN: Subj Interval history: No S OB at rest. Exam (PN)-Nephrology - Vital Signs Vital signs: Period Temp Pulse Resp BP Sys/Mitchell Pulse Ox Last 24 Hr 97.6 F-98.4 F 60-83 16-20 118-176/63-77 90-99 Exam: Gen.: Alert and oriented x3. ENT: Pupils equal round reactive to light. EOMs intact. Mucous membranes moist. Neck: Supple. No JVD or bruit. Cardiovascular: Regular rate and rhythm. No murmur rub or gallop Lungs: Clear Abdomen: Soft. Nontender. Positive bowel sounds. No organomegaly Extremities: 2+ brawny edema - Lab 02/27/17 04:35 02/27/17 04:35 Most recent lab results ABG pH 7.244 (7.35-7.45) L 02/25/17 03:10 ABG pCO2 79.0 MM HG (35-48) H* 02/25/17 03:10 ABG pO2 171.3 MM HG (80-95) H 02/25/17 03:10 ABG HCO3 29.0 MMOL/L (20-26) H 02/25/17 03:10 ABG O2 Saturation 96.4 % (95-100) 02/25/17 03:10 Calcium 8.6 MG/DL (8.5-10.1) 02/27/17 04:35 Magnesium 2.7 MG/DL (1.8-2.4) H 02/27/17 04:35 Assessment and Plan (1) Chronic kidney disease, stage III (moderate) Status: Chronic Assessment and plan: 82-year-old man with: * CRF stage III. Renal function has improved. Continue current meds * Diastolic CHF * Sleep apnea. * Diabetes mellitus * Chronic venous insufficiency * Hypothyroidism (2) Chronic venous insufficiency Status: Chronic (3) Congestive heart failure Status: Chronic Qualifiers: Congestive heart failure type: unspecified congestive heart failure type Congestive heart failure chronicity: acute Qualified Code(s): I50.9 - Heart failure, unspecified (4) Diabetes mellitus Status: Chronic Qualifiers: Diabetes mellitus type: type 2 Diabetes mellitus complication status: without complication Diabetes mellitus buttermaker continuous churn insulin use: without halfway use Qualified Code(s): E11.9 - Type 2 diabetes mellitus without complications (5) Hypertension Status: Chronic Qualifiers: Hypertension type: essential hypertension Qualified Code(s): I10 - Essential (primary) hypertension (6) Obstructive sleep apnea Status: Chronic (7) Diabetes Status: Chronic Specialty Discharge - Follow Up or Referrals
== END 2017-02-27 11:48 | disposition swing bed (61) | DRG 291 ==
LOC: N.ED 11:59 → N.EDINP 13:13 → N.TELES 14:30 → N.ICU 21:10 → N.TELES 02-23 15:25
PROVIDERS: ADMIT Internal Medicine; ATTEND Internal Medicine

== ENCOUNTER 2017-10-18 10:01 | Inpatient (IN) ==
[2017-10-18] MEDS ORDERED: ONDANSETRON 4 MG/2 ML VIAL IV PRN (10:15)
[2017-10-18] MEDS: SODIUM CHLORIDE 0.9% 1,000 ML IV SCH ×3 (11:33→18:57)
[2017-10-18 12:01] LABS: Basophils # 0.1 10*3/uL (0.0-0.2); Basophils % 0.4 % (0.0-0.8); Eosinophils # 0.1 10*3/uL (0.0-0.87); Eosinophils % 0.8 % (0.00-10.9); Hematocrit 32.3 VOL% (42.0-52.0); Hemoglobin 10.2 GM/DL (14.0-18.0); Immature Granulocytes % 1.1 %; Immature Granulocytes Absolute 0.15 #; Lymphocytes # 1.4 10*3/uL (1.4-4.0); Lymphocytes % 9.9 % (21.2-54.2); Mean Corpuscular HGB Conc 31.6 GM/DL (32-36); Mean Corpuscular Hemoglobin 33 PG (27-34); Mean Corpuscular Volume 102.9 FL (87-102); Mean Platelet Volume 10.1 FL (9.6-12.0); Monocytes # 1.2 10*3/uL (0.11-0.8); Monocytes % 8.7 % (1.7-12.7); Neutrophils # 11.2 10*3/uL (1.4-7.4); Neutrophils % 79.1 % (38.7-73.9); Platelet Count 456 T/CUMM (130-400); Red Blood Count 3.14 MC/CUMM (3.8-5.5); Red Cell Distribution Width 16.1 % (9.3-17.3); White Blood Count 14.1 T/CUMM (4-12)
[2017-10-18 12:20] LABS: Albumin 2.5 G/DL (3.4-5.0); Bilirubin,Total 0.5 MG/DL (0.2-1.0); Osmolality,Calculated 284.7 MOS/KG (273-304); Potassium 4.4 MMOL/L (3.5-5.1); Total Protein 7.6 G/DL (6.4-8.3)
[2017-10-18 13:18] LABS: Apearance,Urine Slightly Hazy (Clear); Bilirubin,Urine Negative (Negative); Blood, Urine Negative (Negative); Glucose,Urine (UA) Negative (Negative); Hyaline Casts,Urine 3 /LPF (0-3); Ketones,Urine Negative (Negative); Mucus,Urine Occasional /LPF (Occasional); Nitrite,Urine Negative (Negative); Protein,Urine 30 MG/DL; RBC,Urine 10 /HPF (0-4); Squamous Epithelial Cell,Urine Occasional /HPF (0-10); Urine Color Yellow (Yellow); Urine Specific Gravity 1.012 (1.001-1.035); Urine Urobilinogen < 2.0 EU/DL (0.2-1.0); WBC,Urine 66 /HPF (0-6)
[2017-10-18] MEDS: DILTIAZEM INJ 100 MG in SODIUM CHLORIDE 0.9% 100 ML IV SCH (14:44)
[2017-10-18] MEDS: PRAVASTATIN 40 MG TABLET PO SCH (14:45)
[2017-10-18] MEDS: hydrALAZINE 25 MG TABLET PO SCH ×2 (14:45→21:18)
[2017-10-18] MEDS: ASCORBIC ACID 500 MG TABLET PO SCH ×2 (16:55→21:19)
[2017-10-18] MEDS: rOPINIRole 1 MG TABLET PO SCH (16:55)
[2017-10-18] MEDS: ACETAMINOPHEN 325 MG TABLET PO PRN (16:59)
[2017-10-18] MEDS ORDERED: rOPINIRole 1 MG TABLET PO SCH (21:00)
[2017-10-18] MEDS ORDERED: ASCORBIC ACID 500 MG TABLET PO SCH (21:00)
[2017-10-18] MEDS: CHOLECALCIFEROL 1,000 UNIT TABLET PO SCH (21:18)
[2017-10-18] MEDS: OMEGA 3 ACID ETHYL ESTERS 1 GM CAPSULE PO SCH (21:18)
[2017-10-18] MEDS: DABIGATRAN 75 MG CAPSULE PO SCH (21:18)
[2017-10-18] MEDS: DOCUSATE SODIUM 100 MG CAPSULE PO SCH (21:19)
[2017-10-19] MEDS: DILTIAZEM INJ 100 MG in SODIUM CHLORIDE 0.9% 100 ML IV SCH ×4 (01:50→23:30)
[2017-10-19 04:36] LABS: Basophils % 0.3 % (0.0-0.8); Eosinophils # 0.2 10*3/uL (0.0-0.87); Eosinophils % 1.4 % (0.00-10.9); Hematocrit 31.3 VOL% (42.0-52.0); Hemoglobin 9.8 GM/DL (14.0-18.0); Immature Granulocytes % 0.6 %; Immature Granulocytes Absolute 0.08 #; Lymphocytes # 1.3 10*3/uL (1.4-4.0); Lymphocytes % 9.8 % (21.2-54.2); Mean Corpuscular HGB Conc 31.3 GM/DL (32-36); Mean Corpuscular Hemoglobin 32 PG (27-34); Mean Platelet Volume 9.9 FL (9.6-12.0); Monocytes # 1.3 10*3/uL (0.11-0.8); Monocytes % 9.6 % (1.7-12.7); Neutrophils # 10.3 10*3/uL (1.4-7.4); Neutrophils % 78.3 % (38.7-73.9); Platelet Count 418 T/CUMM (130-400); Red Blood Count 3.04 MC/CUMM (3.8-5.5); Red Cell Distribution Width 16.2 % (9.3-17.3); White Blood Count 13.1 T/CUMM (4-12)
[2017-10-19 05:07] LABS: Blood Urea Nitrogen 31 MG/DL (7-18); Calcium 8.7 MG/DL (8.5-10.1); Glucose 147 MG/DL (74-106); Osmolality,Calculated 286.5 MOS/KG (273-304); Potassium 4.6 MMOL/L (3.5-5.1); Sodium 139 MMOL/L (136-145)
[2017-10-19 05:13] LABS: Calcium 8.6 MG/DL (8.5-10.1); Osmolality,Calculated 283.7 MOS/KG (273-304); Potassium 4.5 MMOL/L (3.5-5.1)
[2017-10-19] MEDS: LEVOTHYROXINE 100 MCG TABLET PO SCH (06:20)
[2017-10-19] MEDS: CALCIUM (CARBONATE) 600 MG TABLET PO SCH (08:39)
[2017-10-19] MEDS: PANTOPRAZOLE 40 MG TABLET PO SCH (08:39)
[2017-10-19] MEDS: DUTASTERIDE 0.5 MG CAPSULE PO SCH (08:39)
[2017-10-19] MEDS: DABIGATRAN 75 MG CAPSULE PO SCH ×2 (08:39→21:11)
[2017-10-19] MEDS: ASCORBIC ACID 500 MG TABLET PO SCH ×2 (08:39→21:11)
[2017-10-19] MEDS: hydrALAZINE 25 MG TABLET PO SCH (08:39)
[2017-10-19] MEDS: POTASSIUM CHLORIDE 8 MEQ CAPSULE PO SCH (08:39)
[2017-10-19] MEDS: DOCUSATE SODIUM 100 MG CAPSULE PO SCH ×2 (08:39→21:12)
[2017-10-19] MEDS: CYANOCOBALAMIN 500 MCG TABLET PO SCH (08:39)
[2017-10-19] MEDS: THEOPHYLLINE ER (24 HR) 400 MG CAPSULE PO SCH (08:39)
[2017-10-19] MEDS: ASPIRIN EC 81 MG TABLET PO SCH (08:39)
[2017-10-19] MEDS: ACETAMINOPHEN 325 MG TABLET PO PRN (09:44)
[2017-10-19] MEDS: METOPROLOL SUCCINATE XL 100 MG TABLET PO SCH (13:23)
[2017-10-19] MEDS: SODIUM CHLORIDE 0.9% 1,000 ML IV SCH (14:28)
[2017-10-19] MEDS: rOPINIRole 1 MG TABLET PO SCH (17:26)
[2017-10-19] MEDS: CHOLECALCIFEROL 1,000 UNIT TABLET PO SCH (21:12)
[2017-10-19] MEDS: ZALEPLON 5 MG CAPSULE PO SCH (21:12)
[2017-10-19] MEDS: OMEGA 3 ACID ETHYL ESTERS 1 GM CAPSULE PO SCH (21:12)
[2017-10-20] MEDS: cefTRIAXone 500 MG in SYRINGE 1 EACH IV SCH (05:02)
[2017-10-20] MEDS: SODIUM CHLORIDE 0.9% 1,000 ML IV SCH ×2 (05:34→10:57)
[2017-10-20 05:47] LABS: Basophils # 0.1 10*3/uL (0.0-0.2); Basophils % 0.4 % (0.0-0.8); Eosinophils # 0.2 10*3/uL (0.0-0.87); Eosinophils % 1.7 % (0.00-10.9); Hematocrit 31.6 VOL% (42.0-52.0); Hemoglobin 9.9 GM/DL (14.0-18.0); Immature Granulocytes % 0.7 %; Immature Granulocytes Absolute 0.08 #; Lymphocytes # 1.5 10*3/uL (1.4-4.0); Lymphocytes % 12.5 % (21.2-54.2); Mean Corpuscular HGB Conc 31.3 GM/DL (32-36); Mean Corpuscular Hemoglobin 32 PG (27-34); Mean Corpuscular Volume 101.9 FL (87-102); Mean Platelet Volume 10.1 FL (9.6-12.0); Monocytes # 1.3 10*3/uL (0.11-0.8); Monocytes % 10.7 % (1.7-12.7); Neutrophils # 8.9 10*3/uL (1.4-7.4); Platelet Count 445 T/CUMM (130-400); Red Cell Distribution Width 15.8 % (9.3-17.3)
[2017-10-20] MEDS: LEVOTHYROXINE 100 MCG TABLET PO SCH (05:59)
[2017-10-20 06:18] LABS: Calcium 8.7 MG/DL (8.5-10.1); Osmolality,Calculated 286.5 MOS/KG (273-304); Potassium 4.4 MMOL/L (3.5-5.1)
[2017-10-20] MEDS: POTASSIUM CHLORIDE 8 MEQ CAPSULE PO SCH (08:21)
[2017-10-20] MEDS: CALCIUM (CARBONATE) 600 MG TABLET PO SCH (08:21)
[2017-10-20] MEDS: DUTASTERIDE 0.5 MG CAPSULE PO SCH (08:21)
[2017-10-20] MEDS: ASCORBIC ACID 500 MG TABLET PO SCH ×2 (08:21→21:06)
[2017-10-20] MEDS: THEOPHYLLINE ER (24 HR) 400 MG CAPSULE PO SCH (08:21)
[2017-10-20] MEDS: DABIGATRAN 75 MG CAPSULE PO SCH ×2 (08:21→21:06)
[2017-10-20] MEDS: ASPIRIN EC 81 MG TABLET PO SCH (08:22)
[2017-10-20] MEDS: PANTOPRAZOLE 40 MG TABLET PO SCH (08:22)
[2017-10-20] MEDS: METOPROLOL SUCCINATE XL 100 MG TABLET PO SCH ×2 (08:22→21:07)
[2017-10-20] MEDS: CYANOCOBALAMIN 500 MCG TABLET PO SCH (08:25)
[2017-10-20] MEDS: DOCUSATE SODIUM 100 MG CAPSULE PO SCH ×2 (08:25→21:09)
[2017-10-20] MEDS: ALBUTEROL/IPRATROPIUM 3 ML NEB RESP TX SCH ×3 (08:29→19:22)
[2017-10-20] MEDS: DILTIAZEM INJ 100 MG in SODIUM CHLORIDE 0.9% 100 ML IV SCH ×3 (10:48→19:20)
[2017-10-20] MEDS: rOPINIRole 1 MG TABLET PO SCH (16:51)
[2017-10-20] MEDS: ZALEPLON 5 MG CAPSULE PO SCH (21:06)
[2017-10-20] MEDS: CHOLECALCIFEROL 1,000 UNIT TABLET PO SCH (21:07)
[2017-10-20] MEDS: OMEGA 3 ACID ETHYL ESTERS 1 GM CAPSULE PO SCH (21:09)
[2017-10-20] MEDS: BENZONATATE 100 MG CAPSULE PO PRN (22:06)
[2017-10-20] MEDS: LORATADINE 10 MG TABLET PO SCH (22:06)
[2017-10-21] MEDS: ALBUTEROL/IPRATROPIUM 3 ML NEB RESP TX SCH ×4 (00:23→19:51)
[2017-10-21] MEDS: SODIUM CHLORIDE 0.9% 1,000 ML IV SCH ×2 (03:49→06:41)
[2017-10-21 05:04] LABS: Basophils # 0.1 10*3/uL (0.0-0.2); Basophils % 0.7 % (0.0-0.8); Eosinophils # 0.2 10*3/uL (0.0-0.87); Eosinophils % 1.8 % (0.00-10.9); Hematocrit 30.7 VOL% (42.0-52.0); Hemoglobin 9.5 GM/DL (14.0-18.0); Immature Granulocytes % 0.8 %; Immature Granulocytes Absolute 0.08 #; Lymphocytes # 1.3 10*3/uL (1.4-4.0); Lymphocytes % 12.5 % (21.2-54.2); Mean Corpuscular HGB Conc 30.9 GM/DL (32-36); Mean Corpuscular Hemoglobin 32 PG (27-34); Mean Corpuscular Volume 102.7 FL (87-102); Monocytes # 1.2 10*3/uL (0.11-0.8); Monocytes % 11.4 % (1.7-12.7); NRBC # 0.02 10*3/uL; Neutrophils # 7.4 10*3/uL (1.4-7.4); Neutrophils % 72.8 % (38.7-73.9); Platelet Count 438 T/CUMM (130-400); Red Blood Count 2.99 MC/CUMM (3.8-5.5); Red Cell Distribution Width 15.6 % (9.3-17.3); White Blood Count 10.1 T/CUMM (4-12)
[2017-10-21 05:31] LABS: Calcium 8.5 MG/DL (8.5-10.1); Osmolality,Calculated 284.7 MOS/KG (273-304); Potassium 4.2 MMOL/L (3.5-5.1)
[2017-10-21] MEDS: cefTRIAXone 500 MG in SYRINGE 1 EACH IV SCH (05:55)
[2017-10-21] MEDS: DILTIAZEM INJ 100 MG in SODIUM CHLORIDE 0.9% 100 ML IV SCH ×2 (06:07→13:55)
[2017-10-21] MEDS: LEVOTHYROXINE 100 MCG TABLET PO SCH (06:42)
[2017-10-21] MEDS: THEOPHYLLINE ER (24 HR) 400 MG CAPSULE PO SCH (09:16)
[2017-10-21] MEDS: POTASSIUM CHLORIDE 8 MEQ CAPSULE PO SCH (09:16)
[2017-10-21] MEDS: DUTASTERIDE 0.5 MG CAPSULE PO SCH (09:16)
[2017-10-21] MEDS: PANTOPRAZOLE 40 MG TABLET PO SCH (09:16)
[2017-10-21] MEDS: CYANOCOBALAMIN 500 MCG TABLET PO SCH (09:17)
[2017-10-21] MEDS: BENZONATATE 100 MG CAPSULE PO PRN (09:17)
[2017-10-21] MEDS: METOPROLOL SUCCINATE XL 100 MG TABLET PO SCH ×2 (09:17→21:08)
[2017-10-21] MEDS: CALCIUM (CARBONATE) 600 MG TABLET PO SCH (09:17)
[2017-10-21] MEDS: ASCORBIC ACID 500 MG TABLET PO SCH ×2 (09:17→21:08)
[2017-10-21] MEDS: PRAVASTATIN 40 MG TABLET PO SCH (09:18)
[2017-10-21] MEDS: DABIGATRAN 75 MG CAPSULE PO SCH ×2 (09:18→21:11)
[2017-10-21] MEDS: ASPIRIN EC 81 MG TABLET PO SCH (09:18)
[2017-10-21] MEDS: LORATADINE 10 MG TABLET PO SCH (09:18)
[2017-10-21] MEDS: DOCUSATE SODIUM 100 MG CAPSULE PO SCH ×2 (09:19→21:09)
[2017-10-21] MEDS: DILTIAZEM 60 MG TABLET PO SCH ×4 (10:14→21:08)
[2017-10-21] MEDS: rOPINIRole 1 MG TABLET PO SCH (16:36)
[2017-10-21] MEDS: CHOLECALCIFEROL 1,000 UNIT TABLET PO SCH (21:08)
[2017-10-21] MEDS: ZALEPLON 5 MG CAPSULE PO SCH (21:08)
[2017-10-21] MEDS: OMEGA 3 ACID ETHYL ESTERS 1 GM CAPSULE PO SCH (21:09)
[2017-10-22] MEDS: ALBUTEROL/IPRATROPIUM 3 ML NEB RESP TX SCH ×4 (00:39→19:33)
[2017-10-22] MEDS: SODIUM CHLORIDE 0.9% 1,000 ML IV SCH ×2 (01:52→23:03)
[2017-10-22] MEDS: LEVOTHYROXINE 100 MCG TABLET PO SCH (06:07)
[2017-10-22 06:18] LABS: Basophils # 0.1 10*3/uL (0.0-0.2); Basophils % 0.7 % (0.0-0.8); Eosinophils # 0.2 10*3/uL (0.0-0.87); Hemoglobin 9.5 GM/DL (14.0-18.0); Immature Granulocytes % 0.7 %; Immature Granulocytes Absolute 0.08 #; Lymphocytes # 1.6 10*3/uL (1.4-4.0); Lymphocytes % 14.4 % (21.2-54.2); Mean Corpuscular HGB Conc 31.7 GM/DL (32-36); Mean Corpuscular Hemoglobin 32 PG (27-34); Mean Corpuscular Volume 102.4 FL (87-102); Mean Platelet Volume 9.9 FL (9.6-12.0); Monocytes # 1.1 10*3/uL (0.11-0.8); Monocytes % 10.6 % (1.7-12.7); NRBC # 0.02 10*3/uL; Neutrophils # 7.7 10*3/uL (1.4-7.4); Neutrophils % 71.6 % (38.7-73.9); Platelet Count 435 T/CUMM (130-400); Red Blood Count 2.93 MC/CUMM (3.8-5.5); Red Cell Distribution Width 15.6 % (9.3-17.3); White Blood Count 10.7 T/CUMM (4-12)
[2017-10-22 06:47] LABS: Calcium 8.8 MG/DL (8.5-10.1); Potassium 4.2 MMOL/L (3.5-5.1)
[2017-10-22 06:50] LABS: Calcium 8.7 MG/DL (8.5-10.1); Osmolality,Calculated 287.5 MOS/KG (273-304); Potassium 4.3 MMOL/L (3.5-5.1)
[2017-10-22] MEDS: CYANOCOBALAMIN 500 MCG TABLET PO SCH (08:42)
[2017-10-22] MEDS: DILTIAZEM 60 MG TABLET PO SCH (08:42)
[2017-10-22] MEDS: NYSTATIN 500,000 UNIT/5 ML UDCUP SWISH/SWAL SCH ×4 (08:42→20:47)
[2017-10-22] MEDS: DABIGATRAN 75 MG CAPSULE PO SCH ×2 (08:42→20:48)
[2017-10-22] MEDS: THEOPHYLLINE ER (24 HR) 400 MG CAPSULE PO SCH (08:43)
[2017-10-22] MEDS: POTASSIUM CHLORIDE 8 MEQ CAPSULE PO SCH (08:43)
[2017-10-22] MEDS: METOPROLOL SUCCINATE XL 100 MG TABLET PO SCH ×2 (08:43→20:47)
[2017-10-22] MEDS: ASPIRIN EC 81 MG TABLET PO SCH (08:43)
[2017-10-22] MEDS: DUTASTERIDE 0.5 MG CAPSULE PO SCH (08:43)
[2017-10-22] MEDS: CALCIUM (CARBONATE) 600 MG TABLET PO SCH (08:43)
[2017-10-22] MEDS: ASCORBIC ACID 500 MG TABLET PO SCH ×2 (08:43→20:47)
[2017-10-22] MEDS: LORATADINE 10 MG TABLET PO SCH (08:43)
[2017-10-22] MEDS: PANTOPRAZOLE 40 MG TABLET PO SCH (08:43)
[2017-10-22] MEDS: FLUCONAZOLE 100 MG TABLET PO SCH (08:43)
[2017-10-22] MEDS ORDERED: DILTIAZEM 30 MG TABLET PO ONE (09:23)
[2017-10-22] MEDS: DOCUSATE SODIUM 100 MG CAPSULE PO SCH ×2 (09:29→20:48)
[2017-10-22] MEDS ORDERED: DILTIAZEM CD 180 MG CAPSULE PO SCH (09:30)
[2017-10-22] MEDS ORDERED: DIGOXIN 0.5 MG/2 ML AMP IV ONE (12:23)
[2017-10-22] MEDS ORDERED: DIGOXIN 0.125 MG TABLET PO SCH (13:00)
[2017-10-22] MEDS: rOPINIRole 1 MG TABLET PO SCH (16:24)
[2017-10-22] MEDS: DILTIAZEM CD 180 MG CAPSULE PO SCH (20:48)
[2017-10-22] MEDS: OMEGA 3 ACID ETHYL ESTERS 1 GM CAPSULE PO SCH (20:48)
[2017-10-22] MEDS: ZALEPLON 5 MG CAPSULE PO SCH (20:48)
[2017-10-22] MEDS: CHOLECALCIFEROL 1,000 UNIT TABLET PO SCH (20:48)
[2017-10-23] MEDS: ALBUTEROL/IPRATROPIUM 3 ML NEB RESP TX SCH ×4 (00:26→20:45)
[2017-10-23 05:52] LABS: Basophils # 0.1 10*3/uL (0.0-0.2); Basophils % 0.5 % (0.0-0.8); Eosinophils # 0.3 10*3/uL (0.0-0.87); Eosinophils % 2.8 % (0.00-10.9); Hematocrit 29.7 VOL% (42.0-52.0); Hemoglobin 9.8 GM/DL (14.0-18.0); Immature Granulocytes % 0.7 %; Immature Granulocytes Absolute 0.07 #; Lymphocytes # 1.6 10*3/uL (1.4-4.0); Lymphocytes % 16.5 % (21.2-54.2); Mean Corpuscular Hemoglobin 33 PG (27-34); Mean Corpuscular Volume 98.7 FL (87-102); Mean Platelet Volume 9.8 FL (9.6-12.0); Monocytes # 1.2 10*3/uL (0.11-0.8); Monocytes % 12.3 % (1.7-12.7); NRBC # 0.04 10*3/uL; Neutrophils # 6.3 10*3/uL (1.4-7.4); Neutrophils % 67.2 % (38.7-73.9); Platelet Count 425 T/CUMM (130-400); Red Blood Count 3.01 MC/CUMM (3.8-5.5); Red Cell Distribution Width 15.8 % (9.3-17.3); White Blood Count 9.4 T/CUMM (4-12)
[2017-10-23 06:04] LABS: Calcium 8.8 MG/DL (8.5-10.1); Osmolality,Calculated 282.5 MOS/KG (273-304); Potassium 3.9 MMOL/L (3.5-5.1)
[2017-10-23 06:05] LABS: Calcium 8.8 MG/DL (8.5-10.1); Osmolality,Calculated 280.7 MOS/KG (273-304)
[2017-10-23] MEDS: LEVOTHYROXINE 100 MCG TABLET PO SCH (06:25)
[2017-10-23] MEDS ORDERED: DIGOXIN 0.5 MG/2 ML AMP IV ONE (08:50)
[2017-10-23] MEDS: POTASSIUM CHLORIDE 8 MEQ CAPSULE PO SCH (09:21)
[2017-10-23] MEDS: DABIGATRAN 75 MG CAPSULE PO SCH ×2 (09:21→21:32)
[2017-10-23] MEDS: CYANOCOBALAMIN 500 MCG TABLET PO SCH (09:22)
[2017-10-23] MEDS: LORATADINE 10 MG TABLET PO SCH (09:22)
[2017-10-23] MEDS: DUTASTERIDE 0.5 MG CAPSULE PO SCH (09:22)
[2017-10-23] MEDS: CALCIUM (CARBONATE) 600 MG TABLET PO SCH (09:23)
[2017-10-23] MEDS: METOPROLOL SUCCINATE XL 100 MG TABLET PO SCH ×2 (09:23→21:33)
[2017-10-23] MEDS: ASPIRIN EC 81 MG TABLET PO SCH (09:24)
[2017-10-23] MEDS: ASCORBIC ACID 500 MG TABLET PO SCH ×2 (09:24→21:32)
[2017-10-23] MEDS: FLUCONAZOLE 100 MG TABLET PO SCH (09:24)
[2017-10-23] MEDS: NYSTATIN 500,000 UNIT/5 ML UDCUP SWISH/SWAL SCH ×5 (09:25→21:36)
[2017-10-23] MEDS: PANTOPRAZOLE 40 MG TABLET PO SCH (09:25)
[2017-10-23] MEDS: DOCUSATE SODIUM 100 MG CAPSULE PO SCH ×3 (09:25→21:34)
[2017-10-23] MEDS: DILTIAZEM CD 240 MG CAPSULE PO SCH ×2 (09:31→21:33)
[2017-10-23] MEDS: DIGOXIN 0.125 MG TABLET PO SCH (14:30)
[2017-10-23] MEDS: rOPINIRole 1 MG TABLET PO SCH (18:13)
[2017-10-23] MEDS ORDERED: PRAVASTATIN 40 MG TABLET PO SCH (21:00)
[2017-10-23] MEDS: OMEGA 3 ACID ETHYL ESTERS 1 GM CAPSULE PO SCH (21:32)
[2017-10-23] MEDS: ZALEPLON 5 MG CAPSULE PO SCH (21:32)
[2017-10-23] MEDS: CHOLECALCIFEROL 1,000 UNIT TABLET PO SCH (21:33)
[2017-10-24] MEDS: PRAVASTATIN 40 MG TABLET PO SCH (00:59)
[2017-10-24] MEDS: DILTIAZEM CD 180 MG CAPSULE PO SCH (00:59)
[2017-10-24] MEDS: ALBUTEROL/IPRATROPIUM 3 ML NEB RESP TX SCH ×2 (01:36→08:21)
[2017-10-24 06:03] LABS: Basophils # 0.1 10*3/uL (0.0-0.2); Basophils % 0.6 % (0.0-0.8); Eosinophils # 0.4 10*3/uL (0.0-0.87); Eosinophils % 4.5 % (0.00-10.9); Hematocrit 28.9 VOL% (42.0-52.0); Hemoglobin 9.3 GM/DL (14.0-18.0); Immature Granulocytes % 0.6 %; Immature Granulocytes Absolute 0.05 #; Lymphocytes # 1.5 10*3/uL (1.4-4.0); Mean Corpuscular HGB Conc 32.2 GM/DL (32-36); Mean Corpuscular Hemoglobin 33 PG (27-34); Monocytes # 1.1 10*3/uL (0.11-0.8); Monocytes % 13.5 % (1.7-12.7); NRBC # 0.02 10*3/uL; Neutrophils # 4.8 10*3/uL (1.4-7.4); Neutrophils % 61.8 % (38.7-73.9); Platelet Count 397 T/CUMM (130-400); Red Blood Count 2.86 MC/CUMM (3.8-5.5); White Blood Count 7.8 T/CUMM (4-12)
[2017-10-24 06:14] LABS: Calcium 8.5 MG/DL (8.5-10.1); Osmolality,Calculated 287.3 MOS/KG (273-304); Potassium 4.2 MMOL/L (3.5-5.1)
[2017-10-24] MEDS: LEVOTHYROXINE 100 MCG TABLET PO SCH (06:19)
[2017-10-24] MEDS: DABIGATRAN 75 MG CAPSULE PO SCH (09:30)
[2017-10-24] MEDS: CYANOCOBALAMIN 500 MCG TABLET PO SCH (09:30)
[2017-10-24] MEDS: ASPIRIN EC 81 MG TABLET PO SCH (09:30)
[2017-10-24] MEDS: ASCORBIC ACID 500 MG TABLET PO SCH (09:30)
[2017-10-24] MEDS: DOCUSATE SODIUM 100 MG CAPSULE PO SCH (09:31)
[2017-10-24] MEDS: LORATADINE 10 MG TABLET PO SCH (09:31)
[2017-10-24] MEDS: PANTOPRAZOLE 40 MG TABLET PO SCH (09:31)
[2017-10-24] MEDS: DUTASTERIDE 0.5 MG CAPSULE PO SCH (09:31)
[2017-10-24] MEDS: FLUCONAZOLE 100 MG TABLET PO SCH (09:31)
[2017-10-24] MEDS: DILTIAZEM CD 240 MG CAPSULE PO SCH (09:31)
[2017-10-24] MEDS: CALCIUM (CARBONATE) 600 MG TABLET PO SCH (09:31)
[2017-10-24] MEDS: METOPROLOL SUCCINATE XL 100 MG TABLET PO SCH (09:31)
[2017-10-24] MEDS: POTASSIUM CHLORIDE 8 MEQ CAPSULE PO SCH (09:31)
[2017-10-24] MEDS: NYSTATIN 500,000 UNIT/5 ML UDCUP SWISH/SWAL SCH ×2 (09:32→12:21)
[2017-10-24 12:16] VITALS: BP 128/82
[2017-10-24] MEDS: DIGOXIN 0.125 MG TABLET PO SCH (12:21)
== END 2017-10-24 12:55 | disposition home or self-care (01) | DRG 309 ==
LOC: N.2W 10:37 → N.TELEN 12:22
PROVIDERS: ADMIT Internal Medicine; ATTEND Internal Medicine

== ENCOUNTER 2017-11-18 10:23 | Inpatient (IN) ==
[2017-11-23 16:06] VITALS: BP 115/64
== END 2017-11-23 16:48 | disposition home health service (06) | DRG 291 ==
LOC: N.2W 11:11 → N.TELEN 11:49
PROVIDERS: ADMIT Internal Medicine; ATTEND Internal Medicine

== ENCOUNTER 2017-11-27 10:52 | Inpatient (IN) ==
[2017-11-27] MEDS ORDERED: ONDANSETRON 4 MG/2 ML VIAL IV PRN (10:56)
[2017-11-27] MEDS ORDERED: ACETAMINOPHEN 325 MG TABLET PO PRN (10:56)
[2017-11-27 12:42] LABS: Basophils # 0.1 10*3/uL (0.0-0.2); Basophils % 0.2 % (0.0-0.8); Eosinophils % 0.1 % (0.00-10.9); Hematocrit 33.5 VOL% (42.0-52.0); Hemoglobin 10.8 GM/DL (14.0-18.0); Immature Granulocytes % 0.8 %; Immature Granulocytes Absolute 0.17 #; Lymphocytes % 4.5 % (21.2-54.2); Mean Corpuscular HGB Conc 32.2 GM/DL (32-36); Mean Corpuscular Hemoglobin 33 PG (27-34); Mean Corpuscular Volume 101.8 FL (87-102); Mean Platelet Volume 10.6 FL (9.6-12.0); Monocytes # 1.9 10*3/uL (0.11-0.8); Monocytes % 8.4 % (1.7-12.7); Platelet Count 318 T/CUMM (130-400); Red Blood Count 3.29 MC/CUMM (3.8-5.5); Red Cell Distribution Width 16.5 % (9.3-17.3); White Blood Count 22.1 T/CUMM (4-12)
[2017-11-27 13:05] LABS: Albumin 2.7 G/DL (3.4-5.0); Bilirubin,Total 1.1 MG/DL (0.2-1.0); Calcium 9.3 MG/DL (8.5-10.1); Potassium 3.2 MMOL/L (3.5-5.1); Total Protein 8.2 G/DL (6.4-8.3)
[2017-11-27 13:32] LABS: Lymphocytes 7 % (20-55); Segmented Neutrophils 88 % (50-85); Total Cells Counted 100
[2017-11-27 13:33] LABS: Platelet Estimate Adequate
[2017-11-27] MEDS ORDERED: LIDOCAINE 1% 20 ML VIAL MISC INJ ONE (14:18)
[2017-11-27 16:40] LABS: Lymphocytes,Synovial Fluid 8 %; Neutrophils,Synovial Fluid 87 %
[2017-11-27 16:43] LABS: Cholesterol Crystals None Seen /LPF
[2017-11-27] MEDS: VANCOMYCIN INJ 1,500 MG in SODIUM CHLORIDE 0.9% 500 ML IV SCH (17:04)
[2017-11-27] MEDS ORDERED: LEUPROLIDE 30 MG IM SCH (17:30)
[2017-11-27] MEDS ORDERED: HEPARIN DRIP 25,000 UNITS/500 ML PREMIX IV SCH (17:30)
[2017-11-27] MEDS ORDERED: DEXTROSE 50% 25 GM/50 ML VIAL IV PRN ×2 (17:53→18:14)
[2017-11-27] MEDS ORDERED: GLUCAGON 1 MG VIAL IM PRN ×2 (17:53→18:14)
[2017-11-27] MEDS: PRAVASTATIN 40 MG TABLET PO SCH (19:29)
[2017-11-27] MEDS: ALLOPURINOL 300 MG TABLET PO SCH (19:30)
[2017-11-27] MEDS: OMEGA 3 ACID ETHYL ESTERS 1 GM CAPSULE PO SCH (20:57)
[2017-11-27] MEDS: DOCUSATE SODIUM 100 MG CAPSULE PO SCH (20:58)
[2017-11-27] MEDS: ASCORBIC ACID 500 MG TABLET PO SCH ×2 (20:58→21:00)
[2017-11-27] MEDS: DILTIAZEM CD 180 MG CAPSULE PO SCH (20:58)
[2017-11-27] MEDS: METOPROLOL SUCCINATE XL 50 MG TABLET PO SCH (21:00)
[2017-11-27] MEDS: CHOLECALCIFEROL 1,000 UNIT TABLET PO SCH (21:00)
[2017-11-27] MEDS ORDERED: rOPINIRole 1 MG TABLET PO SCH (21:00)
[2017-11-27] MEDS: INSULIN LISPRO 100 UNIT/ML SUBCUT SCH (21:03)
[2017-11-28] MEDS: hydrALAZINE 25 MG TABLET PO SCH ×4 (02:09→21:09)
[2017-11-28 02:45] LABS: Basophils # 0.1 10*3/uL (0.0-0.2); Basophils % 0.2 % (0.0-0.8); Eosinophils % 0.1 % (0.00-10.9); Hematocrit 28.4 VOL% (42.0-52.0); Hemoglobin 8.9 GM/DL (14.0-18.0); Immature Granulocytes % 0.8 %; Immature Granulocytes Absolute 0.16 #; Lymphocytes # 1.6 10*3/uL (1.4-4.0); Lymphocytes % 7.6 % (21.2-54.2); Mean Corpuscular HGB Conc 31.3 GM/DL (32-36); Mean Corpuscular Hemoglobin 32 PG (27-34); Mean Corpuscular Volume 102.2 FL (87-102); Monocytes # 2.2 10*3/uL (0.11-0.8); Monocytes % 10.4 % (1.7-12.7); Neutrophils # 17.2 10*3/uL (1.4-7.4); Neutrophils % 80.9 % (38.7-73.9); Platelet Count 266 T/CUMM (130-400); Red Blood Count 2.78 MC/CUMM (3.8-5.5); Red Cell Distribution Width 16.2 % (9.3-17.3); White Blood Count 21.3 T/CUMM (4-12)
[2017-11-28 03:12] LABS: Calcium 8.1 MG/DL (8.5-10.1); Osmolality,Calculated 284.7 MOS/KG (273-304); Potassium 3.3 MMOL/L (3.5-5.1)
[2017-11-28 03:47] LABS: Anisocytosis 2+; Band Neutrophils 3 % (0-10); Hypochromasia 2+; Lymphocytes 6 % (20-55); Macrocytosis 2+; Platelet Estimate Normal; Segmented Neutrophils 82 % (50-85); Total Cells Counted 100
[2017-11-28] MEDS ORDERED: HEPARIN DRIP 25,000 UNITS/500 ML PREMIX IV SCH (08:30)
[2017-11-28] MEDS: INSULIN LISPRO 100 UNIT/ML SUBCUT SCH ×4 (08:51→21:10)
[2017-11-28] MEDS: CYANOCOBALAMIN 500 MCG TABLET PO SCH (08:52)
[2017-11-28] MEDS: DILTIAZEM CD 180 MG CAPSULE PO SCH ×2 (08:52→21:08)
[2017-11-28] MEDS: CALCIUM (CARBONATE) 600 MG TABLET PO SCH (08:53)
[2017-11-28] MEDS: PANTOPRAZOLE 40 MG TABLET PO SCH (08:53)
[2017-11-28] MEDS: ASPIRIN EC 81 MG TABLET PO SCH (08:53)
[2017-11-28] MEDS: LEVOTHYROXINE 100 MCG TABLET PO SCH (08:53)
[2017-11-28] MEDS: metOLazone 2.5 MG TABLET PO SCH (08:53)
[2017-11-28] MEDS: POTASSIUM CHLORIDE 8 MEQ CAPSULE PO SCH (08:53)
[2017-11-28] MEDS: DUTASTERIDE 0.5 MG CAPSULE PO SCH (08:53)
[2017-11-28] MEDS: DOCUSATE SODIUM 100 MG CAPSULE PO SCH ×2 (08:53→21:08)
[2017-11-28] MEDS: METOPROLOL SUCCINATE XL 50 MG TABLET PO SCH ×2 (08:53→21:08)
[2017-11-28] MEDS: FUROSEMIDE 80 MG TABLET PO SCH (08:54)
[2017-11-28] MEDS ORDERED: LINEZOLID 600 MG/300 ML PREMIX IV SCH (11:00)
[2017-11-28] MEDS: FUROSEMIDE 40 MG TABLET PO SCH (17:09)
[2017-11-28] MEDS: rOPINIRole 1 MG TABLET PO SCH (17:09)
[2017-11-28] MEDS: VANCOMYCIN INJ 1,500 MG in SODIUM CHLORIDE 0.9% 500 ML IV SCH (18:12)
[2017-11-28] MEDS: ASCORBIC ACID 500 MG TABLET PO SCH (21:08)
[2017-11-28] MEDS: OMEGA 3 ACID ETHYL ESTERS 1 GM CAPSULE PO SCH (21:08)
[2017-11-28] MEDS: CHOLECALCIFEROL 1,000 UNIT TABLET PO SCH (21:26)
[2017-11-28] MEDS: POTASSIUM CHLORIDE INJ 40 MEQ in LACTATED RINGERS 1,000 ML IV SCH (23:22)
[2017-11-29 01:00] LABS: Calcium 8.5 MG/DL (8.5-10.1); Potassium 3.2 MMOL/L (3.5-5.1)
[2017-11-29 01:14] LABS: Basophils % 0.2 % (0.0-0.8); Eosinophils % 0.2 % (0.00-10.9); Hematocrit 26.6 VOL% (42.0-52.0); Hemoglobin 8.6 GM/DL (14.0-18.0); Immature Granulocytes % 0.6 %; Lymphocytes # 2.1 10*3/uL (1.4-4.0); Lymphocytes % 12.9 % (21.2-54.2); Mean Corpuscular HGB Conc 32.3 GM/DL (32-36); Mean Corpuscular Hemoglobin 32 PG (27-34); Mean Platelet Volume 10.9 FL (9.6-12.0); Monocytes # 1.4 10*3/uL (0.11-0.8); Monocytes % 8.7 % (1.7-12.7); Neutrophils # 12.6 10*3/uL (1.4-7.4); Neutrophils % 77.4 % (38.7-73.9); Platelet Count 286 T/CUMM (130-400); Red Blood Count 2.66 MC/CUMM (3.8-5.5); Red Cell Distribution Width 16.3 % (9.3-17.3); White Blood Count 16.2 T/CUMM (4-12)
[2017-11-29] MEDS ORDERED: TRANEXAMIC ACID 1,000 MG/10 ML VIAL ONE (06:37)
[2017-11-29] MEDS ORDERED: BACITRACIN OINT 0.9 GM PACK TOP ONE (06:37)
[2017-11-29] MEDS ORDERED: POTASSIUM CHLORIDE RIDER 100 ML IV ONE (07:00)
[2017-11-29] MEDS: DOCUSATE SODIUM 100 MG CAPSULE PO SCH ×2 (07:10→21:01)
[2017-11-29] MEDS: INSULIN LISPRO 100 UNIT/ML SUBCUT SCH ×4 (07:15→21:02)
[2017-11-29] MEDS: LEVOTHYROXINE 100 MCG TABLET PO SCH (07:40)
[2017-11-29] MEDS ORDERED: ROPIVACAINE 0.5% 30 ML VIAL ONE (08:07)
[2017-11-29] MEDS: FUROSEMIDE 80 MG TABLET PO SCH (08:37)
[2017-11-29] MEDS: DILTIAZEM CD 180 MG CAPSULE PO SCH ×2 (09:10→21:02)
[2017-11-29] MEDS: hydrALAZINE 25 MG TABLET PO SCH ×3 (09:10→21:02)
[2017-11-29] MEDS: METOPROLOL SUCCINATE XL 50 MG TABLET PO SCH ×2 (09:11→21:02)
[2017-11-29] MEDS ORDERED: MORPHINE 4 MG/1 ML VIAL IV PRN ×2 (09:12)
[2017-11-29] MEDS: ASPIRIN EC 81 MG TABLET PO SCH (09:13)
[2017-11-29] MEDS ORDERED: PROPOFOL 200 MG/20 ML VIAL IV ONE (10:00)
[2017-11-29] MEDS ORDERED: SODIUM CHLORIDE 0.9% 250 ML IV ONE (10:01)
[2017-11-29] MEDS ORDERED: ETOMIDATE 40 MG/20 ML VIAL IV ONE (10:01)
[2017-11-29] MEDS ORDERED: fentaNYL 100 MCG/2 ML VIAL ONE (10:01)
[2017-11-29] MEDS ORDERED: MIDAZOLAM 2 MG/2 ML VIAL ONE (10:01)
[2017-11-29] MEDS ORDERED: SEVOFLURANE 1 UNIT/15 MINUTE INH ONE (10:01)
[2017-11-29] MEDS ORDERED: ONDANSETRON 4 MG/2 ML VIAL ONE (10:01)
[2017-11-29] MEDS ORDERED: PHENYLEPHRINE 1 MG/10 ML SYRINGE IV ONE (10:01)
[2017-11-29] MEDS: PANTOPRAZOLE 40 MG TABLET PO SCH (14:32)
[2017-11-29] MEDS: POTASSIUM CHLORIDE 8 MEQ CAPSULE PO SCH (14:33)
[2017-11-29] MEDS: CYANOCOBALAMIN 500 MCG TABLET PO SCH (14:34)
[2017-11-29] MEDS: metOLazone 2.5 MG TABLET PO SCH (14:34)
[2017-11-29] MEDS: ALLOPURINOL 300 MG TABLET PO SCH (14:34)
[2017-11-29] MEDS: DUTASTERIDE 0.5 MG CAPSULE PO SCH (14:34)
[2017-11-29] MEDS: PRAVASTATIN 40 MG TABLET PO SCH (14:35)
[2017-11-29] MEDS: CALCIUM (CARBONATE) 600 MG TABLET PO SCH (14:35)
[2017-11-29] MEDS: POTASSIUM CHLORIDE INJ 40 MEQ in LACTATED RINGERS 1,000 ML IV SCH ×2 (14:36→19:44)
[2017-11-29] MEDS: RIFAMPIN IV SCH ×2 (14:37→23:52)
[2017-11-29] MEDS: SODIUM CHLORIDE 0.9% IV SCH ×2 (14:37→23:52)
[2017-11-29] MEDS: VANCOMYCIN INJ 1,500 MG in SODIUM CHLORIDE 0.9% 500 ML IV SCH (16:55)
[2017-11-29] MEDS: FUROSEMIDE 40 MG TABLET PO SCH (16:55)
[2017-11-29] MEDS: rOPINIRole 1 MG TABLET PO SCH (16:59)
[2017-11-29] MEDS ORDERED: rOPINIRole 1 MG TABLET PO SCH (17:00)
[2017-11-29] MEDS: DABIGATRAN 75 MG CAPSULE PO SCH (21:01)
[2017-11-29] MEDS: CHOLECALCIFEROL 1,000 UNIT TABLET PO SCH (21:01)
[2017-11-29] MEDS: ASCORBIC ACID 500 MG TABLET PO SCH (21:01)
[2017-11-29] MEDS: OMEGA 3 ACID ETHYL ESTERS 1 GM CAPSULE PO SCH (21:01)
[2017-11-30] MEDS: MAGNESIUM HYDROXIDE SUSP 30 ML UDCUP PO PRN ×2 (00:42→07:07)
[2017-11-30] MEDS: traMADol 50 MG TABLET PO PRN (01:30)
[2017-11-30 05:33] LABS: Basophils % 0.2 % (0.0-0.8); Eosinophils % 0.2 % (0.00-10.9); Hematocrit 27.7 VOL% (42.0-52.0); Hemoglobin 8.6 GM/DL (14.0-18.0); Immature Granulocytes % 0.8 %; Lymphocytes # 1.4 10*3/uL (1.4-4.0); Lymphocytes % 11.3 % (21.2-54.2); Mean Corpuscular Hemoglobin 32 PG (27-34); Mean Corpuscular Volume 103.4 FL (87-102); Mean Platelet Volume 10.6 FL (9.6-12.0); Monocytes # 1.5 10*3/uL (0.11-0.8); Monocytes % 12.1 % (1.7-12.7); Neutrophils # 9.5 10*3/uL (1.4-7.4); Neutrophils % 75.4 % (38.7-73.9); Platelet Count 317 T/CUMM (130-400); Red Blood Count 2.68 MC/CUMM (3.8-5.5); Red Cell Distribution Width 16.3 % (9.3-17.3); White Blood Count 12.6 T/CUMM (4-12)
[2017-11-30 06:02] LABS: Calcium 8.5 MG/DL (8.5-10.1); Osmolality,Calculated 289.8 MOS/KG (273-304); Potassium 4.2 MMOL/L (3.5-5.1)
[2017-11-30] MEDS: LEVOTHYROXINE 100 MCG TABLET PO SCH (06:09)
[2017-11-30] MEDS: INSULIN LISPRO 100 UNIT/ML SUBCUT SCH ×4 (09:01→21:24)
[2017-11-30] MEDS ORDERED: ALUMINUM/MAGNES/SIMETH MAX STR 30 ML UDCUP PO PRN (09:12)
[2017-11-30] MEDS: DOCUSATE SODIUM 100 MG CAPSULE PO SCH ×2 (10:14→21:24)
[2017-11-30] MEDS: DABIGATRAN 75 MG CAPSULE PO SCH ×2 (10:14→21:24)
[2017-11-30] MEDS: ASPIRIN EC 81 MG TABLET PO SCH (10:15)
[2017-11-30] MEDS: metOLazone 2.5 MG TABLET PO SCH (10:15)
[2017-11-30] MEDS: DILTIAZEM CD 180 MG CAPSULE PO SCH ×2 (10:15→21:23)
[2017-11-30] MEDS: CALCIUM (CARBONATE) 600 MG TABLET PO SCH (10:16)
[2017-11-30] MEDS: FUROSEMIDE 80 MG TABLET PO SCH (10:16)
[2017-11-30] MEDS: PANTOPRAZOLE 40 MG TABLET PO SCH (10:16)
[2017-11-30] MEDS: CYANOCOBALAMIN 500 MCG TABLET PO SCH (10:16)
[2017-11-30] MEDS: DUTASTERIDE 0.5 MG CAPSULE PO SCH (10:16)
[2017-11-30] MEDS: METOPROLOL SUCCINATE XL 50 MG TABLET PO SCH ×2 (10:17→21:29)
[2017-11-30] MEDS: POTASSIUM CHLORIDE 8 MEQ CAPSULE PO SCH (11:26)
[2017-11-30] MEDS: hydrALAZINE 25 MG TABLET PO SCH ×3 (11:33→21:29)
[2017-11-30] MEDS: POTASSIUM CHLORIDE INJ 40 MEQ in LACTATED RINGERS 1,000 ML IV SCH (12:30)
[2017-11-30] MEDS: SODIUM CHLORIDE 0.9% IV SCH ×2 (12:34→23:46)
[2017-11-30] MEDS: RIFAMPIN IV SCH ×2 (12:34→23:46)
[2017-11-30] MEDS: FUROSEMIDE 40 MG TABLET PO SCH (15:57)
[2017-11-30] MEDS: rOPINIRole 1 MG TABLET PO SCH (16:01)
[2017-11-30] MEDS: VANCOMYCIN INJ 1,500 MG in SODIUM CHLORIDE 0.9% 500 ML IV SCH (19:10)
[2017-11-30] MEDS: ASCORBIC ACID 500 MG TABLET PO SCH (21:23)
[2017-11-30] MEDS: OMEGA 3 ACID ETHYL ESTERS 1 GM CAPSULE PO SCH (21:24)
[2017-11-30] MEDS: CHOLECALCIFEROL 1,000 UNIT TABLET PO SCH (21:24)
[2017-11-30] MEDS: DEXTROMETHORPHAN ER 6 MG/ML 90 ML/BOTTLE PO PRN (23:32)
[2017-12-01] MEDS: LEVOTHYROXINE 100 MCG TABLET PO SCH (06:09)
[2017-12-01 07:16] LABS: Basophils % 0.5 % (0.0-0.8); Eosinophils # 0.1 10*3/uL (0.0-0.87); Eosinophils % 1.1 % (0.00-10.9); Hematocrit 28.1 VOL% (42.0-52.0); Hemoglobin 8.8 GM/DL (14.0-18.0); Immature Granulocytes % 1.5 %; Immature Granulocytes Absolute 0.13 #; Lymphocytes # 1.6 10*3/uL (1.4-4.0); Lymphocytes % 18.1 % (21.2-54.2); Mean Corpuscular HGB Conc 31.3 GM/DL (32-36); Mean Corpuscular Hemoglobin 32 PG (27-34); Mean Corpuscular Volume 102.6 FL (87-102); Mean Platelet Volume 10.4 FL (9.6-12.0); Monocytes # 1.3 10*3/uL (0.11-0.8); Monocytes % 14.4 % (1.7-12.7); NRBC # 0.03 10*3/uL; Neutrophils # 5.6 10*3/uL (1.4-7.4); Neutrophils % 64.4 % (38.7-73.9); Platelet Count 380 T/CUMM (130-400); Red Blood Count 2.74 MC/CUMM (3.8-5.5); Red Cell Distribution Width 16.6 % (9.3-17.3); White Blood Count 8.8 T/CUMM (4-12)
[2017-12-01] MEDS: INSULIN LISPRO 100 UNIT/ML SUBCUT SCH ×4 (10:18→21:30)
[2017-12-01] MEDS: DILTIAZEM CD 180 MG CAPSULE PO SCH ×2 (10:22→21:27)
[2017-12-01] MEDS: METOPROLOL SUCCINATE XL 50 MG TABLET PO SCH ×2 (10:22→21:30)
[2017-12-01] MEDS: metOLazone 2.5 MG TABLET PO SCH (10:22)
[2017-12-01] MEDS: CALCIUM (CARBONATE) 600 MG TABLET PO SCH (10:23)
[2017-12-01] MEDS: ASPIRIN EC 81 MG TABLET PO SCH (10:23)
[2017-12-01] MEDS: DUTASTERIDE 0.5 MG CAPSULE PO SCH (10:23)
[2017-12-01] MEDS: DABIGATRAN 75 MG CAPSULE PO SCH ×2 (10:23→21:27)
[2017-12-01] MEDS: CYANOCOBALAMIN 500 MCG TABLET PO SCH (10:23)
[2017-12-01] MEDS: FUROSEMIDE 80 MG TABLET PO SCH (10:24)
[2017-12-01] MEDS: POTASSIUM CHLORIDE 8 MEQ CAPSULE PO SCH (10:24)
[2017-12-01] MEDS: DOCUSATE SODIUM 100 MG CAPSULE PO SCH ×2 (10:24→21:28)
[2017-12-01] MEDS: PANTOPRAZOLE 40 MG TABLET PO SCH (10:24)
[2017-12-01] MEDS: hydrALAZINE 25 MG TABLET PO SCH ×3 (10:25→21:30)
[2017-12-01] MEDS: POTASSIUM CHLORIDE INJ 40 MEQ in LACTATED RINGERS 1,000 ML IV SCH ×2 (11:19→16:36)
[2017-12-01] MEDS: SODIUM CHLORIDE 0.9% IV SCH ×2 (12:44→23:50)
[2017-12-01] MEDS: RIFAMPIN IV SCH ×2 (12:44→23:50)
[2017-12-01] MEDS: FUROSEMIDE 40 MG TABLET PO SCH (15:39)
[2017-12-01] MEDS: rOPINIRole 1 MG TABLET PO SCH (17:01)
[2017-12-01] MEDS: VANCOMYCIN INJ 1,500 MG in SODIUM CHLORIDE 0.9% 500 ML IV SCH (17:04)
[2017-12-01] MEDS: CHOLECALCIFEROL 1,000 UNIT TABLET PO SCH (21:27)
[2017-12-01] MEDS: ASCORBIC ACID 500 MG TABLET PO SCH (21:28)
[2017-12-01] MEDS: OMEGA 3 ACID ETHYL ESTERS 1 GM CAPSULE PO SCH (21:28)
[2017-12-02] MEDS: POTASSIUM CHLORIDE INJ 40 MEQ in LACTATED RINGERS 1,000 ML IV SCH ×2 (04:40→23:30)
[2017-12-02 04:53] LABS: Basophils % 0.5 % (0.0-0.8); Eosinophils # 0.2 10*3/uL (0.0-0.87); Eosinophils % 2.7 % (0.00-10.9); Hematocrit 27.7 VOL% (42.0-52.0); Hemoglobin 8.8 GM/DL (14.0-18.0); Immature Granulocytes % 1.7 %; Immature Granulocytes Absolute 0.14 #; Lymphocytes # 1.4 10*3/uL (1.4-4.0); Lymphocytes % 17.2 % (21.2-54.2); Mean Corpuscular HGB Conc 31.8 GM/DL (32-36); Mean Corpuscular Hemoglobin 32 PG (27-34); Mean Corpuscular Volume 101.5 FL (87-102); Mean Platelet Volume 10.4 FL (9.6-12.0); Monocytes # 1.2 10*3/uL (0.11-0.8); Monocytes % 14.3 % (1.7-12.7); NRBC # 0.09 10*3/uL; Neutrophils # 5.1 10*3/uL (1.4-7.4); Neutrophils % 63.6 % (38.7-73.9); Platelet Count 419 T/CUMM (130-400); Red Blood Count 2.73 MC/CUMM (3.8-5.5); Red Cell Distribution Width 16.4 % (9.3-17.3); White Blood Count 8.1 T/CUMM (4-12)
[2017-12-02] MEDS: LEVOTHYROXINE 100 MCG TABLET PO SCH (06:01)
[2017-12-02] MEDS: DUTASTERIDE 0.5 MG CAPSULE PO SCH (08:37)
[2017-12-02] MEDS: CYANOCOBALAMIN 500 MCG TABLET PO SCH (08:37)
[2017-12-02] MEDS: metOLazone 2.5 MG TABLET PO SCH (08:37)
[2017-12-02] MEDS: INSULIN LISPRO 100 UNIT/ML SUBCUT SCH ×4 (08:37→21:04)
[2017-12-02] MEDS: ALLOPURINOL 300 MG TABLET PO SCH (08:37)
[2017-12-02] MEDS: CALCIUM (CARBONATE) 600 MG TABLET PO SCH (08:37)
[2017-12-02] MEDS: DOCUSATE SODIUM 100 MG CAPSULE PO SCH ×3 (08:38→20:30)
[2017-12-02] MEDS: PRAVASTATIN 40 MG TABLET PO SCH (08:38)
[2017-12-02] MEDS: POTASSIUM CHLORIDE 8 MEQ CAPSULE PO SCH (08:38)
[2017-12-02] MEDS: PANTOPRAZOLE 40 MG TABLET PO SCH (08:38)
[2017-12-02] MEDS: FUROSEMIDE 80 MG TABLET PO SCH (08:38)
[2017-12-02] MEDS: DILTIAZEM CD 180 MG CAPSULE PO SCH ×2 (08:38→20:31)
[2017-12-02] MEDS: ASPIRIN EC 81 MG TABLET PO SCH (08:38)
[2017-12-02] MEDS: METOPROLOL SUCCINATE XL 50 MG TABLET PO SCH ×2 (08:38→20:31)
[2017-12-02] MEDS: DABIGATRAN 75 MG CAPSULE PO SCH (08:40)
[2017-12-02] MEDS: hydrALAZINE 25 MG TABLET PO SCH ×3 (09:45→20:31)
[2017-12-02 10:54] LABS: Calcium 8.7 MG/DL (8.5-10.1); Osmolality,Calculated 291.7 MOS/KG (273-304); Potassium 4.9 MMOL/L (3.5-5.1)
[2017-12-02] MEDS: RIFAMPIN IV SCH (15:23)
[2017-12-02] MEDS: FUROSEMIDE 40 MG TABLET PO SCH (15:23)
[2017-12-02] MEDS: SODIUM CHLORIDE 0.9% IV SCH (15:23)
[2017-12-02] MEDS: ZINC OXIDE PASTE 113 GM TUBE TOP SCH ×2 (15:24→20:31)
[2017-12-02] MEDS: rOPINIRole 1 MG TABLET PO SCH (16:58)
[2017-12-02] MEDS: VANCOMYCIN INJ 1,500 MG in SODIUM CHLORIDE 0.9% 500 ML IV SCH (16:58)
[2017-12-02] MEDS: traMADol 50 MG TABLET PO PRN (18:26)
[2017-12-02] MEDS: CHOLECALCIFEROL 1,000 UNIT TABLET PO SCH (20:30)
[2017-12-02] MEDS: ASCORBIC ACID 500 MG TABLET PO SCH (20:30)
[2017-12-02] MEDS: OMEGA 3 ACID ETHYL ESTERS 1 GM CAPSULE PO SCH (20:30)
[2017-12-02] MEDS: DABIGATRAN 150 MG CAPSULE PO SCH (20:31)
[2017-12-03] MEDS: SODIUM CHLORIDE 0.9% IV SCH ×2 (00:58→12:56)
[2017-12-03] MEDS: RIFAMPIN IV SCH ×2 (00:58→12:56)
[2017-12-03 06:17] LABS: Basophils # 0.1 10*3/uL (0.0-0.2); Basophils % 0.5 % (0.0-0.8); Eosinophils # 0.3 10*3/uL (0.0-0.87); Eosinophils % 2.5 % (0.00-10.9); Hematocrit 28.9 VOL% (42.0-52.0); Immature Granulocytes % 2.4 %; Immature Granulocytes Absolute 0.25 #; Lymphocytes # 1.8 10*3/uL (1.4-4.0); Lymphocytes % 17.7 % (21.2-54.2); Mean Corpuscular HGB Conc 31.1 GM/DL (32-36); Mean Corpuscular Hemoglobin 32 PG (27-34); Mean Corpuscular Volume 102.8 FL (87-102); Mean Platelet Volume 10.1 FL (9.6-12.0); Monocytes # 1.4 10*3/uL (0.11-0.8); Monocytes % 13.5 % (1.7-12.7); NRBC # 0.15 10*3/uL; Neutrophils # 6.6 10*3/uL (1.4-7.4); Neutrophils % 63.4 % (38.7-73.9); Platelet Count 502 T/CUMM (130-400); Red Blood Count 2.81 MC/CUMM (3.8-5.5); Red Cell Distribution Width 16.3 % (9.3-17.3); White Blood Count 10.4 T/CUMM (4-12)
[2017-12-03 06:32] LABS: Calcium 8.5 MG/DL (8.5-10.1); Osmolality,Calculated 288.7 MOS/KG (273-304); Potassium 4.4 MMOL/L (3.5-5.1)
[2017-12-03] MEDS: LEVOTHYROXINE 100 MCG TABLET PO SCH (06:43)
[2017-12-03] MEDS: POTASSIUM CHLORIDE INJ 40 MEQ in LACTATED RINGERS 1,000 ML IV SCH (07:56)
[2017-12-03] MEDS: INSULIN LISPRO 100 UNIT/ML SUBCUT SCH ×4 (08:19→21:34)
[2017-12-03] MEDS: metOLazone 2.5 MG TABLET PO SCH (09:52)
[2017-12-03] MEDS: CALCIUM (CARBONATE) 600 MG TABLET PO SCH (09:52)
[2017-12-03] MEDS: DABIGATRAN 150 MG CAPSULE PO SCH ×2 (09:53→21:34)
[2017-12-03] MEDS: hydrALAZINE 25 MG TABLET PO SCH ×3 (09:53→21:35)
[2017-12-03] MEDS: DUTASTERIDE 0.5 MG CAPSULE PO SCH (09:53)
[2017-12-03] MEDS: POTASSIUM CHLORIDE 8 MEQ CAPSULE PO SCH (09:53)
[2017-12-03] MEDS: CYANOCOBALAMIN 500 MCG TABLET PO SCH (09:53)
[2017-12-03] MEDS: DILTIAZEM CD 180 MG CAPSULE PO SCH ×2 (09:53→21:33)
[2017-12-03] MEDS: FUROSEMIDE 80 MG TABLET PO SCH (09:54)
[2017-12-03] MEDS: METOPROLOL SUCCINATE XL 50 MG TABLET PO SCH ×2 (09:54→21:32)
[2017-12-03] MEDS: PANTOPRAZOLE 40 MG TABLET PO SCH (09:54)
[2017-12-03] MEDS: ASPIRIN EC 81 MG TABLET PO SCH (09:54)
[2017-12-03] MEDS: DOCUSATE SODIUM 100 MG CAPSULE PO SCH ×2 (12:27→21:34)
[2017-12-03] MEDS: rOPINIRole 1 MG TABLET PO SCH (17:42)
[2017-12-03] MEDS: FUROSEMIDE 40 MG TABLET PO SCH (17:42)
[2017-12-03] MEDS: ZINC OXIDE PASTE 113 GM TUBE TOP SCH ×2 (19:00→21:34)
[2017-12-03] MEDS: CHOLECALCIFEROL 1,000 UNIT TABLET PO SCH (21:32)
[2017-12-03] MEDS: OMEGA 3 ACID ETHYL ESTERS 1 GM CAPSULE PO SCH (21:32)
[2017-12-03] MEDS: ASCORBIC ACID 500 MG TABLET PO SCH (21:32)
[2017-12-04] MEDS: SODIUM CHLORIDE 0.9% IV SCH ×2 (01:10→13:26)
[2017-12-04] MEDS: RIFAMPIN IV SCH ×2 (01:10→13:26)
[2017-12-04] MEDS: POTASSIUM CHLORIDE INJ 40 MEQ in LACTATED RINGERS 1,000 ML IV SCH (05:09)
[2017-12-04] MEDS ORDERED: VANCOMYCIN INJ 1,500 MG in SODIUM CHLORIDE 0.9% 500 ML IV SCH (06:00)
[2017-12-04 06:16] LABS: Basophils # 0.1 10*3/uL (0.0-0.2); Basophils % 0.5 % (0.0-0.8); Eosinophils # 0.3 10*3/uL (0.0-0.87); Eosinophils % 2.8 % (0.00-10.9); Hematocrit 28.3 VOL% (42.0-52.0); Hemoglobin 9.1 GM/DL (14.0-18.0); Immature Granulocytes % 2.2 %; Lymphocytes # 1.8 10*3/uL (1.4-4.0); Lymphocytes % 19.2 % (21.2-54.2); Mean Corpuscular HGB Conc 32.2 GM/DL (32-36); Mean Corpuscular Hemoglobin 33 PG (27-34); Mean Corpuscular Volume 102.5 FL (87-102); Mean Platelet Volume 10.2 FL (9.6-12.0); Monocytes # 1.3 10*3/uL (0.11-0.8); Monocytes % 14.1 % (1.7-12.7); NRBC # 0.09 10*3/uL; Neutrophils # 5.6 10*3/uL (1.4-7.4); Neutrophils % 61.2 % (38.7-73.9); Platelet Count 560 T/CUMM (130-400); Red Blood Count 2.76 MC/CUMM (3.8-5.5); Red Cell Distribution Width 16.6 % (9.3-17.3); White Blood Count 9.2 T/CUMM (4-12)
[2017-12-04] MEDS: LEVOTHYROXINE 100 MCG TABLET PO SCH (06:17)
[2017-12-04 06:39] LABS: Calcium 8.9 MG/DL (8.5-10.1); Osmolality,Calculated 294.3 MOS/KG (273-304); Potassium 3.7 MMOL/L (3.5-5.1)
[2017-12-04] MEDS: INSULIN LISPRO 100 UNIT/ML SUBCUT SCH ×4 (09:41→20:44)
[2017-12-04] MEDS: DABIGATRAN 150 MG CAPSULE PO SCH ×2 (10:52→20:43)
[2017-12-04] MEDS: CYANOCOBALAMIN 500 MCG TABLET PO SCH (10:53)
[2017-12-04] MEDS: CALCIUM (CARBONATE) 600 MG TABLET PO SCH (10:53)
[2017-12-04] MEDS: DUTASTERIDE 0.5 MG CAPSULE PO SCH (10:53)
[2017-12-04] MEDS: DILTIAZEM CD 180 MG CAPSULE PO SCH ×2 (10:54→20:42)
[2017-12-04] MEDS: METOPROLOL SUCCINATE XL 50 MG TABLET PO SCH ×2 (10:55→20:43)
[2017-12-04] MEDS: POTASSIUM CHLORIDE 8 MEQ CAPSULE PO SCH (10:55)
[2017-12-04] MEDS: PRAVASTATIN 40 MG TABLET PO SCH (10:55)
[2017-12-04] MEDS: ASPIRIN EC 81 MG TABLET PO SCH (10:55)
[2017-12-04] MEDS: metOLazone 2.5 MG TABLET PO SCH (10:56)
[2017-12-04] MEDS: PANTOPRAZOLE 40 MG TABLET PO SCH (10:57)
[2017-12-04] MEDS: hydrALAZINE 25 MG TABLET PO SCH ×3 (10:57→20:44)
[2017-12-04] MEDS: FUROSEMIDE 80 MG TABLET PO SCH (10:57)
[2017-12-04] MEDS: DOCUSATE SODIUM 100 MG CAPSULE PO SCH ×2 (10:58→20:44)
[2017-12-04] MEDS: ZINC OXIDE PASTE 113 GM TUBE TOP SCH ×2 (10:59→20:44)
[2017-12-04] MEDS: rOPINIRole 1 MG TABLET PO SCH (17:29)
[2017-12-04] MEDS: FUROSEMIDE 40 MG TABLET PO SCH (17:29)
[2017-12-04] MEDS: DEXTROMETHORPHAN ER 6 MG/ML 90 ML/BOTTLE PO PRN (17:33)
[2017-12-04] MEDS: ALLOPURINOL 300 MG TABLET PO SCH (20:42)
[2017-12-04] MEDS: CHOLECALCIFEROL 1,000 UNIT TABLET PO SCH (20:43)
[2017-12-04] MEDS: OMEGA 3 ACID ETHYL ESTERS 1 GM CAPSULE PO SCH (20:43)
[2017-12-04] MEDS: ASCORBIC ACID 500 MG TABLET PO SCH (20:43)
[2017-12-04] MEDS: ACETAMINOPHEN 325 MG TABLET PO PRN (20:52)
[2017-12-05] MEDS: RIFAMPIN IV SCH ×2 (00:45→14:47)
[2017-12-05] MEDS: SODIUM CHLORIDE 0.9% IV SCH ×2 (00:45→14:47)
[2017-12-05 04:48] LABS: Basophils # 0.1 10*3/uL (0.0-0.2); Basophils % 0.6 % (0.0-0.8); Eosinophils # 0.3 10*3/uL (0.0-0.87); Eosinophils % 2.8 % (0.00-10.9); Hematocrit 29.7 VOL% (42.0-52.0); Immature Granulocytes % 1.8 %; Immature Granulocytes Absolute 0.16 #; Lymphocytes # 1.8 10*3/uL (1.4-4.0); Lymphocytes % 19.7 % (21.2-54.2); Mean Corpuscular HGB Conc 30.3 GM/DL (32-36); Mean Corpuscular Hemoglobin 32 PG (27-34); Mean Corpuscular Volume 105.3 FL (87-102); Monocytes # 1.4 10*3/uL (0.11-0.8); Monocytes % 15.2 % (1.7-12.7); NRBC # 0.04 10*3/uL; Neutrophils # 5.3 10*3/uL (1.4-7.4); Neutrophils % 59.9 % (38.7-73.9); Platelet Count 553 T/CUMM (130-400); Red Blood Count 2.82 MC/CUMM (3.8-5.5); Red Cell Distribution Width 16.8 % (9.3-17.3); White Blood Count 8.9 T/CUMM (4-12)
[2017-12-05 05:13] LABS: Calcium 8.9 MG/DL (8.5-10.1); Osmolality,Calculated 294.1 MOS/KG (273-304); Potassium 3.9 MMOL/L (3.5-5.1)
[2017-12-05] MEDS: LEVOTHYROXINE 100 MCG TABLET PO SCH (06:32)
[2017-12-05] MEDS ORDERED: VANCOMYCIN INJ 1,250 MG in SODIUM CHLORIDE 0.9% 250 ML IV SCH (08:00)
[2017-12-05] MEDS: hydrALAZINE 25 MG TABLET PO SCH ×4 (08:34→21:58)
[2017-12-05] MEDS: INSULIN LISPRO 100 UNIT/ML SUBCUT SCH ×4 (09:35→21:59)
[2017-12-05] MEDS: metOLazone 2.5 MG TABLET PO SCH (09:36)
[2017-12-05] MEDS: CYANOCOBALAMIN 500 MCG TABLET PO SCH (09:36)
[2017-12-05] MEDS: FUROSEMIDE 40 MG TABLET PO SCH ×2 (09:36→16:11)
[2017-12-05] MEDS: POTASSIUM CHLORIDE 8 MEQ CAPSULE PO SCH (09:36)
[2017-12-05] MEDS: DABIGATRAN 150 MG CAPSULE PO SCH ×2 (09:36→21:59)
[2017-12-05] MEDS: DUTASTERIDE 0.5 MG CAPSULE PO SCH (09:36)
[2017-12-05] MEDS: ASPIRIN EC 81 MG TABLET PO SCH (09:36)
[2017-12-05] MEDS: CALCIUM (CARBONATE) 600 MG TABLET PO SCH (09:36)
[2017-12-05] MEDS: PANTOPRAZOLE 40 MG TABLET PO SCH (09:37)
[2017-12-05] MEDS: DILTIAZEM CD 180 MG CAPSULE PO SCH ×2 (09:38→21:58)
[2017-12-05] MEDS: ACETAMINOPHEN 325 MG TABLET PO PRN ×2 (09:48→22:02)
[2017-12-05] MEDS: DOCUSATE SODIUM 100 MG CAPSULE PO SCH ×2 (10:11→21:58)
[2017-12-05] MEDS: METOPROLOL SUCCINATE XL 50 MG TABLET PO SCH ×2 (10:12→21:59)
[2017-12-05] MEDS: POTASSIUM CHLORIDE INJ 40 MEQ in LACTATED RINGERS 1,000 ML IV SCH (11:55)
[2017-12-05] MEDS: ZINC OXIDE PASTE 113 GM TUBE TOP SCH ×2 (16:11→21:58)
[2017-12-05] MEDS: rOPINIRole 1 MG TABLET PO SCH (16:11)
[2017-12-05] MEDS: CHOLECALCIFEROL 1,000 UNIT TABLET PO SCH (21:59)
[2017-12-05] MEDS: ASCORBIC ACID 500 MG TABLET PO SCH (21:59)
[2017-12-05] MEDS: OMEGA 3 ACID ETHYL ESTERS 1 GM CAPSULE PO SCH (21:59)
[2017-12-06] MEDS: RIFAMPIN IV SCH ×2 (00:44→14:08)
[2017-12-06] MEDS: SODIUM CHLORIDE 0.9% IV SCH ×2 (00:44→14:08)
[2017-12-06 05:34] LABS: Osmolality,Calculated 289.4 MOS/KG (273-304)
[2017-12-06] MEDS: LEVOTHYROXINE 100 MCG TABLET PO SCH (06:37)
[2017-12-06] MEDS: INSULIN LISPRO 100 UNIT/ML SUBCUT SCH ×2 (07:39→12:00)
[2017-12-06] MEDS ORDERED: VANCOMYCIN INJ 2,000 MG in SODIUM CHLORIDE 0.9% 500 ML IV SCH (08:00)
[2017-12-06] MEDS: CALCIUM (CARBONATE) 600 MG TABLET PO SCH (08:41)
[2017-12-06] MEDS: FUROSEMIDE 40 MG TABLET PO SCH (08:41)
[2017-12-06] MEDS: DILTIAZEM CD 180 MG CAPSULE PO SCH (08:41)
[2017-12-06] MEDS: hydrALAZINE 25 MG TABLET PO SCH ×2 (08:41→16:13)
[2017-12-06] MEDS: ASPIRIN EC 81 MG TABLET PO SCH (08:41)
[2017-12-06] MEDS: DUTASTERIDE 0.5 MG CAPSULE PO SCH (08:41)
[2017-12-06] MEDS: DOCUSATE SODIUM 100 MG CAPSULE PO SCH (08:42)
[2017-12-06] MEDS: DABIGATRAN 150 MG CAPSULE PO SCH (08:42)
[2017-12-06] MEDS: METOPROLOL SUCCINATE XL 50 MG TABLET PO SCH (08:42)
[2017-12-06] MEDS: PANTOPRAZOLE 40 MG TABLET PO SCH (08:42)
[2017-12-06] MEDS: POTASSIUM CHLORIDE 8 MEQ CAPSULE PO SCH (08:42)
[2017-12-06] MEDS: metOLazone 2.5 MG TABLET PO SCH (08:43)
[2017-12-06] MEDS: CYANOCOBALAMIN 500 MCG TABLET PO SCH (08:43)
[2017-12-06] MEDS: ALLOPURINOL 300 MG TABLET PO SCH (08:43)
[2017-12-06 12:10] VITALS: BP 142/78
[2017-12-06] MEDS: ZINC OXIDE PASTE 113 GM TUBE TOP SCH (14:08)
== END 2017-12-06 15:50 | disposition home health service (06) | DRG 485 ==
LOC: N.4E 11:14 → N.3E 11-29 16:25
PROVIDERS: ADMIT Internal Medicine; ATTEND Internal Medicine

== ENCOUNTER 2017-12-30 03:35 | Inpatient (IN) ==
[2017-12-30 04:22] LABS: Immature Granulocytes % 0.8 %; Immature Granulocytes Absolute 0.05 #
[2017-12-30 04:32] LABS: Basophils % 0.6 % (0.0-0.8); Eosinophils # 0.1 10*3/uL (0.0-0.87); Eosinophils % 1.6 % (0.00-10.9); Hematocrit 33.7 VOL% (42.0-52.0); Lymphocytes # 0.9 10*3/uL (1.4-4.0); Lymphocytes % 13.9 % (21.2-54.2); Mean Corpuscular HGB Conc 29.4 GM/DL (32-36); Mean Corpuscular Hemoglobin 32 PG (27-34); Mean Corpuscular Volume 108.7 FL (87-102); Monocytes # 0.6 10*3/uL (0.11-0.8); Monocytes % 9.6 % (1.7-12.7); Neutrophils # 4.6 10*3/uL (1.4-7.4); Neutrophils % 73.5 % (38.7-73.9); Platelet Count 318 T/CUMM (130-400); Red Cell Distribution Width 17.8 % (9.3-17.3); White Blood Count 6.3 T/CUMM (4-12)
[2017-12-30 04:45] LABS: Albumin 2.5 G/DL (3.4-5.0); Bilirubin,Total 0.4 MG/DL (0.2-1.0); Calcium 8.7 MG/DL (8.5-10.1); Osmolality,Calculated 297.5 MOS/KG (273-304); Potassium 3.5 MMOL/L (3.5-5.1); Total Protein 7.8 G/DL (6.4-8.3)
[2017-12-30 04:46] LABS: Apearance,Urine Slightly Hazy (Clear); Bacteria,Urine Occasional /HPF (Few); Bilirubin,Urine Negative (Negative); Blood, Urine Large mg/dL (Negative); Glucose,Urine (UA) Negative (Negative); Hyaline Casts,Urine 4 /LPF (0-3); Ketones,Urine Negative (Negative); Mucus,Urine Occasional /LPF (Occasional); Nitrite,Urine Negative (Negative); Protein,Urine Negative; RBC,Urine 200 /HPF (0-4); Squamous Epithelial Cell,Urine Occasional /HPF (0-10); Urine Color Yellow (Yellow); Urine Urobilinogen < 2.0 EU/DL (0.2-1.0); WBC,Urine 3 /HPF (0-6)
[2017-12-30 05:30] LABS: Anisocytosis 1+
[2017-12-30 05:31] LABS: Macrocytosis 1+; Platelet Estimate Normal
[2017-12-30 08:22] LABS: ABG Base Excess 12.8 MMOL/L (-2.5-2.5); ABG HCO3 36.3 MMOL/L (20-26); ABG Oxygen Saturation 80.5 % (95-100); ABG PH 7.234 (7.35-7.45); ABG PO2 51.4 MM HG (80-95); ABG TCO2 41.7 MMOL/L (23-27)
[2017-12-30 09:49] LABS: Amorphous Crystals,Urine Occasional /HPF (Few); Apearance,Urine Slightly Hazy (Clear); Bacteria,Urine Occasional /HPF (Few); Bilirubin,Urine Negative (Negative); Blood, Urine Large mg/dL (Negative); Glucose,Urine (UA) Negative (Negative); Ketones,Urine Negative (Negative); Mucus,Urine Occasional /LPF (Occasional); Nitrite,Urine Negative (Negative); Protein,Urine Negative; RBC,Urine 13 /HPF (0-4); Urine Color Yellow (Yellow); Urine Specific Gravity 1.008 (1.001-1.035); Urine Urobilinogen < 2.0 EU/DL (0.2-1.0)
[2017-12-31 05:53] LABS: Hematocrit 30.1 VOL% (42.0-52.0); Hemoglobin 9.1 GM/DL (14.0-18.0); Immature Granulocytes % 0.7 %; Immature Granulocytes Absolute 0.03 #; Lymphocytes # 0.4 10*3/uL (1.4-4.0); Lymphocytes % 10.8 % (21.2-54.2); Mean Corpuscular HGB Conc 30.2 GM/DL (32-36); Mean Corpuscular Hemoglobin 32 PG (27-34); Mean Corpuscular Volume 104.5 FL (87-102); Mean Platelet Volume 10.1 FL (9.6-12.0); NRBC # 0.03 10*3/uL; Neutrophils # 3.6 10*3/uL (1.4-7.4); Neutrophils % 87.5 % (38.7-73.9); Platelet Count 263 T/CUMM (130-400); Red Blood Count 2.88 MC/CUMM (3.8-5.5); Red Cell Distribution Width 17.5 % (9.3-17.3); White Blood Count 4.1 T/CUMM (4-12)
[2017-12-31 06:34] LABS: Calcium 8.5 MG/DL (8.5-10.1); Potassium 3.2 MMOL/L (3.5-5.1)
[2017-12-31 11:19] LABS: ABG Base Excess 16.1 MMOL/L (-2.5-2.5); ABG PH 7.404 (7.35-7.45); ABG PO2 68.3 MM HG (80-95); ABG TCO2 40.3 MMOL/L (23-27)
[2017-12-31 11:21] LABS: ABG PCO2 70.6 MM HG (35-48)
[2018-01-01 03:54] LABS: Hematocrit 30.1 VOL% (42.0-52.0); Hemoglobin 8.9 GM/DL (14.0-18.0); Immature Granulocytes % 0.6 %; Immature Granulocytes Absolute 0.03 #; Lymphocytes # 0.4 10*3/uL (1.4-4.0); Lymphocytes % 7.5 % (21.2-54.2); Mean Corpuscular HGB Conc 29.6 GM/DL (32-36); Mean Corpuscular Hemoglobin 31 PG (27-34); Mean Corpuscular Volume 105.2 FL (87-102); Mean Platelet Volume 10.1 FL (9.6-12.0); Monocytes # 0.1 10*3/uL (0.11-0.8); Monocytes % 1.4 % (1.7-12.7); Neutrophils # 4.6 10*3/uL (1.4-7.4); Neutrophils % 90.5 % (38.7-73.9); Platelet Count 277 T/CUMM (130-400); Red Blood Count 2.86 MC/CUMM (3.8-5.5); Red Cell Distribution Width 17.4 % (9.3-17.3); White Blood Count 5.1 T/CUMM (4-12)
[2018-01-01 04:11] LABS: Blood Urea Nitrogen 64 MG/DL (7-18); Calcium 8.5 MG/DL (8.5-10.1); Glucose 244 MG/DL (74-106); Osmolality,Calculated 302.5 MOS/KG (273-304); Potassium 3.3 MMOL/L (3.5-5.1); Potassium 3.4 MMOL/L (3.5-5.1); Sodium 139 MMOL/L (136-145)
[2018-01-02 03:31] LABS: Hematocrit 31.4 VOL% (42.0-52.0); Hemoglobin 9.4 GM/DL (14.0-18.0); Immature Granulocytes Absolute 0.05 #; Lymphocytes # 0.3 10*3/uL (1.4-4.0); Lymphocytes % 5.8 % (21.2-54.2); Mean Corpuscular HGB Conc 29.9 GM/DL (32-36); Mean Corpuscular Hemoglobin 32 PG (27-34); Mean Corpuscular Volume 105.4 FL (87-102); Mean Platelet Volume 10.3 FL (9.6-12.0); Monocytes # 0.2 10*3/uL (0.11-0.8); Monocytes % 3.3 % (1.7-12.7); Neutrophils # 4.6 10*3/uL (1.4-7.4); Neutrophils % 89.9 % (38.7-73.9); Platelet Count 297 T/CUMM (130-400); Red Blood Count 2.98 MC/CUMM (3.8-5.5); Red Cell Distribution Width 17.5 % (9.3-17.3); White Blood Count 5.1 T/CUMM (4-12)
[2018-01-02 03:50] LABS: Calcium 8.4 MG/DL (8.5-10.1); Osmolality,Calculated 307.5 MOS/KG (273-304); Potassium 3.1 MMOL/L (3.5-5.1)
[2018-01-03 04:15] LABS: Hematocrit 32.5 VOL% (42.0-52.0); Hemoglobin 9.6 GM/DL (14.0-18.0); Immature Granulocytes % 0.4 %; Immature Granulocytes Absolute 0.02 #; Lymphocytes # 0.3 10*3/uL (1.4-4.0); Lymphocytes % 5.8 % (21.2-54.2); Mean Corpuscular HGB Conc 29.5 GM/DL (32-36); Mean Corpuscular Hemoglobin 31 PG (27-34); Mean Corpuscular Volume 103.8 FL (87-102); Mean Platelet Volume 10.6 FL (9.6-12.0); Monocytes # 0.3 10*3/uL (0.11-0.8); Monocytes % 5.6 % (1.7-12.7); Neutrophils # 4.1 10*3/uL (1.4-7.4); Neutrophils % 88.2 % (38.7-73.9); Platelet Count 312 T/CUMM (130-400); Red Blood Count 3.13 MC/CUMM (3.8-5.5); Red Cell Distribution Width 17.5 % (9.3-17.3); White Blood Count 4.6 T/CUMM (4-12)
[2018-01-03 04:51] LABS: Blood Urea Nitrogen 70 MG/DL (7-18); Calcium 8.4 MG/DL (8.5-10.1); Glucose 192 MG/DL (74-106); Osmolality,Calculated 306.3 MOS/KG (273-304); Potassium 3.3 MMOL/L (3.5-5.1); Sodium 141 MMOL/L (136-145)
[2018-01-03 05:00] LABS: Calcium 8.4 MG/DL (8.5-10.1); Osmolality,Calculated 306.3 MOS/KG (273-304); Potassium 3.4 MMOL/L (3.5-5.1)
[2018-01-04 04:51] LABS: Calcium 8.7 MG/DL (8.5-10.1); Osmolality,Calculated 306.3 MOS/KG (273-304); Potassium 3.4 MMOL/L (3.5-5.1)
[2018-01-04 05:42] LABS: Hematocrit 32.5 VOL% (42.0-52.0); Immature Granulocytes % 1.7 %; Immature Granulocytes Absolute 0.07 #; Lymphocytes # 0.4 10*3/uL (1.4-4.0); Lymphocytes % 9.2 % (21.2-54.2); Mean Corpuscular HGB Conc 30.8 GM/DL (32-36); Mean Corpuscular Hemoglobin 32 PG (27-34); Mean Corpuscular Volume 103.2 FL (87-102); Mean Platelet Volume 10.6 FL (9.6-12.0); Monocytes # 0.3 10*3/uL (0.11-0.8); Monocytes % 6.7 % (1.7-12.7); Neutrophils # 3.3 10*3/uL (1.4-7.4); Neutrophils % 82.4 % (38.7-73.9); Platelet Count 297 T/CUMM (130-400); Red Blood Count 3.15 MC/CUMM (3.8-5.5); Red Cell Distribution Width 17.7 % (9.3-17.3)
[2018-01-05 06:57] LABS: Albumin 2.6 G/DL (3.4-5.0); Bilirubin,Total 0.9 MG/DL (0.2-1.0); Calcium 8.5 MG/DL (8.5-10.1); Osmolality,Calculated 308.4 MOS/KG (273-304); Potassium 3.3 MMOL/L (3.5-5.1); Total Protein 6.8 G/DL (6.4-8.3)
[2018-01-05 07:10] LABS: Hemoglobin 10.1 GM/DL (14.0-18.0); Immature Granulocytes % 1.3 %; Immature Granulocytes Absolute 0.05 #; Lymphocytes # 0.6 10*3/uL (1.4-4.0); Lymphocytes % 14.9 % (21.2-54.2); Mean Corpuscular HGB Conc 30.6 GM/DL (32-36); Mean Corpuscular Hemoglobin 31 PG (27-34); Mean Corpuscular Volume 102.5 FL (87-102); Mean Platelet Volume 10.5 FL (9.6-12.0); Monocytes # 0.3 10*3/uL (0.11-0.8); Monocytes % 6.8 % (1.7-12.7); Platelet Count 272 T/CUMM (130-400); Red Blood Count 3.22 MC/CUMM (3.8-5.5); Red Cell Distribution Width 17.4 % (9.3-17.3); White Blood Count 3.8 T/CUMM (4-12)
[2018-01-06 04:59] LABS: Hematocrit 32.9 VOL% (42.0-52.0); Hemoglobin 10.2 GM/DL (14.0-18.0); Immature Granulocytes % 0.8 %; Immature Granulocytes Absolute 0.05 #; Lymphocytes # 0.3 10*3/uL (1.4-4.0); Lymphocytes % 5.4 % (21.2-54.2); Mean Corpuscular Hemoglobin 32 PG (27-34); Mean Corpuscular Volume 101.5 FL (87-102); Mean Platelet Volume 10.5 FL (9.6-12.0); Monocytes # 0.2 10*3/uL (0.11-0.8); Monocytes % 3.2 % (1.7-12.7); NRBC # 0.03 10*3/uL; Neutrophils # 5.4 10*3/uL (1.4-7.4); Neutrophils % 90.6 % (38.7-73.9); Platelet Count 280 T/CUMM (130-400); Red Blood Count 3.24 MC/CUMM (3.8-5.5); Red Cell Distribution Width 17.6 % (9.3-17.3); White Blood Count 5.9 T/CUMM (4-12)
[2018-01-06 05:29] LABS: Hypochromasia 1+; Lymphocytes 10 % (20-55); Platelet Estimate Adequate; Segmented Neutrophils 87 % (50-85); Total Cells Counted 100
[2018-01-06 05:38] LABS: Calcium 8.8 MG/DL (8.5-10.1); Osmolality,Calculated 309.5 MOS/KG (273-304); Potassium 3.8 MMOL/L (3.5-5.1)
[2018-01-06 17:13] LABS: ABG Base Excess 15.6 MMOL/L (-2.5-2.5); ABG HCO3 39.3 MMOL/L (20-26); ABG Oxygen Saturation 87.9 % (95-100); ABG PH 7.376 (7.35-7.45); ABG TCO2 40.3 MMOL/L (23-27)
[2018-01-07 04:55] LABS: Basophils % 0.2 % (0.0-0.8); Hematocrit 31.1 VOL% (42.0-52.0); Hemoglobin 9.4 GM/DL (14.0-18.0); Immature Granulocytes % 1.2 %; Immature Granulocytes Absolute 0.06 #; Lymphocytes # 0.3 10*3/uL (1.4-4.0); Mean Corpuscular HGB Conc 30.2 GM/DL (32-36); Mean Corpuscular Hemoglobin 32 PG (27-34); Mean Corpuscular Volume 104.4 FL (87-102); Mean Platelet Volume 10.4 FL (9.6-12.0); Monocytes # 0.1 10*3/uL (0.11-0.8); Monocytes % 1.2 % (1.7-12.7); NRBC # 0.03 10*3/uL; Neutrophils # 4.6 10*3/uL (1.4-7.4); Neutrophils % 92.4 % (38.7-73.9); Platelet Count 225 T/CUMM (130-400); Red Blood Count 2.98 MC/CUMM (3.8-5.5); Red Cell Distribution Width 17.6 % (9.3-17.3)
[2018-01-07 05:21] LABS: Hypochromasia 1+; Lymphocytes 2 % (20-55); Platelet Estimate Adequate; Segmented Neutrophils 98 % (50-85); Total Cells Counted 100
[2018-01-07 05:24] LABS: Calcium 8.8 MG/DL (8.5-10.1); Osmolality,Calculated 313.1 MOS/KG (273-304); Potassium 3.8 MMOL/L (3.5-5.1)
[2018-01-07 06:31] LABS: ABG PCO2 76.2 MM HG (35-48); ABG PO2 58.6 MM HG (80-95)
[2018-01-08 05:20] LABS: Hematocrit 31.5 VOL% (42.0-52.0); Hemoglobin 9.7 GM/DL (14.0-18.0); Immature Granulocytes % 0.7 %; Immature Granulocytes Absolute 0.04 #; Lymphocytes # 0.2 10*3/uL (1.4-4.0); Lymphocytes % 4.1 % (21.2-54.2); Mean Corpuscular HGB Conc 30.8 GM/DL (32-36); Mean Corpuscular Hemoglobin 32 PG (27-34); Monocytes # 0.1 10*3/uL (0.11-0.8); Monocytes % 2.1 % (1.7-12.7); NRBC # 0.04 10*3/uL; Neutrophils # 5.4 10*3/uL (1.4-7.4); Neutrophils % 93.1 % (38.7-73.9); Platelet Count 194 T/CUMM (130-400); Red Blood Count 3.03 MC/CUMM (3.8-5.5); Red Cell Distribution Width 17.6 % (9.3-17.3); White Blood Count 5.8 T/CUMM (4-12)
[2018-01-08 05:39] LABS: Hypochromasia 1+; Lymphocytes 4 % (20-55); Platelet Estimate Adequate; Segmented Neutrophils 89 % (50-85); Total Cells Counted 100
[2018-01-08 06:14] LABS: Osmolality,Calculated 321.8 MOS/KG (273-304); Potassium 3.5 MMOL/L (3.5-5.1)
[2018-01-09 04:38] LABS: Hematocrit 32.1 VOL% (42.0-52.0); Immature Granulocytes % 1.1 %; Immature Granulocytes Absolute 0.07 #; Lymphocytes # 0.3 10*3/uL (1.4-4.0); Lymphocytes % 4.4 % (21.2-54.2); Mean Corpuscular HGB Conc 31.2 GM/DL (32-36); Mean Corpuscular Hemoglobin 31 PG (27-34); Mean Corpuscular Volume 100.6 FL (87-102); Mean Platelet Volume 10.5 FL (9.6-12.0); Monocytes # 0.1 10*3/uL (0.11-0.8); Monocytes % 1.3 % (1.7-12.7); NRBC # 0.04 10*3/uL; Neutrophils # 5.9 10*3/uL (1.4-7.4); Neutrophils % 93.2 % (38.7-73.9); Platelet Count 193 T/CUMM (130-400); Red Blood Count 3.19 MC/CUMM (3.8-5.5); Red Cell Distribution Width 17.6 % (9.3-17.3); White Blood Count 6.3 T/CUMM (4-12)
[2018-01-09 05:26] LABS: Hypochromasia 1+; Lymphocytes 3 % (20-55); Macrocytosis 1+; Nucleated Red Blood Cells 1 (0-5); Segmented Neutrophils 92 % (50-85); Total Cells Counted 100
[2018-01-09 05:28] LABS: Basophilic Stippling Slight; Platelet Estimate Adequate
[2018-01-09 05:48] LABS: Blood Urea Nitrogen 96 MG/DL (7-18); Calcium 8.6 MG/DL (8.5-10.1); Glucose 245 MG/DL (74-106); Potassium 3.5 MMOL/L (3.5-5.1); Sodium 143 MMOL/L (136-145)
[2018-01-09 15:54] LABS: ABG Base Excess 14.6 MMOL/L (-2.5-2.5); ABG HCO3 38.1 MMOL/L (20-26); ABG Oxygen Saturation 80.8 % (95-100); ABG PH 7.346 (7.35-7.45); ABG PO2 49.7 MM HG (80-95); ABG TCO2 40.2 MMOL/L (23-27)
[2018-01-09 15:55] LABS: ABG PCO2 80.3 MM HG (35-48)
[2018-01-10 05:48] LABS: Hematocrit 32.6 VOL% (42.0-52.0); Hemoglobin 9.9 GM/DL (14.0-18.0); Immature Granulocytes % 1.2 %; Immature Granulocytes Absolute 0.08 #; Lymphocytes # 0.2 10*3/uL (1.4-4.0); Lymphocytes % 3.1 % (21.2-54.2); Mean Corpuscular HGB Conc 30.4 GM/DL (32-36); Mean Corpuscular Hemoglobin 31 PG (27-34); Mean Corpuscular Volume 103.5 FL (87-102); Mean Platelet Volume 10.5 FL (9.6-12.0); Monocytes # 0.1 10*3/uL (0.11-0.8); Monocytes % 1.5 % (1.7-12.7); NRBC # 0.04 10*3/uL; Neutrophils # 6.3 10*3/uL (1.4-7.4); Neutrophils % 94.2 % (38.7-73.9); Platelet Count 159 T/CUMM (130-400); Red Blood Count 3.15 MC/CUMM (3.8-5.5); Red Cell Distribution Width 17.3 % (9.3-17.3); White Blood Count 6.7 T/CUMM (4-12)
[2018-01-10 06:03] LABS: Blood Urea Nitrogen 92 MG/DL (7-18); Calcium 8.6 MG/DL (8.5-10.1); Glucose 243 MG/DL (74-106); Potassium 3.6 MMOL/L (3.5-5.1); Sodium 143 MMOL/L (136-145)
[2018-01-10 06:07] LABS: Hypochromasia 1+; Lymphocytes 4 % (20-55); Nucleated Red Blood Cells 2 (0-5); Segmented Neutrophils 94 % (50-85); Total Cells Counted 100
[2018-01-10 06:08] LABS: Macrocytosis 1+; Platelet Estimate Adequate
[2018-01-11 05:00] LABS: Hematocrit 31.3 VOL% (42.0-52.0); Hemoglobin 9.4 GM/DL (14.0-18.0); Immature Granulocytes % 0.9 %; Immature Granulocytes Absolute 0.06 #; Lymphocytes # 0.2 10*3/uL (1.4-4.0); Lymphocytes % 3.5 % (21.2-54.2); Mean Corpuscular Hemoglobin 31 PG (27-34); Monocytes # 0.1 10*3/uL (0.11-0.8); Monocytes % 1.3 % (1.7-12.7); NRBC # 0.03 10*3/uL; Neutrophils % 94.3 % (38.7-73.9); Platelet Count 145 T/CUMM (130-400); Red Blood Count 3.07 MC/CUMM (3.8-5.5); Red Cell Distribution Width 17.3 % (9.3-17.3); White Blood Count 6.4 T/CUMM (4-12)
[2018-01-11 05:15] LABS: Calcium 8.2 MG/DL (8.5-10.1); Potassium 3.8 MMOL/L (3.5-5.1)
[2018-01-11 05:32] LABS: Lymphocytes 5 % (20-55); Nucleated Red Blood Cells 1 (0-5); Segmented Neutrophils 93 % (50-85); Total Cells Counted 100
[2018-01-11 05:33] LABS: Anisocytosis 1+; Basophilic Stippling Slight; Hypochromasia 1+; Platelet Estimate Adequate
[2018-01-12 06:01] LABS: Hematocrit 27.7 VOL% (42.0-52.0); Hemoglobin 8.7 GM/DL (14.0-18.0); Immature Granulocytes % 1.1 %; Immature Granulocytes Absolute 0.07 #; Lymphocytes # 0.2 10*3/uL (1.4-4.0); Lymphocytes % 3.2 % (21.2-54.2); Mean Corpuscular HGB Conc 31.4 GM/DL (32-36); Mean Corpuscular Hemoglobin 31 PG (27-34); Mean Corpuscular Volume 99.3 FL (87-102); Mean Platelet Volume 11.4 FL (9.6-12.0); Monocytes # 0.1 10*3/uL (0.11-0.8); Monocytes % 1.3 % (1.7-12.7); NRBC # 0.04 10*3/uL; Neutrophils % 94.4 % (38.7-73.9); Platelet Count 117 T/CUMM (130-400); Red Blood Count 2.79 MC/CUMM (3.8-5.5); Red Cell Distribution Width 17.2 % (9.3-17.3); White Blood Count 6.3 T/CUMM (4-12)
[2018-01-12 06:15] LABS: Calcium 8.3 MG/DL (8.5-10.1); Potassium 3.8 MMOL/L (3.5-5.1)
[2018-01-12 06:28] LABS: Anisocytosis 1+; Band Neutrophils 2 % (0-10); Lymphocytes 2 % (20-55); Macrocytosis Slight; Platelet Estimate Normal; Segmented Neutrophils 95 % (50-85); Total Cells Counted 100
[2018-01-12 12:23] LABS: Hematocrit 29.3 VOL% (42.0-52.0); Hemoglobin 9.1 GM/DL (14.0-18.0)
[2018-01-13 05:15] LABS: Hematocrit 28.1 VOL% (42.0-52.0); Hemoglobin 8.4 GM/DL (14.0-18.0); Immature Granulocytes % 1.5 %; Immature Granulocytes Absolute 0.11 #; Lymphocytes # 0.2 10*3/uL (1.4-4.0); Lymphocytes % 2.7 % (21.2-54.2); Mean Corpuscular HGB Conc 29.9 GM/DL (32-36); Mean Corpuscular Hemoglobin 31 PG (27-34); Mean Corpuscular Volume 102.2 FL (87-102); Mean Platelet Volume 11.2 FL (9.6-12.0); Monocytes # 0.1 10*3/uL (0.11-0.8); Monocytes % 1.3 % (1.7-12.7); NRBC # 0.04 10*3/uL; Neutrophils # 6.8 10*3/uL (1.4-7.4); Neutrophils % 94.5 % (38.7-73.9); Platelet Count 109 T/CUMM (130-400); Red Blood Count 2.75 MC/CUMM (3.8-5.5); Red Cell Distribution Width 17.1 % (9.3-17.3); White Blood Count 7.2 T/CUMM (4-12)
[2018-01-13 05:37] LABS: Calcium 8.2 MG/DL (8.5-10.1); Osmolality,Calculated 328.1 MOS/KG (273-304); Potassium 3.8 MMOL/L (3.5-5.1)
[2018-01-13 06:06] LABS: Band Neutrophils 1 % (0-10); Hypochromasia 1+; Lymphocytes 1 % (20-55); Nucleated Red Blood Cells 1 (0-5); Platelet Estimate Decreased; Segmented Neutrophils 97 % (50-85); Total Cells Counted 100
[2018-01-13 06:07] LABS: Macrocytosis Slight
[2018-01-14 05:36] LABS: Hematocrit 26.5 VOL% (42.0-52.0); Hemoglobin 8.3 GM/DL (14.0-18.0); Immature Granulocytes % 1.8 %; Immature Granulocytes Absolute 0.13 #; Lymphocytes # 0.2 10*3/uL (1.4-4.0); Lymphocytes % 2.8 % (21.2-54.2); Mean Corpuscular HGB Conc 31.3 GM/DL (32-36); Mean Corpuscular Hemoglobin 31 PG (27-34); Mean Corpuscular Volume 100.4 FL (87-102); Mean Platelet Volume 11.5 FL (9.6-12.0); Monocytes # 0.1 10*3/uL (0.11-0.8); Monocytes % 1.5 % (1.7-12.7); NRBC # 0.04 10*3/uL; Neutrophils # 6.8 10*3/uL (1.4-7.4); Neutrophils % 93.9 % (38.7-73.9); Red Blood Count 2.64 MC/CUMM (3.8-5.5); Red Cell Distribution Width 17.2 % (9.3-17.3); White Blood Count 7.2 T/CUMM (4-12)
[2018-01-14 05:40] LABS: Platelet Count 93 T/CUMM (130-400)
[2018-01-14 05:58] LABS: Hypochromasia 1+; Lymphocytes 2 % (20-55); Macrocytosis 1+; Nucleated Red Blood Cells 1 (0-5); Segmented Neutrophils 98 % (50-85); Total Cells Counted 100
[2018-01-14 06:10] LABS: Calcium 8.3 MG/DL (8.5-10.1); Potassium 3.6 MMOL/L (3.5-5.1)
[2018-01-14 11:21] LABS: ABG HCO3 39.9 MMOL/L (20-26); ABG Oxygen Saturation 92.4 % (95-100); ABG PH 7.327 (7.35-7.45); ABG PO2 67.2 MM HG (80-95); ABG TCO2 42.4 MMOL/L (23-27)
[2018-01-14 11:23] LABS: ABG PCO2 86.5 MM HG (35-48)
[2018-01-14 18:27] LABS: ABG Base Excess 20.3 MMOL/L (-2.5-2.5); ABG HCO3 44.6 MMOL/L (20-26); ABG Oxygen Saturation 97.7 % (95-100); ABG PCO2 63.1 MM HG (35-48); ABG PH 7.481 (7.35-7.45); ABG PO2 84.8 MM HG (80-95); ABG TCO2 43.7 MMOL/L (23-27); Allen Test Positive; Pt O2 Delivery Device BIPAP
[2018-01-14 20:17] LABS: Blood Urea Nitrogen 99 MG/DL (7-18); Calcium 8.1 MG/DL (8.5-10.1); Glucose 76 MG/DL (74-106); Osmolality,Calculated 319.6 MOS/KG (273-304); Potassium 3.1 MMOL/L (3.5-5.1); Sodium 146 MMOL/L (136-145)
[2018-01-15 06:29] LABS: Hematocrit 23.5 VOL% (42.0-52.0); Immature Granulocytes % 0.8 %; Immature Granulocytes Absolute 0.05 #; Lymphocytes # 0.1 10*3/uL (1.4-4.0); Lymphocytes % 1.9 % (21.2-54.2); Mean Corpuscular HGB Conc 31.5 GM/DL (32-36); Mean Corpuscular Hemoglobin 31 PG (27-34); Mean Corpuscular Volume 99.6 FL (87-102); Mean Platelet Volume 11.7 FL (9.6-12.0); Monocytes # 0.2 10*3/uL (0.11-0.8); Monocytes % 2.5 % (1.7-12.7); NRBC # 0.05 10*3/uL; Neutrophils # 6.1 10*3/uL (1.4-7.4); Neutrophils % 94.8 % (38.7-73.9); Red Blood Count 2.36 MC/CUMM (3.8-5.5); Red Cell Distribution Width 17.3 % (9.3-17.3); White Blood Count 6.4 T/CUMM (4-12)
[2018-01-15 06:31] LABS: Hemoglobin 7.4 GM/DL (14.0-18.0); Platelet Count 74 T/CUMM (130-400)
[2018-01-15 06:41] LABS: Osmolality,Calculated 329.6 MOS/KG (273-304); Potassium 3.1 MMOL/L (3.5-5.1)
[2018-01-15 07:12] LABS: Anisocytosis 1+; Hypochromasia 1+; Lymphocytes 1 % (20-55); Macrocytosis 1+; Segmented Neutrophils 98 % (50-85); Total Cells Counted 100
[2018-01-15 07:13] LABS: Platelet Estimate Decreased
[2018-01-16 04:42] LABS: Hematocrit 28.4 VOL% (42.0-52.0); Immature Granulocytes % 1.2 %; Lymphocytes # 0.2 10*3/uL (1.4-4.0); Lymphocytes % 2.8 % (21.2-54.2); Mean Corpuscular Hemoglobin 30 PG (27-34); Mean Corpuscular Volume 92.2 FL (87-102); Mean Platelet Volume 12.1 FL (9.6-12.0); Monocytes # 0.5 10*3/uL (0.11-0.8); Monocytes % 5.5 % (1.7-12.7); NRBC # 0.07 10*3/uL; Neutrophils # 7.6 10*3/uL (1.4-7.4); Neutrophils % 90.5 % (38.7-73.9); Platelet Count 75 T/CUMM (130-400); Red Blood Count 3.08 MC/CUMM (3.8-5.5); Red Cell Distribution Width 19.4 % (9.3-17.3); White Blood Count 8.3 T/CUMM (4-12)
[2018-01-16 04:47] LABS: Hemoglobin 9.1 GM/DL (14.0-18.0)
[2018-01-16 05:22] LABS: Band Neutrophils 1 % (0-10); Hypochromasia 1+; Lymphocytes 1 % (20-55); Macrocytosis Slight; Platelet Estimate Decreased; Segmented Neutrophils 93 % (50-85); Total Cells Counted 100
[2018-01-16 05:36] LABS: Blood Urea Nitrogen 97 MG/DL (7-18); Calcium 8.4 MG/DL (8.5-10.1); Glucose 249 MG/DL (74-106); Osmolality,Calculated 327.6 MOS/KG (273-304); Sodium 146 MMOL/L (136-145)
[2018-01-17 04:33] LABS: Basophils % 0.1 % (0.0-0.8); Hematocrit 30.1 VOL% (42.0-52.0); Hemoglobin 9.7 GM/DL (14.0-18.0); Immature Granulocytes % 1.2 %; Immature Granulocytes Absolute 0.11 #; Lymphocytes # 0.2 10*3/uL (1.4-4.0); Lymphocytes % 2.2 % (21.2-54.2); Mean Corpuscular HGB Conc 32.2 GM/DL (32-36); Mean Corpuscular Hemoglobin 30 PG (27-34); Monocytes # 0.3 10*3/uL (0.11-0.8); Monocytes % 3.2 % (1.7-12.7); NRBC # 0.07 10*3/uL; Neutrophils # 8.2 10*3/uL (1.4-7.4); Neutrophils % 93.3 % (38.7-73.9); Red Blood Count 3.27 MC/CUMM (3.8-5.5); Red Cell Distribution Width 19.2 % (9.3-17.3); White Blood Count 8.8 T/CUMM (4-12)
[2018-01-17 04:34] LABS: Platelet Count 73 T/CUMM (130-400)
[2018-01-17 04:52] LABS: Calcium 8.4 MG/DL (8.5-10.1); Osmolality,Calculated 329.4 MOS/KG (273-304); Potassium 3.4 MMOL/L (3.5-5.1)
[2018-01-17 05:45] LABS: Lymphocytes 1 % (20-55); Nucleated Red Blood Cells 1 (0-5); Platelet Estimate Decreased; Segmented Neutrophils 98 % (50-85); Total Cells Counted 100
[2018-01-17 05:46] LABS: Hypochromasia 1+; Macrocytosis Slight
[2018-01-18 15:30] LABS: ABG Base Excess 19.7 MMOL/L (-2.5-2.5); ABG HCO3 46.6 MMOL/L (20-26); ABG Oxygen Saturation 66.1 % (95-100); ABG PH 7.447 (7.35-7.45); ABG TCO2 48.7 MMOL/L (23-27)
[2018-01-18 15:33] LABS: ABG PO2 37.8 MM HG (80-95)
[2018-01-18 15:34] LABS: ABG PCO2 69.1 MM HG (35-48)
[2018-01-19 05:11] LABS: Basophils % 0.1 % (0.0-0.8); Hematocrit 27.9 VOL% (42.0-52.0); Hemoglobin 8.6 GM/DL (14.0-18.0); Immature Granulocytes % 0.9 %; Immature Granulocytes Absolute 0.12 #; Lymphocytes # 0.2 10*3/uL (1.4-4.0); Lymphocytes % 1.7 % (21.2-54.2); Mean Corpuscular HGB Conc 30.8 GM/DL (32-36); Mean Corpuscular Hemoglobin 30 PG (27-34); Mean Corpuscular Volume 95.9 FL (87-102); Mean Platelet Volume 12.2 FL (9.6-12.0); Monocytes # 0.5 10*3/uL (0.11-0.8); Monocytes % 3.4 % (1.7-12.7); NRBC # 0.05 10*3/uL; Neutrophils # 12.4 10*3/uL (1.4-7.4); Neutrophils % 93.9 % (38.7-73.9); Platelet Count 70 T/CUMM (130-400); Red Blood Count 2.91 MC/CUMM (3.8-5.5); Red Cell Distribution Width 18.5 % (9.3-17.3); White Blood Count 13.2 T/CUMM (4-12)
[2018-01-19 05:59] LABS: Blood Urea Nitrogen 77 MG/DL (7-18); Calcium 8.7 MG/DL (8.5-10.1); Glucose 227 MG/DL (74-106); Osmolality,Calculated 323.3 MOS/KG (273-304); Potassium 3.2 MMOL/L (3.5-5.1); Sodium 148 MMOL/L (136-145)
[2018-01-19 06:09] LABS: Hypochromasia 2+; Lymphocytes 1 % (20-55); Platelet Estimate Decreased; Segmented Neutrophils 98 % (50-85); Target Cells 1+; Total Cells Counted 100
[2018-01-20 04:49] LABS: Basophils % 0.1 % (0.0-0.8); Hematocrit 28.2 VOL% (42.0-52.0); Hemoglobin 8.8 GM/DL (14.0-18.0); Immature Granulocytes % 0.8 %; Lymphocytes # 0.1 10*3/uL (1.4-4.0); Lymphocytes % 1.1 % (21.2-54.2); Mean Corpuscular HGB Conc 31.2 GM/DL (32-36); Mean Corpuscular Hemoglobin 30 PG (27-34); Mean Corpuscular Volume 96.2 FL (87-102); Mean Platelet Volume 12.4 FL (9.6-12.0); Monocytes # 0.4 10*3/uL (0.11-0.8); Monocytes % 3.5 % (1.7-12.7); NRBC # 0.05 10*3/uL; Neutrophils # 11.2 10*3/uL (1.4-7.4); Neutrophils % 94.5 % (38.7-73.9); Red Blood Count 2.93 MC/CUMM (3.8-5.5); Red Cell Distribution Width 18.6 % (9.3-17.3); White Blood Count 11.9 T/CUMM (4-12)
[2018-01-20 04:56] LABS: Platelet Count 81 T/CUMM (130-400)
[2018-01-20 05:10] LABS: Band Neutrophils 1 % (0-10); Hypochromasia 1+; Lymphocytes 1 % (20-55); Ovalocytes Slight; Platelet Estimate Decreased; Segmented Neutrophils 96 % (50-85); Total Cells Counted 100
[2018-01-20 05:22] LABS: Calcium 8.4 MG/DL (8.5-10.1); Osmolality,Calculated 293.6 MOS/KG (273-304); Potassium 3.9 MMOL/L (3.5-5.1)
[2018-01-20 11:55] VITALS: BP 122/61
== END 2018-01-20 15:14 | DRG 252 ==
LOC: EDBD → EDUNIT# → N.ED 03:35 → N.EDINP 05:04 → N.5E 05:47 → N.CC 09:07 → N.TELEN 01-01 19:12 → N.CC 01-06 16:59 → N.TELES 01-08 09:44 → N.CC 01-08 09:59 → N.TELES 01-08 12:17
PROVIDERS: ADMIT Internal Medicine; ATTEND Internal Medicine

== ENCOUNTER 2018-02-26 05:45 | Inpatient (IN) ==
[2018-02-26] MEDS ORDERED: VANCOMYCIN INJ 1,000 MG in SODIUM CHLORIDE 0.9% 250 ML IV ONE (06:00)
[2018-02-26] MEDS ORDERED: CLINDAMYCIN INJ 900 MG in PREMIX 1 EACH IV ONE (06:00)
[2018-02-26] MEDS ORDERED: CLINDAMYCIN INJ 50 ML IV ONE (07:33)
[2018-02-26] MEDS ORDERED: VANCOMYCIN 1,000 MG VIAL ONE ×2 (07:33→08:53)
[2018-02-26] MEDS ORDERED: ROPIVACAINE 0.5% 30 ML VIAL ONE (08:26)
[2018-02-26] MEDS ORDERED: TOBRAMYCIN 1.2 GM VIAL TOP ONE ×3 (08:57→09:37)
[2018-02-26] MEDS: LACTATED RINGERS 1,000 ML IV SCH ×3 (09:45→14:50)
[2018-02-26] MEDS ORDERED: MAGNESIUM HYDROXIDE SUSP 30 ML UDCUP PO PRN (10:12)
[2018-02-26] MEDS ORDERED: oxyCODONE IR 5 MG TABLET PO PRN ×2 (10:12)
[2018-02-26] MEDS ORDERED: ONDANSETRON 4 MG/2 ML VIAL IV PRN ×2 (10:12→12:45)
[2018-02-26] MEDS ORDERED: MORPHINE 4 MG/1 ML VIAL IV PRN ×2 (10:12)
[2018-02-26] MEDS ORDERED: ZALEPLON 5 MG CAPSULE PO PRN (10:12)
[2018-02-26] MEDS ORDERED: BACITRACIN OINT 0.9 GM PACK TOP ONE (10:54)
[2018-02-26] MEDS ORDERED: SEVOFLURANE 1 UNIT/15 MINUTE INH ONE (12:15)
[2018-02-26] MEDS ORDERED: PHENYLEPHRINE DRIP 20 MG/250 ML PREMIX IV ONE (12:15)
[2018-02-26] MEDS ORDERED: PROPOFOL 200 MG/20 ML VIAL IV ONE (12:15)
[2018-02-26] MEDS ORDERED: PHENYLEPHRINE 1 MG/10 ML SYRINGE IV ONE (12:16)
[2018-02-26] MEDS ORDERED: ONDANSETRON 4 MG/2 ML VIAL ONE ×2 (12:16→12:39)
[2018-02-26] MEDS ORDERED: fentaNYL 100 MCG/2 ML VIAL ONE ×2 (12:16)
[2018-02-26] MEDS ORDERED: MIDAZOLAM 2 MG/2 ML VIAL ONE (12:16)
[2018-02-26] MEDS ORDERED: HYDROmorphone 2 MG/1 ML VIAL ONE (12:39)
[2018-02-26] MEDS ORDERED: HYDROmorphone 2 MG/1 ML VIAL IV PRN (12:45)
[2018-02-26] MEDS: KETOROLAC 15 MG/1 ML VIAL IV SCH ×2 (14:45→21:19)
[2018-02-26] MEDS: ACETAMINOPHEN 500 MG TABLET PO SCH ×2 (14:45→21:03)
[2018-02-26] MEDS: CLINDAMYCIN INJ 900 MG in PREMIX 1 EACH IV SCH ×2 (14:50→23:25)
[2018-02-26] MEDS: INSULIN LISPRO 100 UNIT/ML SUBCUT SCH ×3 (15:10→21:20)
[2018-02-26] MEDS: rOPINIRole 4 MG TABLET PO SCH (17:01)
[2018-02-26] MEDS: rOPINIRole 1 MG TABLET PO SCH (17:01)
[2018-02-26] MEDS: OMEGA 3 ACID ETHYL ESTERS 1 GM CAPSULE PO SCH (21:03)
[2018-02-26] MEDS: BENZONATATE 100 MG CAPSULE PO SCH (21:03)
[2018-02-26] MEDS: ASCORBIC ACID 500 MG TABLET PO SCH (21:04)
[2018-02-26] MEDS: APIXABAN 2.5 MG TABLET PO SCH (21:04)
[2018-02-26] MEDS: DILTIAZEM CD 180 MG CAPSULE PO SCH (21:04)
[2018-02-26] MEDS: CHOLECALCIFEROL 1,000 UNIT TABLET PO SCH (21:04)
[2018-02-26] MEDS: POTASSIUM CHLORIDE 8 MEQ CAPSULE PO SCH (21:04)
[2018-02-26] MEDS: DOCUSATE SODIUM 100 MG CAPSULE PO SCH (21:04)
[2018-02-26] MEDS: METOPROLOL SUCCINATE XL 50 MG TABLET PO SCH (21:05)
[2018-02-26] MEDS: ZINC OXIDE PASTE 113 GM TUBE TOP SCH (21:05)
[2018-02-26] MEDS: CARBOXYMETHYLCELLULOSE 1% OPH SOLN LEFT EYE SCH (21:21)
[2018-02-26] MEDS: VANCOMYCIN INJ 1,500 MG in SODIUM CHLORIDE 0.9% 500 ML IV SCH (21:21)
[2018-02-26] MEDS: MINERAL OIL/PETROLATUM OPH OINT 3.5 GM TUBE BOTH EYES SCH (21:21)
[2018-02-27] MEDS: CLINDAMYCIN INJ 900 MG in PREMIX 1 EACH IV SCH ×2 (01:23→09:13)
[2018-02-27] MEDS: KETOROLAC 15 MG/1 ML VIAL IV SCH ×2 (03:13→10:27)
[2018-02-27] MEDS: ACETAMINOPHEN 500 MG TABLET PO SCH ×2 (03:13→09:15)
[2018-02-27] MEDS ORDERED: DEXTROSE 50% 25 GM/50 ML VIAL IV PRN (04:29)
[2018-02-27] MEDS: LACTATED RINGERS 1,000 ML IV SCH (05:25)
[2018-02-27 05:33] LABS: Basophils % 0.2 % (0.0-0.8); Eosinophils # 0.1 10*3/uL (0.0-0.87); Eosinophils % 0.5 % (0.00-10.9); Hematocrit 29.8 VOL% (42.0-52.0); Hemoglobin 8.6 GM/DL (14.0-18.0); Immature Granulocytes Absolute 0.12 #; Lymphocytes # 0.8 10*3/uL (1.4-4.0); Lymphocytes % 6.9 % (21.2-54.2); Mean Corpuscular HGB Conc 28.9 GM/DL (32-36); Mean Corpuscular Hemoglobin 29 PG (27-34); Mean Corpuscular Volume 99.7 FL (87-102); Mean Platelet Volume 10.1 FL (9.6-12.0); Monocytes # 0.8 10*3/uL (0.11-0.8); Monocytes % 6.5 % (1.7-12.7); Neutrophils # 9.7 10*3/uL (1.4-7.4); Neutrophils % 84.9 % (38.7-73.9); Platelet Count 243 T/CUMM (130-400); Red Blood Count 2.99 MC/CUMM (3.8-5.5); Red Cell Distribution Width 18.9 % (9.3-17.3); White Blood Count 11.5 T/CUMM (4-12)
[2018-02-27 05:48] LABS: Calcium 7.7 MG/DL (8.5-10.1); Osmolality,Calculated 292.1 MOS/KG (273-304); Potassium 3.7 MMOL/L (3.5-5.1)
[2018-02-27 06:07] LABS: Hypochromasia 1+; Platelet Estimate Adequate
[2018-02-27 06:08] LABS: Macrocytosis Slight
[2018-02-27] MEDS ORDERED: LEUPROLIDE 30 MG IM SCH (06:30)
[2018-02-27] MEDS: LEVOTHYROXINE 100 MCG TABLET PO SCH (06:35)
[2018-02-27] MEDS: ALBUTEROL/IPRATROPIUM 3 ML NEB RESP TX SCH ×3 (07:25→19:19)
[2018-02-27] MEDS: BENZONATATE 100 MG CAPSULE PO SCH ×2 (09:14→21:46)
[2018-02-27] MEDS: CYANOCOBALAMIN 500 MCG TABLET PO SCH (09:14)
[2018-02-27] MEDS: POLYETHYLENE GLYCOL POWDER 17 GM PACK PO SCH (09:14)
[2018-02-27] MEDS: DILTIAZEM CD 180 MG CAPSULE PO SCH ×2 (09:15→21:46)
[2018-02-27] MEDS: APIXABAN 2.5 MG TABLET PO SCH ×2 (09:15→21:47)
[2018-02-27] MEDS: predniSONE 20 MG TABLET PO SCH (09:15)
[2018-02-27] MEDS: POTASSIUM CHLORIDE 8 MEQ CAPSULE PO SCH ×2 (09:15→21:47)
[2018-02-27] MEDS: DOCUSATE SODIUM 100 MG CAPSULE PO SCH ×2 (09:15→21:46)
[2018-02-27] MEDS: acetaZOLAMIDE 250 MG TABLET PO SCH (09:16)
[2018-02-27] MEDS: THEOPHYLLINE ER (24 HR) 400 MG CAPSULE PO SCH (09:16)
[2018-02-27] MEDS: CALCIUM (CARBONATE) 600 MG TABLET PO SCH (09:16)
[2018-02-27] MEDS: PANTOPRAZOLE 40 MG TABLET PO SCH (09:16)
[2018-02-27] MEDS: INSULIN LISPRO 100 UNIT/ML SUBCUT SCH ×3 (09:16→17:17)
[2018-02-27] MEDS: CARBOXYMETHYLCELLULOSE 1% OPH SOLN LEFT EYE SCH ×2 (09:56→21:53)
[2018-02-27] MEDS: MINERAL OIL/PETROLATUM OPH OINT 3.5 GM TUBE BOTH EYES SCH ×2 (09:56→21:53)
[2018-02-27] MEDS: ZINC OXIDE PASTE 113 GM TUBE TOP SCH ×2 (09:56→21:48)
[2018-02-27] MEDS ORDERED: KETOROLAC 15 MG/1 ML VIAL IV SCH (10:30)
[2018-02-27] MEDS: METOPROLOL SUCCINATE XL 50 MG TABLET PO SCH ×2 (11:01→21:47)
[2018-02-27] MEDS: FUROSEMIDE 80 MG TABLET PO SCH (11:01)
[2018-02-27] MEDS: rOPINIRole 1 MG TABLET PO SCH (17:16)
[2018-02-27] MEDS: rOPINIRole 4 MG TABLET PO SCH (17:17)
[2018-02-27] MEDS: CHOLECALCIFEROL 1,000 UNIT TABLET PO SCH (21:47)
[2018-02-27] MEDS: ASCORBIC ACID 500 MG TABLET PO SCH (21:47)
[2018-02-27] MEDS: OMEGA 3 ACID ETHYL ESTERS 1 GM CAPSULE PO SCH (21:48)
[2018-02-27] MEDS: VANCOMYCIN INJ 1,500 MG in SODIUM CHLORIDE 0.9% 500 ML IV SCH (21:53)
[2018-02-28] MEDS: INSULIN LISPRO 100 UNIT/ML SUBCUT SCH ×5 (04:00→21:28)
[2018-02-28 06:15] LABS: Basophils % 0.1 % (0.0-0.8); Eosinophils % 0.4 % (0.00-10.9); Hematocrit 26.4 VOL% (42.0-52.0); Hemoglobin 7.7 GM/DL (14.0-18.0); Immature Granulocytes % 0.9 %; Immature Granulocytes Absolute 0.09 #; Lymphocytes # 1.2 10*3/uL (1.4-4.0); Mean Corpuscular HGB Conc 29.2 GM/DL (32-36); Mean Corpuscular Hemoglobin 28 PG (27-34); Mean Corpuscular Volume 97.1 FL (87-102); Mean Platelet Volume 10.6 FL (9.6-12.0); Monocytes # 0.6 10*3/uL (0.11-0.8); Monocytes % 5.8 % (1.7-12.7); NRBC # 0.03 10*3/uL; Neutrophils # 8.1 10*3/uL (1.4-7.4); Neutrophils % 80.8 % (38.7-73.9); Platelet Count 237 T/CUMM (130-400); Red Blood Count 2.72 MC/CUMM (3.8-5.5); Red Cell Distribution Width 19.3 % (9.3-17.3)
[2018-02-28] MEDS: LEVOTHYROXINE 100 MCG TABLET PO SCH (06:30)
[2018-02-28 06:32] LABS: Calcium 7.9 MG/DL (8.5-10.1); Osmolality,Calculated 291.3 MOS/KG (273-304)
[2018-02-28] MEDS: ALBUTEROL/IPRATROPIUM 3 ML NEB RESP TX SCH ×3 (07:13→19:06)
[2018-02-28] MEDS ORDERED: SODIUM CHLORIDE 0.9% 1,000 ML IV PRN (08:26)
[2018-02-28] MEDS: POLYETHYLENE GLYCOL POWDER 17 GM PACK PO SCH (09:11)
[2018-02-28] MEDS: acetaZOLAMIDE 250 MG TABLET PO SCH (09:11)
[2018-02-28] MEDS: THEOPHYLLINE ER (24 HR) 400 MG CAPSULE PO SCH (09:11)
[2018-02-28] MEDS: DILTIAZEM CD 180 MG CAPSULE PO SCH ×2 (09:11→21:26)
[2018-02-28] MEDS: BENZONATATE 100 MG CAPSULE PO SCH ×2 (09:11→21:25)
[2018-02-28] MEDS: APIXABAN 2.5 MG TABLET PO SCH ×2 (09:11→21:25)
[2018-02-28] MEDS: METOPROLOL SUCCINATE XL 50 MG TABLET PO SCH ×2 (09:12→21:25)
[2018-02-28] MEDS: CALCIUM (CARBONATE) 600 MG TABLET PO SCH (09:12)
[2018-02-28] MEDS: DOCUSATE SODIUM 100 MG CAPSULE PO SCH ×2 (09:12→21:27)
[2018-02-28] MEDS: POTASSIUM CHLORIDE 8 MEQ CAPSULE PO SCH ×2 (09:12→21:25)
[2018-02-28] MEDS: PANTOPRAZOLE 40 MG TABLET PO SCH (09:12)
[2018-02-28] MEDS: FUROSEMIDE 80 MG TABLET PO SCH (09:12)
[2018-02-28] MEDS: predniSONE 20 MG TABLET PO SCH (09:12)
[2018-02-28] MEDS: CYANOCOBALAMIN 500 MCG TABLET PO SCH (09:12)
[2018-02-28] MEDS: ZINC OXIDE PASTE 113 GM TUBE TOP SCH ×2 (09:13→21:28)
[2018-02-28] MEDS ORDERED: FUROSEMIDE 40 MG/4 ML VIAL IV ONE (11:30)
[2018-02-28] MEDS: MINERAL OIL/PETROLATUM OPH OINT 3.5 GM TUBE BOTH EYES SCH ×3 (12:27→21:53)
[2018-02-28] MEDS: CARBOXYMETHYLCELLULOSE 1% OPH SOLN LEFT EYE SCH ×2 (12:27→21:28)
[2018-02-28] MEDS: rOPINIRole 1 MG TABLET PO SCH (17:07)
[2018-02-28] MEDS: rOPINIRole 4 MG TABLET PO SCH (17:07)
[2018-02-28 21:02] LABS: Hematocrit 29.6 VOL% (42.0-52.0)
[2018-02-28] MEDS: OMEGA 3 ACID ETHYL ESTERS 1 GM CAPSULE PO SCH (21:25)
[2018-02-28] MEDS: CHOLECALCIFEROL 1,000 UNIT TABLET PO SCH (21:27)
[2018-02-28] MEDS: ASCORBIC ACID 500 MG TABLET PO SCH (21:27)
[2018-02-28] MEDS: VANCOMYCIN INJ 1,500 MG in SODIUM CHLORIDE 0.9% 500 ML IV SCH (21:31)
[2018-03-01] MEDS: ALBUTEROL/IPRATROPIUM 3 ML NEB RESP TX SCH ×4 (00:59→18:40)
[2018-03-01 05:26] LABS: Basophils % 0.1 % (0.0-0.8); Eosinophils % 0.1 % (0.00-10.9); Hematocrit 30.4 VOL% (42.0-52.0); Hemoglobin 9.4 GM/DL (14.0-18.0); Immature Granulocytes % 1.5 %; Immature Granulocytes Absolute 0.14 #; Lymphocytes # 1.1 10*3/uL (1.4-4.0); Mean Corpuscular HGB Conc 30.9 GM/DL (32-36); Mean Corpuscular Hemoglobin 30 PG (27-34); Mean Corpuscular Volume 95.9 FL (87-102); Mean Platelet Volume 10.5 FL (9.6-12.0); Monocytes # 0.6 10*3/uL (0.11-0.8); Monocytes % 6.8 % (1.7-12.7); NRBC # 0.02 10*3/uL; Neutrophils # 7.5 10*3/uL (1.4-7.4); Neutrophils % 79.5 % (38.7-73.9); Platelet Count 230 T/CUMM (130-400); Red Blood Count 3.17 MC/CUMM (3.8-5.5); Red Cell Distribution Width 18.5 % (9.3-17.3); White Blood Count 9.4 T/CUMM (4-12)
[2018-03-01 05:39] LABS: Osmolality,Calculated 295.1 MOS/KG (273-304)
[2018-03-01] MEDS: LEVOTHYROXINE 100 MCG TABLET PO SCH (06:18)
[2018-03-01] MEDS: INSULIN LISPRO 100 UNIT/ML SUBCUT SCH ×4 (08:50→20:50)
[2018-03-01] MEDS: FUROSEMIDE 80 MG TABLET PO SCH (09:53)
[2018-03-01] MEDS: APIXABAN 2.5 MG TABLET PO SCH ×2 (09:53→20:50)
[2018-03-01] MEDS: DOCUSATE SODIUM 100 MG CAPSULE PO SCH ×2 (09:53→20:49)
[2018-03-01] MEDS: CALCIUM (CARBONATE) 600 MG TABLET PO SCH (09:53)
[2018-03-01] MEDS: acetaZOLAMIDE 250 MG TABLET PO SCH (09:53)
[2018-03-01] MEDS: DILTIAZEM CD 180 MG CAPSULE PO SCH ×2 (09:53→20:49)
[2018-03-01] MEDS: ZINC OXIDE PASTE 113 GM TUBE TOP SCH ×2 (09:53→20:50)
[2018-03-01] MEDS: PANTOPRAZOLE 40 MG TABLET PO SCH (09:54)
[2018-03-01] MEDS: CARBOXYMETHYLCELLULOSE 1% OPH SOLN LEFT EYE SCH ×2 (09:54→20:51)
[2018-03-01] MEDS: CYANOCOBALAMIN 500 MCG TABLET PO SCH (09:54)
[2018-03-01] MEDS: BENZONATATE 100 MG CAPSULE PO SCH ×2 (09:54→20:50)
[2018-03-01] MEDS: THEOPHYLLINE ER (24 HR) 400 MG CAPSULE PO SCH (09:54)
[2018-03-01] MEDS: METOPROLOL SUCCINATE XL 50 MG TABLET PO SCH ×2 (09:54→20:49)
[2018-03-01] MEDS: POLYETHYLENE GLYCOL POWDER 17 GM PACK PO SCH (09:54)
[2018-03-01] MEDS: POTASSIUM CHLORIDE 8 MEQ CAPSULE PO SCH ×2 (09:54→20:49)
[2018-03-01] MEDS: predniSONE 20 MG TABLET PO SCH (09:54)
[2018-03-01] MEDS: MINERAL OIL/PETROLATUM OPH OINT 3.5 GM TUBE BOTH EYES SCH ×2 (09:54→20:50)
[2018-03-01] MEDS: rOPINIRole 4 MG TABLET PO SCH (17:06)
[2018-03-01] MEDS: rOPINIRole 1 MG TABLET PO SCH (17:06)
[2018-03-01] MEDS: ASCORBIC ACID 500 MG TABLET PO SCH (20:49)
[2018-03-01] MEDS: CHOLECALCIFEROL 1,000 UNIT TABLET PO SCH (20:50)
[2018-03-01] MEDS: OMEGA 3 ACID ETHYL ESTERS 1 GM CAPSULE PO SCH (20:50)
[2018-03-01] MEDS: VANCOMYCIN INJ 1,500 MG in SODIUM CHLORIDE 0.9% 500 ML IV SCH (22:23)
[2018-03-02] MEDS: ALBUTEROL/IPRATROPIUM 3 ML NEB RESP TX SCH ×4 (00:10→19:28)
[2018-03-02 04:11] LABS: Calcium 7.9 MG/DL (8.5-10.1); Osmolality,Calculated 293.1 MOS/KG (273-304); Potassium 3.7 MMOL/L (3.5-5.1)
[2018-03-02] MEDS: LEVOTHYROXINE 100 MCG TABLET PO SCH (06:42)
[2018-03-02] MEDS: INSULIN LISPRO 100 UNIT/ML SUBCUT SCH ×4 (07:30→21:27)
[2018-03-02] MEDS ORDERED: VANCOMYCIN INJ 1,500 MG in SODIUM CHLORIDE 0.9% 500 ML IV SCH (09:00)
[2018-03-02] MEDS: CARBOXYMETHYLCELLULOSE 1% OPH SOLN LEFT EYE SCH ×2 (09:53→21:26)
[2018-03-02] MEDS: MINERAL OIL/PETROLATUM OPH OINT 3.5 GM TUBE BOTH EYES SCH ×2 (09:53→21:26)
[2018-03-02] MEDS: METOPROLOL SUCCINATE XL 50 MG TABLET PO SCH ×2 (09:54→21:24)
[2018-03-02] MEDS: acetaZOLAMIDE 250 MG TABLET PO SCH (09:54)
[2018-03-02] MEDS: BENZONATATE 100 MG CAPSULE PO SCH ×2 (09:54→21:24)
[2018-03-02] MEDS: DOCUSATE SODIUM 100 MG CAPSULE PO SCH ×2 (09:54→21:24)
[2018-03-02] MEDS: APIXABAN 2.5 MG TABLET PO SCH ×2 (09:54→21:25)
[2018-03-02] MEDS: predniSONE 20 MG TABLET PO SCH (09:54)
[2018-03-02] MEDS: POLYETHYLENE GLYCOL POWDER 17 GM PACK PO SCH (09:54)
[2018-03-02] MEDS: THEOPHYLLINE ER (24 HR) 400 MG CAPSULE PO SCH (09:54)
[2018-03-02] MEDS: PANTOPRAZOLE 40 MG TABLET PO SCH (09:55)
[2018-03-02] MEDS: CYANOCOBALAMIN 500 MCG TABLET PO SCH (09:55)
[2018-03-02] MEDS: FUROSEMIDE 80 MG TABLET PO SCH (09:55)
[2018-03-02] MEDS: DILTIAZEM CD 180 MG CAPSULE PO SCH ×2 (09:55→21:24)
[2018-03-02] MEDS: CALCIUM (CARBONATE) 600 MG TABLET PO SCH (09:55)
[2018-03-02] MEDS: ZINC OXIDE PASTE 113 GM TUBE TOP SCH ×2 (10:20→21:29)
[2018-03-02] MEDS: POTASSIUM CHLORIDE 8 MEQ CAPSULE PO SCH ×2 (10:35→21:23)
[2018-03-02] MEDS: rOPINIRole 4 MG TABLET PO SCH (17:08)
[2018-03-02] MEDS: rOPINIRole 1 MG TABLET PO SCH (17:08)
[2018-03-02] MEDS: OMEGA 3 ACID ETHYL ESTERS 1 GM CAPSULE PO SCH (21:23)
[2018-03-02] MEDS: ASCORBIC ACID 500 MG TABLET PO SCH (21:25)
[2018-03-02] MEDS: CHOLECALCIFEROL 1,000 UNIT TABLET PO SCH (21:25)
[2018-03-03] MEDS: ALBUTEROL/IPRATROPIUM 3 ML NEB RESP TX SCH ×2 (00:37→06:50)
[2018-03-03 03:48] LABS: Calcium 8.7 MG/DL (8.5-10.1); Osmolality,Calculated 288.3 MOS/KG (273-304); Potassium 3.7 MMOL/L (3.5-5.1)
[2018-03-03] MEDS: LEVOTHYROXINE 100 MCG TABLET PO SCH (07:19)
[2018-03-03] MEDS: INSULIN LISPRO 100 UNIT/ML SUBCUT SCH ×2 (07:59→12:30)
[2018-03-03] MEDS ORDERED: ALBUTEROL/IPRATROPIUM 3 ML NEB RESP TX ONE (08:15)
[2018-03-03] MEDS ORDERED: methylPREDNISolone SOD SUC 40 MG/1 ML VIAL IV SCH (08:30)
[2018-03-03] MEDS: POTASSIUM CHLORIDE 8 MEQ CAPSULE PO SCH (09:23)
[2018-03-03] MEDS: THEOPHYLLINE ER (24 HR) 400 MG CAPSULE PO SCH (09:24)
[2018-03-03] MEDS: CYANOCOBALAMIN 500 MCG TABLET PO SCH (09:25)
[2018-03-03] MEDS: DILTIAZEM CD 180 MG CAPSULE PO SCH (09:25)
[2018-03-03] MEDS: CALCIUM (CARBONATE) 600 MG TABLET PO SCH (09:25)
[2018-03-03] MEDS: BENZONATATE 100 MG CAPSULE PO SCH (09:26)
[2018-03-03] MEDS: APIXABAN 2.5 MG TABLET PO SCH (09:27)
[2018-03-03] MEDS: PANTOPRAZOLE 40 MG TABLET PO SCH (09:27)
[2018-03-03] MEDS: FUROSEMIDE 80 MG TABLET PO SCH (09:27)
[2018-03-03] MEDS: DOCUSATE SODIUM 100 MG CAPSULE PO SCH (09:27)
[2018-03-03] MEDS: predniSONE 20 MG TABLET PO SCH (09:28)
[2018-03-03] MEDS: ZINC OXIDE PASTE 113 GM TUBE TOP SCH (09:28)
[2018-03-03] MEDS: METOPROLOL SUCCINATE XL 50 MG TABLET PO SCH (09:28)
[2018-03-03] MEDS: acetaZOLAMIDE 250 MG TABLET PO SCH (09:28)
[2018-03-03] MEDS: CARBOXYMETHYLCELLULOSE 1% OPH SOLN LEFT EYE SCH (09:28)
[2018-03-03] MEDS: MINERAL OIL/PETROLATUM OPH OINT 3.5 GM TUBE BOTH EYES SCH (09:29)
[2018-03-03] MEDS: POLYETHYLENE GLYCOL POWDER 17 GM PACK PO SCH (09:31)
[2018-03-03 12:10] VITALS: BP 126/84
== END 2018-03-03 13:07 | DRG 467 ==
LOC: N.OR 05:45 → N.SDSINP 05:50 → N.3E 09:17
PROVIDERS: ADMIT Orthopaedic Surgery; ATTEND Orthopaedic Surgery

== ENCOUNTER 2018-04-22 07:33 | Inpatient (IN) ==
[~2018-04-22 07:33] MED LIST: VANCOMYCIN INJ 1,000 MG in SODIUM CHLORIDE 0.9% 250 ML IV ONE; ceFAZolin 2,000 MG in PREMIX 1 EACH IV ONE
[2018-04-22] MEDS ORDERED: VANCOMYCIN 1,000 MG VIAL ONE ×2 (07:36→12:01)
[2018-04-22 08:55] LABS: INR 0.9; PT Patient Result 10.3 SECS; Partial Thromboplastin Time 24.6 SECS (0-40)
[2018-04-22] MEDS ORDERED: LACTATED RINGERS 1,000 ML IV SCH (09:00)
[2018-04-22 09:27] LABS: Alanine Aminotransferase 13 U/L (16-61); Albumin 2.8 G/DL (3.4-5.0); Alkaline Phosphatase 81 U/L (45-117); Aspartate Amino Transferase 7 U/L (0-37); Blood Urea Nitrogen 35 MG/DL (7-18); Calcium 8.3 MG/DL (8.5-10.1); Glucose 103 MG/DL (74-106); Osmolality,Calculated 290.1 MOS/KG (273-304); Potassium 3.6 MMOL/L (3.5-5.1); Sodium 142 MMOL/L (136-145)
[2018-04-22] MEDS ORDERED: TOBRAMYCIN 1.2 GM VIAL TOP ONE ×3 (12:01→13:52)
[2018-04-22] MEDS ORDERED: ROPIVACAINE 0.5% 30 ML VIAL ONE ×2 (12:10→12:11)
[2018-04-22] MEDS ORDERED: BUPIVACAINE SPINAL 0.75% 2 ML AMP SPINAL ONE (12:10)
[2018-04-22] MEDS ORDERED: BACITRACIN OINT 0.9 GM PACK TOP ONE (12:19)
[2018-04-22] MEDS ORDERED: CLINDAMYCIN INJ 50 ML IV ONE (12:22)
[2018-04-22] MEDS ORDERED: CLINDAMYCIN INJ 900 MG in PREMIX 1 EACH IV ONE (12:25)
[2018-04-22] MEDS ORDERED: ALBUTEROL/IPRATROPIUM 3 ML NEB RESP TX PRN (15:44)
[2018-04-22] MEDS ORDERED: oxyCODONE IR 5 MG TABLET PO PRN ×2 (15:45)
[2018-04-22] MEDS ORDERED: MAGNESIUM HYDROXIDE SUSP 30 ML UDCUP PO PRN (15:45)
[2018-04-22] MEDS ORDERED: ZALEPLON 5 MG CAPSULE PO PRN (15:45)
[2018-04-22] MEDS ORDERED: diphenhydrAMINE CAP 25 MG CAPSULE PO PRN (15:45)
[2018-04-22] MEDS ORDERED: MORPHINE 4 MG/1 ML VIAL IV PRN (15:45)
[2018-04-22] MEDS ORDERED: MORPHINE 10 MG/1 ML VIAL ONE (15:57)
[2018-04-22] MEDS: MORPHINE 10 MG/1 ML VIAL IV PRN ×5 (16:00→16:20)
[2018-04-22] MEDS ORDERED: LEUPROLIDE 30 MG IM SCH (16:00)
[2018-04-22] MEDS ORDERED: TRANEXAMIC ACID 1,000 MG/10 ML VIAL ONE (16:04)
[2018-04-22] MEDS ORDERED: ACETAMINOPHEN 1,000 MG/100 ML VIAL IV ONE (16:04)
[2018-04-22] MEDS ORDERED: HYDROCORTISONE 100 MG VIAL ONE (16:04)
[2018-04-22] MEDS ORDERED: PROPOFOL 200 MG/20 ML VIAL IV ONE (16:04)
[2018-04-22] MEDS ORDERED: SEVOFLURANE 1 UNIT/15 MINUTE INH ONE (16:04)
[2018-04-22] MEDS ORDERED: SODIUM CHLORIDE 0.9% 100 ML IV ONE (16:05)
[2018-04-22] MEDS ORDERED: PHENYLEPHRINE 1 MG/10 ML SYRINGE IV ONE (16:05)
[2018-04-22 16:13] LABS: Apearance,Urine CLOUDY (Clear); Bilirubin,Urine Negative (Negative); Blood, Urine Negative (Negative); Glucose,Urine (UA) Negative (Negative); Ketones,Urine Negative (Negative); Mucus,Urine Occasional /LPF (Occasional); Nitrite,Urine Negative (Negative); Protein,Urine Negative; RBC,Urine 1 /HPF (0-4); Squamous Epithelial Cell,Urine Occasional /HPF (0-10); Urine Color Yellow (Yellow); Urine Specific Gravity 1.012 (1.001-1.035); Urine Urobilinogen < 2.0 EU/DL (0.2-1.0); WBC,Urine 3 /HPF (0-6)
[2018-04-22] MEDS: LACTATED RINGERS 1,000 ML IV SCH ×2 (17:41→21:03)
[2018-04-22] MEDS: rOPINIRole 4 MG TABLET PO SCH (18:35)
[2018-04-22] MEDS: MORPHINE 4 MG/1 ML VIAL IV PRN (18:36)
[2018-04-22] MEDS: INSULIN LISPRO 100 UNIT/ML SUBCUT SCH ×2 (18:41→21:04)
[2018-04-22] MEDS: ACETAMINOPHEN 500 MG TABLET PO SCH (20:59)
[2018-04-22] MEDS: CLINDAMYCIN INJ 900 MG in PREMIX 1 EACH IV SCH (20:59)
[2018-04-22] MEDS: ASCORBIC ACID 500 MG TABLET PO SCH (21:00)
[2018-04-22] MEDS: CHOLECALCIFEROL 1,000 UNIT TABLET PO SCH (21:00)
[2018-04-22] MEDS: OMEGA 3 ACID ETHYL ESTERS 1 GM CAPSULE PO SCH (21:01)
[2018-04-22] MEDS: DOCUSATE SODIUM 100 MG CAPSULE PO SCH (21:01)
[2018-04-22] MEDS: POTASSIUM CHLORIDE 8 MEQ CAPSULE PO SCH (21:01)
[2018-04-22] MEDS: MINERAL OIL/PETROLATUM OPH OINT 3.5 GM TUBE BOTH EYES SCH (21:02)
[2018-04-22] MEDS: CARBOXYMETHYLCELLULOSE 1% OPH SOLN LEFT EYE SCH (21:02)
[2018-04-22] MEDS: METOPROLOL SUCCINATE XL 50 MG TABLET PO SCH (21:02)
[2018-04-22] MEDS: BENZONATATE 100 MG CAPSULE PO SCH (21:02)
[2018-04-22] MEDS: DILTIAZEM CD 180 MG CAPSULE PO SCH (21:04)
[2018-04-22] MEDS: ZINC OXIDE PASTE 113 GM TUBE TOP SCH (21:05)
[2018-04-22] MEDS ORDERED: VANCOMYCIN INJ 1,000 MG in SODIUM CHLORIDE 0.9% 250 ML IV ONE (23:45)
[2018-04-23] MEDS: CLINDAMYCIN INJ 900 MG in PREMIX 1 EACH IV SCH (03:15)
[2018-04-23] MEDS: ACETAMINOPHEN 500 MG TABLET PO SCH ×3 (03:16→18:06)
[2018-04-23] MEDS: LACTATED RINGERS 1,000 ML IV SCH (05:44)
[2018-04-23 06:07] LABS: Calcium 7.9 MG/DL (8.5-10.1); Osmolality,Calculated 294.8 MOS/KG (273-304); Potassium 4.3 MMOL/L (3.5-5.1)
[2018-04-23 06:21] LABS: Basophils % 0.1 % (0.0-0.8); Eosinophils % 0.1 % (0.00-10.9); Hematocrit 35.1 VOL% (42.0-52.0); Immature Granulocytes % 1.2 %; Immature Granulocytes Absolute 0.17 #; Lymphocytes # 0.7 10*3/uL (1.4-4.0); Lymphocytes % 4.9 % (21.2-54.2); Mean Corpuscular HGB Conc 29.3 GM/DL (32-36); Mean Corpuscular Hemoglobin 28 PG (27-34); Mean Corpuscular Volume 96.4 FL (87-102); Mean Platelet Volume 10.7 FL (9.6-12.0); Monocytes # 1.2 10*3/uL (0.11-0.8); Monocytes % 8.5 % (1.7-12.7); NRBC # 0.02 10*3/uL; Neutrophils # 12.4 10*3/uL (1.4-7.4); Neutrophils % 85.2 % (38.7-73.9); Platelet Count 230 T/CUMM (130-400); Red Blood Count 3.64 MC/CUMM (3.8-5.5); Red Cell Distribution Width 17.8 % (9.3-17.3); White Blood Count 14.6 T/CUMM (4-12)
[2018-04-23 06:23] LABS: Hemoglobin 10.3 GM/DL (14.0-18.0)
[2018-04-23 06:39] LABS: Hypochromasia 1+; Lymphocytes 6 % (20-55); Ovalocytes Slight; Platelet Estimate Adequate; Segmented Neutrophils 88 % (50-85); Total Cells Counted 100
[2018-04-23] MEDS: LEVOTHYROXINE 100 MCG TABLET PO SCH (06:53)
[2018-04-23] MEDS: INSULIN LISPRO 100 UNIT/ML SUBCUT SCH ×4 (07:30→22:01)
[2018-04-23] MEDS: CARBOXYMETHYLCELLULOSE 1% OPH SOLN LEFT EYE SCH ×2 (09:57→22:06)
[2018-04-23] MEDS: BENZONATATE 100 MG CAPSULE PO SCH ×2 (09:57→22:01)
[2018-04-23] MEDS: DOCUSATE SODIUM 100 MG CAPSULE PO SCH ×2 (09:58→21:58)
[2018-04-23] MEDS: CYANOCOBALAMIN 500 MCG TABLET PO SCH (09:58)
[2018-04-23] MEDS: FUROSEMIDE 80 MG TABLET PO SCH (09:58)
[2018-04-23] MEDS: acetaZOLAMIDE 250 MG TABLET PO SCH (09:58)
[2018-04-23] MEDS: POTASSIUM CHLORIDE 8 MEQ CAPSULE PO SCH ×3 (09:58→22:00)
[2018-04-23] MEDS: THEOPHYLLINE ER (24 HR) 400 MG CAPSULE PO SCH (09:58)
[2018-04-23] MEDS: CALCIUM (CARBONATE) 600 MG TABLET PO SCH (09:59)
[2018-04-23] MEDS: PANTOPRAZOLE 40 MG TABLET PO SCH (09:59)
[2018-04-23] MEDS: DILTIAZEM CD 180 MG CAPSULE PO SCH ×2 (09:59→21:58)
[2018-04-23] MEDS: METOPROLOL SUCCINATE XL 50 MG TABLET PO SCH ×2 (09:59→22:05)
[2018-04-23] MEDS: ZINC OXIDE PASTE 113 GM TUBE TOP SCH ×2 (09:59→21:58)
[2018-04-23] MEDS: APIXABAN 2.5 MG TABLET PO SCH (09:59)
[2018-04-23] MEDS: predniSONE 20 MG TABLET PO SCH (09:59)
[2018-04-23] MEDS: POLYETHYLENE GLYCOL POWDER 17 GM PACK PO SCH (10:00)
[2018-04-23] MEDS: MINERAL OIL/PETROLATUM OPH OINT 3.5 GM TUBE BOTH EYES SCH ×3 (10:00→22:08)
[2018-04-23] MEDS: rOPINIRole 4 MG TABLET PO SCH (18:07)
[2018-04-23] MEDS: rOPINIRole 1 MG TABLET PO SCH (18:07)
[2018-04-23] MEDS: ASCORBIC ACID 500 MG TABLET PO SCH (21:59)
[2018-04-23] MEDS: CHOLECALCIFEROL 1,000 UNIT TABLET PO SCH (21:59)
[2018-04-23] MEDS: OMEGA 3 ACID ETHYL ESTERS 1 GM CAPSULE PO SCH (22:01)
[2018-04-24] MEDS: ONDANSETRON 4 MG/2 ML VIAL IV PRN ×2 (02:49→13:01)
[2018-04-24] MEDS: MORPHINE 4 MG/1 ML VIAL IV PRN (02:50)
[2018-04-24] MEDS: LEVOTHYROXINE 100 MCG TABLET PO SCH (05:19)
[2018-04-24 05:38] LABS: Calcium 8.2 MG/DL (8.5-10.1); Osmolality,Calculated 293.1 MOS/KG (273-304); Potassium 4.6 MMOL/L (3.5-5.1)
[2018-04-24 05:55] LABS: Basophils % 0.1 % (0.0-0.8); Eosinophils % 0.1 % (0.00-10.9); Hematocrit 32.9 VOL% (42.0-52.0); Hemoglobin 9.7 GM/DL (14.0-18.0); Immature Granulocytes % 1.6 %; Immature Granulocytes Absolute 0.19 #; Lymphocytes # 1.4 10*3/uL (1.4-4.0); Lymphocytes % 11.7 % (21.2-54.2); Mean Corpuscular HGB Conc 29.5 GM/DL (32-36); Mean Corpuscular Hemoglobin 29 PG (27-34); Mean Corpuscular Volume 97.1 FL (87-102); Mean Platelet Volume 10.9 FL (9.6-12.0); Monocytes # 0.9 10*3/uL (0.11-0.8); Monocytes % 7.2 % (1.7-12.7); NRBC # 0.05 10*3/uL; Neutrophils # 9.3 10*3/uL (1.4-7.4); Neutrophils % 79.3 % (38.7-73.9); Platelet Count 217 T/CUMM (130-400); Red Blood Count 3.39 MC/CUMM (3.8-5.5); Red Cell Distribution Width 18.8 % (9.3-17.3); White Blood Count 11.7 T/CUMM (4-12)
[2018-04-24 06:07] LABS: Hypochromasia 1+; Ovalocytes Slight; Platelet Estimate Adequate
[2018-04-24] MEDS: INSULIN LISPRO 100 UNIT/ML SUBCUT SCH ×4 (08:42→20:51)
[2018-04-24] MEDS: ZINC OXIDE PASTE 113 GM TUBE TOP SCH ×2 (09:00→20:48)
[2018-04-24] MEDS: CARBOXYMETHYLCELLULOSE 1% OPH SOLN LEFT EYE SCH ×2 (09:00→20:51)
[2018-04-24] MEDS ORDERED: BISACODYL 10 MG SUPP RECTAL ONE (12:31)
[2018-04-24] MEDS: METOPROLOL SUCCINATE XL 50 MG TABLET PO SCH ×2 (13:00→20:49)
[2018-04-24] MEDS: FUROSEMIDE 80 MG TABLET PO SCH (13:00)
[2018-04-24] MEDS: predniSONE 20 MG TABLET PO SCH (13:01)
[2018-04-24] MEDS: APIXABAN 2.5 MG TABLET PO SCH (13:01)
[2018-04-24] MEDS: DILTIAZEM CD 180 MG CAPSULE PO SCH ×2 (13:01→20:49)
[2018-04-24] MEDS: POTASSIUM CHLORIDE 8 MEQ CAPSULE PO SCH ×3 (13:01→20:49)
[2018-04-24] MEDS: PANTOPRAZOLE 40 MG TABLET PO SCH (13:01)
[2018-04-24] MEDS: CALCIUM (CARBONATE) 600 MG TABLET PO SCH (14:19)
[2018-04-24] MEDS: DOCUSATE SODIUM 100 MG CAPSULE PO SCH ×2 (14:19→20:48)
[2018-04-24] MEDS: POLYETHYLENE GLYCOL POWDER 17 GM PACK PO SCH (14:20)
[2018-04-24] MEDS: acetaZOLAMIDE 250 MG TABLET PO SCH (14:20)
[2018-04-24] MEDS: MINERAL OIL/PETROLATUM OPH OINT 3.5 GM TUBE BOTH EYES SCH ×2 (14:21→20:08)
[2018-04-24] MEDS: BENZONATATE 100 MG CAPSULE PO SCH ×2 (14:21→20:48)
[2018-04-24] MEDS: CYANOCOBALAMIN 500 MCG TABLET PO SCH (14:21)
[2018-04-24] MEDS: THEOPHYLLINE ER (24 HR) 400 MG CAPSULE PO SCH (14:21)
[2018-04-24] MEDS: rOPINIRole 4 MG TABLET PO SCH (18:40)
[2018-04-24] MEDS: rOPINIRole 1 MG TABLET PO SCH (18:40)
[2018-04-24] MEDS: ALUMINUM/MAGNES/SIMETH MAX STR 30 ML UDCUP PO PRN (20:47)
[2018-04-24] MEDS: ASCORBIC ACID 500 MG TABLET PO SCH (20:48)
[2018-04-24] MEDS: CHOLECALCIFEROL 1,000 UNIT TABLET PO SCH (20:48)
[2018-04-24] MEDS: OMEGA 3 ACID ETHYL ESTERS 1 GM CAPSULE PO SCH (20:50)
[2018-04-25 05:35] LABS: Basophils % 0.2 % (0.0-0.8); Hematocrit 33.3 VOL% (42.0-52.0); Immature Granulocytes % 2.1 %; Immature Granulocytes Absolute 0.23 #; Lymphocytes # 0.9 10*3/uL (1.4-4.0); Lymphocytes % 7.9 % (21.2-54.2); Mean Corpuscular Hemoglobin 28 PG (27-34); Mean Corpuscular Volume 94.1 FL (87-102); Mean Platelet Volume 10.2 FL (9.6-12.0); Monocytes # 0.7 10*3/uL (0.11-0.8); Monocytes % 6.1 % (1.7-12.7); Neutrophils # 9.4 10*3/uL (1.4-7.4); Neutrophils % 83.7 % (38.7-73.9); Platelet Count 219 T/CUMM (130-400); Red Blood Count 3.54 MC/CUMM (3.8-5.5); Red Cell Distribution Width 19.1 % (9.3-17.3); White Blood Count 11.2 T/CUMM (4-12)
[2018-04-25 05:50] LABS: Calcium 8.5 MG/DL (8.5-10.1); Osmolality,Calculated 301.1 MOS/KG (273-304); Potassium 5.4 MMOL/L (3.5-5.1)
[2018-04-25] MEDS: LEVOTHYROXINE 100 MCG TABLET PO SCH (05:56)
[2018-04-25] MEDS: ALUMINUM/MAGNES/SIMETH MAX STR 30 ML UDCUP PO PRN ×2 (06:32→13:13)
[2018-04-25] MEDS: CALCIUM (CARBONATE) 600 MG TABLET PO SCH (09:44)
[2018-04-25] MEDS: ZINC OXIDE PASTE 113 GM TUBE TOP SCH (09:44)
[2018-04-25] MEDS: DILTIAZEM CD 180 MG CAPSULE PO SCH (09:44)
[2018-04-25] MEDS: acetaZOLAMIDE 250 MG TABLET PO SCH (09:45)
[2018-04-25] MEDS: DOCUSATE SODIUM 100 MG CAPSULE PO SCH (09:45)
[2018-04-25] MEDS: predniSONE 20 MG TABLET PO SCH (09:45)
[2018-04-25] MEDS: PANTOPRAZOLE 40 MG TABLET PO SCH (09:45)
[2018-04-25] MEDS: APIXABAN 2.5 MG TABLET PO SCH (09:45)
[2018-04-25] MEDS: BENZONATATE 100 MG CAPSULE PO SCH (09:46)
[2018-04-25] MEDS: THEOPHYLLINE ER (24 HR) 400 MG CAPSULE PO SCH (09:46)
[2018-04-25] MEDS: METOPROLOL SUCCINATE XL 50 MG TABLET PO SCH (09:46)
[2018-04-25] MEDS: CYANOCOBALAMIN 500 MCG TABLET PO SCH (09:46)
[2018-04-25] MEDS: CARBOXYMETHYLCELLULOSE 1% OPH SOLN LEFT EYE SCH (09:55)
[2018-04-25] MEDS: MINERAL OIL/PETROLATUM OPH OINT 3.5 GM TUBE BOTH EYES SCH (09:56)
[2018-04-25] MEDS: POLYETHYLENE GLYCOL POWDER 17 GM PACK PO SCH (10:16)
[2018-04-25] MEDS: INSULIN LISPRO 100 UNIT/ML SUBCUT SCH ×2 (10:21→13:08)
[2018-04-25 12:19] VITALS: BP 119/90
== END 2018-04-25 14:05 | disposition swing bed (61) | DRG 467 ==
LOC: N.OR 07:33 → N.SDSINP 07:37 → N.3E 17:02
PROVIDERS: ADMIT Orthopaedic Surgery; ATTEND Orthopaedic Surgery

== ENCOUNTER 2018-06-04 09:09 | Inpatient (IN) ==
[2018-06-04] MEDS ORDERED: SODIUM CHLORIDE 0.9% 1,000 ML IV STA (09:33)
[2018-06-04] MEDS ORDERED: ONDANSETRON 4 MG/2 ML VIAL IV STA (09:40)
[2018-06-04 09:54] LABS: INR 0.9; Partial Thromboplastin Time 32.7 SECS (0-40)
[2018-06-04 10:09] LABS: Bilirubin,Total 0.4 MG/DL (0.2-1.0); Calcium 9.2 MG/DL (8.5-10.1); Osmolality,Calculated 295.1 MOS/KG (273-304); Potassium 5.5 MMOL/L (3.5-5.1); Total Protein 6.4 G/DL (6.4-8.3)
[2018-06-04 10:10] LABS: Basophils % 0.3 % (0.0-0.8); Eosinophils % 0.5 % (0.00-10.9); Hematocrit 36.7 VOL% (42.0-52.0); Hemoglobin 10.3 GM/DL (14.0-18.0); Immature Granulocytes % 2.6 %; Immature Granulocytes Absolute 0.16 #; Lymphocytes # 0.6 10*3/uL (1.4-4.0); Lymphocytes % 9.5 % (21.2-54.2); Mean Corpuscular HGB Conc 28.1 GM/DL (32-36); Mean Corpuscular Hemoglobin 28 PG (27-34); Mean Corpuscular Volume 98.7 FL (87-102); Mean Platelet Volume 11.3 FL (9.6-12.0); Monocytes # 0.6 10*3/uL (0.11-0.8); Monocytes % 9.5 % (1.7-12.7); NRBC # 0.26 10*3/uL; Neutrophils # 4.8 10*3/uL (1.4-7.4); Neutrophils % 77.6 % (38.7-73.9); Platelet Count 262 T/CUMM (130-400); Red Blood Count 3.72 MC/CUMM (3.8-5.5); Red Cell Distribution Width 20.8 % (9.3-17.3); White Blood Count 6.2 T/CUMM (4-12)
[2018-06-04 10:12] LABS: Burr Cells Slight; Hypochromasia Slight; Macrocytosis Slight; Ovalocytes Slight; Platelet Estimate Adequate
[2018-06-04 10:14] LABS: ABG Base Excess -12.1 MMOL/L (-2.5-2.5); ABG HCO3 14.8 MMOL/L (20-26); ABG Oxygen Saturation 87.5 % (95-100); ABG PO2 64.1 MM HG (80-95)
[2018-06-04 10:16] LABS: ABG PH 7.109 (7.35-7.45)
[2018-06-04] MEDS ORDERED: ROCURONIUM 100 MG/10 ML VIAL IV STA (11:04)
[2018-06-04] MEDS ORDERED: ETOMIDATE 20 MG/10 ML VIAL IV STA (11:04)
[2018-06-04] MEDS ORDERED: SODIUM BICARBONATE 50 MEQ/50 ML VIAL IV STA (11:08)
[2018-06-04] MEDS ORDERED: methylPREDNISolone SOD SUC 125 MG/2 ML VIAL IV STA (11:14)
[2018-06-04] MEDS ORDERED: HYDROCORTISONE 100 MG VIAL IV STA (11:15)
[2018-06-04] MEDS ORDERED: ROCURONIUM 100 MG/10 ML VIAL IV ONE (11:17)
[2018-06-04] MEDS ORDERED: ETOMIDATE 20 MG/10 ML VIAL IV ONE (11:17)
[2018-06-04] MEDS ORDERED: SODIUM BICARBONATE 50 MEQ/50 ML SYRINGE IV ONE ×2 (11:21→16:31)
[2018-06-04] MEDS ORDERED: SODIUM CHLORIDE 0.9% 500 ML IV STA (11:25)
[2018-06-04] MEDS ORDERED: MIDAZOLAM 2 MG/2 ML VIAL ONE (13:26)
[2018-06-04] MEDS ORDERED: MIDAZOLAM 2 MG/2 ML VIAL IV STA (13:28)
[2018-06-04] MEDS ORDERED: NOREPINEPHRINE 4 MG/4 ML VIAL IV ONE (13:51)
[2018-06-04] MEDS: NOREPINEPHRINE 8 MG in SODIUM CHLORIDE 0.9% 242 ML IV PRN (13:59)
[2018-06-04 15:42] LABS: Allen Test Positive; Pt O2 Delivery Device Ventilator
[2018-06-04 15:46] LABS: ABG Base Excess -10.6 MMOL/L (-2.5-2.5); ABG HCO3 16.1 MMOL/L (20-26); ABG Oxygen Saturation 99.7 % (95-100); ABG PCO2 31.2 MM HG (35-48); ABG PH 7.291 (7.35-7.45); ABG TCO2 13.7 MMOL/L (23-27)
[2018-06-04] MEDS: PROPOFOL 1,000 MG/100 ML BOTTLE IV SCH (15:46)
[2018-06-04] MEDS: PANTOPRAZOLE 40 MG VIAL IV SCH (17:24)
[2018-06-04] MEDS ORDERED: VANCOMYCIN INJ 1,000 MG in SODIUM CHLORIDE 0.9% 250 ML IV ONE (17:47)
[2018-06-04 18:05] LABS: Amorphous Crystals,Urine Occasional /HPF (Few); Apearance,Urine CLOUDY (Clear); Bilirubin,Urine Negative (Negative); Blood, Urine Moderate mg/dL (Negative); Glucose,Urine (UA) 50 mg/dL (Negative); Ketones,Urine 5 mg/dL (Negative); Mucus,Urine Occasional /LPF (Occasional); Nitrite,Urine Negative (Negative); Protein,Urine 100 MG/DL; RBC,Urine 232 /HPF (0-4); Squamous Epithelial Cell,Urine Occasional /HPF (0-10); Urine Color Amber (Yellow); Urine Specific Gravity 1.021 (1.001-1.035); Urine Urobilinogen < 2.0 EU/DL (0.2-1.0); WBC,Urine 30 /HPF (0-6)
[2018-06-04] MEDS: ASCORBIC ACID 500 MG TABLET PO SCH (21:19)
[2018-06-04] MEDS: MINERAL OIL/PETROLATUM OPH OINT 3.5 GM TUBE BOTH EYES SCH (21:23)
[2018-06-04] MEDS: INSULIN LISPRO 100 UNIT/ML SUBCUT SCH (21:26)
[2018-06-04] MEDS: CARBOXYMETHYLCELLULOSE 1% OPH SOLN LEFT EYE SCH (21:26)
[2018-06-05] MEDS: NOREPINEPHRINE 8 MG in SODIUM CHLORIDE 0.9% 242 ML IV PRN ×2 (00:33→12:19)
[2018-06-05 05:21] LABS: ABG Base Excess -14.6 MMOL/L (-2.5-2.5); ABG HCO3 13.2 MMOL/L (20-26); ABG Oxygen Saturation 98.9 % (95-100); ABG PCO2 28.6 MM HG (35-48); ABG PH 7.227 (7.35-7.45); ABG TCO2 11.1 MMOL/L (23-27); Allen Test Positive; Pt O2 Delivery Device Ventilator
[2018-06-05] MEDS: LEVOTHYROXINE 100 MCG TABLET PO SCH (06:18)
[2018-06-05] MEDS: PROPOFOL 1,000 MG/100 ML BOTTLE IV SCH ×3 (06:21→18:09)
[2018-06-05 06:33] LABS: Albumin 2.4 G/DL (3.4-5.0); Bilirubin,Total 0.4 MG/DL (0.2-1.0); Calcium 8.7 MG/DL (8.5-10.1); Osmolality,Calculated 297.3 MOS/KG (273-304); Total Protein 5.7 G/DL (6.4-8.3)
[2018-06-05 06:46] LABS: Potassium 6.2 MMOL/L (3.5-5.1)
[2018-06-05] MEDS ORDERED: SODIUM BICARBONATE 50 MEQ/50 ML SYRINGE IV ONE (07:13)
[2018-06-05] MEDS ORDERED: DEXTROSE 50% 25 GM/50 ML SYRINGE IV ONE (07:14)
[2018-06-05] MEDS ORDERED: INSULIN REGULAR 100 UNIT/ML IV ONE (07:15)
[2018-06-05] MEDS ORDERED: HYDROCORTISONE 100 MG VIAL IV SCH (08:00)
[2018-06-05] MEDS: PANTOPRAZOLE 40 MG VIAL IV SCH (08:22)
[2018-06-05] MEDS: MINERAL OIL/PETROLATUM OPH OINT 3.5 GM TUBE BOTH EYES SCH ×2 (08:26→21:30)
[2018-06-05] MEDS: CARBOXYMETHYLCELLULOSE 1% OPH SOLN LEFT EYE SCH ×2 (08:28→21:30)
[2018-06-05] MEDS: SODIUM BICARB INJ 100 MEQ in SODIUM CHLORIDE 0.45% 1,000 ML IV SCH (08:30)
[2018-06-05] MEDS: methylPREDNISolone SOD SUC 40 MG/1 ML VIAL IV SCH ×2 (08:39→17:23)
[2018-06-05] MEDS: INSULIN LISPRO 100 UNIT/ML SUBCUT SCH ×3 (08:42→18:09)
[2018-06-05 08:48] LABS: Basophils % 0.2 % (0.0-0.8); Hemoglobin 9.9 GM/DL (14.0-18.0); Immature Granulocytes % 2.4 %; Immature Granulocytes Absolute 0.23 #; Lymphocytes # 0.3 10*3/uL (1.4-4.0); Lymphocytes % 2.9 % (21.2-54.2); Mean Corpuscular HGB Conc 27.5 GM/DL (32-36); Mean Corpuscular Hemoglobin 28 PG (27-34); Mean Corpuscular Volume 102.6 FL (87-102); Mean Platelet Volume 11.1 FL (9.6-12.0); Monocytes # 0.4 10*3/uL (0.11-0.8); Monocytes % 4.3 % (1.7-12.7); NRBC # 0.93 10*3/uL; Neutrophils # 8.6 10*3/uL (1.4-7.4); Neutrophils % 90.2 % (38.7-73.9); Platelet Count 273 T/CUMM (130-400); Red Blood Count 3.51 MC/CUMM (3.8-5.5); Red Cell Distribution Width 21.2 % (9.3-17.3); White Blood Count 9.5 T/CUMM (4-12)
[2018-06-05] MEDS ORDERED: THEOPHYLLINE ER (24 HR) 400 MG CAPSULE PO SCH (09:00)
[2018-06-05] MEDS ORDERED: APIXABAN 2.5 MG TABLET PO SCH (09:00)
[2018-06-05 09:06] LABS: Hypochromasia 1+; Lymphocytes 5 % (20-55); Nucleated Red Blood Cells 8 (0-5); Ovalocytes Slight; Platelet Estimate Adequate; Segmented Neutrophils 94 % (50-85); Total Cells Counted 100
[2018-06-05 09:07] LABS: Macrocytosis Slight
[2018-06-05] MEDS: CEFTAROLINE 300 MG in SODIUM CHLORIDE 0.9% 100 ML IV SCH ×2 (10:50→21:30)
[2018-06-05] MEDS: METOPROLOL TARTRATE 25 MG TABLET PO SCH ×2 (13:59→21:29)
[2018-06-05] MEDS ORDERED: DEXTROSE 50% 25 GM/50 ML SYRINGE IV PRN (14:17)
[2018-06-05] MEDS ORDERED: GLUCAGON 1 MG VIAL IM PRN (14:17)
[2018-06-05] MEDS ORDERED: SODIUM POLYSTYRENE SULFATE 15 GM/60 ML BOTTLE PO ONE (15:12)
[2018-06-05] MEDS: APIXABAN 2.5 MG TABLET PO SCH (21:29)
[2018-06-05] MEDS: ASCORBIC ACID 500 MG TABLET PO SCH (21:30)
[2018-06-06] MEDS: INSULIN LISPRO 100 UNIT/ML SUBCUT SCH ×4 (00:08→18:00)
[2018-06-06] MEDS: SODIUM BICARB INJ 100 MEQ in SODIUM CHLORIDE 0.45% 1,000 ML IV SCH (00:20)
[2018-06-06] MEDS: PROPOFOL 1,000 MG/100 ML BOTTLE IV SCH ×4 (00:21→17:15)
[2018-06-06] MEDS: methylPREDNISolone SOD SUC 40 MG/1 ML VIAL IV SCH (00:22)
[2018-06-06] MEDS: NOREPINEPHRINE 8 MG in SODIUM CHLORIDE 0.9% 242 ML IV PRN (01:59)
[2018-06-06 04:08] LABS: ABG HCO3 20.5 MMOL/L (20-26); ABG Oxygen Saturation 97.4 % (95-100); ABG PCO2 34.9 MM HG (35-48); ABG PH 7.386 (7.35-7.45); ABG PO2 106.3 MM HG (80-95); ABG TCO2 21.5 MMOL/L (23-27); Allen Test Positive; Pt O2 Delivery Device Ventilator
[2018-06-06 04:09] LABS: Basophils % 0.1 % (0.0-0.8); Hematocrit 29.6 VOL% (42.0-52.0); Hemoglobin 8.9 GM/DL (14.0-18.0); Immature Granulocytes Absolute 0.09 #; Lymphocytes # 0.2 10*3/uL (1.4-4.0); Lymphocytes % 2.1 % (21.2-54.2); Mean Corpuscular HGB Conc 30.1 GM/DL (32-36); Mean Corpuscular Hemoglobin 28 PG (27-34); Mean Corpuscular Volume 93.1 FL (87-102); Mean Platelet Volume 10.4 FL (9.6-12.0); Monocytes # 0.5 10*3/uL (0.11-0.8); Monocytes % 5.5 % (1.7-12.7); NRBC # 0.33 10*3/uL; Neutrophils # 8.5 10*3/uL (1.4-7.4); Neutrophils % 91.3 % (38.7-73.9); Platelet Count 248 T/CUMM (130-400); Red Blood Count 3.18 MC/CUMM (3.8-5.5); Red Cell Distribution Width 20.9 % (9.3-17.3); White Blood Count 9.3 T/CUMM (4-12)
[2018-06-06 04:30] LABS: Potassium 4.7 MMOL/L (3.5-5.1)
[2018-06-06 04:34] LABS: Risk Ratio 2.49; VLDL CHOLESTEROL 15.2 MG/DL
[2018-06-06 04:53] LABS: Band Neutrophils 1 % (0-10); Lymphocytes 1 % (20-55); Nucleated Red Blood Cells 4 (0-5); Platelet Estimate Adequate; Segmented Neutrophils 96 % (50-85); Total Cells Counted 100
[2018-06-06 04:54] LABS: Hypochromasia 1+; Macrocytosis Slight; Ovalocytes Slight
[2018-06-06 05:57] LABS: Prealbumin 16.5 MG/DL (20-40)
[2018-06-06] MEDS: LEVOTHYROXINE 100 MCG TABLET PO SCH (06:08)
[2018-06-06] MEDS: MINERAL OIL/PETROLATUM OPH OINT 3.5 GM TUBE BOTH EYES SCH ×2 (08:30→21:04)
[2018-06-06] MEDS: APIXABAN 2.5 MG TABLET PO SCH ×2 (08:30→21:03)
[2018-06-06] MEDS: CEFTAROLINE 300 MG in SODIUM CHLORIDE 0.9% 100 ML IV SCH ×2 (08:30→21:04)
[2018-06-06] MEDS: PANTOPRAZOLE 40 MG VIAL IV SCH (08:30)
[2018-06-06] MEDS: THEOPHYLLINE 5.33 MG/ML 30 ML/BOTTLE PER TUBE SCH ×3 (08:30→19:57)
[2018-06-06] MEDS: METOPROLOL TARTRATE 25 MG TABLET PO SCH (08:30)
[2018-06-06] MEDS: CARBOXYMETHYLCELLULOSE 1% OPH SOLN LEFT EYE SCH ×2 (08:35→21:04)
[2018-06-06] MEDS ORDERED: ALBUMIN 25% 25 GM in PREMIX 1 EACH IV ONE (12:53)
[2018-06-06] MEDS: SODIUM BICARB INJ 150 MEQ in STERILE WATER INJ 850 ML IV SCH (14:00)
[2018-06-06] MEDS: ASCORBIC ACID 500 MG TABLET PO SCH (21:03)
[2018-06-07] MEDS: INSULIN LISPRO 100 UNIT/ML SUBCUT SCH ×4 (00:07→18:17)
[2018-06-07] MEDS: PROPOFOL 1,000 MG/100 ML BOTTLE IV SCH ×4 (00:09→18:15)
[2018-06-07] MEDS: THEOPHYLLINE 5.33 MG/ML 30 ML/BOTTLE PER TUBE SCH ×4 (02:10→21:27)
[2018-06-07 03:42] LABS: Hematocrit 24.7 VOL% (42.0-52.0); Hemoglobin 7.6 GM/DL (14.0-18.0); Immature Granulocytes % 1.7 %; Immature Granulocytes Absolute 0.11 #; Lymphocytes # 0.2 10*3/uL (1.4-4.0); Lymphocytes % 2.8 % (21.2-54.2); Mean Corpuscular HGB Conc 30.8 GM/DL (32-36); Mean Corpuscular Hemoglobin 28 PG (27-34); Mean Corpuscular Volume 91.8 FL (87-102); Mean Platelet Volume 10.8 FL (9.6-12.0); Monocytes # 0.5 10*3/uL (0.11-0.8); Monocytes % 7.3 % (1.7-12.7); NRBC # 0.09 10*3/uL; Neutrophils # 5.6 10*3/uL (1.4-7.4); Neutrophils % 88.2 % (38.7-73.9); Platelet Count 174 T/CUMM (130-400); Red Blood Count 2.69 MC/CUMM (3.8-5.5); Red Cell Distribution Width 20.9 % (9.3-17.3); White Blood Count 6.3 T/CUMM (4-12)
[2018-06-07 03:53] LABS: Calcium 7.6 MG/DL (8.5-10.1); Osmolality,Calculated 314.7 MOS/KG (273-304); Potassium 3.7 MMOL/L (3.5-5.1)
[2018-06-07 05:02] LABS: Band Neutrophils 1 % (0-10); Hypochromasia 2+; Lymphocytes 5 % (20-55); Nucleated Red Blood Cells 2 (0-5); Platelet Estimate Normal; Segmented Neutrophils 90 % (50-85); Total Cells Counted 100
[2018-06-07] MEDS: LEVOTHYROXINE 100 MCG TABLET PO SCH (06:20)
[2018-06-07 08:24] LABS: ABG Base Excess -2.8 MMOL/L (-2.5-2.5); ABG HCO3 22.1 MMOL/L (20-26); ABG Oxygen Saturation 98.1 % (95-100); ABG PCO2 35.9 MM HG (35-48); ABG TCO2 20.1 MMOL/L (23-27); Allen Test Positive; Pt O2 Delivery Device Ventilator
[2018-06-07] MEDS: PANTOPRAZOLE 40 MG VIAL IV SCH (08:30)
[2018-06-07] MEDS: APIXABAN 2.5 MG TABLET PO SCH ×2 (08:30→21:26)
[2018-06-07] MEDS: CARBOXYMETHYLCELLULOSE 1% OPH SOLN LEFT EYE SCH ×2 (08:30→21:27)
[2018-06-07] MEDS: MINERAL OIL/PETROLATUM OPH OINT 3.5 GM TUBE BOTH EYES SCH ×2 (08:35→21:27)
[2018-06-07] MEDS: CEFTAROLINE 300 MG in SODIUM CHLORIDE 0.9% 100 ML IV SCH ×2 (08:35→21:27)
[2018-06-07] MEDS: SODIUM BICARB INJ 150 MEQ in STERILE WATER INJ 850 ML IV SCH (11:00)
[2018-06-07] MEDS: ASCORBIC ACID 500 MG TABLET PO SCH (21:26)
[2018-06-08] MEDS: INSULIN LISPRO 100 UNIT/ML SUBCUT SCH ×4 (00:14→18:52)
[2018-06-08] MEDS: PROPOFOL 1,000 MG/100 ML BOTTLE IV SCH ×4 (02:06→22:20)
[2018-06-08] MEDS: THEOPHYLLINE 5.33 MG/ML 30 ML/BOTTLE PER TUBE SCH ×4 (03:02→21:51)
[2018-06-08 03:58] LABS: Allen Test Negative; Pt O2 Delivery Device Ventilator
[2018-06-08 03:59] LABS: ABG Base Excess -2.1 MMOL/L (-2.5-2.5); ABG HCO3 22.7 MMOL/L (20-26); ABG PCO2 33.6 MM HG (35-48); ABG PH 7.421 (7.35-7.45); ABG TCO2 20.3 MMOL/L (23-27)
[2018-06-08 04:20] LABS: Basophils % 0.2 % (0.0-0.8); Hemoglobin 8.2 GM/DL (14.0-18.0); Immature Granulocytes % 1.5 %; Immature Granulocytes Absolute 0.09 #; Lymphocytes # 0.4 10*3/uL (1.4-4.0); Lymphocytes % 7.3 % (21.2-54.2); Mean Corpuscular HGB Conc 30.4 GM/DL (32-36); Mean Corpuscular Hemoglobin 28 PG (27-34); Mean Corpuscular Volume 90.9 FL (87-102); Mean Platelet Volume 10.5 FL (9.6-12.0); Monocytes # 0.5 10*3/uL (0.11-0.8); Monocytes % 8.5 % (1.7-12.7); Neutrophils # 4.9 10*3/uL (1.4-7.4); Neutrophils % 82.5 % (38.7-73.9); Platelet Count 179 T/CUMM (130-400); Red Blood Count 2.97 MC/CUMM (3.8-5.5); Red Cell Distribution Width 20.8 % (9.3-17.3); White Blood Count 5.9 T/CUMM (4-12)
[2018-06-08 04:45] LABS: Calcium 7.6 MG/DL (8.5-10.1); Osmolality,Calculated 315.6 MOS/KG (273-304); Potassium 3.7 MMOL/L (3.5-5.1)
[2018-06-08] MEDS ORDERED: NOREPINEPHRINE 4 MG/4 ML VIAL IV ONE (06:36)
[2018-06-08] MEDS: NOREPINEPHRINE 8 MG in SODIUM CHLORIDE 0.9% 242 ML IV PRN (06:52)
[2018-06-08] MEDS: LEVOTHYROXINE 100 MCG TABLET PO SCH (07:01)
[2018-06-08] MEDS: CARBOXYMETHYLCELLULOSE 1% OPH SOLN LEFT EYE SCH ×2 (08:14→21:52)
[2018-06-08] MEDS: APIXABAN 2.5 MG TABLET PO SCH ×2 (08:14→21:51)
[2018-06-08] MEDS: MINERAL OIL/PETROLATUM OPH OINT 3.5 GM TUBE BOTH EYES SCH ×2 (08:14→21:52)
[2018-06-08] MEDS: PANTOPRAZOLE 40 MG VIAL IV SCH (08:14)
[2018-06-08] MEDS: CEFTAROLINE 300 MG in SODIUM CHLORIDE 0.9% 100 ML IV SCH ×2 (08:42→21:53)
[2018-06-08] MEDS: ASCORBIC ACID 500 MG TABLET PO SCH (21:51)
[2018-06-08] MEDS: METOPROLOL TARTRATE 25 MG TABLET PO SCH (21:51)
[2018-06-08] MEDS: INSULIN GLARGINE 100 UNIT/ML SUBCUT SCH (21:52)
[2018-06-09] MEDS: INSULIN LISPRO 100 UNIT/ML SUBCUT SCH ×5 (00:13→23:28)
[2018-06-09] MEDS: THEOPHYLLINE 5.33 MG/ML 30 ML/BOTTLE PER TUBE SCH ×4 (03:32→21:29)
[2018-06-09 03:41] LABS: ABG HCO3 23.6 MMOL/L (20-26); ABG Oxygen Saturation 98.7 % (95-100); ABG PCO2 36.5 MM HG (35-48); ABG PH 7.411 (7.35-7.45); ABG TCO2 21.3 MMOL/L (23-27); Allen Test Positive; Pt O2 Delivery Device Ventilator
[2018-06-09] MEDS: PROPOFOL 1,000 MG/100 ML BOTTLE IV SCH ×4 (04:28→18:14)
[2018-06-09 05:22] LABS: Basophils % 0.2 % (0.0-0.8); Eosinophils # 0.1 10*3/uL (0.0-0.87); Eosinophils % 0.8 % (0.00-10.9); Hematocrit 29.5 VOL% (42.0-52.0); Immature Granulocytes % 4.1 %; Immature Granulocytes Absolute 0.24 #; Lymphocytes # 0.7 10*3/uL (1.4-4.0); Lymphocytes % 12.5 % (21.2-54.2); Mean Corpuscular HGB Conc 30.5 GM/DL (32-36); Mean Corpuscular Hemoglobin 28 PG (27-34); Mean Corpuscular Volume 91.6 FL (87-102); Mean Platelet Volume 10.5 FL (9.6-12.0); Monocytes # 0.7 10*3/uL (0.11-0.8); Monocytes % 11.5 % (1.7-12.7); NRBC # 0.21 10*3/uL; Neutrophils # 4.2 10*3/uL (1.4-7.4); Neutrophils % 70.9 % (38.7-73.9); Platelet Count 186 T/CUMM (130-400); Red Blood Count 3.22 MC/CUMM (3.8-5.5); Red Cell Distribution Width 20.8 % (9.3-17.3); White Blood Count 5.9 T/CUMM (4-12)
[2018-06-09 05:43] LABS: Calcium 7.8 MG/DL (8.5-10.1); Osmolality,Calculated 313.7 MOS/KG (273-304); Potassium 3.7 MMOL/L (3.5-5.1)
[2018-06-09 05:47] LABS: Prealbumin 27.7 MG/DL (20-40)
[2018-06-09] MEDS: LEVOTHYROXINE 100 MCG TABLET PO SCH (06:08)
[2018-06-09] MEDS: CEFTAROLINE 300 MG in SODIUM CHLORIDE 0.9% 100 ML IV SCH ×2 (08:50→21:35)
[2018-06-09] MEDS: CARBOXYMETHYLCELLULOSE 1% OPH SOLN LEFT EYE SCH ×2 (08:51→21:29)
[2018-06-09] MEDS: MINERAL OIL/PETROLATUM OPH OINT 3.5 GM TUBE BOTH EYES SCH ×2 (08:51→21:29)
[2018-06-09] MEDS: PANTOPRAZOLE 40 MG VIAL IV SCH (08:52)
[2018-06-09] MEDS: APIXABAN 2.5 MG TABLET PO SCH ×2 (08:52→21:29)
[2018-06-09] MEDS: METOPROLOL TARTRATE 25 MG TABLET PO SCH (08:52)
[2018-06-09] MEDS ORDERED: DIGOXIN 0.5 MG/2 ML AMP IV ONE (16:53)
[2018-06-09] MEDS: NOREPINEPHRINE 8 MG in SODIUM CHLORIDE 0.9% 242 ML IV PRN (17:28)
[2018-06-09] MEDS: INSULIN GLARGINE 100 UNIT/ML SUBCUT SCH (21:29)
[2018-06-09] MEDS: ASCORBIC ACID 500 MG TABLET PO SCH (21:29)
[2018-06-10] MEDS: PROPOFOL 1,000 MG/100 ML BOTTLE IV SCH ×2 (02:28→15:49)
[2018-06-10] MEDS: THEOPHYLLINE 5.33 MG/ML 30 ML/BOTTLE PER TUBE SCH ×4 (02:32→21:21)
[2018-06-10 04:11] LABS: ABG Base Excess -0.1 MMOL/L (-2.5-2.5); ABG HCO3 24.3 MMOL/L (20-26); ABG Oxygen Saturation 97.8 % (95-100); ABG PCO2 36.2 MM HG (35-48); ABG PH 7.428 (7.35-7.45); ABG TCO2 21.6 MMOL/L (23-27); Allen Test Positive; Pt O2 Delivery Device Ventilator
[2018-06-10] MEDS: LEVOTHYROXINE 100 MCG TABLET PO SCH (05:35)
[2018-06-10 05:37] LABS: Basophils % 0.2 % (0.0-0.8); Eosinophils # 0.1 10*3/uL (0.0-0.87); Hematocrit 27.5 VOL% (42.0-52.0); Hemoglobin 8.3 GM/DL (14.0-18.0); Immature Granulocytes % 7.2 %; Immature Granulocytes Absolute 0.33 #; Lymphocytes # 0.6 10*3/uL (1.4-4.0); Lymphocytes % 12.8 % (21.2-54.2); Mean Corpuscular HGB Conc 30.2 GM/DL (32-36); Mean Corpuscular Hemoglobin 28 PG (27-34); Mean Corpuscular Volume 92.6 FL (87-102); Mean Platelet Volume 11.7 FL (9.6-12.0); Monocytes # 0.5 10*3/uL (0.11-0.8); Monocytes % 11.3 % (1.7-12.7); Neutrophils # 3.1 10*3/uL (1.4-7.4); Neutrophils % 66.5 % (38.7-73.9); Platelet Count 147 T/CUMM (130-400); Red Blood Count 2.97 MC/CUMM (3.8-5.5); Red Cell Distribution Width 20.6 % (9.3-17.3); White Blood Count 4.6 T/CUMM (4-12)
[2018-06-10 06:03] LABS: Calcium 7.8 MG/DL (8.5-10.1); Osmolality,Calculated 313.7 MOS/KG (273-304); Potassium 3.5 MMOL/L (3.5-5.1)
[2018-06-10 06:04] LABS: Band Neutrophils 1 % (0-10); Eosinophils 2 % (0-10); Hypochromasia 1+; Lymphocytes 14 % (20-55); Nucleated Red Blood Cells 3 (0-5); Platelet Estimate Adequate; Segmented Neutrophils 72 % (50-85); Total Cells Counted 100
[2018-06-10] MEDS: INSULIN LISPRO 100 UNIT/ML SUBCUT SCH ×3 (06:14→18:04)
[2018-06-10] MEDS: MINERAL OIL/PETROLATUM OPH OINT 3.5 GM TUBE BOTH EYES SCH ×2 (09:06→21:20)
[2018-06-10] MEDS: APIXABAN 2.5 MG TABLET PO SCH ×2 (09:06→21:21)
[2018-06-10] MEDS: PANTOPRAZOLE 40 MG VIAL IV SCH (09:07)
[2018-06-10] MEDS: CARBOXYMETHYLCELLULOSE 1% OPH SOLN LEFT EYE SCH ×2 (09:07→21:20)
[2018-06-10] MEDS: CEFTAROLINE 300 MG in SODIUM CHLORIDE 0.9% 100 ML IV SCH ×2 (09:10→21:24)
[2018-06-10] MEDS ORDERED: DIGOXIN 0.5 MG/2 ML AMP IV ONE (21:08)
[2018-06-10] MEDS: ASCORBIC ACID 500 MG TABLET PO SCH (21:21)
[2018-06-10] MEDS: INSULIN GLARGINE 100 UNIT/ML SUBCUT SCH (21:21)
[2018-06-11] MEDS: INSULIN LISPRO 100 UNIT/ML SUBCUT SCH ×4 (00:04→18:20)
[2018-06-11] MEDS: THEOPHYLLINE 5.33 MG/ML 30 ML/BOTTLE PER TUBE SCH ×4 (02:08→21:37)
[2018-06-11 04:38] LABS: ABG Base Excess -0.4 MMOL/L (-2.5-2.5); ABG Oxygen Saturation 97.3 % (95-100); ABG PCO2 35.5 MM HG (35-48); ABG PO2 91.7 MM HG (80-95); ABG TCO2 21.7 MMOL/L (23-27); Allen Test Positive; Pt O2 Delivery Device Ventilator
[2018-06-11 05:49] LABS: Eosinophils # 0.1 10*3/uL (0.0-0.87); Eosinophils % 1.1 % (0.00-10.9); Hemoglobin 8.3 GM/DL (14.0-18.0); Immature Granulocytes % 5.3 %; Immature Granulocytes Absolute 0.33 #; Lymphocytes # 0.8 10*3/uL (1.4-4.0); Lymphocytes % 12.2 % (21.2-54.2); Mean Corpuscular HGB Conc 29.6 GM/DL (32-36); Mean Corpuscular Hemoglobin 28 PG (27-34); Mean Corpuscular Volume 92.7 FL (87-102); Mean Platelet Volume 10.4 FL (9.6-12.0); Monocytes # 0.6 10*3/uL (0.11-0.8); NRBC # 0.04 10*3/uL; Neutrophils # 4.5 10*3/uL (1.4-7.4); Neutrophils % 72.4 % (38.7-73.9); Platelet Count 129 T/CUMM (130-400); Red Blood Count 3.02 MC/CUMM (3.8-5.5); Red Cell Distribution Width 20.5 % (9.3-17.3); White Blood Count 6.2 T/CUMM (4-12)
[2018-06-11 06:03] LABS: Calcium 8.5 MG/DL (8.5-10.1); Osmolality,Calculated 314.8 MOS/KG (273-304); Potassium 3.8 MMOL/L (3.5-5.1)
[2018-06-11] MEDS: LEVOTHYROXINE 100 MCG TABLET PO SCH (06:15)
[2018-06-11 06:27] LABS: Hypochromasia 1+; Lymphocytes 18 % (20-55); Microcytosis 1+; Platelet Estimate Adequate; Polychromasia Few; Segmented Neutrophils 78 % (50-85); Total Cells Counted 100
[2018-06-11] MEDS: APIXABAN 2.5 MG TABLET PO SCH ×2 (09:05→21:37)
[2018-06-11] MEDS: PANTOPRAZOLE 40 MG VIAL IV SCH (09:05)
[2018-06-11] MEDS: CEFTAROLINE 300 MG in SODIUM CHLORIDE 0.9% 100 ML IV SCH ×2 (09:10→21:38)
[2018-06-11] MEDS: MINERAL OIL/PETROLATUM OPH OINT 3.5 GM TUBE BOTH EYES SCH ×2 (09:10→21:38)
[2018-06-11] MEDS: CARBOXYMETHYLCELLULOSE 1% OPH SOLN LEFT EYE SCH ×2 (09:10→21:38)
[2018-06-11] MEDS ORDERED: DIGOXIN 0.5 MG/2 ML AMP IV ONE (10:23)
[2018-06-11] MEDS: ALBUMIN 25% 25 GM in PREMIX 1 EACH IV SCH ×2 (12:15→21:36)
[2018-06-11] MEDS: PROPOFOL 1,000 MG/100 ML BOTTLE IV SCH (15:30)
[2018-06-11] MEDS: NOREPINEPHRINE 8 MG in SODIUM CHLORIDE 0.9% 242 ML IV PRN (15:35)
[2018-06-11] MEDS: INSULIN GLARGINE 100 UNIT/ML SUBCUT SCH (21:37)
[2018-06-11] MEDS: ASCORBIC ACID 500 MG TABLET PO SCH (21:38)
[2018-06-12] MEDS: INSULIN LISPRO 100 UNIT/ML SUBCUT SCH ×4 (00:49→17:26)
[2018-06-12 03:23] LABS: ABG Base Excess -1.9 MMOL/L (-2.5-2.5); ABG HCO3 22.8 MMOL/L (20-26); ABG Oxygen Saturation 96.6 % (95-100); ABG PCO2 39.4 MM HG (35-48); ABG PH 7.375 (7.35-7.45); ABG PO2 88.2 MM HG (80-95); ABG TCO2 21.6 MMOL/L (23-27); Allen Test Positive; Pt O2 Delivery Device Ventilator
[2018-06-12] MEDS: THEOPHYLLINE 5.33 MG/ML 30 ML/BOTTLE PER TUBE SCH ×4 (03:30→20:55)
[2018-06-12 05:33] LABS: Eosinophils # 0.1 10*3/uL (0.0-0.87); Eosinophils % 1.2 % (0.00-10.9); Hematocrit 25.1 VOL% (42.0-52.0); Hemoglobin 7.3 GM/DL (14.0-18.0); Immature Granulocytes % 3.6 %; Immature Granulocytes Absolute 0.18 #; Lymphocytes # 0.4 10*3/uL (1.4-4.0); Mean Corpuscular HGB Conc 29.1 GM/DL (32-36); Mean Corpuscular Hemoglobin 27 PG (27-34); Mean Corpuscular Volume 92.6 FL (87-102); Mean Platelet Volume 11.8 FL (9.6-12.0); Monocytes # 0.5 10*3/uL (0.11-0.8); Monocytes % 9.9 % (1.7-12.7); NRBC # 0.04 10*3/uL; Neutrophils # 3.9 10*3/uL (1.4-7.4); Neutrophils % 78.3 % (38.7-73.9); Platelet Count 114 T/CUMM (130-400); Red Blood Count 2.71 MC/CUMM (3.8-5.5); Red Cell Distribution Width 20.5 % (9.3-17.3)
[2018-06-12 05:49] LABS: Calcium 8.6 MG/DL (8.5-10.1); Osmolality,Calculated 311.7 MOS/KG (273-304); Potassium 3.6 MMOL/L (3.5-5.1)
[2018-06-12 05:57] LABS: Band Neutrophils 1 % (0-10); Eosinophils 2 % (0-10); Hypochromasia 1+; Lymphocytes 9 % (20-55); Ovalocytes Slight; Platelet Estimate Decreased; Segmented Neutrophils 77 % (50-85); Total Cells Counted 100
[2018-06-12 05:58] LABS: Microcytosis Slight
[2018-06-12] MEDS: LEVOTHYROXINE 100 MCG TABLET PO SCH (06:34)
[2018-06-12] MEDS ORDERED: SODIUM CHLORIDE 0.9% 1,000 ML IV PRN (08:34)
[2018-06-12] MEDS ORDERED: FUROSEMIDE 40 MG/4 ML VIAL IV ONE ×2 (08:36→16:30)
[2018-06-12] MEDS: PANTOPRAZOLE 40 MG VIAL IV SCH (08:50)
[2018-06-12] MEDS: CARBOXYMETHYLCELLULOSE 1% OPH SOLN LEFT EYE SCH ×2 (08:50→20:50)
[2018-06-12] MEDS: APIXABAN 2.5 MG TABLET PO SCH ×2 (08:50→20:55)
[2018-06-12] MEDS: CEFTAROLINE 300 MG in SODIUM CHLORIDE 0.9% 100 ML IV SCH ×2 (08:50→20:50)
[2018-06-12] MEDS: ALBUMIN 25% 25 GM in PREMIX 1 EACH IV SCH ×2 (08:55→20:50)
[2018-06-12] MEDS: MINERAL OIL/PETROLATUM OPH OINT 3.5 GM TUBE BOTH EYES SCH ×2 (09:00→21:05)
[2018-06-12] MEDS: PROPOFOL 1,000 MG/100 ML BOTTLE IV SCH ×2 (11:30→23:49)
[2018-06-12] MEDS ORDERED: SUCCINYLCHOLINE 200 MG/10 ML VIAL ONE (11:35)
[2018-06-12] MEDS ORDERED: ETOMIDATE 40 MG/20 ML VIAL IV ONE (11:35)
[2018-06-12] MEDS ORDERED: PROPOFOL 200 MG/20 ML VIAL IV ONE (11:35)
[2018-06-12 11:50] LABS: Basophils % 0.2 % (0.0-0.8); Eosinophils # 0.1 10*3/uL (0.0-0.87); Eosinophils % 1.4 % (0.00-10.9); Hematocrit 27.9 VOL% (42.0-52.0); Hemoglobin 8.2 GM/DL (14.0-18.0); Immature Granulocytes % 3.5 %; Immature Granulocytes Absolute 0.23 #; Lymphocytes # 0.6 10*3/uL (1.4-4.0); Lymphocytes % 9.4 % (21.2-54.2); Mean Corpuscular HGB Conc 29.4 GM/DL (32-36); Mean Corpuscular Hemoglobin 28 PG (27-34); Mean Corpuscular Volume 94.9 FL (87-102); Mean Platelet Volume 11.5 FL (9.6-12.0); Monocytes # 0.6 10*3/uL (0.11-0.8); Monocytes % 8.5 % (1.7-12.7); NRBC # 0.04 10*3/uL; Neutrophils # 5.1 10*3/uL (1.4-7.4); Platelet Count 124 T/CUMM (130-400); Red Blood Count 2.94 MC/CUMM (3.8-5.5); Red Cell Distribution Width 20.2 % (9.3-17.3); White Blood Count 6.6 T/CUMM (4-12)
[2018-06-12 12:14] LABS: ABG Base Excess -3.3 MMOL/L (-2.5-2.5); ABG HCO3 21.7 MMOL/L (20-26); ABG Oxygen Saturation 99.7 % (95-100); ABG PCO2 41.4 MM HG (35-48); ABG PH 7.339 (7.35-7.45); ABG TCO2 20.7 MMOL/L (23-27); Allen Test Positive; Pt O2 Delivery Device Ventilator
[2018-06-12 12:19] LABS: % Iron Saturation 15.3 % (18-50); Ferritin 105.6 ng/ml (26-388)
[2018-06-12 12:23] LABS: Band Neutrophils 2 % (0-10); Elliptocytes Few; Eosinophils 1 % (0-10); Lymphocytes 12 % (20-55); Ovalocytes Few; Platelet Estimate Adequate; Polychromasia Slight; Segmented Neutrophils 76 % (50-85); Total Cells Counted 100
[2018-06-12 13:05] LABS: Folate > 24.0 NG/ML (5.4-24.0); Sedimentation Rate-Westergren 112 MM/HR (0-20); Vitamin B12 894 PG/ML (211-911)
[2018-06-12] MEDS: ASCORBIC ACID 500 MG TABLET PO SCH (20:55)
[2018-06-12] MEDS: INSULIN GLARGINE 100 UNIT/ML SUBCUT SCH (21:00)
[2018-06-13] MEDS: INSULIN LISPRO 100 UNIT/ML SUBCUT SCH ×5 (00:18→23:36)
[2018-06-13 03:42] LABS: ABG Base Excess -1.6 MMOL/L (-2.5-2.5); ABG HCO3 21.5 MMOL/L (20-26); ABG Oxygen Saturation 98.6 % (95-100); ABG PCO2 30.4 MM HG (35-48); ABG PH 7.467 (7.35-7.45); ABG PO2 162.2 MM HG (80-95); ABG TCO2 22.4 MMOL/L (23-27); Allen Test Positive; Pt O2 Delivery Device Ventilator
[2018-06-13] MEDS: THEOPHYLLINE 5.33 MG/ML 30 ML/BOTTLE PER TUBE SCH ×4 (04:17→20:11)
[2018-06-13 04:28] LABS: Basophils % 0.3 % (0.0-0.8); Eosinophils # 0.1 10*3/uL (0.0-0.87); Eosinophils % 2.1 % (0.00-10.9); Hematocrit 28.7 VOL% (42.0-52.0); Hemoglobin 8.6 GM/DL (14.0-18.0); Immature Granulocytes % 3.6 %; Immature Granulocytes Absolute 0.14 #; Lymphocytes # 0.6 10*3/uL (1.4-4.0); Lymphocytes % 15.8 % (21.2-54.2); Mean Corpuscular Hemoglobin 28 PG (27-34); Mean Platelet Volume 12.2 FL (9.6-12.0); Monocytes # 0.5 10*3/uL (0.11-0.8); Monocytes % 12.2 % (1.7-12.7); NRBC # 0.02 10*3/uL; Neutrophils # 2.6 10*3/uL (1.4-7.4); Platelet Count 106 T/CUMM (130-400); Red Blood Count 3.12 MC/CUMM (3.8-5.5); Red Cell Distribution Width 18.7 % (9.3-17.3); White Blood Count 3.9 T/CUMM (4-12)
[2018-06-13 04:56] LABS: Calcium 8.9 MG/DL (8.5-10.1); Osmolality,Calculated 311.7 MOS/KG (273-304); Potassium 3.5 MMOL/L (3.5-5.1)
[2018-06-13] MEDS: LEVOTHYROXINE 100 MCG TABLET PO SCH (05:30)
[2018-06-13] MEDS: PROPOFOL 1,000 MG/100 ML BOTTLE IV SCH ×2 (06:48→17:45)
[2018-06-13] MEDS: methylPREDNISolone SOD SUC 40 MG/1 ML VIAL IV SCH ×2 (09:13→20:13)
[2018-06-13] MEDS: ALBUMIN 25% 25 GM in PREMIX 1 EACH IV SCH ×2 (09:14→20:11)
[2018-06-13] MEDS: APIXABAN 2.5 MG TABLET PO SCH ×2 (09:14→20:13)
[2018-06-13] MEDS: PANTOPRAZOLE 40 MG VIAL IV SCH (09:14)
[2018-06-13] MEDS: CEFTAROLINE 300 MG in SODIUM CHLORIDE 0.9% 100 ML IV SCH ×2 (09:15→21:32)
[2018-06-13] MEDS: CARBOXYMETHYLCELLULOSE 1% OPH SOLN LEFT EYE SCH ×2 (09:15→20:12)
[2018-06-13] MEDS: MINERAL OIL/PETROLATUM OPH OINT 3.5 GM TUBE BOTH EYES SCH ×2 (09:15→20:12)
[2018-06-13 10:58] LABS: Hemoglobin A1 (Alkaline) 98.3 % (96.5-98.5); Hemoglobin A2 (Alkaline) 1.7 % (1.5-3.5)
[2018-06-13] MEDS ORDERED: DIGOXIN 0.5 MG/2 ML AMP IV ONE (13:00)
[2018-06-13] MEDS: ALBUTEROL/IPRATROPIUM 3 ML NEB RESP TX SCH ×2 (13:10→18:59)
[2018-06-13] MEDS ORDERED: FUROSEMIDE 40 MG/4 ML VIAL IV ONE (15:09)
[2018-06-13] MEDS: INSULIN GLARGINE 100 UNIT/ML SUBCUT SCH (20:13)
[2018-06-13] MEDS: ASCORBIC ACID 500 MG TABLET PO SCH (20:13)
[2018-06-14] MEDS: ALBUTEROL/IPRATROPIUM 3 ML NEB RESP TX SCH ×4 (01:26→20:25)
[2018-06-14] MEDS: THEOPHYLLINE 5.33 MG/ML 30 ML/BOTTLE PER TUBE SCH ×4 (03:49→20:15)
[2018-06-14 03:50] LABS: ABG Base Excess -4.6 MMOL/L (-2.5-2.5); ABG HCO3 20.5 MMOL/L (20-26); ABG Oxygen Saturation 92.2 % (95-100); ABG PH 7.295 (7.35-7.45); ABG PO2 72.6 MM HG (80-95); ABG TCO2 20.3 MMOL/L (23-27); Allen Test Positive; Pt O2 Delivery Device Ventilator
[2018-06-14 04:09] LABS: Hematocrit 28.8 VOL% (42.0-52.0); Hemoglobin 8.6 GM/DL (14.0-18.0); Immature Granulocytes % 2.4 %; Immature Granulocytes Absolute 0.09 #; Lymphocytes # 0.2 10*3/uL (1.4-4.0); Lymphocytes % 4.1 % (21.2-54.2); Mean Corpuscular HGB Conc 29.9 GM/DL (32-36); Mean Corpuscular Hemoglobin 28 PG (27-34); Mean Corpuscular Volume 93.2 FL (87-102); Mean Platelet Volume 11.4 FL (9.6-12.0); Monocytes # 0.1 10*3/uL (0.11-0.8); NRBC # 0.02 10*3/uL; Neutrophils # 3.3 10*3/uL (1.4-7.4); Neutrophils % 90.5 % (38.7-73.9); Platelet Count 129 T/CUMM (130-400); Red Blood Count 3.09 MC/CUMM (3.8-5.5); Red Cell Distribution Width 18.6 % (9.3-17.3); White Blood Count 3.7 T/CUMM (4-12)
[2018-06-14 04:27] LABS: Calcium 9.1 MG/DL (8.5-10.1); Osmolality,Calculated 321.7 MOS/KG (273-304); Potassium 4.1 MMOL/L (3.5-5.1)
[2018-06-14 04:45] LABS: Band Neutrophils 1 % (0-10); Lymphocytes 4 % (20-55); Myelocytes 1 %; Segmented Neutrophils 93 % (50-85); Total Cells Counted 100
[2018-06-14 04:46] LABS: Anisocytosis 1+; Hypochromasia 1+; Ovalocytes Few; Platelet Estimate Adequate
[2018-06-14] MEDS: LEVOTHYROXINE 100 MCG TABLET PO SCH (05:54)
[2018-06-14] MEDS: INSULIN LISPRO 100 UNIT/ML SUBCUT SCH ×4 (05:55→23:19)
[2018-06-14] MEDS ORDERED: DIGOXIN 0.5 MG/2 ML AMP IV SCH (08:30)
[2018-06-14] MEDS: methylPREDNISolone SOD SUC 40 MG/1 ML VIAL IV SCH ×2 (08:53→20:16)
[2018-06-14] MEDS: PANTOPRAZOLE 40 MG VIAL IV SCH (08:53)
[2018-06-14] MEDS: APIXABAN 2.5 MG TABLET PO SCH ×2 (08:54→20:16)
[2018-06-14] MEDS: MINERAL OIL/PETROLATUM OPH OINT 3.5 GM TUBE BOTH EYES SCH ×2 (08:56→20:16)
[2018-06-14] MEDS: CARBOXYMETHYLCELLULOSE 1% OPH SOLN LEFT EYE SCH ×2 (09:12→20:16)
[2018-06-14] MEDS: CEFTAROLINE 300 MG in SODIUM CHLORIDE 0.9% 100 ML IV SCH ×2 (09:51→20:31)
[2018-06-14] MEDS: ALBUMIN 25% 25 GM in PREMIX 1 EACH IV SCH ×2 (11:14→17:05)
[2018-06-14] MEDS: PROPOFOL 1,000 MG/100 ML BOTTLE IV SCH (17:44)
[2018-06-14] MEDS: ASCORBIC ACID 500 MG TABLET PO SCH (20:16)
[2018-06-14] MEDS: INSULIN GLARGINE 100 UNIT/ML SUBCUT SCH ×2 (20:16→22:30)
[2018-06-15] MEDS: ALBUTEROL/IPRATROPIUM 3 ML NEB RESP TX SCH ×4 (01:02→19:09)
[2018-06-15] MEDS: ALBUMIN 25% 25 GM in PREMIX 1 EACH IV SCH ×3 (03:40→17:09)
[2018-06-15] MEDS: THEOPHYLLINE 5.33 MG/ML 30 ML/BOTTLE PER TUBE SCH ×4 (03:40→21:01)
[2018-06-15 03:47] LABS: Basophils % 0.2 % (0.0-0.8); Hematocrit 28.1 VOL% (42.0-52.0); Hemoglobin 8.5 GM/DL (14.0-18.0); Immature Granulocytes % 3.3 %; Lymphocytes # 0.2 10*3/uL (1.4-4.0); Lymphocytes % 3.3 % (21.2-54.2); Mean Corpuscular HGB Conc 30.2 GM/DL (32-36); Mean Corpuscular Hemoglobin 28 PG (27-34); Mean Platelet Volume 11.4 FL (9.6-12.0); Monocytes # 0.3 10*3/uL (0.11-0.8); Monocytes % 4.8 % (1.7-12.7); Neutrophils # 5.4 10*3/uL (1.4-7.4); Neutrophils % 88.4 % (38.7-73.9); Platelet Count 173 T/CUMM (130-400); Red Blood Count 3.02 MC/CUMM (3.8-5.5); Red Cell Distribution Width 18.5 % (9.3-17.3); White Blood Count 6.1 T/CUMM (4-12)
[2018-06-15 04:12] LABS: Calcium 9.4 MG/DL (8.5-10.1); Osmolality,Calculated 320.1 MOS/KG (273-304); Potassium 4.2 MMOL/L (3.5-5.1)
[2018-06-15 05:15] LABS: Lymphocytes 4 % (20-55); Segmented Neutrophils 94 % (50-85); Total Cells Counted 100
[2018-06-15 05:16] LABS: Hypochromasia 1+; Ovalocytes 1+; Platelet Estimate Normal
[2018-06-15 05:29] LABS: ABG Base Excess -4.6 MMOL/L (-2.5-2.5); ABG HCO3 20.6 MMOL/L (20-26); ABG Oxygen Saturation 95.9 % (95-100); ABG PCO2 39.5 MM HG (35-48); ABG PH 7.333 (7.35-7.45); ABG PO2 86.1 MM HG (80-95); ABG TCO2 19.4 MMOL/L (23-27); Allen Test Positive; Pt O2 Delivery Device Ventilator
[2018-06-15] MEDS: LEVOTHYROXINE 100 MCG TABLET PO SCH (05:52)
[2018-06-15] MEDS: INSULIN LISPRO 100 UNIT/ML SUBCUT SCH ×4 (05:52→23:59)
[2018-06-15] MEDS: PANTOPRAZOLE 40 MG VIAL IV SCH (08:01)
[2018-06-15] MEDS: APIXABAN 2.5 MG TABLET PO SCH ×2 (08:01→21:04)
[2018-06-15] MEDS: methylPREDNISolone SOD SUC 40 MG/1 ML VIAL IV SCH ×2 (08:01→21:04)
[2018-06-15] MEDS: MINERAL OIL/PETROLATUM OPH OINT 3.5 GM TUBE BOTH EYES SCH ×2 (08:02→21:01)
[2018-06-15] MEDS: CARBOXYMETHYLCELLULOSE 1% OPH SOLN LEFT EYE SCH ×2 (08:03→21:03)
[2018-06-15] MEDS: CEFTAROLINE 300 MG in SODIUM CHLORIDE 0.9% 100 ML IV SCH ×2 (09:22→21:02)
[2018-06-15 12:33] LABS: Creatinine,Urine Random 37 MG/DL; Total Protein,Urine Random 90 MG/DL; Urea Nitrogen, Urine Random 613 MG/DL
[2018-06-15] MEDS: METOPROLOL TARTRATE 5 MG/5 ML VIAL IV SCH ×3 (13:57→21:21)
[2018-06-15] MEDS: PROPOFOL 1,000 MG/100 ML BOTTLE IV SCH (18:15)
[2018-06-15] MEDS: INSULIN GLARGINE 100 UNIT/ML SUBCUT SCH (21:03)
[2018-06-15] MEDS: ASCORBIC ACID 500 MG TABLET PO SCH (21:03)
[2018-06-16] MEDS: ALBUTEROL/IPRATROPIUM 3 ML NEB RESP TX SCH ×3 (00:08→13:10)
[2018-06-16] MEDS: THEOPHYLLINE 5.33 MG/ML 30 ML/BOTTLE PER TUBE SCH ×3 (03:10→14:22)
[2018-06-16] MEDS: ALBUMIN 25% 25 GM in PREMIX 1 EACH IV SCH ×2 (03:10→10:35)
[2018-06-16] MEDS: METOPROLOL TARTRATE 5 MG/5 ML VIAL IV SCH ×5 (03:10→14:29)
[2018-06-16 04:35] LABS: Allen Test Positive; Pt O2 Delivery Device Ventilator
[2018-06-16 04:36] LABS: ABG Base Excess -5.2 MMOL/L (-2.5-2.5); ABG HCO3 21.2 MMOL/L (20-26); ABG PCO2 45.3 MM HG (35-48); ABG PH 7.288 (7.35-7.45); ABG PO2 71.1 MM HG (80-95); ABG TCO2 22.6 MMOL/L (23-27)
[2018-06-16 05:22] LABS: Basophils % 0.1 % (0.0-0.8); Hematocrit 28.7 VOL% (42.0-52.0); Hemoglobin 8.4 GM/DL (14.0-18.0); Immature Granulocytes % 2.1 %; Immature Granulocytes Absolute 0.21 #; Lymphocytes # 0.2 10*3/uL (1.4-4.0); Lymphocytes % 1.9 % (21.2-54.2); Mean Corpuscular HGB Conc 29.3 GM/DL (32-36); Mean Corpuscular Hemoglobin 28 PG (27-34); Mean Corpuscular Volume 94.4 FL (87-102); Mean Platelet Volume 11.1 FL (9.6-12.0); Monocytes # 0.6 10*3/uL (0.11-0.8); Monocytes % 5.5 % (1.7-12.7); Neutrophils # 9.2 10*3/uL (1.4-7.4); Neutrophils % 90.4 % (38.7-73.9); Platelet Count 195 T/CUMM (130-400); Red Blood Count 3.04 MC/CUMM (3.8-5.5); Red Cell Distribution Width 18.6 % (9.3-17.3); White Blood Count 10.2 T/CUMM (4-12)
[2018-06-16 05:41] LABS: Calcium 9.2 MG/DL (8.5-10.1); Osmolality,Calculated 323.1 MOS/KG (273-304); Potassium 4.4 MMOL/L (3.5-5.1)
[2018-06-16 05:48] LABS: Hypochromasia 1+; Lymphocytes 3 % (20-55); Ovalocytes Slight; Platelet Estimate Adequate; Segmented Neutrophils 92 % (50-85); Total Cells Counted 100
[2018-06-16] MEDS: INSULIN LISPRO 100 UNIT/ML SUBCUT SCH ×2 (06:20→12:15)
[2018-06-16] MEDS: LEVOTHYROXINE 100 MCG TABLET PO SCH (06:21)
[2018-06-16] MEDS: methylPREDNISolone SOD SUC 40 MG/1 ML VIAL IV SCH (09:06)
[2018-06-16] MEDS: APIXABAN 2.5 MG TABLET PO SCH (09:08)
[2018-06-16] MEDS: PANTOPRAZOLE 40 MG VIAL IV SCH (09:09)
[2018-06-16] MEDS: MINERAL OIL/PETROLATUM OPH OINT 3.5 GM TUBE BOTH EYES SCH (09:11)
[2018-06-16] MEDS: CARBOXYMETHYLCELLULOSE 1% OPH SOLN LEFT EYE SCH (09:12)
[2018-06-16] MEDS: CEFTAROLINE 300 MG in SODIUM CHLORIDE 0.9% 100 ML IV SCH (09:12)
[2018-06-16] MEDS ORDERED: DIGOXIN 0.125 MG TABLET PO SCH (10:00)
[2018-06-16 14:39] VITALS: BP 107/73
== END 2018-06-16 15:07 | DRG 207 ==
LOC: EDBD → EDUNIT# → N.ED 09:09 → N.EDINP 11:15 → N.ICU 12:29 → N.EDINP 12:49 → N.ICU 14:14
PROVIDERS: ADMIT Internal Medicine; ATTEND Internal Medicine